=== PATIENT | female | born 1995 | race Two or more races ===

== ENCOUNTER → 2017-12-14 16:15 | Outpatient (CLI) | payer OTHER, SELFPAY ==
--- NOTE | 2017-12-14 | TONS_PTH ---
PATIENT: CLARISSE GONZALEZ LOC: [facility] U#:[id number] AGE/SX: 29/F ROOM: RE12/14/[address]: Dr. Zain Barbour MD : 1995 BED: DIS: SPEC #: [id number] RECD: 12/14/17 16:14 STATUS: DANIEL IRWIN #: [id number] IBAN: 12/14/17 00:[address]: Zain Barbour DEPT: SURGICAL PATHOLOGY RECD BY: Brian More ENTERED: 12/15/17 09:55 SP TYPE: TONSILS MELLO DR: LOUIE Tissues: Tonsil, NOS Procedures: Surgery Specimen Level III HEADER OPERATION: Tonsillectomy PRE-OP DIAGNOSIS: Chronic tonsillitis TISSUE SUBMITTED: Tonsil, right pinned MICROSCOPIC DIAGNOSIS Right and left tonsils, bilateral tonsillectomies: Benign lymphoid follicular hyperplasia, consistent with chronic tonsillitis. Organisms consistent with actinomyces. AM:petey 12/16/17 MICROSCOPIC DESCRIPTION Slides are reviewed. GROSS DESCRIPTION Received is one container labeled with the patient's name and designated tonsils - pin on right are two tonsils that in aggregate weigh 13.7 gm. The right tonsil has a pin on it and measures 4.5 x 2 x 2 cm. The left tonsil measures 3.5 x 2.5 x 2 cm. Both tonsils are similar in appearance. The external surfaces are pink-coates, smooth, glistening and somewhat lobulated. Focally they are hemorrhagic, granular and bear cautery artifact. Serial cross sections through the tonsils reveal normal tonsillar architecture. Sections are submitted in two cassettes as follows: 1 - right tonsil, 2 - left tonsil. / SJ:petey 12/15/17 TC:Nelsy [facility]: [id number] [phone]
== END ==
PROVIDERS: Visit Provider Otolaryngology
DX: J35.01 Chronic tonsillitis (principal)
CPT/HCPCS: 88304

== ENCOUNTER → 2018-01-05 16:40 | Outpatient (CLI) | payer OTHER, SELFPAY | PROVIDERS: Visit Provider Otolaryngology Otolaryngology/Facial Plastic Surgery | DX: J02.9 Acute pharyngitis, unspecified (principal) | CPT/HCPCS: 87070 ==

== ENCOUNTER → 2019-10-31 14:19 | Outpatient (CLI) | payer BC, SELFPAY | PROVIDERS: Visit Provider Family Medicine Hospice and Palliative Medicine | DX: Z11.59 Encounter for screening for other viral diseases (principal) | CPT/HCPCS: 87635; G2023; U0003 ==

== ENCOUNTER 2024-02-14 11:12 | Emergency (ER) | payer OTHER, SELFPAY ==
[2024-02-14 11:13] VITALS: BP 151/85; PULSE 91; RESP 18; TEMP 36.6; O2SAT 100; BMI 39.3
[2024-02-14 12:02] LABS: Bacteria 0 SEEN /hpf (None Seen); Mucous, Urine 0 SEEN /hpf (<or=2+)
[2024-02-14 12:09] LABS: Color, Urine Yellow (Yellow); Glucose, Dipstick Normal (Normal); Ketone-Dipstick Negative (Negative); Leukocyte Esterase-Dipstick 500 /ul (Negative); Nitrite-Dipstick Positive (Negative); Occult Blood-Urine 250 /ul (Negative); Protein-Dipstick 100 mg/dl (Negative); Urine Bilirubin Dipstick Negative (Negative); Urine Clarity Sl. Cloudy (Clear); Urine Urobilinogen Normal (Normal); Urine pH 6.5 (5.0 - 8.0)
[2024-02-14 12:15] LABS: Red Blood Cells-Urine > 100 SEEN /hpf (0-5); Squamous Epithelial Cells - UA 0-5 SEEN /hpf (5-10); White Blood Cells 50-100 SEEN /hpf (0-5)
--- NOTE | 2024-02-14 12:33 | EX.ED.DYSGE1 ---
HPI History of Present Illness Chief Complaint: Flank Pain Informant: patient Narrative Narrative: 28-year-old female presenting to the emergency room with a chief complaint of left flank pain. Patient states that on Wednesday she began to wonder if she was getting a urinary tract infection and she noticed an odor and color change of the urine. This morning around 0 500 she developed waxing and waning sharp stabbing pain in the left flank. There is no abdominal component to it. No fever. She has had prior kidney stone before does not required surgery. She denies any prior abdominal surgeries. [facility] Medical History (Updated 02/14/24 @ 14:[address] Pablo Wayen, ) Kidney stone Home Medications ?Medication ?Instructions ?Recorded ?Last Taken ?Type ondansetron 4 mg disintegrating 4 mg PO Q6H PRN PRN Nausea #15 tabs 02/14/24 Unknown Rx tablet oxycodone-acetaminophen 5 mg-325 1 tab PO Q6H PRN PRN Pain 3 days 02/14/24 Unknown Rx mg tablet #12 TABLETS sulfamethoxazole 800 1 tab PO BID #20 TABLETS 02/14/24 Unknown Rx mg-trimethoprim 160 mg tablet Allergy/AdvReac Type Severity Reaction Status Date / Time Penicillins (PCN) Allergy Intermediate Hives Verified 02/14/24 11:13 Social History Smoking Status: Never smoker ROS ROS ED Constitutional Constitutional ED: Reports chills; Denies fever(s) or weight loss Eyes Eyes: Denies change in vision or diplopia ENT ENT ED: Denies ear pain, rhinorrhea or sore throat Cardiovascular Cardiovascular: Denies chest pain, orthopnea, palpitations or racing heartbeat Respiratory/Chest Respiratory/Chest: Denies cough, dyspnea or orthopnea Gastrointestinal Gastrointestinal: Reports nausea; Denies abdominal pain, diarrhea or vomiting Genitourinary Genitourinary ED: Denies dysuria, hematuria or urinary frequency Musculoskeletal Musculoskeletal: Reports back pain; Denies arthralgias or myalgias Integumentary Denies abscess or rash Neurologic Neurologic: Denies headache(s) or weakness Psychiatric Psychiatric: Denies anxiety, depression, suicidal ideation or suicidal thoughts Endocrine Endocrinology: Denies polydipsia, polyphagia or polyuria Allergic/Immunologic Allergic/Immunologic ED: Denies mouth swelling, tongue swelling or urticaria EXAM Physical Exam Const Vital Signs: 02/14/24 11:13 Temperature 97.9 F Temperature Source Oral Pulse Rate 91 Respiratory Rate 18 Blood Pressure 151/85 H Blood Pressure Mean 107 Pulse Ox 100 Oxygen Delivery Method Room Air Positive well nourished, well developed and obese General Appearance ED: well developed Nutritional Appearance: obese HEENT Reports normocephalic, head/scalp atraumatic and moist mucous membranes Eyes PERRL and EOMs intact bilaterally Neck no lymphadenopathy, supple and no JVD Resp normal respiratory effort and clear to auscultation bilaterally Cardio regular rate, regular rhythm and no murmurs GI normal to inspection, nondistended, normoactive bowel sounds and non-tender Palpation: soft Back/Spine normal ROM General Back: CVA tenderness left Extremity normal to inspection General Extremety ED: Negative for edema General Extremity: Negative for edema Neuro oriented x3 and CN's II-XII intact bilaterally Sensorium / Orientation: alert Motor Exam: strength 5/5 throughout Psych mental status grossly normal Mood & Affect: Negative for depressed or tearful Skin no rashes or lesions noted and no wounds MDM MDM MDM Narrative Medical decision making narrative: Differential diagnosis includes but not limited to kidney stone with colic pyelonephritis dehydration renal abscess White count 8.1 hemoglobin 12.2 platelet count of 200 urinalysis 50-100 white cells 0 bacteria greater than 100 red cells positive nitrates. This will be sent for culture. Hospital was out of urine and serum test other than a quantitative hCG so this was required to be performed which [place] fortunately delayed the patient's ED course. This turned out to be less than 1 and the patient was taken for CT. No obvious ureterolithiasis was noted however there is a right renal stone at 2.4 mm. There is some mild left periureteral edema which could be related to a passed stone but could also be related to infection. Given her pain is continued the white cells the positive nitrates and going to treat her with antibiotic Bactrim. I will also be writing for pain and nausea medication. The above findings were discussed including the differential with the patient who notes understanding. Follow-up with primary care return if worsening History & Record Review Discussion w/independent historian: Patient Lab Data Attestation: I reviewed the patient's lab results. Labs: Laboratory Results - last 24 hr 02/14/24 11:58 WBC 8.1 RBC 4.10 L Hgb 12.2 Hct 36.5 L MCV 89.0 MCH 29.8 MCHC 33.4 RDW Std Deviation 40.4 RDW Coeff of Harinder 12.4 Plt Count 200 MPV 10.5 Immature Gran % (Auto) 0.400 Neut % (Auto) 72.8 H Lymph % (Auto) 19.8 [place] % (Auto) 5.3 Eos % (Auto) 1.2 Baso % (Auto) 0.5 Absolute Neuts (auto) 5.9 Absolute Lymphs (auto) 1.61 Nucleated RBC % 0 Sodium 138 Potassium 4.2 Chloride 107 Carbon Dioxide 27.0 Anion Gap 4 L BUN 8 Creatinine 0.74 Estim Creat Clear Calc 135.25 Est GFR (MDRD) Af Amer 122 Est GFR (MDRD) Non-Af 101 BUN/Creatinine Ratio 10.8 Glucose 107 H Calcium 9.1 HCG, Quant < 1 Serum , Qual Cancelled Urine Color Yellow Urine Clarity Sl. Cloudy Urine pH 6.5 Ur Specific [place] 1.010 Urine Protein 100 H Urine Glucose (UA) Normal Urine Ketones Negative Urine Occult Blood 250 H Urine Nitrite Positive H Urine Bilirubin Negative Urine Urobilinogen Normal Ur Leukocyte Esterase 500 H Urine RBC > 100 SEEN Urine WBC 50-100 SEEN Ur Squamous Epith Cells 0-5 SEEN Urine Bacteria 0 SEEN Urine Mucus 0 SEEN Radiography Diagnostic Testing: Clinical Impression(s) from Imaging Studies Abdomen/Pelvis CT 02/14/24 13:13 IMPRESSION: 1. Mild left periureteral edema likely related to a recently passed stone. 2. 2.4 mm right renal stone. Electronically Signed: David Mendez MD at 14:10 EDT , Discharge Plan Triage Chief Complaint: Flank Pain ED Provider: Pablo Wayne Dx/Rx/DC Orders Clinical Impression: Pyelonephritis, Acute flank pain Instructions: ED Pyelonephritis, Female (Adult) Prescriptions: New oxycodone-acetaminophen 5-325 mg tablet 1 tab PO Q6H PRN PRN (Reason: Pain) 3 Days Qty: 12 0RF ondansetron 4 mg tablet,disintegrating 4 mg PO Q6H PRN PRN (Reason: Nausea) Qty: 15 0RF sulfamethoxazole-trimethoprim 800-160 mg tablet 1 tab PO BID Qty: 20 0RF Primary Care Provider: Pamela Hylton Referrals: [facility] Doctor,Out of [Non-Staff] - Print Language: Nam[place]ian Disposition Disposition: Home, Self Care Discharge Date/Time: 02/14/24 14:47
[2024-02-14] MEDS: Ketorolac 30 MG/ML Syringe IV (12:39)
[2024-02-14] MEDS: Ondansetron 4 MG/2 ML Vial IV (12:39)
[2024-02-14] MEDS: Morphine 4 MG/ML Syringe IV (12:40)
[2024-02-14 13:06] LABS: Absolute Lymphocyte Count 1.61 X10^3/uL (0.83-4.51); Absolute Neutrophil Count 5.9 X10^3/uL (2.0-7.7); Basophil# 0.04 X10^3/uL; Basophil% 0.5 % (0-1); Eosinophils% 1.2 % (0-5); Hematocrit 36.5 % (37-47); Hemoglobin 12.2 g/dL (12.0-15.0); Lymphocyte # 1.61 X10^3/ul (0.83-4.51); Lymphocyte % 19.8 % (19-41); Mean Corp Hgb Conc 33.4 g/dL (32-36); Mean Corpuscular Hgb 29.8 pg (27.0-32.0); Mean Platelet Vol. 10.5 fl (6.2-12.0); Monocyte# 0.43 X10^3/uL; Monocyte% 5.3 % (0-10); NRBC Flagged by Analyzer 0 % (0-5); Neutrophil # 5.92 X10^3/uL (2.7-7.7); Neutrophil % 72.8 % (47-70); Platelet Count 200 K/mm3 (150-450); RBC Distribution Width CV 12.4 % (11.6-14.6); RBC Distribution Width SD 40.4 fl (35.1-43.9); White Blood Count 8.1 K/mm3 (4.4-11.0); hCG Titer Quant., Serum < 1 mIU/mL (1-3)
--- NOTE | 2024-02-14 13:13 | CT_ITS ---
EXAM: CT ABDOMEN AND PELVIS WITHOUT INTRAVENOUS CONTRAST CLINICAL INDICATION: kidney stone left flank pain TECHNIQUE: Helically acquired images were obtained of the abdomen and pelvis without intravenous contrast. This CT exam was performed using one or more of the following dose reduction techniques: automated exposure control, adjustment of the mA and/or kV according to patient size, and/or use of iterative reconstruction technique. COMPARISON: No relevant prior studies available. FINDINGS: LOWER THORAX: Normal. Lung bases are clear. No cardiomegaly. No pericardial effusion. ABDOMEN: LIVER: Normal. Homogeneous. GALLBLADDER AND BILE DUCTS: Normal. No calcified gallstones. No gallbladder distention or wall edema. No intra- or extrahepatic biliary ductal dilation. PANCREAS: Normal. No focal cystic mass. SPLEEN: Normal. Normal size without focal cystic or solid mass. ADRENALS: Normal. No nodules. KIDNEYS AND URETERS: Nonobstructive 2.4 mm right renal stone. There is mild left periureteral fat stranding without meg hydronephrosis or hydroureter may represent changes of recently passed stone. STOMACH AND BOWEL: Normal. No bowel distention. No focal inflammatory change. PELVIS: APPENDIX: Appendix is visualized and normal in appearance. BLADDER: Normal. REPRODUCTIVE: Unremarkable as visualized. No mass. ABDOMEN and PELVIS: INTRAPERITONEAL SPACE: Physiological amount of free fluid noted within the pelvis. No free air. BONES/JOINTS: No suspicious lytic or blastic abnormality. SOFT TISSUES: Normal. No discrete abdominal or pelvic wall hernia. VASCULATURE: Normal. Abdominal aorta is non-dilated. LYMPH NODES: Normal. No enlarged lymph nodes. CT/Abdomen/Pelvis without Cont IMPRESSION: 1. Mild left periureteral edema likely related to a recently passed stone. 2. 2.4 mm right renal stone. Electronically Signed: David Mendez MD at 14:10 EDT ,
[2024-02-14 13:15] LABS: Anion Gap 4 (5-15); BUN 8 mg/dL (7-18); BUN/Creat Ratio 10.8 RATIO (10-20); Calcium,Total 9.1 mg/dL (8.5-10.1); Chloride 107 mmol/L (98-107); Creatinine, Serum 0.74 mg/dL (0.55-1.02); EST Glomerular Filtration Rate 101 mL/min (>60); Est Glom Filt Rate - Afr Amer 122 mL/min (>60); Estimated Creatinine Clearance 135.25 ml/min; Glucose 107 mg/dL (74-106); Potassium 4.2 mmol/L (3.5-5.1); Sodium Level 138 mmol/L (136-145)
== END 2024-02-14 14:47 | disposition home or self-care (01) ==
PROVIDERS: Emergency Provider Emergency Medicine; PCP Family Medicine; Visit Provider Emergency Medicine
DX: N12 Tubulo-interstitial nephritis, not specified as acute or chronic (principal); E66.9 Obesity, unspecified; Z88.0 Allergy status to penicillin; Z87.442 Personal history of urinary calculi
CPT/HCPCS: 74176; 80048; 81001; 84702; 84703; 85025; 87086; 87088; 87186; 96374; 96375; 99283; A4216; J2405

== ENCOUNTER 2024-11-12 12:05 | Emergency (ER) | payer OTHER, SELFPAY ==
[2024-11-12 12:06] VITALS: BP 136/100; PULSE 63; RESP 16; TEMP 36.8; O2SAT 100; BMI 39.2
[2024-11-12 12:25] VITALS: BP 136/100; PULSE 63; RESP 16; TEMP 36.8; O2SAT 100
--- OUTSIDE RECORDS SUMMARY | 2024-11-12 12:50 | XMS RPT_ITS | CCD ---
Author Organization [facility] Care Team Providers Care Compensator Name Role Phone Gibson Del Cid Unavailable Unavailable NORIS HYLTON DO Primary Care Physician Unavailable Primary Care Provider Unavailabl e Unavailable Primary Care Provider Unavailping e NORIS HYLTON DO Primary Care Physician [phone] Unavailable Primary Care Provider Unavailabl e FRANCE BERNAL Attending Unavailable GENA ODONNELL Attending Unavailable TIKI TOLEDO Attending Unavailable SELF Referring Unavailable SCOTTIE LANG Attending Unavailable JULIANO CEJA Attending Unavailable CONCETTA DOTIANORIS Attending Unavailable CONCETTA DO, NORIS Primary Care Unavailable TRINA INGRAM MD Attending Unavailable CONCETTA DO, NORIS Primary Care Unavailable BEITLER EXTRACTIONS TECHNICIAN-CNM, MARIAELENA Dominguez Attending Unav ailable CONCETTA DO, NORIS Primary Care Unavailable TRINA IGNRAM MD Attending Unavailable CONCETTA DO, NORIS Primary Care Unavailable BEITLER EXTRACTIONS TECHNICIAN-CNM, MARIAELENA Dominguez Attending Unav ailable CONCETTA DO, NORIS Primary Care Unavailable BEITLER EXTRACTIONS TECHNICIAN-CNM, MARIAELENA R Attending Unav ailable CONCETTA DO, NORIS Primary Care Unavailable CONCETTA DO, NORIS Attending Unavailable CONCETTA DO, NORIS Primary Care Unavailable Concetta DO, Noris M Primary Care Provider [phone] Concetta Noris Primary Care Unavailable Pablo Wayne Attending Unavailable MARIAELENA SAUL Referring Unavailable NORIS HYLTON Primary Care Unavailable NORIS HYLTON M Primary Care Unavailable NORIS HYLTON M Primary Care Unavailable RITCHIE HUGGINS Attending Unavailable FIONA PATINO Attending Unavailable NORIS HYLTON Primary Care Unavailable NORIS HYLTON M Primary Care Unavailable CONCETTA, NORIS M Primary Care Unavailable CONCETTA MAYNARD, NORIS Primary Care Unavailable MADINA NG, GERTRUDIS Attending Unavailable CONCETTA MAYNARD, NORIS Primary Care Unavailable RACH SCHAEFER Attending Unavail able CONCETTA MAYNARD, NORIS Primary Care Unavailable JOAO NG, NELSON Lewis Attending Unavail able CONCETTA MAYNARD, NORIS Primary Care Unavailable NORIS HYLTON DO Attending Unavailable Allergies Allergy Classification Reported Allergen(s) Allergy Type Date of Onset Reaction(s) Facility (14 sources) Penicillin; Translations: [penicillins] Drug Allergy [facility] (14 sources) Penicillins; Translations: [penicillins] Drug Intolerance 0 Hives, Urticaria (disorder) [facility] Work Phone: (17 sources) [facility] Work Phone: (1 source) Penicillins Drug allergy (disorder) 4 [facility] (2 sources) Penicillins Drug Intolerance 0 [facility] Medications Current Medications Medication Drug Class(es) Dates Sig (Normalized) Sig (Original) busPIRone hydrochloride 5 mg oral tablet (2 sources) Start: 01-05-2024 busPIRone 5 mg oral tablet Dose : 5 mg = 1 tab(s), Oral, TID, # 90 tab(s), 5 Refill(s), Pharmacy: [facility]/pharmacy #[id number], Anxiety, 165, cm, 01/05/24 11:32:00 EDT, Height, kg, 01/05/24 11:32:00 EDT, Dosing Weight Start Date: 01/05/24 Status: Ordered Start: 08-27-2021 busPIRone 5 mg oral tablet Dose : 5 mg = 1 tab(s), Oral, BID, new medication, # 60 tab(s), 5 Refill(s), Pharmacy: [facility]/pharmacy #[id number], Anxiety and depression, 165.5, cm, 08/27/21 8:01:00 EDT, Height Start Date: 08/27/21 Status: Ordered cetirizine hydrochloride 10 mg oral tablet (18 sources) Histamine-1 Receptor Antagonist Start: 06-23-2023 cetirizine 10 mg oral tablet Dose : 10 mg = 1 tab(s), Oral, qDay, # 30 tab(s), 2 Refill(s), [id number], Seasonal allergies, 166.5, cm, 06/23/23 13:38:00 EST, Height, kg, 06/23/23 13:38:00 EST, Dosing Weight Start Date: 06/23/23 Status: Ordered Start: 06-23-2023 take 1 tablet by mouth once ce tirizine (ZYRTEC) 10 mg tablet Take 1 tablet by mouth every afternoon. 06/23/2023 Active Start: 01-06-2021 End: 09-09-2021 cetirizine 10 mg oral tablet Dose : 10 mg = 1 tab(s), Oral, qDay, # 30 tab(s), 5 Refill(s), [id number], Seasonal allergies, 165.5, cm, 08/27/21 8:01:00 EDT, Height, kg, 08/27/21 8:01:00 EDT, Dosing Weight Start Date: 08/27/21 Status: Ordered Comment on above: Take 1 tablet by maranda th every afternoon. ciprofloxacin 250 mg oral tablet (1 source) Quinolone Antimicrobial Start: 08-28-19 End: 09-04-19 take 1 tablet by mouth twice daily ciprofloxacin HCl (CIPRO) 250 mg tablet Indications: Cystitis Take 1 tablet by mouth twice daily for 7 days. 14 tablet 0 08/27/2022 09/03/2022 Active Comment on above: Take 1 tablet by maranda th twice daily for 7 days. doxycycline hyclate 100 mg oral capsule (1 source) Tetracycline-class Drug Start: 03-26-20 End: 04-02-20 doxycycline hyclate 100 mg oral capsule Dose : 100 mg = 1 cap(s), Oral, BID, X 7 day(s), # 14 cap(s), 0 Refill(s), 04/02/21 15:04:00 EST, Pharmacy: [facility]/pharmacy #[id number], Fever Myalgia, 162.5, cm, 03/26/21 13:26:00 EST, Height, 104.5, kg, 03/26/21 13:26:00 EST, Dosing Weight Start Date: 03/26/21 Stop Date: 04/02/21 Status: Ordered escitalopram 20 mg oral tablet (20 sources) Serotonin Reuptake Inhibitor Start: 10-13-19 End: 04-10-20 escitalopram 20 mg oral tablet Dose : 20 mg = 1 tab(s), Oral, qDay, # 30 tab(s), 5 Refill(s), [id number], Recurrent major depression Anxiety, 164, cm, 10/12/24 10:36:00 EDT, Height, kg, 10/12/24 10:36:00 EDT, Dosing Weight Start Date: 10/12/24 Stop Date: 04/10/25 Status: Ordered Quantity: 30.0 Unit: tab(s) Repeat number: 6 Indications: Major depressive disorder, recurrent, unspecified; Anxiety disorder, unspecified; Start: 01-05-2024 take 1 tablet by mouth once es citalopram oxalate (LEXAPRO) 20 mg tablet Take 1 tablet by mouth every afternoon. 01/05/2024 Active Start: 01-05-2024 End: 07-03-2024 escitalopram 20 mg oral tabl et Dose : 20 mg = 1 tab(s), Oral, qDay, # 30 tab(s), 5 Refill(s), Pharmacy: [facility]/pharmacy #[id number], Recurrent major depression Anxiety, 165, cm, 01/05/24 11:32:00 EDT, Height, kg, 01/05/24 11:32:00 EDT, Dosing Weight Start Date: 01/05/24 Stop Date: 07/03/24 Status: Ordered Quantity: 30.0 Unit: tab(s) Repeat number: 6 Indications: Major depressive disorder, recurrent, unspecified; Anxiety disorder, unspecified; Start: 11-24-2023 take 1 tablet by maranda th once daily escitalopram oxalate (LEXAPRO) 10 mg tablet TAKE 1 TABLET BY MOUTH ONCE DAILY FOR 2 WEEKS THEN INCREASE TO 20MG TABLET 11/24/2023 Active Start: 08-27-2021 End: 06-28-2023 escitalopram oxalate (LEXAPR O) 20 mg tablet 20 mg. 0 08/27/2021 06/28/2023 Discontinued Start: 01-06-2021 End: 07-14-2022 escitalopram 10 mg oral tabl et Dose : 10 mg = 1 tab(s), Oral, qDay, # 30 tab(s), 0 Refill(s), Pharmacy: [facility]/pharmacy #[id number], 166, cm, 06/13/21 11:35:00 EST, Height, kg, 06/13/21 11:35:00 EST, Dosing Weight Start Date: 08/01/21 Status: Ordered Comment on above: Take 10 mg by mouth once daily. 20 mg. etonogestrel 68 mg drug implant (9 sources) Progestin Start: 11-12-19 21 inject 1 dose by subcutaneous injection once Nexplanon 68 mg subcutaneous implant Dose : 68 mg = 1 EA, Subcutaneous, Once, 0 Refill(s) Start Date: 11/11/20 Status: Ordered End: 07-14-2022 etonogestrel (NEXPLANON) 68 mg impl subdermal implant 68 mg by SUBDERMAL route. 0 07/14/2022 Discontinued Comment on above: 68 mg by SUBDERMAL r oute. fluconazole 100 mg oral tablet (5 sources) Azole Antifungal Start: 10-12-2024 End: 10-19-2024 Diflucan 100 mg oral tablet Dose : 100 mg = 1 tab(s), Oral, qDay, X 7 day(s), # 7 tab(s), 0 Refill(s), 10/19/24 11:22:00 AM EDT, Pharmacy: [facility]/pharmacy #[id number], Vulvovaginal discomfort, 164, cm, 10/12/24 10:36:00 EDT, Height, 103.9, kg, 10/12/24 10:36:00 EDT, Dosing Weight Start Date: 10/12/24 Stop Date: 10/19/24 Status: Ordered Quantity: 7.0 Unit: tab(s) Repeat number: 1 Indications: Pelvic and perineal pain; Start: 07-12-2024 End: 07-12-2024 fluconazole (DIFLUCAN) 150 m g tablet Indications: Vaginal yeast infection Take 1 tablet by mouth one time only for 1 dose. If symptoms have not improved in 72 hours may take second dose 2 tablet 07/12/2024 07/12/2024 Active Start: 04-06-2023 End: 04-06-2023 take 1 tablet by mouth once fluconazole (DIFLUCAN) 150 mg tablet Indications: Vaginal yeast infection Take 1 tablet by mouth one time only for 1 dose. 1 tablet 0 04/06/2023 04/06/2023 Start: 01-17-2023 End: 01-17-2023 take 1 tablet by mouth once fluconazole (DIFLUCAN) 150 mg tablet Indications: Vaginal candidiasis Take 1 tablet by mouth one time only for 1 dose. 1 tablet 0 01/17/2023 01/17/2023 Active Start: 11-03-2021 End: 11-03-2021 fluconazole (DIFLUCAN) 150 m g tablet Take 1 tablet by mouth one time only for 1 dose. Repeat in 3 days as needed. 2 tablet 0 11/03/2021 11/03/2021 Active Comment on above: Take 1 tablet by maranda th one time only for 1 dose. Repeat in 3 days as needed. Take 1 tablet by maranda th one time only for 1 dose. fluticasone propionate 0.05 mg/actuat metered dose nasal spray (8 sources) Corticosteroid Start: 06-23-2023 fluticasone proprionate NASAL 50 mcg/ spray 100 mcg Dose = 2 spray(s), Nostril, each, qDay, shake well before using, # 1 EA, 2 Refill(s), [facility]acy: [facility] #[id number], Seasonal allergies, 166.5, cm, 06/23/23 13:38:00 EST, Height, kg, 06/23/23 13:38:00 EST, Dosing Weight Start Date: 06/23/23 Status: Ordered Start: 07-14-2022 End: 06-28-2023 take 1 spray(s) nasal route twice daily fluticasone (FLONASE ALLERGY RELIEF) 50 mcg/actuation nasal spray Indications: Acute non-recurrent maxillary sinusitis Use 1 Buhler in each nostril twice daily. 9.9 mL 0 07/14/2022 06/28/2023 Discontinued Comment on above: Use 1 Buhler in each nostril twice daily. hydrOXYzine pamoate 25 mg oral capsule (6 sources) Antihistamine Start: 07-16-19 End: 07-15-19 take 1 capsule by mouth every eight hours as needed for anxiety and anxiety hydrOXYzine pamoate (VISTARIL) 25 mg capsule Indications: Anxiety Take 1 capsule by mouth three times daily as needed. 30 capsule 0 07/15/2020 07/14/2022 Discontinued Comment on above: Take 1 capsule by [facility] three times daily as needed. lactobacillus rhamnosus gg [id number] unt oral capsule (6 sources) Start: 09-10-19 End: 07-15-19 take 1 capsule by mouth once daily lactobacillus rhamnosus (CULTURELLE) 15 billion cell capsule Take 1 capsule by mouth once daily. 30 capsule 0 09/09/2020 07/14/2022 Discontinued Comment on above: Take 1 capsule by [facility] once daily. metroNIDAZOLE 500 mg oral tablet (6 sources) Nitroimidazole Antimicrobial Start: 02-10-20 End: 02-17-20 take 1 tablet by mouth twice daily metroNIDAZOLE (FLAGYL) 500 mg tablet Take 1 tablet by mouth two times a day for 7 days. 14 tablet 02/10/2024 02/17/2024 Active Start: 11-04-2023 End: 11-11-2023 take 1 tablet by mouth twice daily metroNIDAZOLE (FLAGYL) 500 mg tablet Take 1 tablet by mouth two times a day for 7 days. 14 tablet 0 11/04/2023 11/11/2023 Active Start: 11-03-2021 End: 11-10-2021 take 1 tablet by mouth twice daily metroNIDAZOLE (FLAGYL) 500 mg tablet Take 1 tablet by mouth twice daily for 7 days. 14 tablet 0 11/03/2021 11/10/2021 Active Start: 10-15-2021 End: 10-22-2021 take 1 tablet by mouth twice daily metroNIDAZOLE (FLAGYL) 500 mg tablet Take 1 tablet by mouth twice daily for 7 days. 14 tablet 0 10/15/2021 10/22/2021 Active Comment on above: Take 1 tablet by [facility] twice daily for 7 days. Multivitamin preparation (1 source) Start: 025 take 1 tablet by mouth once daily Multivitamin Dose = 1 tab(s), Oral, Daily, 0 Refill(s) Start Date: 10/12/24 Status: Ordered Repeat number: 1 Nexplanon 68 mg subcutaneous implant (2 sources) Start: 021 inject 1 dose by subcutaneous injection once Nexplanon 68 mg subcutaneous implant Dose : 68 mg = 1 EA, Subcutaneous, Once, 0 Refill(s) Start Date: 11/11/20 Status: Ordered nitrofurantoin, macrocrystals 100 mg oral capsule (1 source) Nitrofuran Antibacterial Start: End: nitrofurantoin macrocrystals 100 mg oral capsule Dose : 100 mg = 1 cap(s), Oral, QID, X 7 day(s), # 28 cap(s), 0 Refill(s), 08/19/21 16:16:00 EDT, Pharmacy: [facility]/pharmacy #[id number], 162.6, cm, 08/12/21 15:51:00 EDT, Height, 107.8 Start Date: 08/12/21 Stop Date: 08/19/21 Status: Ordered sertraline 25 mg oral tablet (13 sources) Serotonin Reuptake Inhibitor Start: sertraline 25 mg oral tablet Dose : 25 mg = 1 tab(s), Oral, qDay, # 30 tab(s), 2 Refill(s), [id number], Anxiety and depression, 166.5, cm, 06/23/23 13:38:00 EST, Height, kg, 06/23/23 13:38:00 EST, Dosing Weight Start Date: 06/23/23 Status: Ordered Start: 06-23-2023 take 1 tablet by mouth once se rtraline (ZOLOFT) 25 mg tablet Take 1 tablet by mouth every afternoon. 06/23/2023 Active Comment on above: Take 1 tablet by maranda th every afternoon. sulfamethoxazole 800 mg / trimethoprim 160 mg oral tablet (1 source) Dihydrofolate Reductase Inhibitor Antibacterial, Sulfonamide Antimicrobial Start: 06-28-19 End: 07-05-19 take 1 tablet by mouth twice daily sulfamethoxazole-t rimethoprim (BACTRIM DS) 800-160 mg per tablet Indications: Recurrent UTI (urinary tract infection) Take 1 tablet by mouth two times a day for 7 days. 14 tablet 0 06/28/2023 07/05/2023 Active Comment on above: Take 1 tablet by maranda th two times a day for 7 days. topiramate 100 mg oral tablet (6 sources) Start: 10-13-19 topiramate 100 mg oral tablet Dose : 100 mg = 1 tab(s), Oral, BID, # 60 tab(s), 0 Refill(s) Start Date: 10/12/24 Status: Ordered Quantity: 60.0 Unit: tab(s) Repeat number: 1 Start: 06-08-2024 take 1 tablet by maranda th twice daily topiramate 50 mg oral tablet TAKE 1 TABLET BY MOUTH TWICE A DAY Start Date: 06/08/24 Status: Ordered Repeat number: 1 Start: 05-10-2024 take 1 tablet by maranda th every twelve hours topiramate (TOPAMAX) 100 mg tablet Take 100 mg by mouth every 12 hours. Take one(1) tablet two(2) times daily. 05/10/2024 Active Start: 05-10-2024 take 2 tablets by [facility] every twelve hours topiramate (TOPAMAX) 50 mg tablet Take 100 mg by mouth every 12 hours. Take one(1) tablet two(2) times daily. 05/10/2024 Active Vitamin D3 1250 mcg (50,000 intl units) oral capsule (3 sources) Start: 10-12-2024 Vitamin D3 125 0 mcg (50,000 intl units) oral capsule Dose : 1,250 mcg = 1 cap(s), Oral, qWeek, # 12 cap(s), 0 Refill(s) Start Date: 10/12/24 Status: Ordered Quantity: 12.0 Unit: cap(s) Repeat number: 1 Start: 01-05-2024 Vitamin D3 125 0 mcg (50,000 intl units) oral capsule Dose : 1,250 mcg = 1 cap(s), Oral, qWeek, # 13 cap(s), 3 Refill(s), Pharmacy: [facility]/pharmacy #[id number], Vitamin D deficiency, 165, cm, 01/05/24 11:32:00 EDT, Height, kg, 01/05/24 11:32:00 EDT, Dosing Weight Start Date: 01/05/24 Status: Ordered Start: 06-24-2023 Vitamin D3 125 0 mcg (50,000 intl units) oral capsule Dose : 1,250 mcg = 1 cap(s), Oral, qWeek, # 13 cap(s), 4 Refill(s), Pharmacy: [facility] #[id number], Vitamin D deficiency, 166.5, cm, 06/23/23 13:38:00 EST, Height, kg, 06/23/23 13:38:00 EST, Dosing Weight Start Date: 06/24/23 Status: Ordered Completed/Discontinued Medications Medication Drug Class(es) Dates Sig (Normalized) Sig (Original) adapalene 1 mg/ml topical cream (6 sources) Retinoid Start: 01-10-20 End: 06-28-19 adapalene (DIFFERIN) 0.1 % cream Apply 1 maribel, Topical, qHS, apply a thin film to affected area after washing at bedtime. use with sunscreen and moisturizer., # 45 gram(s), 0 Refill(s), Pharmacy: [facility]/pharmacy #[id number], Cream, 162.6, cm, 01/10/20 16:23:00 EDT, Height, 97.7, kg, 01/10/20 1... 0 01/10/2020 06/28/2023 Discontinued Comment on above: Apply 1 maribel, Topical, qHS, apply a thin film to affected area after washing at bedtime. use with sunscreen and moisturizer., # 45 gram(s), 0 Refill(s), Pharmacy: [facility]/pharmacy #[id number], Cream, 162.6, cm, 01/10/20 16:23:00 EDT, Height, 97.7, kg, 01/10/20 1... albuterol MDI (90 mcg/inh) CFC free inhalation aerosol (5 sources) Start: 11-10-19 End: 12-10-19 take 2 puff(s) by inhalation every four hours albuterol MDI (90 mcg/inh) CFC free inhalation aerosol 2 puff(s), Inhalation, q4h, ok to fill generic equivalent rescue inhaler, # 1 EA, 0 Refill(s), Pharmacy: [facility]/pharmacy #[id number], 165, cm, 11/09/20 8:19:00 EDT, Height, kg, 11/09/20 8:19:00 EDT, Dosing Weight Start Date: 11/09/20 Stop Date: 12/09/20 Status: Ordered azithromycin 250 mg oral tablet (6 sources) Macrolide Antimicrobial Start: 07-07-19 End: 06-28-19 azithromycin (ZITHROMAX) 250 mg tablet take 2 tablets by mouth on day 1 IN ONE DOSE then 1 tablet on days 2 through 5 0 07/06/2022 06/28/2023 Discontinued Comment on above: take 2 tablets by mo okh on day 1 IN ONE DOSE then 1 tablet on days 2 through 5 loratadine 10 mg oral tablet (1 source) Start: 03-13-20 End: 03-23-20 loratadine 10 mg oral tablet Dose : 10 mg = 1 tab(s), Oral, qDay, # 10 tab(s), 0 Refill(s), Pharmacy: [facility]/pharmacy #[id number], Acute sinusitis, 162.6, cm, 03/13/21 11:07:00 EST, Height, kg, 03/13/21 11:07:00 EST, Dosing Weight Start Date: 03/13/21 Stop Date: 03/23/21 Status: Ordered 1 ml medroxyPROGESTERone acetate 150 mg/ml injection (7 sources) Progestin Start: 02-12-20 End: 07-15-19 inject 150 mg by intramuscular injection every three months medroxyPROGESTERone (DEPO-PROVERA) 150 mg/mL injection INJECT IM EVERY 3 MONTHS 02/12/2020 07/14/2022 Discontinued Comment on above: INJECT IM EVERY 3 MO NT methylPREDNISolone 4 mg oral tablet (6 sources) Corticosteroid Start: 07-15-19 End: 06-28-19 methylPREDNISolone (MEDROL, VIVIEN,) 4 mg Dose-Pack Indications: Acute non-recurrent maxillary sinusitis Take by mouth per package instructions 21 tablet 0 07/14/2022 06/28/2023 Discontinued Comment on above: Take by mouth per pa [facility] instructions miconazole nitrate 20 mg/ml vaginal cream (1 source) Azole Antifungal Start: 09-07-19 Monistat 7 vaginal cream with applicator Dose = 1 appl, Vaginal, qHS, # 45 gram(s), 0 Refill(s), Pharmacy: [facility]/pharmacy #[id number], 165, cm, 06/08/24 10:21:00 EST, Height, kg, 06/08/24 10:21:00 EST, Dosing Weight Start Date: 09/06/24 Status: Ordered Quantity: 45.0 Unit: g Repeat number: 1 mometasone furoate 0.05 mg/actuat metered dose nasal spray (1 source) Corticosteroid Start: 03-30-20 End: 09-10-19 take 2 spray(s) by mouth once daily mometasone (NASONEX) 50 mcg/actuation nasal spray Use 2 Sprays in the nose once daily. Rinse mouth after use. 1 Bottle 11 03/30/2020 09/09/2020 Discontinued Problems Active Problems Problem Classification Problem Date Documented Date Episodic/Chronic Abdominal pain (6 sources) Left sided abdominal pain; Translations: [Unspecified abdominal pain] Onset: 06-09-2024 02-14-2024 Episodic Anxiety disorders (16 sources) Mixed anxiety and depressive disorder; Translations: [Anxiety disorder] 11-25-2020 Chronic Genitourinary symptoms and ill-defined conditions (10 sources) Dysuria; Translations: [Dysuria] Onset: 04-06-2023 04-06-2023 Episodic Menstrual disorders (4 sources) Abnormal menstrual cycle; Translations: [Irregular menstruation, unspecified] Onset: 06-23-2023 Chronic Miscellaneous mental health disorders (4 sources) Confusional state 11-24-2023 Chronic Mood disorders (5 sources) Recurrent major depression 07-23-2023 Chronic Mycoses (3 sources) Candidiasis of vagina; Translations: [Vaginal candidiasis] 01-17-2023 Episodic Nutritional deficiencies (16 sources) Vitamin D deficiency; Translations: [Vitamin D deficiency, unspecified] 01-06-2021 Chronic Other diseases of bladder and urethra (1 source) Urethritis; Translations: [Other specified disorders of urethra] 09-21-2024 Episodic Other diseases of bladder and urethra (1 source) Other specified disorders of urethra; Translations: [Urethral irritation] Onset: 09-21-2024 Episodic Other female genital disorders (1 source) Vaginal bleeding; Translations: [Abnormal uterine and vaginal bleeding, unspecified] 02-09-2024 Chronic Other female genital disorders (4 sources) Vaginal discharge; Translations: [Other specified noninflammatory disorders of vagina] Episodic Other female genital disorders (2 sources) Other specified noninflammatory disorders of vagina; Translations: [Vaginal discharge] Onset: 04-06-2023 Episodic Other female genital disorders (3 sources) Pruritus of vagina; Translations: [Other specified noninflammatory disorders of vagina] 11-03-2023 Episodic Other female genital disorders (1 source) Vulvovaginal discomfort 10-12-2024 Episodic Other lower respiratory disease (15 sources) Hemoptysis 11-09-2020 Episodic Other non-traumatic joint disorders (1 source) Acute ankle pain; Translations: [Pain in right ankle and joints of right foot] 05-06-2020 Episodic Other nutritional; endocrine; and metabolic disorders (5 sources) Morbid obesity 07-23-2023 Chronic Other nutritional; endocrine; and metabolic disorders (1 source) Body mass index 30+ - obesity 10-12-2024 Chronic Other nutritional; endocrine; and metabolic disorders (5 sources) Weight gain 11-25-2020 Episodic Other screening for suspected conditions (not mental disorders or infectious disease) (5 sources) Viral screening status 07-23-2023 Episodic Other skin disorders (15 sources) Acne 01-10-2020 Episodic Other upper respiratory disease (15 sources) Seasonal allergy 01-06-2021 Chronic Other upper respiratory infections (11 sources) Acute sinusitis; Translations: [Acute upper respiratory infection] 11-09-2020 Episodic Residual codes; unclassified (3 sources) Requires diphtheria, tetanus and pertussis vaccination 06-13-2021 Episodic Residual codes; unclassified (4 sources) Nicotine-filled electronic cigarette user 01-05-2024 Episodic Screening and history of mental health and substance abuse codes (5 sources) Ex-smoker 04-12-2019 Episodic Spondylosis; intervertebral disc disorders; other back problems (1 source) Low back pain; Translations: [Low back pain, unspecified back pain laterality, unspecified chronicity, unspecified whether sciatica present] 09-21-2024 Episodic Unclassified (1 source) Unknown / UNK(Unknown) Onset: 01-20-2017 Unclassified (20 sources) Patient encounter status 10-17-2020 Unclassified (5 sources) Suspected disease caused by 2019-nCoV 12-11-2020 Unclassified (8 sources) Cancer cervix screening status 06-13-2021 Unclassified (1 source) Vaginal yeast infection; Translations: [Vaginal yeast infection] Onset: 04-06-2023 Unclassified (1 source) Vaginal candidiasis; Translations: [Vaginal candidiasis] Onset: 01-17-2023 Unclassified (1 source) Low back pain, unspecified back pain laterality, unspecified chronicity, unspecified whether sciatica present; Translations: [Low back pain, unspecified back pain laterality, unspecified chronicity, unspecified whether sciatica present] Onset: 09-21-2024 Viral infection (5 sources) Mononucleosis syndrome 11-23-2013 Episodic Past or Other Problems Problem Classification Problem Date Documented Date Episodic/Chronic Immunizations and screening for infectious disease (9 sources) At risk of sexually transmitted infection ; Translations: [Contact with and (suspected) exposure to infections with a predominantly sexual mode of transmission] Onset: 11-25-2022 01-17-2023 Episodic Inflammatory diseases of female pelvic organs (5 sources) Acute vaginitis; Translations: [Acute vaginitis] Onset: 11-25-2022 06-28-2023 Episodic Unclassified (1 source) LT ANKLE PAIN,INJURY BLACK AND BLUE Onset: 01-20-2017 Urinary tract infections (3 sources) Cystitis; Translations: [Cystitis, unspecified without hematuria] Onset: 06-28-2023 Episodic Results Test Name Value Interpretation Reference Range Facil ity CTPCRon 10-16-[address] Interp See CT Interp N Normal See CT Interp N [facility] Comment on above: Result Comment: Clinical Interpretation: C. trachomatis DNA not detected. Specimen is presumptive negative for C. trachomatis. A negative result does not preclude C. trachomatis infection because results depend on adequate specimen collection, absence of inhibitors, and sufficient DNA to be detected. Performed By: #### N GPCR1, CTPCR #### [address] [address] C.trachomatis PCR Negative Normal Negative [facility] Comment on above: Result Comment: Tatyana deleonar (PCR) assay performed on the Mariano Marvin 4800 system. Performed By: #### N GPCR1, CTPCR #### [address] [address] Chlam Source Urine Normal [facility] Comment on above: Performed By: #### N GPCR1, CTPCR #### [address] [address] [id number] 10-16-2024 GC PCR Source Urine Normal [facility] Comment on above: Performed By: #### N GPCR1, CTPCR #### [address] [place], [place] [address] N. gonorrhoeae (PCR) Negative Normal Negative [facility] Comment on above: Result Comment: Mole cular (PCR) assay performed on the Mariano Marvin 4800 System. Performed By: #### N GPCR1, CTPCR #### [facility] [address] [place] [address] N. gonorrhoeae Interp See NG Interp N Normal See NG Interp N [facility] Comment on above: Result Comment: Clinical Interpretation: N. gonorrhoeae DNA not detected. Specimen is presumptive negative for N. gonorrhoeae. A negative result does not preclude Neisseria gonorrhoeae infection because results depend on adequate specimen collection, absence of inhibitors, and sufficient DNA to be detected. Performed By: #### N GPCR1, CTPCR #### [facility] [address] [place] [address] LABORATORYOrdered By: Natasha Timmons on 10-12-2024 C. trachomatis DNA ESTHER+probe Ql (Unsp spec) Negative 2 (10/12/24 9:31 AM) Normal Negative [facility] Auto Viro/Sero SS Comment on above: Interpretive Data: M olecular (PCR) assay performed on the Mariano Marvin 4800 system. C. trachomatis DNA ESTHER+probe Ql (Unsp spec) See CT Interp N 3 (10/12/24 9:31 AM) Normal See CT Interp N AH Auto Viro/Sero SS Comment on above: Result Comment: Clinical Interpretation: C. trachomatis DNA not detected. Specimen is presumptive negative for C. trachomatis. A negative result does not preclude C. trachomatis infection because results depend on adequate specimen collection, absence of inhibitors, and sufficient DNA to be detected. N. gonorrhoeae DNA ESTHER+probe Ql (Unsp spec) Negative 1 (10/12/24 9:31 AM) Normal Negative [facility] Auto Viro/Sero SS Comment on above: Interpretive Data: M olecular (PCR) assay performed on the Mariano Marvin 4800 System. N. gonorrhoeae DNA ESTHER+probe Ql (Unsp spec) See NG Interp N 4 (10/12/24 9:31 AM) Normal See NG Interp N AH Auto Viro/Sero SS Comment on above: Result Comment: Clinical Interpretation: N. gonorrhoeae DNA not detected. Specimen is presumptive negative for N. gonorrhoeae. A negative result does not preclude Neisseria gonorrhoeae infection because results depend on adequate specimen collection, absence of inhibitors, and sufficient DNA to be detected. Laboratory - Specimen inform ationOrdered By: Sukhi Timmons on 10-12-2024 Specimen source Nom (Unsp spec) Urine (10/12/24 9:31 AM) Normal AH Auto Viro/Sero SS No Panel Informationon 10-12 Culture Urine No growth at 48 hours. [facility] Work Phone: LABORATORYOrdered By: Giselle Almonte on 10-05-2024 Appearance (U) Slightly Cloudy *ABN* (10/05/24 6:41 PM) Invalid Interpretation Code Clear AO Auto Urine SS Bilirubin Ql (U) Negative (10/05/24 6:41 PM) Normal Negative AO Auto Urine SS Color (U) Yellow (10/05/24 6:41 PM) Normal AO Auto Urine SS Crystals.amorphous LM.HPF (Urine sed) [#/Area] 2 /[HPF] Normal AO Auto Urine SS Glucose Test strip (U) [Mass/Vol] Negative Normal Negative AO Auto Urine SS HCG ( test) Ql Negative (10/05/24 6:41 PM) Normal AO Manual Urine SS Hemoglobin Auto test strip (U) [Mass/Vol] Negative (10/05/24 6:41 PM) Normal Negative AO Auto Urine SS Ketones Ql (U) Negative Normal Negative AO Auto Urine SS test (u) int Not detected Invalid Interpretation Code AO Manual Urine SS UA Leuk Est Negative (10/05/24 6:41 PM) Normal Negative AO Auto Urine SS UA Nitrite Negative (10/05/24 6:41 PM) Normal Negative AO Auto Urine SS UA pH 7.5 (10/05/24 6:41 PM) Normal 5.0 - 8.0 AO Auto Urine SS UA Protein Negative Normal Negative AO Auto Urine SS UA RBC Negative Normal 0-2 AO Auto Urine SS UA Spec Grav 1.015 (10/05/24 6:41 PM) Normal 1.015-1.025 AO Auto Urine SS UA Specimen Type Clean Catch (10/05/24 6:41 PM) Normal AO Auto Urine SS UA Squam Epithelial 3-5 /HPF Normal 0-20 AO Au to Urine SS UA Urobilinogen 0.2 E.U./dL Normal 0.2-1.0 AO Auto Urine SS WBC LM.HPF (Urine sed) [#/Area] 3-5 /HPF Normal 0-5 AO Auto Urine SS PREGUon 10-05-2024 HCG ( test) Ql (U) Negative Normal [facility] Comment on above: Performed By: #### P REGU, UA, UAMIC #### [place] [address] test (u) int Not detected Invalid Interpretation Code [facility] Comment on above: Performed By: #### P REGU, UA, UAMIC #### [place] [address] UAon 10-05-2024 Color (U) Yellow Normal [facility] Comment on above: Performed By: #### P REGU, UA, UAMIC #### [place] [address] Glucose (U) [Mass/Vol] Negative Normal Negative [facility] Comment on above: Performed By: #### P REGU, UA, UAMIC #### [place] [address] Ketones Ql (U) Negative Normal Negative [facility] Comment on above: Performed By: #### P REGU, UA, UAMIC #### [place] [address] UA Appear Slightly Cloudy Abnormal Clear [facility] Comment on above: Performed By: #### P REGU, UA, UAMIC #### [place] [address] UA Blood Negative Normal Negative [facility] Comment on above: Performed By: #### P REGU, UA, UAMIC #### [place] [address] UA Leuk Est Negative Normal Negative [facility] Comment on above: Performed By: #### P REGU, UA, UAMIC #### [place] [address] UA Nitrite Negative Normal Negative [facility] Comment on above: Performed By: #### P REGU, UA, UAMIC #### [place] [address] UA pH 7.5 Normal 5.0 - 8.0 [facility] Comment on above: Performed By: #### P REGU, UA, UAMIC #### [place] [address] UA Protein Negative Normal Negative [facility] Comment on above: Performed By: #### P REGU, UA, UAMIC #### [place] [address] UA Spec Grav 1.015 Normal 1.015-1.025 [facility] Comment on above: Performed By: #### P REGU, UA, UAMIC #### [place] [address] UA Specimen Type Clean Catch Normal [facility] Comment on above: Performed By: #### P REGU, UA, UAMIC #### [place] [address] UA Urobilinogen 0.2 E.U./dL Normal 0.2-1.0 [facility] Comment on above: Performed By: #### P REGU, UA, UAMIC #### [place] [address] Urobilinogen (U) [Mass/Vol] Negative Normal Negative [facility] Comment on above: Performed By: #### P REGU, UA, UAMIC #### [place] [address] UAMICon 10-05-2024 UA Amorphus 2+ /hpf Normal [facility] Comment on above: Performed By: #### P REGU, UA, UAMIC #### [place] [address] UA RBC Negative Normal 0-2 [facility] Comment on above: Performed By: #### P REGU, UA, UAMIC #### [address] [address] UA Squam Epithelial 3-5 Normal 0-20 [facility] Comment on above: Performed By: #### P REGU, UA, UAMIC #### Gabriela [address] [address] UA WBC 3-5 Normal 0-5 [facility] Comment on above: Performed By: #### P REGU, UA, UAMIC #### [address] [address] BACTERIAL VAGINOSIS NAATon 0 09-21-2024 Lactobacillus crispatus+gasseri+je nsenii + Gardnerella vaginalis + Atopobium vaginae rRNA ESTHER+probe Ql (Vag fld) Not detected Normal Not detected [facility] Comment on above: Order Comment: Speci men Type: SWABOrdering Facility: [facility] Address: [address] [place] [address] Performed By: #### B VAMP, CVTV ####[facility] LABCLIA [id number] [place] [address] [place] Bacteria Ur Culton 5 Bacteria identified Cx Nom (U) ORGANISM ID: 1 10,000 -<50,000 CFU/ml Normal urogenital shanice Normal [facility] Comment on above: Performed By: #### 6 30-4 ####[facility] LABCLIA [id number] [place] [address] [place] SANTI/TRICHOMONAS NAATon 0 09-21-2024 C. glabrata RNA ESTHER+probe Ql (Vag fld) Not detected Normal Not detected [facility] Comment on above: Order Comment: Speci men Type: SWABOrdering Facility: [facility] Address: [address] [place] [address] Performed By: #### B VAMP, CVTV ####[facility] LABCLIA [id number] [place] Santi sp DNA ESTHER+probe Ql (Vag fld) Not detected Normal Not detected [facility] Comment on above: Order Comment: Speci men Type: SWABOrdering Facility: [facility] Address: [address] [place] [address] Result Comment: The Santi species group target includes C. albicans, C. tropicalis, C. parapsilosis, and C. dubliniensis. Performed By: #### B VAMP, CVTV ####[facility] LABCLIA [id number] [address] [place] T. vaginalis DNA ESTHER+probe Ql (Unsp spec) Not detected Normal Not detected [facility] Comment on above: Order Comment: Speci men Type: SWABOrdering Facility: [facility] Address: [address] [place] [address] Performed By: #### B VAMP, CVTV ####[facility] LABCLIA [id number] [address] [place] CNOVon 09-21-2024 CNOV Office Visit (UCWSTR ) CLARISSE REYNOSO ([id number]) 1995 F Date Time Provider Department 09/21/24 6:30 PM RITCHIE HUGGINS WSTR During your visit today, we recorded the following information about you: Temperature Pulse Respiration Blood pressure 97.7 degrees 63/minute 20/minute 105/73 Weight Last Period 103 kg 09/14/24 Ritchie Huggins PA-C 09/21/2024 7:14 PM Signed .NOTE Ritchie Huggins PA-C 09/21/2024 7:14 PM Signed This note was created using Litepointriter. Subjective Clarisse A Reynoso is a 29 year old female. Patient is a 29-year-old female who complains of worsening flank pain right greater than left that she has been experiencing for the past 1 week. Patient reports no dysuria or hematuria but does describe urinary frequency. Patient also states that she has been experiencing suprapubic cramping. Patient denies fever, chills, nausea or other symptoms. Patient states that she does have a history of kidney stone and that her current symptoms are similar to same. Patient is uncertain if she may be . Patient denies accident or injury involving her thoracic and lumbar back and states that she has no history of degenerative disc disease, fracture or surgery to same. Back Pain Review of Systems Genitourinary: Positive for frequency. Musculoskeletal: Positive for back pain. All other systems reviewed and are negative. Objective BP 105/73 Pulse 63 Temp 36.5 ?C (97.7 ?F) Resp 20 Wt 103 kg (227 lb 1.2 oz) LMP 09/14/2024 (Exact Date) SpO2 100% BMI 38.98 kg/m? Physical Exam Vitals and nursing note reviewed. Constitutional: Appearance: Normal appearance. She is normal weight. HENT: Head: Normocephalic and atraumatic. Right Ear: External ear normal. Left Ear: External ear normal. Nose: Nose normal. Mouth/Throat: Mouth: Mucous membranes are moist. Pharynx: Oropharynx is clear. Eyes: Extraocular Movements: Extraocular movements intact. Conjunctiva/sclera: Conjunctivae normal. Pupils: Pupils are equal, round, and reactive to light. Cardiovascular: Rate and Rhythm: Normal rate. Pulses: Normal pulses. Heart sounds: Normal heart sounds. Pulmonary: Effort: Pulmonary effort is normal. Breath sounds: Normal breath sounds. Abdominal: General: Abdomen is flat. Palpations: Abdomen is soft. Musculoskeletal: Cervical back: Normal range of motion and neck supple. Skin: General: Skin is warm and dry. Capillary Refill: Capillary refill takes less than 2 seconds. Neurological: General: No focal deficit present. Mental Status: She is alert and oriented to person, place, and time. Psychiatric: Mood and Affect: Mood normal. Behavior: Behavior normal. Thought Content: Thought content normal. Judgment: Judgment normal. Assessment and Plan Physical exam findings as noted above. Urinalysis shows moderate blood with no leukocyte esterase, nitrite or protein. Specific gravity is 1.025 and pH 6.5. Urine hCG is negative. Patient was advised that suspicion for kidney stone is high and that she requires evaluation in an emergency department for additional laboratory testing and CT scan imaging can be obtained. Patient verbalizes clear understanding of this recommendation to report to emergency department for further evaluation. CLINICAL IMPRESSION: Flank Pain; Hematuria ASSESSMENT/PLAN: 1. Low back pain, unspecified back pain laterality, unspecified chronicity, unspecified whether sciatica present - ICD9: 724.2, ICD10: M54.50 (primary diagnosis) - UA DIP, URINE (POC) - BACTERIAL CULTURE, URINE 2. Urethral irritation - ICD9: 599.9, ICD10: N36.8 - BACTERIAL VAGINOSIS NAAT - SANTI/TRICHOMONAS NAAT 3. Flank pain - ICD9: 789.09, ICD10: R10.9 MDM Amount and/or Complexity of Data Reviewed Clinical lab tests: ordered and reviewed Risk of Complications, Morbidity, and/or Mortality Presenting problems: moderate Diagnostic procedures: low Management options: low General comments: Patient was instructed to report to an emergency department for laboratory testing and CT scan stone study. Ritchie Huggins PA-C Allergies As of Date: 09/21/2024 Noted Allergy Reaction PENICILLINS 09/12/2019 4 - Hives Date Reviewed: 09/21/2024 Reviewed by: Apurva Carranza LPN - Fully Assessed Reason for Visit: Back Pain [12] Cmt: Lower back pain x 1 week Urinary Problem [252] Cmt: Frequency, discharge, vaginal pain, x 1 week Tested on 09/06 and was negative but had used monistat and would like retested Primary Visit Diagnosis:Low back pain, unspecified back pain laterality, unspecified chronicity, unspecified whether sciatica present [M54.50] Other Visit Diagnoses:Urethral irritation [N36.8] Flank pain [R10.9] Order(s):UA DIP, URINE (POC) [1279822] Order #: [id number] #:[id number] BACTERIAL CULTURE, URINE [SQURCUL] Order #: [id number] (more content not included)... Normal [facility] UA DIP, URINE (POC)on 2024 BILIRUBIN UA (POCT) Negative Negative [facility] CLARITY UA (POCT) Clear [facility] COLOR UA (POCT) Yellow [facility] GLUCOSE UA (POCT) Negative Negative mg/dL [facility] Hemoglobin Ql (U) Moderate Abnormal Negative [facility] Interpretation and review of laboratory results Abnormal [facility] KETONE UA (POCT) Negative Negative mg/dL [facility] LEUKOCYTES UA (POCT) Negative Negative [facility] NITRITE UA (POCT) Negative Negative [facility] PH UA (POCT) 6.5 4.5 - 8.0 [facility] Protein Ql (U) Negative Negative mg/dL [facility] SPECIFIC GRAVITY UA (POCT) 1.025 1.005 - 1.030 [facility] UROBILINOGEN UA (POCT) 0.2 Normal E.U./dL [facility] Location:[address], [id number] [place] [address] POINT OF CARE [facility] UA DIP,URINE HCG (POC)on Beta HCG ( test) Ql (U) Negative Negative [facility] Comment on above: Location:[address], [address] [employer] (POCT) Internal QC OK [facility] Location:[address], [address] [place] [address] POINT OF CARE [facility] BACTERIAL VAGINOSIS NAATon 0 09-06-2024 Lactobacillus crispatus+gasseri+je nsenii + Gardnerella vaginalis + Atopobium vaginae rRNA ESTHER+probe Ql (Vag fld) Not detected Normal Not detected [facility] Comment on above: Order Comment: Speci men Type: SWABOrdering Facility: [facility] Address: [address] [place] [address] Performed By: #### B VAMP, [id number] ####[facility] LABCLIA [id number] [place] [address] [place] C. trachomatis+N. gonorrhoea e DNA ESTHER+probe Ql (Unsp spec)on 09-06-2024 C. trachomatis rRNA ESTHER+probe Ql (Unsp spec) Not detected Normal Not detected [facility] Comment on above: Order Comment: Speci men Type: SWABOrdering Facility: [facility] Address: [address] [place] [address] Performed By: #### B VAMP, [id number] ####[facility] LABCLIA [id number] [place] [address] [place] N. gonorrhoeae rRNA ESTHER+probe Ql (Unsp spec) Not detected Normal Not detected [facility] Comment on above: Order Comment: Speci men Type: SWABOrdering Facility: [facility] Address: [address] [place] [address] Performed By: #### B VAMP, [id number] ####[facility] LABCLIA [id number] [place] [address] [place] SANTI/TRICHOMONAS NAATon 0 09-06-2024 C. glabrata RNA ESTHER+probe Ql (Vag fld) Not detected Normal Not detected [facility] Comment on above: Order Comment: Speci men Type: SWABOrdering Facility: [facility] Address: [address] [place] [address] Performed By: #### C VTV ####[facility] LABCLIA [id number] [place] [address] [place] Santi sp DNA ESTHER+probe Ql (Vag fld) Not detected Normal Not detected [facility] Comment on above: Order Comment: Speci men Type: SWABOrdering Facility: [facility] Address: [address] [place] [address] Result Comment: The Santi species group target includes C. albicans, C. tropicalis, C. parapsilosis, and C. dubliniensis. Performed By: #### C VTV ####[facility] LABCLIA [id number] [place] [address] [place] T. vaginalis DNA ESTHER+probe Ql (Unsp spec) Not detected Normal Not detected [facility] Comment on above: Order Comment: Speci men Type: SWABOrdering Facility: [facility] Address: [address] [place] [address] Performed By: #### C VTV ####[facility] JIE [id number] SHANTELL GOETZ [address] [place] CNOVon 09-06-2024 CNOV Office Visit (UCWSTR ) REYNOSOCLARISSE MTZ ([id number]) 1995 F Date Time Provider Department 09/06/24 5:45 PM FIONA PATINO [facility] During your visit today, we recorded the following information about you: Temperature Pulse Respiration Blood pressure 99.7 degrees 74/minute 16/minute 104/72 Weight 102.9 kg Fiona Patino PA 09/06/2024 5:52 PM Signed [facility] Subjective Clarisse Radha Reynoso is a 29 year old female. Patient presents with: Vaginal Discharge: Vaginal discharge x 1 week HPI 29-year-old female presents for vaginal discharge for a week. Patient states she has vaginal discharge and itching for the past week. It is white. She thinks she may have BV and/or yeast infection. She has gotten this multiple times in the past. She states she had unprotected sex with her ex-boyfriend about 3 weeks ago. She would also like tested for STDs. She denies any dysuria, hematuria, pelvic pain, back pain, fevers or vomiting. She tried miconazole with minimal relief. LMP August 17. No concern for . History reviewed. No pertinent past medical history. No past surgical history on file. ALLERGIES Penicillins MEDICATIONS topiramate (TOPAMAX) 50 mg tablet Take 100 mg by mouth every 12 hours. Take one(1) tablet two(2) times daily. escitalopram oxalate (LEXAPRO) 20 mg tablet Take 1 tablet by mouth every afternoon. escitalopram oxalate (LEXAPRO) 10 mg tablet TAKE 1 TABLET BY MOUTH ONCE DAILY FOR 2 WEEKS THEN INCREASE TO 20MG TABLET (Patient not taking: Reported on 07/11/2024) sertraline (ZOLOFT) 25 mg tablet Take 1 tablet by mouth every afternoon. (Patient not taking: Reported on 11/03/2023) cetirizine (ZYRTEC) 10 mg tablet Take 1 tablet by mouth every afternoon. (Patient not taking: Reported on 11/03/2023) No family history on file. Social History Tobacco Use Smoking status: Former Types: Cigarettes Smokeless tobacco: Never Vaping Use Vaping status: current everyday user Substances: Nicotine, Flavoring Devices: Disposable, Pre-filled pod Substance Use Topics Alcohol use: Yes Alcohol/week: 2.0 - 4.0 standard drinks of alcohol Types: 2 - 4 Standard drinks or equivalent per week Drug use: Yes Types: Marijuana Review of Systems Constitutional: Negative for chills and fever. Gastrointestinal: Negative for abdominal pain, diarrhea and vomiting. Genitourinary: Positive for vaginal discharge. Negative for dysuria, frequency, urgency and vaginal pain. Musculoskeletal: Negative for back pain. Objective BP 104/72 Pulse 74 Temp 37.6 ?C (99.7 ?F) (Tympanic) Resp 16 Wt 102.9 kg (226 lb 13.7 oz) LMP 06/28/2023 (Exact Date) SpO2 99% BMI 38.94 kg/m? Physical Exam Vitals and nursing note reviewed. Exam conducted with a architecture internship present. Constitutional: General: She is not in acute distress. Appearance: Normal appearance. She is not toxic-appearing. HENT: Mouth/Throat: Mouth: Mucous membranes are moist. Cardiovascular: Rate and Rhythm: Normal rate and regular rhythm. Pulmonary: Effort: Pulmonary effort is normal. Breath sounds: Normal breath sounds. Abdominal: General: Abdomen is flat. Palpations: Abdomen is soft. Tenderness: There is no abdominal tenderness. There is no right CVA tenderness, left CVA tenderness, guarding or rebound. Genitourinary: Vagina: Vaginal discharge present. No tenderness. Cervix: Discharge present. No cervical motion tenderness. Adnexa: Right: No tenderness. Left: No tenderness. Comments: White clumpy discharge noted from cervix and in vaginal vault. No cervical erythema. No CMT. No adnexal tenderness Skin: General: Skin is warm and dry. Neurological: Mental Status: She is alert. {ASSESSMENT/PLAN: 1. Vaginal discharge - ICD9: 623.5, ICD10: N89.8 - SANTI/TRICHOMONAS NAAT - BACTERIAL VAGINOSIS NAAT - GONORRHEA/CHLAMYDIA NAAT - Please treat based on results. - Discussed safe sex. Discussed follow-up with gynecology for recurrent yeast/BV Diagnosis and treatment plan were discussed and questions were answered to the patient's satisfaction. Pt acknowledged understanding of concepts and follow up plan. Specific signs and symptoms that would indicate the need for higher level of care were discussed in detail warranting prompt ER evaluation. KERI Hernandez History and Record Review External record(s) reviewed: prior outpatient record. Differential Diagnoses - Vaginitis is more likely for the following reason(s): suggested by HANDP - PID is less likely for the following reason(s): No CMT, HANDP not suggestive Disposition The patient was discharged. Procedures Allergies As of Date: 09/06/2024 Noted Allergy Reaction PENICILLINS 09/12/2019 4 - Hives Date Reviewed: 09/06/2024 Reviewed by: Destiney Perkins LPN - Fully Assessed Reason for Visit: Vaginal Discharge [4161] Cmt: (more content not included)... Normal [facility] BACTERIAL VAGINOSIS NAATon 0 07-11-2024 Lactobacillus crispatus+gasseri+je nsenii + Gardnerella vaginalis + Atopobium vaginae rRNA ESTHER+probe Ql (Vag fld) Not detected Normal Not detected [facility] Comment on above: Order Comment: Speci men Type: SWABOrdering Facility: [facility] Address: [address] [place] [address] Performed By: #### B BUSTER, [id number] ####[facility] LABCLIA [id number] [place] [address] [place] C. trachomatis+N. gonorrhoea e DNA ESTHER+probe Ql (Unsp spec)on 07-11-2024 C. trachomatis rRNA ESTHER+probe Ql (Unsp spec) Not detected Normal Not detected [facility] Comment on above: Order Comment: Speci men Type: SWABOrdering Facility: [facility] Address: [address] [place] [address] Performed By: #### B VAMP, 80839-4 ####[facility] LABCLIA [id number] [place] [address] [place] N. gonorrhoeae rRNA ESTHER+probe Ql (Unsp spec) Not detected Normal Not detected [facility] Comment on above: Order Comment: Speci men Type: SWABOrdering Facility: [facility] Address: [address] [place] [address] Performed By: #### B VAMP, 93727-5 ####[facility] LABCLIA [id number] [place] [address] [place] SANTI/TRICHOMONAS NAATon 0 07-11-2024 C. glabrata RNA ESTHER+probe Ql (Vag fld) Not detected Normal Not detected [facility] Comment on above: Order Comment: Speci men Type: SWABOrdering Facility: [facility] Address: [address] [place] [address] Performed By: #### C VTV ####[facility] LABIA [id number] [place] [address] [place] Santi sp DNA ESTHER+probe Ql (Vag fld) Detected Abnormal Not detected [facility] Comment on above: Order Comment: Speci men Type: SWABOrdering Facility: [facility] Address: [address] [place] [address] Result Comment: The Santi species group target includes C. albicans, C. tropicalis, C. parapsilosis, and C. dubliniensis. Performed By: #### C VTV ####[facility] LABIA [id number] [place] [address] [place] T. vaginalis DNA ESTHER+probe Ql (Unsp spec) Not detected Normal Not detected [facility] Comment on above: Order Comment: Speci men Type: SWABOrdering Facility: [facility] Address: [address] [place] [address] Performed By: #### C VTV ####[facility] JIE [id number] [address] OF [facility] CNOVon 07-11-2024 CNOV Office Visit (WSTR ) CLARISSE REYNOSO ([id number]) 1995 F Date Time Provider Department 07/11/24 9:30 AM KAMLA KEITA [facility] During your visit today, we recorded the following information about you: Temperature Pulse Respiration Blood pressure 97.9 degrees 70/minute 16/minute 108/68 Weight 103.4 kg Kamla Keita APRN.METAL FINISH INSPECTOR 07/11/2024 9:57 AM Signed [facility] Subjective Clarisse Reynoso is a 29 year old female. Patient presents with: Vaginal Discharge: itching x 10-14 days, right ear ? qtip x last night Patient came in with complaints of vaginal itching and discharge. Patient says it is yellow at times and does have an odor. Patient did have unprotected sex with a new partner a few weeks ago. Patient denies any other symptoms. Patient also wanted me to look in her right ear to see if there was a Q-tip left in there. The history is provided by the patient. No blocker heated metal forms was used. Vaginal Discharge Review of Systems Genitourinary: Positive for vaginal discharge. Objective BP 108/68 Pulse 70 Temp 36.6 ?C (97.9 ?F) Resp 16 Wt 103.4 kg (227 lb 15.3 oz) LMP 06/28/2023 (Exact Date) SpO2 99% BMI 39.13 kg/m? Physical Exam Exam conducted with a architecture internship present. Constitutional: Appearance: Normal appearance. HENT: Right Ear: Tympanic membrane, ear canal and external ear normal. Pulmonary: Effort: Pulmonary effort is normal. Genitourinary: Comments: Very minimal discharge noted. Neurological: Mental Status: She is alert. No past medical history on file. No past surgical history on file. ALLERGIES Penicillins MEDICATIONS topiramate (TOPAMAX) 50 mg tablet Take 100 mg by mouth every 12 hours. Take one(1) tablet two(2) times daily. escitalopram oxalate (LEXAPRO) 20 mg tablet Take 1 tablet by mouth every afternoon. escitalopram oxalate (LEXAPRO) 10 mg tablet TAKE 1 TABLET BY MOUTH ONCE DAILY FOR 2 WEEKS THEN INCREASE TO 20MG TABLET (Patient not taking: Reported on 07/11/2024) sertraline (ZOLOFT) 25 mg tablet Take 1 tablet by mouth every afternoon. (Patient not taking: Reported on 11/03/2023) cetirizine (ZYRTEC) 10 mg tablet Take 1 tablet by mouth every afternoon. (Patient not taking: Reported on 11/03/2023) No family history on file. Social History Tobacco Use Smoking status: Former Types: Cigarettes Smokeless tobacco: Never Vaping Use Vaping status: current everyday user Substances: Nicotine, Flavoring Devices: Disposable, Pre-filled pod Substance Use Topics Alcohol use: Yes Alcohol/week: 2.0 - 4.0 standard drinks of alcohol Types: 2 - 4 Standard drinks or equivalent per week Drug use: Yes Types: Marijuana {ASSESSMENT/PLAN: 1. Vaginal itching - ICD9: 698.1, ICD10: N89.8 (primary diagnosis) 2. Vaginal discharge - ICD9: 623.5, ICD10: N89.8 - BACTERIAL VAGINOSIS NAAT - SANTI/TRICHOMONAS NAAT - GONORRHEA/CHLAMYDIA NAAT No treatment was prescribed at this time. If patient does come back positive for anything please treat accordingly. Kamla Keita APRN.METAL FINISH INSPECTOR MDM Procedures Participation of a fellow, resident, medical student, or advanced practice provider student in performing the sensitive examination was discussed with the patient or authorized sales representative canvas products. The patient or authorized sales representative canvas products has agreed to proceed with the sensitive examination. Allergies As of Date: 07/11/2024 Noted Allergy Reaction PENICILLINS 09/12/2019 4 - Hives Date Reviewed: 07/11/2024 Reviewed by: Radha Meadows MA - Fully Assessed Reason for Visit: Vaginal Discharge [4161] Cmt: itching x 10-14 days, right ear ? qtip x last night Primary Visit Diagnosis:Vaginal itching [N89.8] Other Visit Diagnosis:Vaginal discharge [N89.8] Order(s):BACTERIAL VAGINOSIS NAAT [SQBVAMP] Order #: [id number]. #:[id number] SANTI/TRICHOMONAS NAAT [SQCVTV] Order #: [id number]. #:[id number] GONORRHEA/CHLAMYDIA NAAT [SQGCCT] Order #: [id number]. #:[id number] Prescriptions as of 07/11/2024 - topiramate (TOPAMAX) 50 mg tablet Take 100 mg by mouth every 12 hours. Take one(1) tablet two(2) times daily. - escitalopram oxalate (LEXAPRO) 10 mg tablet TAKE 1 TABLET BY MOUTH ONCE DAILY FOR 2 WEEKS THEN INCREASE TO 20MG TABLET - escitalopram oxalate (LEXAPRO) 20 mg tablet Take 1 tablet by mouth every afternoon. - sertraline (ZOLOFT) 25 mg tablet Take 1 tablet by mouth every afternoon. - cetirizine (ZYRTEC) 10 mg tablet Take 1 tablet by mouth every afternoon. Problem List As Of Date: 07/11/2024 (None) Encounter Status:Closed by KAMLA KEITA on 07/11/24 Normal [facility] CTPCRon 06-09-2024 C. trachomatis Interp Normal See CT Interp N [facility] Comment on above: Result Comment: C. t rachomatis DNA not detected. Specimen is presumptive negative for C. trachomatis. A negative result does not preclude C. trachomatis infection because results depend on adequate specimen collection, absence of inhibitors, and sufficient DNA to be detected. See CT Interp N Performed By: #### N GPCR1, CTPCR #### [address] [address] C.trachomatis PCR Negative Normal Negative [facility] Comment on above: Result Comment: Tatyana deleonar (PCR) assay performed on the Mariano Marvin 4800 system. Performed By: #### N GPCR1, CTPCR #### [address] [address] Chlam Source Cervix Normal [facility] Comment on above: Performed By: #### N GPCR1, CTPCR #### [facility] [address] [place] [address] [id number] 06-09-2024 GC PCR Source Cervix Normal [facility] Comment on above: Performed By: #### N GPCR1, CTPCR #### [facility] [address] [place] [address] N. gonorrhoeae (PCR) Negative Normal Negative [facility] Comment on above: Result Comment: Mole cular (PCR) assay performed on the [employer] Marvin 4800 System. Performed By: #### N GPCR1, CTPCR #### [facility] [address] [place] [address] N. gonorrhoeae Interp Normal See NG Interp N [facility] Comment on above: Result Comment: N. g onorrhoeae DNA not detected. Specimen is presumptive negative for N. gonorrhoeae. A negative result does not preclude Neisseria gonorrhoeae infection because results depend on adequate specimen collection, absence of inhibitors, and sufficient DNA to be detected. See NG Interp N Performed By: #### N GPCR1, CTPCR #### [facility] [address] [place] [address] LABORATORYOrdered By: Obdulia Villagomez on 06-08-2024 C. trachomatis DNA ESTHER+probe Ql (Unsp spec) Negative 2 (06/08/24 1:25 PM) Normal Negative [facility] Comment on above: Interpretive Data: M olecular (PCR) assay performed on the [employer] Marvin 4800 system. C. trachomatis DNA ESTHER+probe Ql (Unsp spec) C. trachomatis DNA not detected. Specimen is presumptive negative forC. trachomatis.A negative result does not preclude C. trachomatis infection becauseresults depend on adequate specimen collection, absence of inhibitors,and sufficient DNA to be detected. Normal See CT Interp N AH Auto Viro/Sero SS N. gonorrhoeae DNA ESTHER+probe Ql (Unsp spec) Negative 1 (06/08/24 1:25 PM) Normal Negative [facility] Comment on above: Interpretive Data: M olecular (PCR) assay performed on the [employer] Marvin 4800 System. N. gonorrhoeae DNA ESTHER+probe Ql (Unsp spec) N. gonorrhoeae DNA not detected. Specimen is presumptive negative forN. gonorrhoeae. A negative result does not preclude Neisseria gonorrhoeaeinfection because results depend on adequate specimen collection, absenceof inhibitors, and sufficient DNA to be detected. Normal See NG Interp N [facility] Laboratory - Specimen inform ationOrdered By: Obdulia Villagomez on 06-08-2024 Specimen source Nom (Unsp spec) Cervix (06/08/24 1:25 PM) Normal AH Auto [facility]iro[facility]Sero SS No Panel InformationOrdered By: Aaron Solis on 06-08-2024 Affirm Pathogens DNA Direct Probe Trichomonas vaginalis DNA Probe Negative Gardnerella vaginalis DNA Probe Positive Santi species DNA Probe Positive [facility] MRI BRAIN W/ + W/O CONTRASTo n 03-01-2024 MRI BRAIN W/ + W/O CONTRAST ORIGINAL EXAMINATION: MRI OF THE BRAIN WITHOUT AND WITH PDYJHKCM49/6/2024 11:21 am TECHNIQUE: Multiplanar multisequence MRI of the head/brain was performed without and with the administration of intravenous contrast. COMPARISON: None available HISTORY: ORDERING SYSTEM PROVIDED HISTORY: Reason for Exam: Altered mental status FINDINGS: Diffusion imaging shows no hyperacute, acute, or early subacute infarction. There is no abnormal brain parenchymal signal. There is no mass, mass-effect, or abnormal extra-axial fluid collection. The vaz-white matter differentiation is well maintained. The ventricles are normal in size, shape and position. There are normal signal voids in the larger intracranial vessels. The distal left vertebral artery is hypoplastic and may terminate as PICA. There are no abnormal areas of increased contrast enhancement. Paranasal sinuses are clear. Small effusion in the right mastoid air cells.. The marrow signal pattern is within normal limits. Motion artifact of the postcontrast images degrades study quality. IMPRESSION: Normal enhanced and unenhanced MRI of the brain. Small right mastoid effusion I have personally reviewed the images of this examination and agree with the resident's findings and interpretation. Interpreted by: Javed Campos MD Preliminary Report By: Williams Durán Electronically signed By Javed Campos MD Dictated Date: 03/01/2024 4:15:39 PM Prelim Date: 03/01/2024 4:33:04 PM Sign Date: 03/01/2024 4:33:04 PM Ordering Provider: GERTRUDIS Wang [facility] Urine Cultureon 02-16-2024 URC Presumptive E. coli [place] Count >100,000 Presumptive E. coli: REACTION Ampicillin Islt ANAND <=2 Ampicillin+Sulbac Islt ANAND <=2 S ceFAZolin Islt ANAND <=4 S Cefepime Islt ANAND <=0.12 S cefTRIAXone Islt ANAND <=0.25 S Ciprofloxacin Islt ANAND <=0.25 S B-Lactamase Extended Susc Islt NEG Gentamicin Islt ANAND <=1 S Imipenem Islt ANAND <=0.25 S levoFLOXacin Islt ANAND <=0.12 S Nitrofurantoin Islt ANAND <=16 S Pip+Tazo Islt ANAND <=4 S Tobramycin Islt ANAND <=1 S TMP SMX Islt ANAND <=20 S Normal [facility] Comment on above: Performed By: #### M 100.2200 #### [facility] Laboratory [address] [facility] [place], [place], [address] Abdomen/Pelvis without Conto n 02-14-2024 Abdomen/Pelvis without Cont [facility] Services [address] [place], [place] [address] Abdomen/Pelvis without Cont MR#: [id number] Acct: [id number] Name: CLARISSE REYNOSO GERSON Rep #: [id number] : 1995 F 28 From: David Mendez MD PCP: Dr. Noris Hylton, DO Status: REG ER Study: Abdomen/Pelvis without Cont Date of Exam: 01/25 05/19 Exam# [id number] Ordering Dr: Pablo Wayne DO [id number] EXAM: CT ABDOMEN AND PELVIS WITHOUT INTRAVENOUS CONTRAST CLINICAL INDICATION: kidney stone left flank pain TECHNIQUE: Helically acquired images were obtained of the abdomen and pelvis without intravenous contrast. This CT exam was performed using one or more of the following dose reduction techniques: automated exposure control, adjustment of the mA and/or kV according to patient size, and/or use of iterative reconstruction technique. COMPARISON: No relevant prior studies available. FINDINGS: LOWER THORAX: Normal. Lung bases are clear. No cardiomegaly. No pericardial effusion. ABDOMEN: LIVER: Normal. Homogeneous. GALLBLADDER AND BILE DUCTS: Normal. No calcified gallstones. No gallbladder distention or wall edema. No intra- or extrahepatic biliary ductal dilation. PANCREAS: Normal. No focal cystic mass. SPLEEN: Normal. Normal size without focal cystic or solid mass. ADRENALS: Normal. No nodules. KIDNEYS AND URETERS: Nonobstructive 2.4 mm right renal stone. There is mild left periureteral fat stranding without meg hydronephrosis or hydroureter may represent changes of recently passed stone. STOMACH AND BOWEL: Normal. No bowel distention. No focal inflammatory change. PELVIS: APPENDIX: Appendix is visualized and normal in appearance. BLADDER: Normal. REPRODUCTIVE: Unremarkable as visualized. No mass. ABDOMEN and PELVIS: INTRAPERITONEAL SPACE: Physiological amount of free fluid noted within the pelvis. No free air. BONES/JOINTS: No suspicious lytic or blastic abnormality. SOFT TISSUES: Normal. No discrete abdominal or pelvic wall hernia. VASCULATURE: Normal. Abdominal aorta is non-dilated. LYMPH NODES: Normal. No enlarged lymph nodes. CT/Abdomen/Pelvis without Cont IMPRESSION: 1. Mild left periureteral edema likely related to a recently passed stone. 2. 2.4 mm right renal stone. Electronically Signed: David Mendez MD at 14:10 EDT , CC: Dr. Pablo Wayne, DO; Dr. Noris Hylton, DO Activities Therapist: Signed Normal [facility] Basic Metabolic Profile (BMP )on 02-14-2024 BUN/CRE 10.8 RATIO Normal 02-12 [facility] Comment on above: Performed By: #### L 500.2500, L100.0100 #### [facility] Laboratory [address] [place], [address] CA,Total 9.1 mg/dL Normal 8.5-10.1 [facility] Comment on above: Performed By: #### L 500.2500, L100.0100 #### [facility] Laboratory [address] [place], [address] Chloride [Moles/Vol] 107 mmol/L Normal 98-107 [facility] Comment on above: Performed By: #### L 500.2500, L100.0100 #### [facility] Laboratory [address] [place], [address] CO2 [Moles/Vol] 27.0 mmol/L Normal 21.0-32.0 [facility] Comment on above: Performed By: #### L 500.2500, L100.0100 #### [facility] Laboratory [address] [place], [address] Creatinine [Mass/Vol] 0.74 mg/dL Normal 0.55-1.02 [facility] Comment on above: Result Comment: The validity of the calculated GFR GFRAA in patients over 70 years has not been determined. Clinical correlation is essential. Performed By: #### L 500.2500, L100.0100 #### [facility] Laboratory [address] [place], [address] ECRCL 135.25 ml/min Normal [facility] Comment on above: Performed By: #### L 500.2500, L100.0100 #### [facility] Laboratory [address] [place], [address] EST GFR - AA 122 mL/min Normal >60 [facility] Comment on above: Result Comment: Afri can Montserratian GFR Calc Performed By: #### L 500.2500, L100.0100 #### [facility] Laboratory [address] [place], [address] GAP 4 Low 5-15 [facility] Comment on above: Performed By: #### L 500.2500, L100.0100 #### [facility] Laboratory [address] [place], [address] GFR/1.73 sq M.predicted among non-blacks MDRD (S/P/Bld) [Vol rate/Area] 101 mL/min/{1.73_m2} Normal >60 [facility] Comment on above: Result Comment: Non- GFR Calc Performed By: #### L 500.2500, L100.0100 #### [facility] Laboratory [address] [place], [address] Glucose [Mass/Vol] 107 mg/dL High 74-106 [facility] Comment on above: Result Comment: Fast ing Glucose result from 100 to 125 mg/dL suggests IMPAIRED HOMEOSTASIS per A.D.A. criteria. Performed By: #### L 500.2500, L100.0100 #### [facility] Laboratory [address] [place], [address] Potassium [Moles/Vol] 4.2 mmol/L Normal 3.5-5.1 [facility] Comment on above: Performed By: #### L 500.2500, L100.0100 #### [facility] Laboratory [address] [place], [address] Sodium [Moles/Vol] 138 mmol/L Normal 136-145 [facility] Comment on above: Performed By: #### L 500.2500, L100.0100 #### [facility] Laboratory [address] [place], [address] Urea nitrogen [Mass/Vol] 8 mg/dL Normal 7-18 [facility] Comment on above: Performed By: #### L 500.2500, L100.0100 #### [facility] Laboratory [address] [place], [address] CBC W/Diff, Automatedon 10-2 Absolute Lymph 1.61 X10 3/uL Normal 0.83-4.51 [facility] Comment on above: Performed By: #### L 500.2500, L100.0100 #### [facility] Laboratory [address] [place], [address] Absolute Neut 5.9 X10 3/uL Normal 2.0-7.7 [facility] Comment on above: Performed By: #### L 500.2500, L100.0100 #### [facility] Laboratory [address] [place], [address] Basophils/100 WBC (Bld) 0.5 % Normal 0-1 [facility] Comment on above: Performed By: #### L 500.2500, L100.0100 #### [facility] Laboratory [address] [place], [address] Eosinophils/100 WBC (Bld) 1.2 % Normal 0-5 [facility] Comment on above: Performed By: #### L 500.2500, L100.0100 #### [facility] Laboratory [address] [place], [address] Erythrocyte distribution width (RBC) [Ratio] 12.4 % Normal 11.6-14.6 [facility] Comment on above: Performed By: #### L 500.2500, L100.0100 #### [facility] Laboratory [address] [place], [address] Hematocrit (Bld) [Volume fraction] 36.5 % Low 37-47 [facility] Comment on above: Performed By: #### L 500.2500, L100.0100 #### [facility] Laboratory [address] [place], [address] Hemoglobin (Bld) [Mass/Vol] 12.2 g/dL Normal 12.0-15.0 [facility] Comment on above: Performed By: #### L 500.2500, L100.0100 #### [facility] Laboratory [address] [place], [address] IG% 0.400 Normal 0.0-0.9 [facility] Comment on above: Result Comment: IG% - Immature Granulocytes (promyelocytes, myelocytes and metamyelocytes) > 1% indicates that a LEFT SHIFT is Present. Performed By: #### L 500.2500, L100.0100 #### [facility] Laboratory [address] [place], [address] Lymphocytes/100 WBC (Bld) 19.8 % Normal 19-41 [facility] Comment on above: Performed By: #### L 500.2500, L100.0100 #### [facility] Laboratory [address] [place], [address] MCH (RBC) [Entitic mass] 29.8 pg Normal 27.0-32.0 [facility] Comment on above: Performed By: #### L 500.2500, L100.0100 #### [facility] Laboratory [address] [place], [address] MCHC (RBC) [Mass/Vol] 33.4 g/dL Normal 32-36 [facility] Comment on above: Performed By: #### L 500.2500, L100.0100 #### [facility] Laboratory [address] [place], [address] MCV (RBC) [Entitic vol] 89.0 fL Normal 81-99 [facility] Comment on above: Performed By: #### L 500.2500, L100.0100 #### [facility] Laboratory [address] [place], [address] Monocytes/100 WBC (Bld) 5.3 % Normal 0-10 [facility] Comment on above: Performed By: #### L 500.2500, L100.0100 #### [facility] Laboratory [address] [place], [address] Neutrophils/100 WBC (Bld) 72.8 % High 47-70 [facility] Comment on above: Performed By: #### L 500.2500, L100.0100 #### [facility] Laboratory [address] [place], [address] Nucleated RBC (Bld) [#/Vol] 0 10*3/uL Normal 0-5 [facility] Comment on above: Performed By: #### L 500.2500, L100.0100 #### [facility] Laboratory [address] [place], [address] Platelet mean volume (Bld) [Entitic vol] 10.5 fL Normal 6.2-12.0 [facility] Comment on above: Performed By: #### L 500.2500, L100.0100 #### [facility] Laboratory [address] [place], [address] Platelets (Bld) [#/Vol] 200 10*3/uL Normal 150-450 [facility] Comment on above: Performed By: #### L 500.2500, L100.0100 #### [facility] Laboratory [address] [place], [address] RBC (Bld) [#/Vol] 4.10 10*6/uL Low 4.2-5.4 [facility] Comment on above: Performed By: #### L 500.2500, L100.0100 #### [facility] Laboratory [address] [place], [address] RDW SD 40.4 fl Normal 35.1-43.9 [facility] Comment on above: Performed By: #### L 500.2500, L100.0100 #### [facility] [facility] [address] [place], [address] WBC (Bld) [#/Vol] 8.1 10*3/uL Normal 4.4-11.0 [facility] Comment on above: Performed By: #### L 500.2500, L100.0100 #### [facility] [address] [place], [address] CNOVon 02-14-2024 CNOV Office Visit ([facility] ) REYNOSOCLARISSE MTZ Radha ([id number]) 1995 F Date Time Provider Department 02/14/24 11:00 AM NASIMA SUBRAMANIAN [facility] During your visit today, we recorded the following information about you: Nasima Subramanian APRN.METAL FINISH INSPECTOR 02/14/2024 11:07 AM Signed Patient triaged at [facility]. Here today with left abdominal pain, woke from sleep/worsening. Unclear what hospital will go to at time of triage. Allergies As of Date: 02/14/2024 Noted Allergy Reaction PENICILLINS 09/12/2019 4 - Hives Date Reviewed: 02/09/2024 Reviewed by: Jessie Hatch MA - Fully Assessed Primary Visit Diagnosis:Left lateral abdominal pain [R10.9] Prescriptions as of 02/14/2024 - metroNIDAZOLE (FLAGYL) 500 mg tablet Take 1 tablet by mouth two times a day for 7 days. - escitalopram oxalate (LEXAPRO) 10 mg tablet TAKE 1 TABLET BY MOUTH ONCE DAILY FOR 2 WEEKS THEN INCREASE TO 20MG TABLET - escitalopram oxalate (LEXAPRO) 20 mg tablet Take 1 tablet by mouth every afternoon. - sertraline (ZOLOFT) 25 mg tablet Take 1 tablet by mouth every afternoon. - cetirizine (ZYRTEC) 10 mg tablet Take 1 tablet by mouth every afternoon. Problem List As Of Date: 02/14/2024 (None) Encounter Status:Closed by NASIMA SUBRAMANIAN on 02/14/24 Normal [facility] Emergency Department Summary on 02-14-2024 Emergency Department Summary [facility] Medical Records Department [address] [place] [address] Emergency Department Summary 02/14/24 MR#: [id number] Acct: [id number] Name: REYNOSOCLARISSE PARHAM GESRON Rep #: [id number] : 1995 28 From: Pablo Wayne DO PCP: Dr. Noris Hylton DO Status:DEP ER Location: ED HPI History of Present Illness Chief Complaint: Flank Pain Informant: patient Narrative Narrative: 28-year-old female presenting to the emergency room with a chief complaint of left flank pain. Patient states that on Wednesday she began to wonder if she was getting a urinary tract infection and she noticed an odor and color change of the urine. This morning around 0 500 she developed waxing and waning sharp stabbing pain in the left flank. There is no abdominal component to it. No fever. She has had prior kidney stone before does not required surgery. She denies any prior abdominal surgeries. [facility] Medical History (Updated 02/14/24 @ 14:[address] Pablo Wayne DO) Kidney stone Home Medications ???Medication ???Instructions ???Recorded ???Last Taken ???Type ondansetron 4 mg disintegrating 4 mg PO Q6H PRN PRN Nausea #15 tabs 02/14/24 Unknown Rx tablet oxycodone-acetaminophe n 5 mg-325 1 tab PO Q6H PRN PRN Pain 3 days 02/14/24 Unknown Rx mg tablet #12 TABLETS sulfamethoxazole 800 1 tab PO BID #20 TABLETS 02/14/24 Unknown Rx mg-trimethoprim 160 mg tablet Allergy/AdvReac Type Severity Reaction Status Date / Time Penicillins (PCN) Allergy Intermediate Hives Verified 02/14/24 11:13 Social History Smoking Status: Never smoker ROS ROS ED Constitutional Constitutional ED: Reports chills; Denies fever(s) or weight loss Eyes Eyes: Denies change in vision or diplopia ENT ENT ED: Denies ear pain, rhinorrhea or sore throat Cardiovascular Cardiovascular: Denies chest pain, orthopnea, palpitations or racing heartbeat Respiratory/Chest Respiratory/Chest: Denies cough, dyspnea or orthopnea Gastrointestinal Gastrointestinal: Reports nausea; Denies abdominal pain, diarrhea or vomiting Genitourinary Genitourinary ED: Denies dysuria, hematuria or urinary frequency Musculoskeletal Musculoskeletal: Reports back pain; Denies arthralgias or myalgias Integumentary Denies abscess or rash Neurologic Neurologic: Denies headache(s) or weakness Psychiatric Psychiatric: Denies anxiety, depression, suicidal ideation or suicidal thoughts Endocrine Endocrinology: Denies polydipsia, polyphagia or polyuria Allergic/Immunologic Allergic/Immunologic ED: Denies mouth swelling, tongue swelling or urticaria EXAM Physical Exam Const Vital Signs: 02/14/24 11:13 Temperature 97.9 F Temperature Source Oral Pulse Rate 91 Respiratory Rate 18 Blood Pressure 151/85 H Blood Pressure Mean 107 Pulse Ox 100 Oxygen Delivery Method Room Air Positive well nourished, well developed and obese General Appearance ED: well developed Nutritional Appearance: obese HEENT Reports normocephalic, head/scalp atraumatic and moist mucous membranes Eyes PERRL and EOMs intact bilaterally Neck no lymphadenopathy, supple and no JVD Resp normal respiratory effort and clear to auscultation bilaterally Cardio regular rate, regular rhythm and no murmurs GI normal to inspection, nondistended, normoactive bowel sounds and non-tender Palpation: soft Back/Spine normal ROM General Back: CVA tenderness left Extremity normal to inspection General Extremety ED: Negative for edema General Extremity: Negative for edema Neuro oriented x3 and CN's II-XII intact bilaterally Sensorium / Orientation: alert Motor Exam: strength 5/5 throughout Psych mental status grossly normal Mood Affect: Negative for depressed or tearful Skin no rashes or lesions noted and no wounds MDM MDM MDM Narrative Medical decision making narrative: Differential diagnosis includes but not limited to kidney stone with colic pyelonephritis dehydration renal abscess White count 8.1 hemoglobin 12.2 platelet count of 200 urinalysis 50-100 white cells 0 bacteria greater than 100 red cells positive nitrates. This will be sent for culture. Hospital was out of urine and serum test other than a quantitative hCG so this was required to be performed which [place] fortunately delayed the patient's ED course. This turned out to be less than 1 and the patient was taken for CT. No obvious ureterolithiasis was noted however there is a right renal stone at 2.4 mm. There is some mild left periureteral edema which could be related to a passed stone but could also be related to infection. Given her pain is continued the white cells the positive nitrates and going to treat her with antibiotic Bactrim. I will also be writing for pa (more content not included)... Normal [facility] Urinalysis, Completeon 02-13 EPI,SQUAMOUS 0-5 SEEN Normal - [facility] Comment on above: Order Comment: CLEAN CATCH Performed By: #### L 400.0001 #### [facility] [address] [place], [place], [id number] RBC > 100 SEEN Normal 0-5 [facility] Comment on above: Order Comment: CLEAN CATCH Performed By: #### L 400.0001 #### [facility] [address] [place], [address] WBC 50-100 SEEN Normal 0-5 [facility] Comment on above: Order Comment: CLEAN CATCH Performed By: #### L 400.0001 #### [facility] [address] [place], [address] BACTERIA 0 SEEN Normal None Seen [facility] Comment on above: Order Comment: CLEAN CATCH Performed By: #### L 400.0001 #### [facility] [address] [place], [place], [id number] Mucus Ql (Urine sed) 0 SEEN Normal [facility] Comment on above: Order Comment: CLEAN CATCH Performed By: #### L 400.0001 #### [facility] [address] [place], [place], [phone] hCG Titer Quant., Serumon HCG QUANT. < 1 Normal 1-3 [facility] Comment on above: Order Comment: if fe male and of childbearing age (8-55 years old) Result Comment: hCG levels with Gestational Age Gestational Age hCG mIU/mL (IU/L) 0.2 - 1 week 5 - 50 1-2 weeks 50 - 500 2-3 weeks 100 - 5000 3-4 weeks 500 - 03411 4-5 weeks 1000 - 54673 5-6 weeks 74504 - 100,000 6-8 weeks 05293 - 200,000 2-3 months 99609 - 100,000 Performed By: #### L 700.8000 #### [facility] [address] [place], [address] [facility] Telephone ([facility]) CLARISSE REYNOSO ([id number]) 1995 F Date Time Provider Department 02/10/24 FINOA PATINO [facility] During your visit today, we recorded the following information about you: Fiona Patino, PA 02/10/2024 7:17 AM Signed Yeast, trichomonas, gonorrhea, chlamydia negative. BV positive. Metronidazole sent to pharmacy, Apurva Carranza LPN 02/10/2024 7:52 AM Signed Left message for patient to return call. MARITZA Vega Stephanie, RN 02/10/2024 11:30 AM Signed Patient notified of results and provider's instructions. Patient verbalizes understanding. Claudia Rae RN Allergies As of Date: 02/10/2024 Noted Allergy Reaction PENICILLINS 09/12/2019 4 - Hives Date Reviewed: 02/09/2024 Reviewed by: Jessie Hatch MA - Fully Assessed Reason for Visit: Results [95] Order(s):metroNIDAZOLE (FLAGYL) 500 mg tabletTake 1 tablet by mouth two times a day for 7 days.Disp: 14 tabletRfl: 0 Prescriptions as of 02/10/2024 - metroNIDAZOLE (FLAGYL) 500 mg tablet Take 1 tablet by mouth two times a day for 7 days. - escitalopram oxalate (LEXAPRO) 10 mg tablet TAKE 1 TABLET BY MOUTH ONCE DAILY FOR 2 WEEKS THEN INCREASE TO 20MG TABLET - escitalopram oxalate (LEXAPRO) 20 mg tablet Take 1 tablet by mouth every afternoon. - sertraline (ZOLOFT) 25 mg tablet Take 1 tablet by mouth every afternoon. - cetirizine (ZYRTEC) 10 mg tablet Take 1 tablet by mouth every afternoon. Problem List As Of Date: 02/10/2024 (None) Prescriptions ordered this encounter Disp Refills Start End METRONIDAZOLE 500 MG TABLET 14 t* 0 02/10/2024 02/17/2024 Route: ORAL Sig: Take 1 tablet by mouth two times a day for 7 days. Encounter Status:Closed by CLAUDIA RAE on 02/10/24 Normal [facility] BACTERIAL VAGINOSIS NAATon 1 Lactobacillus crispatus+gasseri+je nsenii + Gardnerella vaginalis + Atopobium vaginae rRNA ESTHER+probe Ql (Vag fld) Positive Abnormal Negative for bacterial vaginosis [facility] Comment on above: Order Comment: Speci men Type: SWABOrdering Facility: [facility] Address: [address] [place] [address] Performed By: #### 3 6902-5, BVAMP ####[facility] LABCLIA [id number] [place] [address] [place] C. trachomatis+N. gonorrhoea e DNA ESTHER+probe Ql (Unsp spec)on 02-09-2024 C. trachomatis rRNA ESTHER+probe Ql (Unsp spec) Negative Normal Negative for Chlamydia trachomatis by amplificaton [facility] Comment on above: Order Comment: Speci men Type: SWABOrdering Facility: [facility] Address: [address] [place] [address] Performed By: #### 3 6902-5, BVAMP ####[facility] LABCLIA [id number] [place] [address] [place] N. gonorrhoeae rRNA ESTHER+probe Ql (Unsp spec) Negative Normal Negative for Neisseria gonorrhoeae by amplification [facility] Comment on above: Order Comment: Speci men Type: SWABOrdering Facility: [facility] Address: [address] [place] [address] Performed By: #### 3 6902-5, BVAMP ####[facility] LABCLIA [id number] [place] [address] [place] SANTI/TRICHOMONAS NAATon 1 C. glabrata RNA ESTHER+probe Ql (Vag fld) Negative Normal Negative for Santi glabrata [facility] Comment on above: Order Comment: Speci men Type: SWABOrdering Facility: [facility] Address: [address] [place] [address] Performed By: #### C VTV ####[facility] LABCLIA [id number] [place] [address] [place] Santi sp DNA ESTHER+probe Ql (Vag fld) Negative Normal Negative for Santi species [facility] Comment on above: Order Comment: Speci men Type: SWABOrdering Facility: [facility] Address: [address] [place] [address] Performed By: #### C VTV ####[facility] LABCLIA [id number] [address] OF [place] T. vaginalis DNA ESTHER+probe Ql (Unsp spec) Negative Normal Negative for Trichomonas vaginalis by amplification [facility] Comment on above: Order Comment: Speci men Type: SWABOrdering Facility: [facility] Address: [address] [place] [address] Performed By: #### C VTV ####[facility] LABCLIA [id number] [address] OF [facility] CNOVon 02-09-2024 CNOV Office Visit ([facility]STR ) CLARISSE REYNOSO ([id number]) 1995 F Date Time Provider Department 02/09/24 10:45 AM MARIAELENA SAUL [facility] During your visit today, we recorded the following information about you: Temperature Pulse Respiration Blood pressure 98.5 degrees 70/minute 20/minute 130/80 Weight 106.9 kg Mariaelena Saul APRN.CNP 02/09/2024 11:29 AM Signed This note was created using NoteWriter. Subjective Clarisse Reynoso is a 28 year old female. 28 year old female with no significant PMH presents for STI screening Acute onset Recently informed that her partner had extramarital relationships He got another girl +vaginal itching But otherwise denies vaginal discharge Denies vaginal bleeding Denies fever or chills Denies sx Denies abdominal pain Denies N/V/D Denies skin rash or lesions. LMP-one week ago Want to be tested for everything The history is provided by the patient. No blocker heated metal forms was used. Female Gu Problem This is a new problem. The current episode started 3 to 5 days ago. The onset was gradual. The problem occurs continuously. The problem has been unchanged. The patient is experiencing no pain. Nothing relieves the symptoms. Nothing aggravates the symptoms. Pertinent negatives include no chest pain, no anorexia, no chills, no fever, no abdominal pain, no constipation, no diarrhea, no nausea, no vomiting, no dysuria, no frequency, no hematuria, no pelvic pain, no urgency, no vaginal bleeding, no vaginal discharge, no vaginal pain, no headaches, no sore throat, no back pain, no cough, no shortness of breath, no rash and no dyspareunia. There has been no history of trauma. Urine output has been normal. The last void occurred Less than 6 hours ago. She is currently Sexually active. She has 1 sexual partner. She is not . The patient's menstrual history has been irregular. She has had no prior pregancies. Her past medical history is significant for STD and UTI. Her past medical history does not include endometriosis or kidney stones. There were no sick contacts. She has received no recent medical care. No past medical history on file. No past surgical history on file. ALLERGIES Penicillins MEDICATIONS escitalopram oxalate (LEXAPRO) 10 mg tablet TAKE 1 TABLET BY MOUTH ONCE DAILY FOR 2 WEEKS THEN INCREASE TO 20MG TABLET escitalopram oxalate (LEXAPRO) 20 mg tablet Take 1 tablet by mouth every afternoon. sertraline (ZOLOFT) 25 mg tablet Take 1 tablet by mouth every afternoon. (Patient not taking: Reported on 11/03/2023) cetirizine (ZYRTEC) 10 mg tablet Take 1 tablet by mouth every afternoon. (Patient not taking: Reported on 11/03/2023) No family history on file. Social History Tobacco Use Smoking status: Former Types: Cigarettes Smokeless tobacco: Never Vaping Use Vaping status: current everyday user Substances: Nicotine, Flavoring Devices: Disposable, Pre-filled pod Substance Use Topics Alcohol use: Yes Alcohol/week: 2.0 - 4.0 standard drinks of alcohol Types: 2 - 4 Standard drinks or equivalent per week Drug use: Yes Types: Marijuana Review of Systems Constitutional: Negative for chills and fever. HENT: Negative for sore throat. Eyes: Negative for pain, discharge and itching. Respiratory: Negative for cough and shortness of breath. Cardiovascular: Negative for chest pain. Gastrointestinal: Negative for abdominal pain, anorexia, constipation, diarrhea, nausea and vomiting. Genitourinary: Negative for dyspareunia, dysuria, frequency, hematuria, pelvic pain, urgency, vaginal bleeding, vaginal discharge and vaginal pain. +vaginal itching Musculoskeletal: Negative for back pain. Skin: Negative for color change, pallor and rash. Allergic/Immunologic: Negative for environmental allergies, food allergies and immunocompromised state. Neurological: Negative for dizziness, facial asymmetry and headaches. Hematological: Negative for adenopathy. Does not bruise/bleed easily. Psychiatric/Behavioral : Negative for agitation and behavioral problems. Objective BP 130/80 Pulse 70 Temp 36.9 ?C (98.5 ?F) Resp 20 Wt 106.9 kg (235 lb 10.8 oz) LMP 06/28/2023 (Exact Date) SpO2 100% BMI 40.45 kg/m? Physical Exam Vitals and nursing note reviewed. Constitutional: General: She is not in acute distress. Appearance: Normal appearance. She is normal weight. She is not ill-appearing, toxic-appearing or diaphoretic. HENT: Head: Normocephalic and atraumatic. Right Ear: Ear canal and external ear normal. Left Ear: Ear canal and external ear normal. Nose: Nose normal. No congestion or rhinorrhea. Mouth/Throat: Mouth: Mucous membranes are moist. Pharynx: No oropharyngeal exudate or posterior oropharyngeal erythema. Eyes: General: Right eye: No discharge. Left eye: No discharge. Extraocular Moveme (more content not included)... Normal [facility] HBV core Ab Ser Qlon 024 HBV core Ab Ql (S) Negative Normal Negative [facility] Comment on above: Order Comment: Speci men Type: BLOOD SPECIMENOrdering Facility: [facility] Address: [address] [place] [address] Result Comment: No e vidence of current or past infection with Hepatitis B virus. Should recent infection be suspected, repeat testing may be considered 3-4 weeks after this draw. Performed By: #### 2 2322-2, 57039-3, 5195-3, 62616-5 ####[facility] LABCLIA [id number] [place] [address] [place] HBV surface Ab Ql (S)on 01-24 HBV surface Ab Qn (S) <8.00 Normal [facility] Comment on above: Order Comment: Speci men Type: BLOOD SPECIMENOrdering Facility: [facility] Address: [address] [place] [address] Result Comment: <8 m IU/mL: No serological evidence of immunity to Hepatitis B Virus. >/= 8 to <12 mIU/mL: No serological evidence of immunity to Hepatitis B Virus. >/= 12 mIU/mL: Consistent with serological evidence of immunity to Hepatitis B Virus. Performed By: #### 2 2322-2, 35454-5, 5195-3, 11191-7 ####[facility] LABCLIA [id number] [address] [place] HBV surface Ab Ser Qlon 01-24 HBV surface Ab Ql (S) Negative Normal [facility] Comment on above: Order Comment: Speci men Type: BLOOD SPECIMENOrdering Facility: [facility] Address: [address] [place] [address] Result Comment: No s erological evidence of immunity to Hepatitis B Virus. Performed By: #### 2 2322-2, 19633-2, 5195-3, 95677-9 ####[facility] LABCLIA [id number] [place] [address] [place] HBV surface Ag Ser Qlon 01-24 HBV surface Ag Ql (S) Negative Normal Negative [facility] Comment on above: Order Comment: Speci men Type: BLOOD SPECIMENOrdering Facility: [facility] Address: [address] [place] [address] Performed By: #### 2 2322-2, 13137-5, 5194-3, 01416-3 ####[facility] LABCLIA [id number] [place] [address] [place] HCV Ab Ser Qlon 02-09-2024 HCV Ab Ql (S) Negative Normal Negative [facility] Comment on above: Order Comment: Speci men Type: BLOOD SPECIMENOrdering Facility: [facility] Address: [address] [place] [address] Result Comment: The result suggests no evidence of active infection with Hepatitis C virus. Should recent infection be suspected, repeat testing may be considered 4-6 weeks after this draw. Performed By: #### 1 6128-1 ####[facility] LABCLIA [id number] [place] [address] [place] HIV 1+2 Ab IA Qlon HIV 1 and 2 Ab IA.rapid Nom (S/P/Bld) Normal [facility] Comment on above: Order Comment: Speci men Type: BLOOD SPECIMENOrdering Facility: [facility] Address: [address] [place] [address] Result Comment: Test not indicated. Performed By: #### 2 2322-2, 49701-2, 5194-3, 09847-9 ####[facility] LABCLIA [id number] [place] [address] [place] HIV 1+2 Ab+HIV1 p24 Ag IA Ql Non-Reactive Normal Nonreactive [facility] Comment on above: Order Comment: Speci men Type: BLOOD SPECIMENOrdering Facility: [facility] Address: [address] [place] [address] Performed By: #### 2 2322-2, 69159-9, 5194-3, 12548-9 ####[facility] LABCLIA [id number] [place] [address] [place] HIV immunoassay testing algorithm interpretation (S/P/Bld) [Interp] Normal [facility] Comment on above: Order Comment: Speci men Type: BLOOD SPECIMENOrdering Facility: [facility] Address: [address] [place] [address] Result Comment: No e vidence of HIV-1 or HIV-2 infection. Should recent infection be suspected, repeat testing may be considered 2-3 weeks after this draw. [place] Rev. Code 3701.243(E): This information has been disclosed to you from confidential records protected from disclosure by state law. ???You shall make no further disclosure of this information without the specific, written, and informed release of the individual to whom it pertains or as otherwise permitted by state law. A general authorization for the release of medical or other information is not sufficient for the purpose of the release of HIV test results or diagnoses. Performed By: #### 2 2322-2, 15406-0, 5195-3, 73445-9 ####[facility] LABCLIA [id number] [place] [address] [place] Reagin and Treponema pallidu m IgG and IgM [Interp]on 02-09-2024 T. pallidum IgG+IgM IA Ql (S) Non-Reactive Normal Nonreactive [facility] Comment on above: Order Comment: Speci men Type: BLOOD SPECIMENOrdering Facility: [facility] Address: [address] [place] [address] Performed By: #### 7 3752-8 ####[facility] LABIA [id number] [place] [address] [place] Reagin+T pallidum IgG+IgM Se rPl-Impon 02-09-2024 Reagin and Treponema pallidum IgG and IgM [Interp] Cannot exclude recent Treponemal infection if specimen collected within 7-10 days after appearance of suspect lesions or 2-3 weeks after an exposure. Clinical correlation is required. Normal [facility] Comment on above: Order Comment: Speci men Type: BLOOD SPECIMENOrdering Facility: [facility] Address: [address] [place] [address] Performed By: #### 7 3752-8 ####[facility] LABCLIA [id number] [place] [address] [place] UA DIP, URINE (POC)on 2023 BILIRUBIN UA (POCT) Negative Negative [facility] CLARITY UA (POCT) Clear [facility] COLOR UA (POCT) Yellow [facility] GLUCOSE UA (POCT) Negative Negative mg/dL [facility] Hemoglobin Ql (U) Negative [facility] KETONE UA (POCT) Negative Negative mg/dL [facility] LEUKOCYTES UA (POCT) Negative Negative [facility] NITRITE UA (POCT) Negative Negative [facility] PH UA (POCT) 6.0 4.5 - 8.0 [facility] Protein Ql (U) Negative Negative mg/dL [facility] SPECIFIC GRAVITY UA (POCT) 1.020 1.005 - 1.030 [facility] UROBILINOGEN UA (POCT) 0.2 Normal E.U./dL [facility] Location:[address], [id number] [place] [place] [address] POINT OF CARE [facility] UA DIP,URINE HCG (POC)on Beta HCG ( test) Ql (U) Negative Negative [facility] Comment on above: Location:[address], [address] Cash Applications Analyst (POCT) Internal QC [facility] Location:[address], [id number] [place] [address] POINT OF CARE [facility] CTPCRon 11-19-2023 C. trachomatis Interp Normal See CT Interp N [facility] ([place]) Comment on above: Result Comment: C. t rachomatis DNA not detected. Specimen is presumptive negative for C. trachomatis. A negative result does not preclude C. trachomatis infection because results depend on adequate specimen collection, absence of inhibitors, and sufficient DNA to be detected. See CT Interp N Performed By: #### C TPCR, NGPCR1 #### [place] [address] C.trachomatis PCR Negative Normal Negative [facility] ([place]) Comment on above: Result Comment: Tatyana deleonar (PCR) assay performed on the Mariano Marvin 4800 system. Performed By: #### C TPCR, NGPCR1 #### [facility] [address] [place] [address] Chlam Source Cervix Normal [facility] ([place]) Comment on above: Performed By: #### C TPCR, NGPCR1 #### [facility] [address] [place] [address] [id number] 11-19-2023 GC PCR Source Cervix Normal [facility] ([place]) Comment on above: Performed By: #### C TPCR, NGPCR1 #### [address] [address] N. gonorrhoeae (PCR) Negative Normal Negative [facility] ([place]) Comment on above: Result Comment: Tatyana cular (PCR) assay performed on the Mariano Marvin 4800 System. Performed By: #### C TPCR, NGPCR1 #### [address] [address] N. gonorrhoeae Interp Normal See NG Interp N [facility] ([place]) Comment on above: Result Comment: N. g onorrhoeae DNA not detected. Specimen is presumptive negative for N. gonorrhoeae. A negative result does not preclude Neisseria gonorrhoeae infection because results depend on adequate specimen collection, absence of inhibitors, and sufficient DNA to be detected. See NG Interp N Performed By: #### C TPCR, NGPCR1 #### [place] [id number] CNPVidhya 11-04-2023 CNPN Telephone ([facility]WSTR) CLARISSE REYNOSO ([id number]) 1995 F Date Time Provider Department 11/04/23 FIONA PATINO UCWSTR During your visit today, we recorded the following information about you: Fiona Patino PA 11/04/2023 7:01 AM Signed Please let patient know she tested positive for bacterial vaginosis. I have sent metronidazole to her pharmacy-[facility] in [place]. Please do not drink alcohol while taking this medication. Meliza Farris MA 11/04/2023 7:28 AM Signed Patient notified of results, verbalized understanding of instructions given. Meliza Farris MA Allergies As of Date: 11/04/2023 Noted Allergy Reaction PENICILLINS 09/12/2019 4 - Hives Date Reviewed: 06/28/2023 Reviewed by: Scottie Lang Jr., EXTRACTIONS TECHNICIAN.METAL FINISH INSPECTOR - Fully Assessed Reason for Visit: Results [95] Order(s):metroNIDAZOLE (FLAGYL) 500 mg tabletTake 1 tablet by mouth two times a day for 7 days.Disp: 14 tabletRfl: 0 Prescriptions as of 11/04/2023 - metroNIDAZOLE (FLAGYL) 500 mg tablet Take 1 tablet by mouth two times a day for 7 days. - sertraline (ZOLOFT) 25 mg tablet Take 1 tablet by mouth every afternoon. - cetirizine (ZYRTEC) 10 mg tablet Take 1 tablet by mouth every afternoon. Problem List As Of Date: 11/04/2023 (None) Prescriptions ordered this encounter Disp Refills Start End METRONIDAZOLE 500 MG TABLET 14 t* 0 11/04/2023 11/11/2023 Route: ORAL Sig: Take 1 tablet by mouth two times a day for 7 days. Encounter Status:Closed by MELIZA FARRIS on 11/04/23 Normal [facility] BACTERIAL VAGINOSIS NAATon 0 11-03-2023 Lactobacillus crispatus+gasseri+je nsenii + Gardnerella vaginalis + Atopobium vaginae rRNA ESTHER+probe Ql (Vag fld) Positive Abnormal Negative for bacterial vaginosis [facility] Comment on above: Order Comment: Speci men Type: SWABOrdering Facility: [facility] Address: [address] [place] [address] [place] [address] Performed By: #### B VAMP, 20769-9 ####[facility] LABCLIA [id number] [place] [address] [place] C. trachomatis+N. gonorrhoea e DNA ESTHER+probe Ql (Unsp spec)on 11-03-2023 C. trachomatis rRNA ESTHER+probe Ql (Unsp spec) Negative Normal Negative for Chlamydia trachomatis by amplificaton [facility] Comment on above: Order Comment: Speci men Type: SWABOrdering Facility: [facility] Address: [address] [place] [address] Performed By: #### B VAMP, 10120-6 ####[facility] LABCLIA [id number] [place] [address] [place] N. gonorrhoeae rRNA ESTHER+probe Ql (Unsp spec) Negative Normal Negative for Neisseria gonorrhoeae by amplification [facility] Comment on above: Order Comment: Speci men Type: SWABOrdering Facility: [facility] Address: [address] [place] [address] Performed By: #### B VAMP, 46985-4 ####[facility] LABCLIA [id number] [place] [address] [place] SANTI/TRICHOMONAS NAATon 0 11-03-2023 C. glabrata RNA ESTHER+probe Ql (Vag fld) Negative Normal Negative for Santi glabrata [facility] Comment on above: Order Comment: Speci men Type: SWABOrdering Facility: [facility] Address: [address] [place] [address] Performed By: #### C VTV ####[facility] LABCLIA [id number] [place] [address] [place] Santi sp DNA ESTHER+probe Ql (Vag fld) Negative Normal Negative for Santi species [facility] Comment on above: Order Comment: Speci men Type: SWABOrdering Facility: [facility] Address: [address] [place] [address] Performed By: #### C VTV ####[facility] LABCLIA [id number] [place] [address] [place] T. vaginalis DNA ESTHER+probe Ql (Unsp spec) Negative Normal Negative for Trichomonas vaginalis by amplification [facility] Comment on above: Order Comment: Speci men Type: SWABOrdering Facility: [facility] Address: [address] [place] [address] Performed By: #### C VTV ####[facility] LABIA [id number] [address] [place] CNOVon 11-03-2023 CNOV Office Visit ([facility] ) CLARISSE REYNOSO ([id number]) 1995 F Date Time Provider Department 11/03/23 12:30 PM KAMLA KEITA [facility] During your visit today, we recorded the following information about you: Temperature Pulse Respiration Blood pressure 98.8 degrees 73/minute 16/minute 112/78 Weight 105.6 kg Kamla Keita APRN.[facility] 11/03/2023 12:45 PM Signed CC: Patient presents with: STD check: STD check HPI Clarisse Reynoso is a 28 year old female who presents with complaint of possible UTI. These symptoms have been present for 5 days. Associated symptoms: abnormal vaginal discharge and vaginal itching Denies: fever, chills, sweats, abdominal pain, and flank pain Treatments: nothing The ROS was otherwise negative. PMH, Medications, labs, allergies, and recent past visits with PCP were reviewed and updated as able. PHYSICAL EXAM: BP 112/78 Pulse 73 Temp 37.1 ?C (98.8 ?F) (Tympanic) Resp 16 Wt 105.6 kg (232 lb 12.9 oz) LMP 06/28/2023 (Exact Date) SpO2 97% BMI 39.96 kg/m? General: Well appearing and alert CV: Regular rate and rhythm without obvious murmur Lungs: clear to auscultation bilaterally Back: straight and symmetric Abdomen: soft, nontender, nondistended History reviewed. No pertinent past medical history. No past surgical history on file. ALLERGIES Penicillins MEDICATIONS sertraline (ZOLOFT) 25 mg tablet Take 1 tablet by mouth every afternoon. (Patient not taking: Reported on 11/03/2023) cetirizine (ZYRTEC) 10 mg tablet Take 1 tablet by mouth every afternoon. (Patient not taking: Reported on 11/03/2023) No family history on file. Social History Tobacco Use Smoking status: Former Types: Cigarettes Smokeless tobacco: Never Vaping Use Vaping Use: current everyday user Substances: Nicotine, Flavoring Devices: Disposable, Pre-filled pod Substance Use Topics Alcohol use: Yes Alcohol/week: 2.0 - 4.0 standard drinks of alcohol Types: 2 - 4 Standard drinks or equivalent per week Drug use: Yes Types: Marijuana ASSESSMENT/PLAN: 1. Vaginal itching - ICD9: 698.1, ICD10: N89.8 - BACTERIAL VAGINOSIS NAAT - SANTI/TRICHOMONAS NAAT - GONORRHEA/CHLAMYDIA NAAT She self swabbed No treatment at this time. Potential red flag symptoms discussed with the patient. Reviewed appropriate action plan to take if red flag symptoms occur. Patient agreeable to treatment plan. Kamla Keita APRN.[facility] Allergies As of Date: 11/03/2023 Noted Allergy Reaction PENICILLINS 09/12/2019 4 - Hives Date Reviewed: 06/28/2023 Reviewed by: Scottie Lang Jr., SHELBY.METAL FINISH INSPECTOR - Fully Assessed Reason for Visit: STD check [Other] Cmt: STD check Primary Visit Diagnosis:Vaginal itching [N89.8] Order(s):BACTERIAL VAGINOSIS NAAT [SQBVAMP] Order #: [id number]. #:[id number] SANTI/TRICHOMONAS NAAT [SQCVTV] Order #: [id number]. #:[id number] GONORRHEA/CHLAMYDIA NAAT [SQGCCT] Order #: [id number]. #:[id number] Prescriptions as of 11/03/2023 - sertraline (ZOLOFT) 25 mg tablet Take 1 tablet by mouth every afternoon. - cetirizine (ZYRTEC) 10 mg tablet Take 1 tablet by mouth every afternoon. Problem List As Of Date: 11/03/2023 (None) Encounter Status:Closed by KAMLA KEITA on 11/03/23 Normal [facility] Bacteria Ur Culton Bacteria identified Cx Nom (U) CULTURE, URINE: <10,000 CFU/ml Normal Urogenital Shanice Normal [facility] Comment on above: Performed By: #### U A #### [facility] CLIA [id number] [address] C. trachomatis+N. gonorrhoea e DNA ESTHER+probe Ql (Unsp spec)on 09-23-2023 C. trachomatis rRNA ESTHER+probe Ql (Unsp spec) Negative Normal Negative for Chlamydia trachomatis by amplificaton [facility] Comment on above: Order Comment: Speci men Type: URINE SPECIMEN [facility] Address: [address] [place] [address] Performed By: #### U A #### [facility] CLIA [id number] [address] N. gonorrhoeae rRNA ESTHER+probe Ql (Unsp spec) Negative Normal Negative for Neisseria gonorrhoeae by [facility] Comment on above: Order Comment: Speci men Type: URINE SPECIMEN [facility] Address: [address] [place] [address] Performed By: #### U A #### [facility] CLIA [id number] [address] [facility] CNOVon 09-23-2023 CNOV Office Visit ([facility] ) CLARISSE REYNOSO ([id number]) 1995 F Date Time Provider Department 09/23/23 7:20 PM JULIANO QURESHI [facility] During your visit today, we recorded the following information about you: Temperature Pulse Respiration Blood pressure 97.7 degrees 63/minute 16/minute 105/73 Weight Height 104.3 kg 1.626 m Juliano Qureshi MD 09/23/2023 9:55 PM Signed Clarisse Reynoso is a 28 year old female who presents with STD (Discharge and itching now for 2 days, was with a partner 1 week ago. Discuss possible blood work for HIV and other STD tests with blood work.) The history is provided by the patient. No blocker heated metal forms was used. Vaginal Discharge This is a new problem. Episode onset: 5 days. The problem occurs constantly. The problem has not changed since onset.Context: Patient had sexual intercourse 1 week ago. The discharge was White, malodorous and thick. Associated symptoms include genital burning, genital itching and perineal odor. Pertinent negatives include no anorexia, no diaphoresis, no fever, no abdominal swelling, no abdominal pain, no constipation, no diarrhea, no nausea, no vomiting, no dyspareunia, no dysuria, no frequency, no genital lesions and no perineal pain. She has tried nothing for the symptoms. No past medical history on file. There is no problem list on file for this patient. Current Outpatient Medications Medication Sig Dispense Refill sertraline (ZOLOFT) 25 mg tablet Take 1 tablet by mouth every afternoon. cetirizine (ZYRTEC) 10 mg tablet Take 1 tablet by mouth every afternoon. No current facility-administered medications for this visit. Social History Tobacco Use Smoking status: Former Types: Cigarettes Smokeless tobacco: Never Vaping Use Vaping Use: current everyday user Substances: Nicotine, Flavoring Devices: Disposable, Pre-filled pod Substance Use Topics Alcohol use: Yes Alcohol/week: 2.0 - 4.0 standard drinks of alcohol Types: 2 - 4 Standard drinks or equivalent per week Drug use: Yes Types: Marijuana Alcohol Use: Approximately 1.2 - 2.4 oz/week [which includes 2-4 Standard drinks or equivalent per week] Tobacco Use: Types: Cigarettes No family history on file. Review of Systems Constitutional: Negative for chills, diaphoresis, fever and malaise/fatigue. Gastrointestinal: Negative for abdominal pain, anorexia, constipation, diarrhea, nausea and vomiting. Genitourinary: Negative for dyspareunia, dysuria, flank pain, frequency, hematuria and urgency. Vaginal itching and discharge BP 105/73 Pulse 63 Temp (Src) 97.7 (Temporal) Resp 16 Ht 5' 4 (1.63m) Wt 230 lb (104.3kg) SpO2 100% LMP 06/28/2023 BMI 39.46 kg/(m2). Physical Exam Vitals and nursing note reviewed. Constitutional: Appearance: Normal appearance. Cardiovascular: Rate and Rhythm: Normal rate and regular rhythm. Heart sounds: Normal heart sounds. Pulmonary: Effort: Pulmonary effort is normal. Breath sounds: Normal breath sounds. Abdominal: General: Abdomen is flat. Bowel sounds are normal. Palpations: Abdomen is soft. There is no mass. Tenderness: There is no abdominal tenderness. There is no right CVA tenderness, left CVA tenderness, guarding or rebound. Hernia: No hernia is present. Genitourinary: General: Normal vulva. Vagina: Vaginal discharge (White, thick, clumpy, malodorous) present. Skin: General: Skin is warm. Neurological: Mental Status: She is alert and oriented to person, place, and time. ASSESSMENT/PLAN: 1. Acute vaginitis - ICD9: 616.10, ICD10: N76.0 - GONORRHEA/CHLAMYDIA NAAT - URINALYSIS, DIPSTICK ONLY - URINE CULTURE - WET PREP MD Agnes Dumas Marsha M, MD 09/23/2023 8:46 PM Signed Vaginitis Vaginitis is an infection or inflammation of the vagina which can cause symptoms including abnormal vaginal discharge, irritation, itching, and pain, including with intercourse. The outside of the vagina (vulva) may be swollen and tender. Sometimes there are minimal or no symptoms. Abdominal pain, fevers or chills, vomiting, etc. are NOT usually due to vaginitis. Vaginitis can be caused by many things. -Several different types of organisms including: A fungus called Santi albicans (yeast or monilia) which can produce a thick, cheesy discharge. A protozoa (one-celled organism) called trichomonas which can cause a foamy, bad-smelling thin discharge. An overgrowth of normal vaginal bacteria (gardnerella) which may cause a fishy-smelling discharge. Other organisms such as chlamydia, herpes, etc. (Some but not all of these organisms may be sexually spread.) -Irritants and chemical such as creams, foams, douches, female deodorants, condoms and diaphragms, tampons. -Nonabsorbent, heat retaining clothing such as nylon pantyhose and tight fitting garments. -Vaginal dryness which is comm (more content not included)... Normal [facility] URINALYSIS, DIPSTICK ONLYOrd ered By: Sue Gordillo on 09-23-2023 Bilirubin Ql (U) Negative Negative [facility] Clarity (Unsp spec) Clear Clear [facility] Color (U) Yellow Yellow [facility] Glucose Test strip (U) [Mass/Vol] Negative Negative [facility] Hemoglobin Ql (U) 3+ Abnormal Negative [facility] Interpretation and review of laboratory results Abnormal [facility] Ketones Ql (U) Negative Negative [facility] Leukocyte esterase Test strip Ql (U) Negative Negative [facility] Nitrite Ql (U) Negative Negative [facility] pH (U) 6.0 [pH] 5.0 - 8.0 [facility] Protein (U) [Mass/Vol] Negative Negative [facility] Specific gravity (U) [Rel density] 1.025 1.005 - 1.030 [facility] Urobilinogen Ql (U) Negative Negative [facility] URINALYSIS, DIPSTICK ONLYon 09-23-2023 Bilirubin Ql (U) Negative Normal Negative [facility] Comment on above: Order Comment: Speci men Type: URINE SPECIMEN [facility] Address: [address] [place] [address] Performed By: #### 3 6902-5 #### [facility] CLIA [id number] [address] [place], [place] [id number] [place] Clarity (Unsp spec) Clear Normal Clear [facility] Comment on above: Order Comment: Speci men Type: URINE SPECIMEN [facility] Address: [address] [place] [id number] Performed By: #### 3 6902-5 #### [facility] CLIA [id number] [address] [place] [address] [place] Color (U) Yellow Normal Yellow [facility] Comment on above: Order Comment: Speci men Type: URINE SPECIMEN [facility] Address: [address] [place] [address] Performed By: #### 3 6902-5 #### [facility] CLIA [id number] [address] [place] [address] [place] Glucose Test strip (U) [Mass/Vol] Negative Normal Negative [facility] Comment on above: Order Comment: Speci men Type: URINE SPECIMEN [facility] Address: [address] [address] Performed By: #### 3 6902-5 #### [facility] CLIA [id number] [address] [place] [address] [place] Hemoglobin Ql (U) 3+ Abnormal Negative [facility] Comment on above: Order Comment: Speci men Type: URINE SPECIMEN [facility] Address: [address] [address] Performed By: #### 3 6902-5 #### [facility] CLIA [id number] [address] [place] [address] [place] Ketones Ql (U) Negative Normal Negative [facility] Comment on above: Order Comment: Speci men Type: URINE SPECIMEN [facility] Address: [address] [place] [address] Performed By: #### 3 6902-5 #### [facility] CLIA [id number] [address] [place] [address] [place] Leukocyte esterase Test strip Ql (U) Negative Normal Negative [facility] Comment on above: Order Comment: Speci men Type: URINE SPECIMEN [facility] Address: [address] [address] Performed By: #### 3 6902-5 #### [facility] CLIA [id number] [address] [place] [address] [place] Nitrite Ql (U) Negative Normal Negative [facility] Comment on above: Order Comment: Speci men Type: URINE SPECIMEN [facility] Address: [address] [address] Performed By: #### 3 6902-5 #### [facility] CLIA [id number] [address] [place] [address] [place] pH (U) 6.0 [pH] Normal 5.0-8.0 [facility] Comment on above: Order Comment: Speci men Type: URINE SPECIMEN [facility] Address: [address] [place] [address] Performed By: #### 3 6902-5 #### [facility] [place] [id number] [address] [place] [address] [place] Protein (U) [Mass/Vol] Negative Normal Negative [facility] Comment on above: Order Comment: Speci men Type: URINE SPECIMEN [facility] Address: [address] [place] [address] Performed By: #### 3 6902-5 #### [facility] [place] [id number] [address] [place] [address] [place] Specific gravity (U) [Rel density] 1.025 Normal 1.005-1.030 [facility] Comment on above: Order Comment: Speci men Type: URINE SPECIMEN [facility] Address: [address] [address] Performed By: #### 3 6902-5 #### [facility] CLIA [id number] [address] [place] [address] [place] Urobilinogen Ql (U) Negative Normal Negative [facility] Comment on above: Order Comment: Speci men Type: URINE SPECIMEN [facility] Address: [address] [address] Performed By: #### 3 6902-5 #### [facility] CLIA [id number] [address] [place] [address] WET PREPon 09-23-2023 WET PREP WET PREP RESULT: No Trichomonads, No yeast observed Moderate Clue cells present Normal [facility] Comment on above: Performed By: #### 3 6902-5 #### [facility] CLIA [id number] [address] [place] [address] C. trachomatis+N. gonorrhoea e DNA ESTHER+probe Ql (Unsp spec)on 06-28-2023 C. trachomatis rRNA ESTHER+probe Ql (Unsp spec) Negative Negative [facility] Chlamydia [facility]omatis [facility] N. gonorrhoeae rRNA ESTHER+probe Ql (Unsp spec) Negative Negative for Neisseria gonorrhoeae by amplification [facility] C. trachomatis rRNA ESTHER+probe Ql (Unsp spec) Negative Normal Negative for Chlamydia trachomatis by amplificaton [facility] Comment on above: Order Comment: Speci men Type: URINE SPECIMEN [facility] Address: [address] [place] [address] Performed By: #### 3 6902-5 #### [facility] CLIA [id number] [address] [place] [address] N. gonorrhoeae rRNA ESTHER+probe Ql (Unsp spec) Negative Normal Negative for Neisseria gonorrhoeae by amplification [facility] Comment on above: Order Comment: Speci men Type: URINE SPECIMEN [facility] Address: [address] [place] [address] Performed By: #### 3 6902-5 #### [facility] CLIA [id number] [address] [place] [address] CNOVon 06-28-2023 [facility] CLARISSE REYNOSO ([id number]) 1995 F Date Time Provider Department 06/28/23 9:45 AM [facility] your visit today, we recorded the following information about you: Temperature Pulse Respiration Blood pressure 97.7 degrees 67/minute 18/minute 118/78 Last Period 06/28/23 Scottie Lang Jr., EXTRACTIONS TECHNICIAN.METAL FINISH INSPECTOR 06/28/2023 1:46 PM Signed Clarisse Reynoso is a 27 year old female who presents with STD (Wants testing) 27-year-old female presents today with complaint of urinary burning, vaginal discharge and itchiness by 5 days. Patient states she had her period last night. 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 Patient was seen here May 15 send tested for STDs at that time, no infection found. When asked about shortness of breath patient stated she had it. I asked patient about the history and she states that she feels she has shortness of breath because she is overweight and it is nothing unusual for her. Patient states last sexual encounter was approximately a week ago with her boyfriend she denies any other sexual contacts. Patient was asked if her boyfriend's been treated with any STDs and she replied that he states he is clean. The history is provided by the patient. History reviewed. No pertinent past medical history. There is no problem list on file for this patient. Current Outpatient Medications Medication Sig Dispense Refill sertraline (ZOLOFT) 25 mg tablet Take 1 tablet by mouth every afternoon. cetirizine (ZYRTEC) 10 mg tablet Take 1 tablet by mouth every afternoon. No current facility-administered medications for this visit. Social History Tobacco Use Smoking status: Former Types: Cigarettes Smokeless tobacco: Never Vaping Use Vaping Use: current everyday user Substances: Nicotine, Flavoring Devices: Disposable, Pre-filled pod Substance Use Topics Alcohol use: Yes Alcohol/week: 2.0 - 4.0 standard drinks of alcohol Types: 2 - 4 Standard drinks or equivalent per week Drug use: Yes Types: Marijuana Alcohol Use: Approximately 1.2 - 2.4 oz/week [which includes 2-4 Standard drinks or equivalent per week] Tobacco Use: Types: Cigarettes History reviewed. No pertinent family history. Review of Systems Respiratory: Positive for shortness of breath. Genitourinary: Positive for dysuria. Vaginitis BP 118/78 Pulse 67 Temp 97.7 Resp 18 SpO2 100% LMP 06/28/2023 Physical Exam VITALS: Vitals are within normal limits CONSTITUTIONAL: patient is alert and orientated by 3, no acute distress HEAD: Head is atraumatic normocephalic. EYES: No bilateral conjunctivitis EARS/NOSE/THROAT: No turbinate edema or nasal drainage. Throat is unremarkable. No tonsilar enlargement/exudate noted. NECK: No anterior cervical lyphadenopathy PULMONARY: No labored breathing. Lungs clear to auscultation. CARDIOVASCUOLAR: Regular rate and rhythm. No murmurs, rubs, or gallops. ABDOMEN: Soft nontender nondistended. Right CVA tenderness. MUSCULOSKELETAL: Moves all extremities without difficulty. No edema noted SKIN: Warm and dry no clubbing cyanosis or edema. PSYCHIATRY: Cooperative. Normal mood and affect. PROCEDURE: Patient was placed in the lithotomy position. Gracy RYAN was present as an [employer] faculty assistant and architecture internship. Examination of the external genitalia does not show any pathology. Meg blood noted on interna; exam that is consistent with patient being on her period. No internal lesions noted. Specimens obtained for testing. Patient tlerated procedure well. URINE dip: Urine dip considered positive for UTI with leuks noted. ASSESSMENT/PLAN: 1. Acute vaginitis - ICD9: 616.10, ICD10: N76.0 (primary diagnosis) - GONORRHEA/CHLAMYDIA NAAT - TRICHOMONAS PREP/ANTIGEN - URINE CULTURE - FUNGAL SCREEN 2. Dysuria - ICD9: 788.1, ICD10: R30.0 - URINALYSIS, DIPSTICK ONLY Patient presented today with a complaint of dysuria and vaginal complaints by 5 days. On examination patient had right CVA tenderness, no abdominal tenderness to palpation. Lung sounds were clear to auscultation and skin was warm and dry. Urine dip was performed that was positive for a UTI and awaiting urine culture results. Due to patient's complaint plaints of vaginal symptoms and STD check was performed. Base further treatment on results when received if needed. During set up patient overheard staff trying to figure out which tubes to use for the STD check. Patient heard 1 staff member saying that were not an STD clinic and was very upset. I tried to explain to her that there have been changes and we want to make sure that we were getting the right specimens. Patient was still very upset and requested that we do the testing so she could leave the office. Keri Karimi Jr (more content not included)... Normal [facility] Fungus Spec Culton Fungus identified Cx Nom (Unsp spec) CULTURE, FUNGAL: No Fungus isolated after 10 days [facility] Comment on above: Performed By: #### 3 6902-5 #### [facility] CLIA [id number] [address] [place] [address] [place] T vaginalis Ag Genital Ql IA on 06-28-2023 T. vaginalis Ag IA Ql (Genital specimen) TRICHOMONAS PREP RESULT: Negative for Trichomonas vaginalis antigen [facility] Comment on above: Performed By: #### 3 6902-5 #### [facility] CLIA [id number] [address] [place] [address] [place] URINALYSIS, DIPSTICK ONLYon 06-28-2023 Bilirubin Ql (U) Negative Negative [facility] Clarity (Unsp spec) Cloudy Abnormal Clear [facility] Color (U) Kylie Abnormal Yellow [facility] Glucose Test strip (U) [Mass/Vol] Negative Negative [facility] Hemoglobin Ql (U) 3+ Abnormal Negative [facility] Ketones Ql (U) Negative Negative [facility] Leukocyte esterase Test strip Ql (U) Trace Abnormal Negative [facility] Nitrite Ql (U) Negative Negative [facility] pH (U) 6.0 [pH] 5.0 - 8.0 [facility] Protein (U) [Mass/Vol] 1+ Abnormal Negative [facility] Specific gravity (U) [Rel density] 1.025 1.005 - 1.030 [facility] Urobilinogen Ql (U) Negative Negative [facility] Bilirubin Ql (U) Negative Normal Negative [facility] Comment on above: Order Comment: Speci men Type: URINE SPECIMENOrdering Facility: [facility] Address: [address] [place] [address] Performed By: #### U A ####WILLIAM VÁZQUEZILLON LABCLIA [id number] [place] [address] [facility] Clarity (Unsp spec) Cloudy Abnormal Clear [facility] Comment on above: Order Comment: Speci men Type: URINE SPECIMENOrdering Facility: [facility] Address: [address] [place] [address] Performed By: #### U A ####MATTHEWRonak GURPREETILLON LABCLIA [id number] [place] [address] [facility] Color (U) Kylie Abnormal Yellow [facility] Comment on above: Order Comment: Speci men Type: URINE SPECIMENOrdering Facility: [facility] Address: [address] [place] [address] Performed By: #### U A ####WILLIAM GURPREETEDILMAN LABCLIA [id number] [place] [address] [facility] Glucose Test strip (U) [Mass/Vol] Negative Normal Negative [facility] Comment on above: Order Comment: Speci men Type: URINE SPECIMENOrdering Facility: [facility] Address: [address] [place] [address] Performed By: #### U A ####MATTHEWRonak GURPREETEDILMAN LABCLIA [id number] [place] [address] [facility] Hemoglobin Ql (U) 3+ Abnormal Negative [facility] Comment on above: Order Comment: Speci men Type: URINE SPECIMENOrdering Facility: [facility] Address: [address] [place] [address] Performed By: #### U A ####MATTHEWRonak MASSILLON LABCLIA [id number] [place] [address] [facility] Ketones Ql (U) Negative Normal Negative [facility] Comment on above: Order Comment: Speci men Type: URINE SPECIMENOrdering Facility: [facility] Address: [address] [place] [address] Performed By: #### U A ####WILLIAM VALENCIACase LABCLIA [id number] [place] [address] [facility] Leukocyte esterase Test strip Ql (U) Trace Abnormal Negative [facility] Comment on above: Order Comment: Speci men Type: URINE SPECIMENOrdering Facility: [facility] Address: [address] [place] [address] Performed By: #### U A ####MATTHEWRonak ANNIECase LABCLIA [id number] [place] [address] [facility] Nitrite Ql (U) Negative Normal Negative [facility] Comment on above: Order Comment: Speci men Type: URINE SPECIMENOrdering Facility: [facility] Address: [address] [place] [address] Performed By: #### U A ####MATTHEWRonak GURPREETJAMEE LABCLIA [id number] [place] [address] [facility] pH (U) 6.0 [pH] Normal 5.0-8.0 [facility] Comment on above: Order Comment: Speci men Type: URINE SPECIMENOrdering Facility: [facility] Address: [address] [place] [address] Performed By: #### U A ####WILLIAM VALENCIACase LABCLIA [id number] [place] [address] [facility] Protein (U) [Mass/Vol] 1+ Abnormal Negative [facility] Comment on above: Order Comment: Speci men Type: URINE SPECIMENOrdering Facility: [facility] Address: [address] [place] [address] Performed By: #### U A ####WILLIAM VALENCIACase LABCLIA [id number] [place] [address] [facility] Specific gravity (U) [Rel density] 1.025 Normal 1.005-1.030 [facility] Comment on above: Order Comment: Speci men Type: URINE SPECIMENOrdering Facility: [facility] Address: [address] [place], [place] [address] [address] Performed By: #### U A ####[facility] VALENCIA LABCLIA [id number] [place] [address] [facility] Urobilinogen Ql (U) Negative Normal Negative [facility] Comment on above: Order Comment: Speci men Type: URINE SPECIMENOrdering Facility: [facility] Address: [address] [place] [id number] Performed By: #### U A ####[facility]on[facility] VALENCIAN LABCLIA [id number] [place] [address] [facility] WET PREPon 06-28-2023 Wet Prep Result No Trichomonads, No yeast observed [facility] Wet Prep Result No clue cells present [facility] WET PREP WET PREP RESULT: No Trichomonads, No yeast observed No clue cells present Normal [facility] Comment on above: Performed By: #### 3 6902-5 #### [facility] CLIA [id number] [facility] CTPCRon 06-24-2023 C. trachomatis Interp Normal See CT Interp N [facility] ([place] Comment on above: Result Comment: C. t rachomatis DNA not detected. Specimen is presumptive negative for C. trachomatis. A negative result does not preclude C. trachomatis infection because results depend on adequate specimen collection, absence of inhibitors, and sufficient DNA to be detected. See CT Interp N Performed By: #### N GPCR1, CTPCR #### [address] [address] C.trachomatis PCR Negative Normal Negative [facility] ([place] Comment on above: Result Comment: Mole adriennear (PCR) assay performed on the Mariano Marvin 4800 system. Performed By: #### N GPCR1, CTPCR #### [address] [address] Chlam Source Urine Normal [facility] ([place]) Comment on above: Performed By: #### N GPCR1, CTPCR #### [address] [address] [id number] 06-24-2023 GC PCR Source Urine Normal [facility] ([place] Comment on above: Performed By: #### N GPCR1, CTPCR #### [address] [address] N. gonorrhoeae (PCR) Negative Normal Negative [facility] ([place]) Comment on above: Result Comment: Mole cular (PCR) assay performed on the Mariano Marvin 4800 System. Performed By: #### N GPCR1, CTPCR #### [facility] [address] [place] [address] N. gonorrhoeae Interp Normal See NG Interp N [facility] ([place] Comment on above: Result Comment: N. g onorrhoeae DNA not detected. Specimen is presumptive negative for N. gonorrhoeae. A negative result does not preclude Neisseria gonorrhoeae infection because results depend on adequate specimen collection, absence of inhibitors, and sufficient DNA to be detected. See NG Interp N Performed By: #### N GPCR1, CTPCR #### [address] [address] .Auto Diffon 06-23-2023 Basophil, Absolute 0.0 10 3/mcL Normal 0.0-0.2 [facility] ([place]) Comment on above: Performed By: #### V IDH, CBC, TSH, ADIFF, GFR, CMP, HCGQ, ANEU #### [address] [address] Basophils/100 WBC (Bld) 0.6 % Normal 0.0-2.5 [facility] ([place] Comment on above: Performed By: #### V IDH, CBC, TSH, ADIFF, GFR, CMP, HCGQ, ANEU #### [address] [address] Eosinophil, Absolute 0.1 10 3/mcL Normal 0.0-0.4 [facility] ([place]) Comment on above: Performed By: #### V IDH, CBC, TSH, ADIFF, GFR, CMP, HCGQ, ANEU #### [address] [address] Eosinophils/100 WBC (Bld) 1.3 % Normal 0.0-7.0 [facility] ([place] Comment on above: Performed By: #### V IDH, CBC, TSH, ADIFF, GFR, CMP, HCGQ, ANEU #### [address] [address] Lymphocyte, Absolute 2.3 10 3/mcL Normal 0.8-3.9 [facility] ([place]) Comment on above: Performed By: #### V IDH, CBC, TSH, ADIFF, GFR, CMP, HCGQ, ANEU #### [address] [address] Lymphocytes/100 WBC (Bld) 32.7 % Normal 10.0-50.0 [facility] ([place] Comment on above: Performed By: #### V IDH, CBC, TSH, ADIFF, GFR, CMP, HCGQ, ANEU #### [address] [address] Monocyte, Absolute 0.4 10 3/mcL Normal 0.2-1.0 [facility] ([place] Comment on above: Performed By: #### V IDH, CBC, TSH, ADIFF, GFR, CMP, HCGQ, ANEU #### [address] [address] Monocytes/100 WBC (Bld) 6.3 % Normal 1.7-13.0 [facility] ([place] Comment on above: Performed By: #### V IDH, CBC, TSH, ADIFF, GFR, CMP, HCGQ, ANEU #### [address] [address] Neutrophils/100 WBC (Bld) 59.1 % Normal 37.0-80.0 [facility] ([place] Comment on above: Performed By: #### V IDH, CBC, TSH, ADIFF, GFR, CMP, HCGQ, ANEU #### [address] [address] .GFRon 06-23-2023 GFR Non- 91 ml/min/1.73sqm Normal [facility] ([place] Comment on above: Result Comment: GFR Population mean for , Non- Americans Ages 20-29 = 116 mL/min/1.73 sq.m. Ages 30-39 = 107 mL/min/1.73 sq.m. Ages 40-49 = 99 mL/min/1.73 sq.m. Ages 50-59 = 93 mL/min/1.73 sq.m. Ages 60-69 = 85 mL/min/1.73 sq.m. Ages 70+ = 75 mL/min/1.73 sq.m. Chronic Kidney Disease: Less than 60 mL/min/1.73 square meters End Stage Renal Disease: Less than 15 mL/min/1.73 square meters Performed By: #### V IDH, CBC, TSH, ADIFF, GFR, CMP, HCGQ, ANEU ####Gab[address]ela [address] [place], [place] [address] GFR 111 ml/min/1.73sqm Normal [facility] ([place] Comment on above: Result Comment: GFR Population mean for , Non- Americans Ages 20-29 = 116 mL/min/1.73 sq.m. Ages 30-39 = 107 mL/min/1.73 sq.m. Ages 40-49 = 99 mL/min/1.73 sq.m. Ages 50-59 = 93 mL/min/1.73 sq.m. Ages 60-69 = 85 mL/min/1.73 sq.m. Ages 70+ = 75 mL/min/1.73 sq.m. Chronic Kidney Disease: Less than 60 mL/min/1.73 square meters End Stage Renal Disease: Less than 15 mL/min/1.73 square meters Performed By: #### V IDH, CBC, TSH, ADIFF, GFR, CMP, HCGQ, ANEU ####Gabriela [address] [place], [place] [address] .NEUABSon 06-23-2023 Neutrophil, Absolute 4.1 10 3/mcL Normal 2.9-6.2 [facility] ([place]) Comment on above: Performed By: #### V IDH, CBC, TSH, ADIFF, GFR, CMP, HCGQ, ANEU #### Gabriela [place] [address] CBCon 06-23-2023 Erythrocyte distribution width (RBC) [Ratio] 13.9 % Normal 11.5-14.5 [facility] ([place] Comment on above: Performed By: #### V IDH, CBC, TSH, ADIFF, GFR, CMP, HCGQ, ANEU #### [address] [address] Hematocrit (Bld) [Volume fraction] 37.2 % Normal 37.0-47.0 [facility] ([place] Comment on above: Performed By: #### V IDH, CBC, TSH, ADIFF, GFR, CMP, HCGQ, ANEU #### [place] [address] Hgb 13.1 G/dL Normal 12.0-16.0 [facility] ([place] Comment on above: Performed By: #### V IDH, CBC, TSH, ADIFF, GFR, CMP, HCGQ, ANEU #### [place] [id number] MCH (RBC) [Entitic mass] 30.9 pg Normal 27.0-31.2 [facility] ([place] Comment on above: Performed By: #### V IDH, CBC, TSH, ADIFF, GFR, CMP, HCGQ, ANEU #### [address] [address] MCHC 35.2 G/dL Normal 33.0-37.0 [facility] ([place] Comment on above: Performed By: #### V IDH, CBC, TSH, ADIFF, GFR, CMP, HCGQ, ANEU #### [address] [address] MCV (RBC) [Entitic vol] 87.7 fL Normal 80.0-94.0 [facility] ([place] Comment on above: Performed By: #### V IDH, CBC, TSH, ADIFF, GFR, CMP, HCGQ, ANEU #### [address] [address] Platelet 264 10 3/mcL Normal 130-400 [facility] ([place] Comment on above: Performed By: #### V IDH, CBC, TSH, ADIFF, GFR, CMP, HCGQ, ANEU #### [address] [address] Platelet mean volume (Bld) [Entitic vol] 8.1 fL Normal 7.4-10.4 [facility] ([place] Comment on above: Performed By: #### V IDH, CBC, TSH, ADIFF, GFR, CMP, HCGQ, ANEU #### [address] [address] RBC 4.24 10 6/mcL Normal 4.20-5.40 [facility] ([place] Comment on above: Performed By: #### V IDH, CBC, TSH, ADIFF, GFR, CMP, HCGQ, ANEU #### [place] [id number] WBC 6.9 10 3/mcL Normal 4.6-10.8 [facility] ([place] Comment on above: Performed By: #### V IDH, CBC, TSH, ADIFF, GFR, CMP, HCGQ, ANEU #### [address] [address] CMPon 06-23-2023 Albumin Level 3.9 G/dL Normal 3.5-5.0 [facility] ([place] Comment on above: Performed By: #### V IDH, CBC, TSH, ADIFF, GFR, CMP, HCGQ, ANEU ####[address] [address] Albumin/Globulin [Mass ratio] 1.2 {ratio} Normal 1.1-2.5 [facility] ([place] Comment on above: Performed By: #### V IDH, CBC, TSH, ADIFF, GFR, CMP, HCGQ, ANEU ####[address] [address] ALP [Catalytic activity/Vol] 64 U/L Normal 40-135 [facility] ([place] Comment on above: Performed By: #### V IDH, CBC, TSH, ADIFF, GFR, CMP, HCGQ, ANEU ####[address] [address] ALT [Catalytic activity/Vol] 64 U/L High 14-59 [facility] ([place] Comment on above: Performed By: #### V IDH, CBC, TSH, ADIFF, GFR, CMP, HCGQ, ANEU ####[address] [place], [place] [address] AST [Catalytic activity/Vol] 21 U/L Normal 10-40 [facility] ([place] Comment on above: Performed By: #### V IDH, CBC, TSH, ADIFF, GFR, CMP, HCGQ, ANEU ####[address] [place], [place] [address] Bili Total 0.5 mg/dL Normal 0.2-1.0 [facility] ([place] Comment on above: Result Comment: Use of this assay is not recommended for patients undergoing treatment with eltrombopag due to the potential for falsely elevated results. Performed By: #### V IDH, CBC, TSH, ADIFF, GFR, CMP, HCGQ, ANEU ####[address] [place], [place] [address] BUN/Creatinine Ratio 18 ratio Normal 7-27 [facility] ([place] Comment on above: Performed By: #### V IDH, CBC, TSH, ADIFF, GFR, CMP, HCGQ, ANEU ####[address] [place], [place] [address] Calcium [Mass/Vol] 9.0 mg/dL Normal 8.4-10.2 [facility] ([place]) Comment on above: Performed By: #### V IDH, CBC, TSH, ADIFF, GFR, CMP, HCGQ, ANEU ####[address] [place], [place] [address] Chloride [Moles/Vol] 103 mmol/L Normal 98-107 [facility] ([place] Comment on above: Performed By: #### V IDH, CBC, TSH, ADIFF, GFR, CMP, HCGQ, ANEU ####[address] [place], [place] [address] CO2 [Moles/Vol] 24 mmol/L Normal 22-29 [facility] ([place] Comment on above: Performed By: #### V IDH, CBC, TSH, ADIFF, GFR, CMP, HCGQ, ANEU ####[address] [place], [place] [address] Creatinine [Mass/Vol] 0.77 mg/dL Normal 0.55-1.02 [facility] ([place] Comment on above: Performed By: #### V IDH, CBC, TSH, ADIFF, GFR, CMP, HCGQ, ANEU ####[address] [place], [place] [address] Electrolyte Balance 12.0 mEq/L Normal 4.0-15.0 [facility] ([place]) Comment on above: Performed By: #### V IDH, CBC, TSH, ADIFF, GFR, CMP, HCGQ, ANEU ####[address] [place], [place] [address] Globulin 3.3 G/dL Normal [facility] ([place] Comment on above: Performed By: #### V IDH, CBC, TSH, ADIFF, GFR, CMP, HCGQ, ANEU ####Gab[address] [place], [place] [address] Glucose [Mass/Vol] 82 mg/dL Normal 70-105 [facility] ([place] Comment on above: Performed By: #### V IDH, CBC, TSH, ADIFF, GFR, CMP, HCGQ, ANEU ####[address] [place], [place] [address] Potassium [Moles/Vol] 4.7 mmol/L Normal 3.5-5.1 [facility] ([place]) Comment on above: Performed By: #### V IDH, CBC, TSH, ADIFF, GFR, CMP, HCGQ, ANEU ####Gab[address]ela [address] [place], [place] [address] Sodium [Moles/Vol] 139 mmol/L Normal 136-145 [facility] ([place] Comment on above: Performed By: #### V IDH, CBC, TSH, ADIFF, GFR, CMP, HCGQ, ANEU ####Gab[address] [place], [place] [address] Total Protein 7.2 G/dL Normal 6.4-8.2 [facility] ([place] Comment on above: Performed By: #### V IDH, CBC, TSH, ADIFF, GFR, CMP, HCGQ, ANEU ####Gab[address] [place], [place] [address] Urea nitrogen [Mass/Vol] 14 mg/dL Normal 7-18 [facility] ([place] Comment on above: Performed By: #### V IDH, CBC, TSH, ADIFF, GFR, CMP, HCGQ, ANEU ####[address] [place], [place] [address] HCGQon 06-23-2023 hCG, quantitative <1.0 Normal [facility] ([place]) Comment on above: Result Comment: HCG Levels with Gestation age: 0.2- 1 week. . . . . . . . . . . . . . . 5 - 50 mIU/mL 1-2 weeks . . . . . . . . . . . . . . . 50 - 500 mIU/mL 2-3 weeks . . . . . . . . . . . . . . . 100 - 5,000 mIU/ml 3-4 weeks . . . . . . . . . . . . . . . 500 - 10,000 mIU/mL 4-5 weeks . . . . . . . . . . . . . . . 1,000 - 5,000 mIU/mL 5-6 weeks . . . . . . . . . . . . . . . 10,000 - 100,000 mIU/mL 6-8 weeks . . . . . . . . . . . . . . . 15,000 - 200,000 mIU/mL 2-3 months . . . . . . . . . . . . . . . 10,000 - 100,000 mIU/mL Performed By: #### V IDH, CBC, TSH, ADIFF, GFR, CMP, HCGQ, ANEU ####[address] [place], [place] [address] LABORATORYOrdered By: Obdulia Villagomez on 06-23-2023 C. trachomatis DNA ESTHER+probe Ql (Unsp spec) Negative 2 (06/23/23 4:17 PM) Normal AH Auto Viro/Sero SS Comment on above: Interpretive Data: M olecular (PCR) assay performed on the Mariano Marvin 4800 system. C. trachomatis DNA ESTHER+probe Ql (Unsp spec) C. trachomatis DNA not detected. Specimen is presumptive negative forC. trachomatis.A negative result does not preclude C. trachomatis infection becauseresults depend on adequate specimen collection, absence of inhibitors,and sufficient DNA to be detected. Normal See CT Interp N Auto Viro/Sero SS N. gonorrhoeae DNA ESTHER+probe Ql (Unsp spec) Negative 1 (06/23/23 4:17 PM) Normal Auto Viro/Sero SS Comment on above: Interpretive Data: M olecular (PCR) assay performed on the [employer] Marvin 4800 System. N. gonorrhoeae DNA ESTHER+probe Ql (Unsp spec) N. gonorrhoeae DNA not detected. Specimen is presumptive negative forN. gonorrhoeae. A negative result does not preclude Neisseria gonorrhoeaeinfection because results depend on adequate specimen collection, absenceof inhibitors, and sufficient DNA to be detected. Normal See NG Interp N Auto Viro/Sero SS LABORATORYOrdered By: SYSTEM SYSTEM on 06-23-2023 25-hydroxyvitamin D3 [Mass/Vol] 25.4 ng/mL Invalid Interpretation Code AO ADM SS Comment on above: Interpretive Data: I nterpretive Values Based on Total 25(OH) Vitamin D: Deficient <20 ng/mL Insufficient 20 - <30 ng/mL Sufficient 30-100 ng/mL Albumin BCP dye [Mass/Vol] 3.9 G/dL Normal 3.5 - 5.0 G/dL AO ADM SS Albumin/Globulin [Mass ratio] 1.2 {ratio} Normal 1.1 - 2.5 ratio AO ADM SS ALP [Catalytic activity/Vol] 64 U/L Normal 40 - 135 U/L AO ADM SS ALT With P-5'-P [Catalytic activity/Vol] 64 U/L High 14 - 59 U/L AO ADM SS AST With P-5'-P [Catalytic activity/Vol] 21 U/L Normal 10 - 40 U/L AO ADM SS Basophil, Absolute 0.0 103/mcL Normal 0.0 - 0.2 10^3/mcL AO Workflow SS Basophils/100 WBC (Bld) 0.6 % Normal 0.0 - 2.5 % AO Workflow SS Bilirubin [Mass/Vol] 0.5 mg/dL Normal 0.2 - 1.0 mg/dL AO ADM SS Comment on above: Interpretive Data: U se of this assay is not recommended for patients undergoing treatment with eltrombopag due to the potential for falsely elevated results. Calcium [Mass/Vol] 9.0 mg/dL Normal 8.4 - 10. 2 mg/dL AO ADM SS Chloride [Moles/Vol] 103 mmol/L Normal 98 - 107 mmol/L AO ADM SS CO2 [Moles/Vol] 24 mmol/L Normal 22 - 29 mmol/L AO AD M SS Creatinine [Mass/Vol] 0.77 mg/dL Normal 0.55 - 1.02 mg/dL AO ADM SS Electrolyte Balance 12.0 mEq/L Normal 4.0 - 15 .0 mEq/L AO ADM SS Eosinophil, Absolute 0.1 103/mcL Normal 0.0 - 0 .4 10^3/mcL AO Workflow SS Eosinophils/100 WBC (Bld) 1.3 % Normal 0.0 - 7.0 % AO Workflow SS Erythrocyte distribution width (RBC) [Ratio] 13.9 % Normal 11.5 - 14.5 % AO Workflow SS GFR/1.73 sq M.predicted among blacks MDRD (S/P/Bld) [Vol rate/Area] 111 ml/min/1.73sqm Invalid Interpretation Code AO Chemistry S Comment on above: Interpretive Data: GFR Population mean for , Non- Americans Ages 20-29 = 116 mL/min/1.73 sq.m. Ages 30-39 = 107 mL/min/1.73 sq.m. Ages 40-49 = 99 mL/min/1.73 sq.m. Ages 50-59 = 93 mL/min/1.73 sq.m. Ages 60-69 = 85 mL/min/1.73 sq.m. Ages 70+ = 75 mL/min/1.73 sq.m. Chronic Kidney Disease: Less than 60 mL/min/1.73 square meters End Stage Renal Disease: Less than 15 mL/min/1.73 square meters GFR/1.73 sq M.predicted among non-blacks MDRD (S/P/Bld) [Vol rate/Area] 91 ml/min/1.73sqm Invalid Interpretation Code AO Chemistry S Comment on above: Interpretive Data: GFR Population mean for , Non- Americans Ages 20-29 = 116 mL/min/1.73 sq.m. Ages 30-39 = 107 mL/min/1.73 sq.m. Ages 40-49 = 99 mL/min/1.73 sq.m. Ages 50-59 = 93 mL/min/1.73 sq.m. Ages 60-69 = 85 mL/min/1.73 sq.m. Ages 70+ = 75 mL/min/1.73 sq.m. Chronic Kidney Disease: Less than 60 mL/min/1.73 square meters End Stage Renal Disease: Less than 15 mL/min/1.73 square meters Globulin 3.3 G/dL Invalid Interpretation Code AO ADM SS Glucose [Mass/Vol] 82 mg/dL Normal 70 - 105 mg/dL AO ADM SS HCG Qn mIU/mL Invalid Interpretation Code AO ADM SS Comment on above: Interpretive Data: H CG Levels with Gestation age: 0.2- 1 week. . . . . . . . . . . . . . . 5 - 50 mIU/mL 1-2 weeks . . . . . . . . . . . . . . . 50 - 500 mIU/mL 2-3 weeks . . . . . . . . . . . . . . . 100 - 5,000 mIU/ml 3-4 weeks . . . . . . . . . . . . . . . 500 - 10,000 mIU/mL 4-5 weeks . . . . . . . . . . . . . . . 1,000 - 5,000 mIU/mL 5-6 weeks . . . . . . . . . . . . . . . 10,000 - 100,000 mIU/mL 6-8 weeks . . . . . . . . . . . . . . . 15,000 - 200,000 mIU/mL 2-3 months . . . . . . . . . . . . . . . 10,000 - 100,000 mIU/mL Hematocrit (Bld) [Volume fraction] 37.2 % Normal 37.0 - 47.0 % AO Workflow SS Hemoglobin (Bld) [Mass/Vol] 13.1 G/dL Normal 12.0 - 16.0 G/dL AO Workflow SS Lymphocyte, Absolute 2.3 103/mcL Normal 0.8 - 3 .9 10^3/mcL AO Workflow SS Lymphocytes/100 WBC (Bld) 32.7 % Normal 10.0 - 50.0 % AO Workflow SS MCH (RBC) [Entitic mass] 30.9 pg Normal 27.0 - 31.2 pg AO Workflow SS MCHC 35.2 G/dL Normal 33.0 - 37.0 G/dL AO Workflow SS MCV (RBC) [Entitic vol] 87.7 fL Normal 80.0 - 94.0 fL AO Workflow SS Monocyte, Absolute 0.4 103/mcL Normal 0.2 - 1.0 10^3/mcL AO Workflow SS Monocytes/100 WBC (Bld) 6.3 % Normal 1.7 - 13.0 % AO Workflow SS Neutrophil, Absolute 4.1 103/mcL Normal 2.9 - 6 .2 10^3/mcL AO Workflow SS Neutrophils/100 WBC (Bld) 59.1 % Normal 37.0 - 80.0 % AO Workflow SS Platelet mean volume (Bld) [Entitic vol] 8.1 fL Normal 7.4 - 10.4 fL AO Workflow SS Platelets (Bld) [#/Vol] 264 103/mcL Normal 130 - 400 10^3/mcL AO Workflow SS Potassium [Moles/Vol] 4.7 mmol/L Normal 3.5 - 5.1 mmol/L AO ADM SS Protein [Mass/Vol] 7.2 G/dL Normal 6.4 - 8.2 G/dL AO ADM SS RBC (Bld) [#/Vol] 4.24 106/mcL Normal 4.20 - 5.4 0 10^6/mcL AO Workflow SS Sodium [Moles/Vol] 139 mmol/L Normal 136 - 145 mmol/L AO ADM SS TSH Qn 1.84 m[IU]/L Normal 0.36 - 3.74 mcIU/mL AO ADM SS Urea nitrogen [Mass/Vol] 14 mg/dL Normal 7 - 18 mg/dL AO ADM SS Urea nitrogen/Creatinine [Mass ratio] 18 ratio Normal 7 - 27 ratio AO ADM SS WBC (Bld) [#/Vol] 6.9 103/mcL Normal 4.6 - 10.8 10^3/mcL AO Workflow SS Laboratory - Specimen inform ationOrdered By: Obdulia Villagomez on 06-23-2023 Specimen source Nom (Unsp spec) Urine (06/23/23 4:17 PM) Normal AH Auto Viro/Sero SS TSHon 06-23-2023 TSH Qn 1.84 m[IU]/L Normal 0.36-3.74 [facility] ([place]) Comment on above: Performed By: #### V IDH, CBC, TSH, ADIFF, GFR, CMP, HCGQ, ANEU ####[address] [place], [place] [address] VIDHon 06-23-2023 Vit. D 25-Hydroxy 25.4 ng/mL Normal [facility] ([place]) Comment on above: Result Comment: Inte rpretive Values Based on Total 25(OH) Vitamin D: Deficient <20 ng/mL Insufficient 20 - <30 ng/mL Sufficient 30-100 ng/mL Performed By: #### V IDH, CBC, TSH, ADIFF, GFR, CMP, HCGQ, ANEU ####[address] [place], [place] [address] PREGSon 06-09-2023 test (s) Negative Normal [facility] ([place]) Comment on above: Performed By: #### P REGS ####[place] [address] test (s) int Not detected Invalid Interpretation Code [facility] ([place]) Comment on above: Performed By: #### P REGS ####[place] [address] CNPVidhya 05-19-2023 [facility] CLARISSE REYNOSO ([id number]) 1995 F Date Time Provider Department 05/19/23 TIKI TOLEDO [facility] During your visit today, we recorded the following information about you: Stan Mobley LPN 05/19/2023 11:49 AM Signed ----- Message from Tiki Toledo DO sent at 05/19/2023 9:34 AM EST ----- Vies this patient that all testing came back negative for everything no syphilis no chlamydia gonorrhea trichomonas negative HIV. Patient should just finished the medications we gave her and follow with an MACHINE JOINER CEMENTER. Stan Mobley LPN 05/19/2023 11:51 AM Signed Patient aware of lab results. Explained the importance of finished medications as prescribed and follow up with MACHINE JOINER CEMENTER as needed. Patient states understanding and voices no other concerns at this time. Stan Mobley LPN Allergies As of Date: 05/19/2023 Noted Allergy Reaction PENICILLINS 09/12/2019 4 - Hives Date Reviewed: 05/15/2023 Reviewed by: Tiki Toledo DO - Fully Assessed Reason for Visit: Results [95] Prescriptions as of 05/19/2023 - fluconazole (DIFLUCAN) 150 mg tablet Take one pill Days 1,4,7. - metroNIDAZOLE (FLAGYL) 500 mg tablet Take 1 tablet by mouth two times a day for 7 days. - adapalene (DIFFERIN) 0.1 % cream Apply 1 maribel, Topical, qHS, apply a thin film to affected area after washing at bedtime. use with sunscreen and moisturizer., # 45 gram(s), 0 Refill(s), Pharmacy: [facility]/pharmacy #[id number], Cream, 162.6, cm, 01/10/20 16:23:00 EDT, Height, 97.7, kg, 01/10/20 1... - azithromycin (ZITHROMAX) 250 mg tablet take 2 tablets by mouth on day 1 IN ONE DOSE then 1 tablet on days 2 through 5 - escitalopram oxalate (LEXAPRO) 20 mg tablet 20 mg. - fluticasone (FLONASE ALLERGY RELIEF) 50 mcg/actuation nasal spray Use 1 Buhler in each nostril twice daily. - methylPREDNISolone (MEDROL, VIVIEN,) 4 mg Dose-Pack Take by mouth per package instructions Problem List As Of Date: 05/19/2023 (None) Encounter Status:Closed by STAN MOBLEY on 05/19/23 [facility] SRAVANVidhya 05-18-2023 [facility]NPN Telephone ([facility]) CLARISSE REYNOSO ([id number]) 1995 F Date Time Provider Department 05/18/23 JULIANO QURESHI [facility] During your visit today, we recorded the following information about you: Juliano Qureshi MD 05/18/2023 9:32 AM Signed Syphilis negative. Please notify Stan Mobley LPN 05/18/2023 10:36 AM Signed Patient aware of lab results and voices no other concerns at this time. Stan Mobley LPN Allergies As of Date: 05/18/2023 Noted Allergy Reaction PENICILLINS 09/12/2019 4 - Hives Date Reviewed: 05/15/2023 Reviewed by: Tiki Toledo DO - Fully Assessed Reason for Visit: Results [95] Prescriptions as of 05/18/2023 - fluconazole (DIFLUCAN) 150 mg tablet Take one pill Days 1,4,7. - metroNIDAZOLE (FLAGYL) 500 mg tablet Take 1 tablet by mouth two times a day for 7 days. - adapalene (DIFFERIN) 0.1 % cream Apply 1 maribel, Topical, qHS, apply a thin film to affected area after washing at bedtime. use with sunscreen and moisturizer., # 45 gram(s), 0 Refill(s), Pharmacy: [facility]/pharmacy #[id number], Cream, 162.6, cm, 01/10/20 16:23:00 EDT, Height, 97.7, kg, 01/10/20 1... - azithromycin (ZITHROMAX) 250 mg tablet take 2 tablets by mouth on day 1 IN ONE DOSE then 1 tablet on days 2 through 5 - escitalopram oxalate (LEXAPRO) 20 mg tablet 20 mg. - fluticasone (FLONASE ALLERGY RELIEF) 50 mcg/actuation nasal spray Use 1 Buhler in each nostril twice daily. - methylPREDNISolone (MEDROL, VIVIEN,) 4 mg Dose-Pack Take by mouth per package instructions Problem List As Of Date: 05/18/2023 (None) Encounter Status:Closed by STAN MOBLEY on 05/18/23 Normal [facility] C. trachomatis+N. gonorrhoea e DNA ESTHER+probe Ql (Unsp spec)on 05-15-2023 C. trachomatis rRNA ESTHER+probe Ql (Unsp spec) Negative Normal Negative for Chlamydia trachomatis by amplificaton [facility] Comment on above: Order Comment: Speci men Type: URINE SPECIMENOrdering Facility: [facility] Address: [address] [place] [address] Performed By: #### 3 6902-5 ####[facility] LABORATORYIA [id number] [address] OF [facility] N. gonorrhoeae rRNA ESTHER+probe Ql (Unsp spec) Negative Normal Negative for Neisseria gonorrhoeae by amplification [facility] Comment on above: Order Comment: Speci men Type: URINE SPECIMENOrdering Facility: [facility] Address: [address] [place] [address] Performed By: #### 3 6902-5 ####[facility] LABORATORYCLIA [id number] [address] [place] CNOVon 05-15-2023 CNOV Office Visit ([facility] ) CLARISSE REYNOSO ([id number]) 1995 F Date Time Provider Department 05/15/23 9:15 AM TIKI TOLEDO [facility] During your visit today, we recorded the following information about you: Temperature Pulse Respiration Blood pressure 98.6 degrees 83/minute 16/minute 150/90 Weight Last Period 107 kg 05/11/23 Donna Méndez LPN 05/15/2023 9:59 AM Signed Pelvic exam assist, patient tolerated well.MARITZA Shaffer Tiki Jess, 05/15/2023 9:59 AM Signed Clarisse Radha Reynoso is a 27 year old FEMALE who presents with Vaginal Problem (Vaginal pain burning itchy vaginal area swollen bloody discharge patient requesting std check states she had unprotected sex Patient has taken meds for yeast infection) HPI History reviewed. No pertinent past medical history. There is no problem list on file for this patient. Current Outpatient Medications Medication Sig Dispense Refill azithromycin (ZITHROMAX) 500 mg tablet 2 pills together with food. 2 tablet 0 fluconazole (DIFLUCAN) 150 mg tablet Take one pill Days 1,4,7. 3 tablet 0 metroNIDAZOLE (FLAGYL) 500 mg tablet Take 1 tablet by mouth two times a day for 7 days. 14 tablet 0 adapalene (DIFFERIN) 0.1 % cream Apply 1 maribel, Topical, qHS, apply a thin film to affected area after washing at bedtime. use with sunscreen and moisturizer., # 45 gram(s), 0 Refill(s), Pharmacy: [facility]/pharmacy #[id number], Cream, 162.6, cm, 01/10/20 16:23:00 EDT, Height, 97.7, kg, 01/10/20 1... (Patient not taking: Reported on 08/27/2022) azithromycin (ZITHROMAX) 250 mg tablet take 2 tablets by mouth on day 1 IN ONE DOSE then 1 tablet on days 2 through 5 (Patient not taking: Reported on 08/27/2022) escitalopram oxalate (LEXAPRO) 20 mg tablet 20 mg. (Patient not taking: Reported on 01/17/2023) fluticasone (FLONASE ALLERGY RELIEF) 50 mcg/actuation nasal spray Use 1 Buhler in each nostril twice daily. (Patient not taking: Reported on 01/17/2023) 9.9 mL 0 methylPREDNISolone (MEDROL, VIVIEN,) 4 mg Dose-Pack Take by mouth per package instructions (Patient not taking: Reported on 08/27/2022) 21 tablet 0 No current facility-administered medications for this visit. Social History Tobacco Use Smoking status: Former Types: Cigarettes Smokeless tobacco: Never Vaping Use Vaping Use: current everyday user Substances: Nicotine, Flavoring Devices: Disposable, Pre-filled pod Substance Use Topics Alcohol use: Yes Alcohol/week: 2.0 - 4.0 standard drinks of alcohol Types: 2 - 4 Standard drinks or equivalent per week Drug use: Yes Types: Marijuana Alcohol Use: Approximately 1.2 - 2.4 oz/week [which includes 2-4 Standard drinks or equivalent per week] Tobacco Use: Types: Cigarettes History reviewed. No pertinent family history. Review of Systems Genitourinary: This patient had unprotected sex with a new person on May 12 shortly after that she noticed vaginal irritation and thought that she had a yeast infection. She used an wqnv-sth-jhlztew cream treatment and within 1 day her vaginal area was swollen and bleeding raw and she is in pain. So the patient wants tested for sexually transmitted diseases. She states is the only time she is ever had unprotected sex and she thinks she may have contracted something. All other systems reviewed and are negative. BP 150/90 Pulse 83 Temp 98.6 Resp 16 Wt 236 lb (107.0kg) SpO2 98% LMP 05/11/2023 Physical Exam Vitals and nursing note reviewed. Exam conducted with a architecture internship present. Constitutional: Appearance: Normal appearance. HENT: Head: Normocephalic. Genitourinary: Vagina: Vaginal discharge present. Comments: Patient was placed in the lithotomy position. My nurse was present as an f[employer] faculty assistant as architecture internship. The patient's sister was also in the room. Examination of the external genitalia does show an obvious discharge that is white to light yellow in color very liquid and does look like a combination of yeast and possibly a bacterial vaginitis chlamydia versus just bacterial vaginosis. She does have just rawness on the labia majora and the labia minora both are very irritated and red and she does have some slight oozing from little cracks. I did ask this patient if this was a consensual sexual encounter and she said that it was that there was no force and she denied any rape. The patient states that she does have pain in the lower pelvis and examination internally shows a significant amount of drainage and discharge and very inflamed cervix. Palpation reveals tenderness over the right lower abdomen especially in the adnexal area. And also tenderness on the left but less so. Patient is quite concerned and wants testing for everything. Testing has been done for gonorrhea chlamydia trichomonas HIV and syphilis. Any further testing will have to be done through the health department or obstetrician gynecologist. (more content not included)... Normal [facility] HCG Preg Ur Qlon 05-15-2023 HCG ( test) Ql (U) Negative Normal Negative [facility] Comment on above: Order Comment: Speci men Type: URINE SPECIMENOrdering Facility: [facility] Address: [address] [place] [address] Result Comment: This test is intended to aid in the early detection of . Very dilute urine samples, as indicated by a low specific gravity, may not contain sales representative canvas products levels of hCG. This test detects intact hCG only. This test does not reliably detect hCG degradation products, including free-beta subunit and beta-core fragment. Therefore, this test may show reduced reactivity in urine after 8 weeks gestation. A number of conditions other than , including trophoblastic disease and certain non-trophoblastic neoplasms cause elevated levels of hCG. As with any assay employing mouse antibodies, the possibility exists for interference by human anti-mouse antibodies (HAMA) in the specimen. The test provides a presumptive diagnosis for . Performed By: #### 2 106-3 ####[facility] LABCLIA [id number] [place] [address] [place] HIV 1+2 Ab IA Qlon HIV 1+2 Ab+HIV1 p24 Ag IA Ql Non-Reactive Normal Nonreactive [facility] Comment on above: Order Comment: Speci men Type: BLOOD SPECIMENOrdering Facility: [facility] Address: [address] [place] [address] Result Comment: Nonr eactive: Less than 1.0 index value Specimens with an index value <1.0 are considered nonreactive for antibodies to HIV-1, HIV-2, and p24 antigen by the [employer] IM CHIV assay. Performed By: #### 3 1201-7 ####[facility] LABORATORYCLIA [id number] [employer] [address] [place] Reagin and Treponema pallidu m IgG and IgM [Interp]on 05-15-2023 T. pallidum IgG+IgM IA Ql (S) Non-Reactive Normal Nonreactive [facility] Comment on above: Order Comment: Speci men Type: BLOOD SPECIMENOrdering Facility: [facility] Address: [address] [place] [address] Performed By: #### 7 3752-8 ####[facility] LABCLIA [id number] [place] [address] [place] Reagin+T pallidum IgG+IgM Se rPl-Impon 05-15-2023 Reagin and Treponema pallidum IgG and IgM [Interp] Cannot exclude recent Treponemal infection if specimen collected within 7-10 days after appearance of suspect lesions or 2-3 weeks after an exposure. Clinical correlation is required. Normal [facility] Comment on above: Order Comment: Speci men Type: BLOOD SPECIMENOrdering Facility: [facility] Address: [address] [place] [address] Performed By: #### 7 3752-8 ####[facility] LABCLIA [id number] [place] [address] [place] TRICHOMONAS VAGINALIS NAATon 05-15-2023 T. vaginalis DNA ESTHER+probe Ql (Unsp spec) Negative Normal Negative for Trichomonas vaginalis by amplification [facility] Comment on above: Order Comment: Speci men Type: URINE SPECIMENOrdering Facility: [facility] Address: [address] [place] [address] Performed By: #### T RVAMP ####[facility] LABCLIA [id number] [place] [address] [place] CNPVidhya 04-07-2023 CNPN Telephone ([facility]) CLARISSE REYNOSO ([id number]) 1995 F Date Time Provider Department 04/07/23 TIKI TOLEDO [facility] During your visit today, we recorded the following information about you: Stan Mobley LPN 04/07/2023 2:49 PM Signed ----- Message from Nathaniel Del Cid MD sent at 04/07/2023 2:38 PM EST ----- Please notify patient gonorrhea chlamydia is negative Stan Mobley LPN 04/07/2023 2:50 PM Signed Notified patient of results patient voices no other concerns at this time. Stan Mobley LPN Allergies As of Date: 04/07/2023 Noted Allergy Reaction PENICILLINS 09/12/2019 4 - Hives Date Reviewed: 04/06/2023 Reviewed by: Gena Odonnell APRN.METAL FINISH INSPECTOR - Fully Assessed Reason for Visit: Results [95] Prescriptions as of 04/07/2023 - adapalene (DIFFERIN) 0.1 % cream Apply 1 maribel, Topical, qHS, apply a thin film to affected area after washing at bedtime. use with sunscreen and moisturizer., # 45 gram(s), 0 Refill(s), Pharmacy: [facility]/pharmacy #[id number], Cream, 162.6, cm, 01/10/20 16:23:00 EDT, Height, 97.7, kg, 01/10/20 1... - azithromycin (ZITHROMAX) 250 mg tablet take 2 tablets by mouth on day 1 IN ONE DOSE then 1 tablet on days 2 through 5 - escitalopram oxalate (LEXAPRO) 20 mg tablet 20 mg. - fluticasone (FLONASE ALLERGY RELIEF) 50 mcg/actuation nasal spray Use 1 Buhler in each nostril twice daily. - methylPREDNISolone (MEDROL, VIVIEN,) 4 mg Dose-Pack Take by mouth per package instructions Problem List As Of Date: 04/07/2023 (None) Encounter Status:Closed by STAN MOBLEY on 04/07/23 [facility] C. trachomatis+N. gonorrhoea e DNA ESTHER+probe Ql (Unsp spec)on 04-06-2023 C. trachomatis rRNA ESTHER+probe Ql (Unsp spec) Negative Negative for Chlamydia trachomatis by amplificaton [facility] N. gonorrhoeae rRNA ESTHER+probe Ql (Unsp spec) Negative Negative for Neisseria gonorrhoeae by amplification [facility] C. trachomatis rRNA ESTHER+probe Ql (Unsp spec) Negative Normal Negative for Chlamydia trachomatis by amplificaton [facility] Comment on above: Order Comment: Speci men Type: URINE SPECIMEN [facility] Address: [address] [place] [address] Performed By: #### 3 6902-5 #### [facility] CLIA [id number] [address] [place] [address] N. gonorrhoeae rRNA ESTHER+probe Ql (Unsp spec) Negative Normal Negative for Neisseria gonorrhoeae by amplification [facility] Comment on above: Order Comment: Speci men Type: URINE SPECIMEN [facility] Address: [address] [place] [address] Performed By: #### 3 6902-5 #### [facility] CLIA [id number] [address] [place] [address] OF [facility] CNOVon 04-06-2023 CNOV Office Visit ([facility] ) CLARISSE REYNOSO ([id number]) 1995 F Date Time Provider Department 04/06/23 1:30 PM GENA ODONNELL [facility] During your visit today, we recorded the following information about you: Temperature Pulse Respiration Blood pressure 97.8 degrees 80/minute 16/minute 134/80 Weight Last Period 106.1 kg 03/28/23 Gena Odonnell APRN.METAL FINISH INSPECTOR 04/06/2023 4:09 PM Signed Clarisse is a 27 year old female arriving at clinic today for Patient presents with: Vaginal Discharge: White vaginal discharge vagival itching cramping and body aches 4 days HPI A 27 y/o female presents with white curdy vaginal discharge and itching x4 days. She wants STD testing. She reports body aches, Denies flank pain, or pain with urination, or fever. Vital Signs: BP 134/80 Pulse 80 Temp 97.8 Resp 16 Wt 234 lb (106.1kg) SpO2 98% LMP 03/28/2023 Allergies: ALLERGIES Allergen Reactions Penicillins Hives Current Medications: adapalene (DIFFERIN) 0.1 % cream Apply 1 maribel, Topical, qHS, apply a thin film to affected area after washing at bedtime. use with sunscreen and moisturizer., # 45 gram(s), 0 Refill(s), Pharmacy: [facility]/pharmacy #[id number], Cream, 162.6, cm, 01/10/20 16:23:00 EDT, Height, 97.7, kg, 01/10/20 1... (Patient not taking: Reported on 08/27/2022) azithromycin (ZITHROMAX) 250 mg tablet take 2 tablets by mouth on day 1 IN ONE DOSE then 1 tablet on days 2 through 5 (Patient not taking: Reported on 08/27/2022) escitalopram oxalate (LEXAPRO) 20 mg tablet 20 mg. (Patient not taking: Reported on 01/17/2023) fluticasone (FLONASE ALLERGY RELIEF) 50 mcg/actuation nasal spray Use 1 Buhler in each nostril twice daily. (Patient not taking: Reported on 01/17/2023) methylPREDNISolone (MEDROL, VIVIEN,) 4 mg Dose-Pack Take by mouth per package instructions (Patient not taking: Reported on 08/27/2022) History reviewed. No pertinent past medical history. History reviewed. No pertinent surgical history. Review of Systems: Review of Systems see HPI Exam: Physical Exam Vitals and nursing note reviewed. Constitutional: General: She is not in acute distress. Appearance: Normal appearance. She is normal weight. She is not ill-appearing. Abdominal: General: Bowel sounds are normal. Palpations: Abdomen is soft. Tenderness: There is no abdominal tenderness. There is no right CVA tenderness or left CVA tenderness. Genitourinary: General: Normal vulva. Vagina: Vaginal discharge (white curd) present. Skin: General: Skin is warm and dry. Neurological: Mental Status: She is alert. ASSESSMENT/PLAN: 1. Dysuria - ICD9: 788.1, ICD10: R30.0 (primary diagnosis) acute - Send urine for culture - Patient education for prevention given - URINALYSIS, DIPSTICK ONLY - URINE CULTURE 2. Vaginal discharge - ICD9: 623.5, ICD10: N89.8 Will call with results - GONORRHEA/CHLAMYDIA NAAT - TRICHOMONAS VAGINALIS NAAT 3. Vaginal yeast infection - ICD9: 112.1, ICD10: B37.31 Take one dose of Fluconazole and if symptoms persist, follow up. - FLUCONAZOLE 150 MG TABLET Patient stable at discharge Reviewed exam results in detail and plan with patient Patient understands and agreed. Gena Odonnell APRN.CNP . Gena Odonnell APRN.CNP 04/06/2023 3:47 PM Signed STD testing Will call with results Vaginal Yeast Infection Fluconazole once as directed Take medication with food If worsen, follow up or go to PCP/ ED Thank you for choosing [facility] for your medical needs. If you continue to have problems, please contact your PCP. Referring Provider: SELF [200] Allergies As of Date: 04/06/2023 Noted Allergy Reaction PENICILLINS 09/12/2019 4 - Hives Date Reviewed: 04/06/2023 Reviewed by: Gena Odonnell APRN.CNP - Fully Assessed Reason for Visit: Vaginal Discharge [4161] Cmt: White vaginal discharge vagival itching cramping and body aches 4 days Primary Visit Diagnosis:Dysuria [R30.0] Other Visit Diagnoses:Vaginal discharge [N89.8] Vaginal yeast infection [B37.31] Order(s):URINALYSIS, DIPSTICK ONLY [SQUA] Order #: [id number] FUTURE URINE CULTURE [SQURCUL] Order #: [id number] FUTURE GONORRHEA/CHLAMYDIA NAAT [SQGCCT] Order #: [id number]. #:[id number] TRICHOMONAS VAGINALIS NAAT [SQTRVAMP] Order #: [id number] FUTURE TRICHOMONAS VAGINALIS NAAT [SQTRVAMP] Order #: [id number]. #:[id number] URINALYSIS, DIPSTICK ONLY [SQUA] Order #: [id number]. #:[id number] URINE CULTURE [SQURCUL] Order #: [id number]. #:[id number] fluconazole (DIFLUCAN) 150 mg tabletTake 1 tablet by mouth one time only for 1 dose.Disp: 1 tabletRfl: 0 Prescriptions as of 04/06/2023 - fluconazole (DIFLUCAN) 150 mg tablet Take 1 tablet by mouth one time only for 1 dose. - adapalene (DIFFERIN) 0.1 % cream Apply 1 maribel, Topical, qHS, apply a thin film to affected area after washing at bedtime. u (more content not included)... Normal [facility] TRICHOMONAS VAGINALIS NAATon 04-06-2023 T. vaginalis DNA ESTHER+probe Ql (Unsp spec) Negative Normal Negative for Trichomonas vaginalis by amplification [facility] Comment on above: Order Comment: Speci men Type: URINE SPECIMEN Ordering Facility: [facility] Address: [address] [place] [address] Performed By: #### T RVAMP #### [facility] CLIA [id number] [address] [place] [address] [place] URINALYSIS, DIPSTICK ONLYon 04-06-2023 Bilirubin Ql (U) Negative Negative [facility] Clarity (Unsp spec) Clear Clear [facility] Color (U) Yellow Yellow [facility] Glucose Test strip (U) [Mass/Vol] Negative Negative [facility] Hemoglobin Ql (U) Negative Negative [facility] Ketones Ql (U) Negative Negative [facility] Leukocyte esterase Test strip Ql (U) Negative Negative [facility] Nitrite Ql (U) Negative Negative [facility] pH (U) 8.5 [pH] High 5.0 - 8.0 [facility] Protein (U) [Mass/Vol] Trace Abnormal Negative [facility] Specific gravity (U) [Rel density] 1.010 1.005 - 1.030 [facility] Urobilinogen Ql (U) Negative Negative Ag [facility] Bilirubin Ql (U) Negative Normal Negative [facility] Comment on above: Order Comment: Speci men Type: URINE SPECIMEN Ordering Facility: [facility] Address: [address] [place] [address] Performed By: #### U A #### [facility] CLIA [id number] [address] [place] [address] [facility] [place] Clarity (Unsp spec) Clear Normal Clear [facility] Comment on above: Order Comment: Speci men Type: URINE SPECIMEN Ordering Facility: [facility] Address: [address] [place] [address] Performed By: #### U A #### [facility] CLIA [id number] [address] [place] [address] [facility] [place] Color (U) Yellow Normal Yellow [facility] Comment on above: Order Comment: Speci men Type: URINE SPECIMEN Ordering Facility: [facility] Address: [address] [place] [address] Performed By: #### U A #### [facility] CLIA [id number] [address] [place] [address] [place] Glucose Test strip (U) [Mass/Vol] Negative Normal Negative [facility] Comment on above: Order Comment: Speci men Type: URINE SPECIMEN Ordering Facility: [facility] Address: [address] [place] [address] Performed By: #### U A #### [facility] CLIA [id number] [address] [place] [address] [place] Hemoglobin Ql (U) Negative Normal Negative [facility] Comment on above: Order Comment: Speci men Type: URINE SPECIMEN Ordering Facility: [facility] Address: [address] [place] [address] Performed By: #### U A #### [facility] CLIA [id number] [address] [place] [address] [place] Ketones Ql (U) Negative Normal Negative [facility] Comment on above: Order Comment: Speci men Type: URINE SPECIMEN Ordering Facility: [facility] Address: [address] [place] [address] Performed By: #### U A #### [facility] CLIA [id number] [address] [place] [address] [place] Leukocyte esterase Test strip Ql (U) Negative Normal Negative [facility] Comment on above: Order Comment: Speci men Type: URINE SPECIMEN Ordering Facility: [facility] Address: [address] [place] [address] Performed By: #### U A #### [facility] CLIA [id number] [address] [place], [place] [address] [place] Nitrite Ql (U) Negative Normal Negative [facility] Comment on above: Order Comment: Speci men Type: URINE SPECIMEN Ordering Facility: [facility] Address: [address] [place] [address] Performed By: #### U A #### [facility] CLIA [id number] [address] [place] [address] [place] pH (U) 8.5 [pH] High 5.0-8.0 [facility] Comment on above: Order Comment: Speci men Type: URINE SPECIMEN Ordering Facility: [facility] Address: [address] [place] [address] Performed By: #### U A #### [facility] CLIA [id number] [address] [place] [address] Protein (U) [Mass/Vol] Trace Abnormal Negative [facility] Comment on above: Order Comment: Speci men Type: URINE SPECIMEN Ordering Facility: [facility] Address: [address] [place] [address] Performed By: #### U A #### [facility] CLIA [id number] [address] [place] [address] [place] Specific gravity (U) [Rel density] 1.010 Normal 1.005-1.030 [facility] Comment on above: Order Comment: Speci men Type: URINE SPECIMEN Ordering Facility: [facility] Address: [address] [place] [address] Performed By: #### U A #### [facility] CLIA [id number] [address] [place] [address] [place] Urobilinogen Ql (U) Negative Normal Negative [facility] Comment on above: Order Comment: Speci men Type: URINE SPECIMEN Ordering Facility: [facility] Address: [place] [address] Performed By: #### U A #### [facility] CLIA [id number] [address] [place] [address] [place] [facility] US BREAST LEFT LIMITEDon US BREAST LEFT LIMITED ORIGINAL FROM: [facility] [address] [place], [place] [address] PROCEDURE FOR: CLARISSE Azevedo [address] [place] [address] Home: PID#: [id number] Exam#: [id number] : 1995 Age: 27 TO: JET CHAMPION MD [address] [facility] [address] [place] [address] Fax: NO FAX EXAMINATION: ULTRASOUND OF THE LEFT BREAST 03/09/2023 8:37 am TECHNIQUE: Color flow and real-time targeted ultrasound of the 11 and 1 o'clock regions were performed. COMPARISON: Ultrasound February 05, 2021 HISTORY: ORDERING SYSTEM PROVIDED HISTORY: Reason for Exam: palable lump FINDINGS: There are no significant sonographic findings to correlate with the palpable abnormalities. Incidental note is made of fibrocystic changes. IMPRESSION: There are no significant sonographic findings to correlate with the palpable abnormalities. Continued clinical follow-up is recommended. BIRADS: MAMMOGRAM BI-RADS: 2: Benign finding RECALL: none RECALL TYPE: mammo LETTER SENT: Normal BI-RADS 1 and 2 Interpreted by: Deepa Sanchez MD Preliminary Report By: Deepa Sanchez MD Electronically signed By Deepa Sanchez MD Dictated Date: 03/10/2023 6:40:27 PM Prelim Date: 03/10/2023 6:44:09 PM Sign Date: 03/10/2023 6:44:09 PM Ordering Provider: MARIAELENA TITUS CLINICAL: PALPABLE LUMP LEFT BREAST. Boatswains Mate: BAN MALIK RDMS letter sent: Normal BI-RADS 1 and 2 Ultrasound BI-RADS: 2 Benign Normal [facility] ([place] CTPCRon 02-24-2023 C. trachomatis Interp Normal See CT Interp N [facility] [place] Comment on above: Result Comment: C. t rachomatis DNA not detected. Specimen is presumptive negative for C. trachomatis. A negative result does not preclude C. trachomatis infection because results depend on adequate specimen collection, absence of inhibitors, and sufficient DNA to be detected. See CT Interp N Performed By: #### N GPCR1, CTPCR ####[address] [address] C.trachomatis PCR Negative Normal Negative [facility] [place] Comment on above: Result Comment: Mole cular (PCR) assay performed on the Mar[employer] Marvin 4800 system. Performed By: #### N GPCR1, CTPCR ####[address] [address] [place] Source Cervix Normal [facility] ([place] Comment on above: Performed By: #### N GPCR1, CTPCR ####[address] [address] [id number] 02-24-2023 GC PCR Source Cervix Normal [facility] ([place] Comment on above: Performed By: #### N GPCR1, CTPCR ####[address] [address] N. gonorrhoeae (PCR) Negative Normal Negative [facility] ([place]) Comment on above: Result Comment: Mole cular (PCR) assay performed on the [employer] Marvin 4800 System. Performed By: #### N GPCR1, CTPCR ####[address] [address] N. gonorrhoeae Interp Normal See NG Interp N [facility] ([place] Comment on above: Result Comment: N. g onorrhoeae DNA not detected. Specimen is presumptive negative for N. gonorrhoeae. A negative result does not preclude Neisseria gonorrhoeae infection because results depend on adequate specimen collection, absence of inhibitors, and sufficient DNA to be detected. See NG Interp N Performed By: #### N GPCR1, CTPCR ####[place] [address] [address] [place] [address] LABORATORYOrdered By: Obdulia Villagomez on 02-23-2023 C. trachomatis DNA ESTHER+probe Ql (Unsp spec) Negative 2 (02/23/23 2:41 PM) Invalid Interpretation Code Negative [facility] Comment on above: Interpretive Data: M olecular (PCR) assay performed on the [employer] Marvin 4800 system. C. trachomatis DNA ESTHER+probe Ql (Unsp spec) C. trachomatis DNA not detected. Specimen is presumptive negative forC. trachomatis.A negative result does not preclude C. trachomatis infection becauseresults depend on adequate specimen collection, absence of inhibitors,and sufficient DNA to be detected. Invalid Interpretation Code See CT Interp N AH Auto Viro/Sero SS N. gonorrhoeae DNA ESTHER+probe Ql (Unsp spec) Negative 1 (02/23/23 2:41 PM) Invalid Interpretation Code Negative AH Auto Viro/Sero SS Comment on above: Interpretive Data: M olecular (PCR) assay performed on the [employer] Marvin 4800 System. N. gonorrhoeae DNA ESTHER+probe Ql (Unsp spec) N. gonorrhoeae DNA not detected. Specimen is presumptive negative forN. gonorrhoeae. A negative result does not preclude Neisseria gonorrhoeaeinfection because results depend on adequate specimen collection, absenceof inhibitors, and sufficient DNA to be detected. Invalid Interpretation Code See NG Interp N AH Auto Viro/Sero SS Laboratory - Specimen inform ationOrdered By: Obdulia Villagomez on 02-23-2023 Specimen source Nom (Unsp spec) Cervix (02/23/23 2:41 PM) Invalid Interpretation Code Auto Viro/Sero SS No Panel InformationOrdered By: Isha Collins on 02-23-2023 Affirm Pathogens DNA Direct Probe Santi species DNA Probe Negative Gardnerella vaginalis DNA Probe Negative Trichomonas vaginalis DNA Probe Negative [facility] C. trachomatis+N. gonorrhoea e DNA ESTHER+probe Ql (Unsp spec)on 01-17-2023 C. trachomatis rRNA ESTHER+probe Ql (Unsp spec) Negative Normal Negative for Chlamydia trachomatis by [facility] Comment on above: Order Comment: Speci men Type: URINE SPECIMEN Ordering Facility[facility] Address: [address] [place] [address] Performed By: #### 3 6902-5 #### [facility] CLIA [id number] [address] [place] [address] N. gonorrhoeae rRNA ESTHER+probe Ql (Unsp spec) Negative Normal Negative for Neisseria gonorrhoeae by amplification [facility] Comment on above: Order Comment: Speci men Type: URINE SPECIMEN Ordering Facility: [facility] Address: [address] [place] [address] Performed By: #### 3 6902-5 #### [facility] CLIA [id number] [address] [place], [place] [id number] [place] CNOVon 01-17-2023 CNOV Office Visit (UCMMAS ) CLARISSE REYNOSO ([id number]) 1995 F Date Time Provider Department 01/17/23 3:50 PM [place] [facility] During your visit today, we recorded the following information about you: Temperature Pulse Respiration Blood pressure 97 degrees 74/minute 18/minute 126/67 Weight Last Period 104.5 kg 01/16/23 France Bernal MD 01/17/2023 4:16 PM Signed Clarisse Da Silvaan is a 27 year old FEMALE who presents with Vaginal Discharge (Discomfort itchy //Patient states was having intercourse with someone and the condom broke and was inside of patient patient states it is no longer inside of her but states she has a hx of chlamydia//States that she is having burning / ) 27 years old female with vaginal discharge with discomfort and itching Patient stated that 4 days ago the condom broke while she was having intercourse She did a condom was retained in the vaginal canal but that has been completely removed by herself There is no foreign body in the vaginal canal now but because of this discharge she wanted to be checked for STD Denies any burning of urination No genital lesions. Vaginal Discharge History reviewed. No pertinent past medical history. There is no problem list on file for this patient. Current Outpatient Medications Medication Sig Dispense Refill adapalene (DIFFERIN) 0.1 % cream Apply 1 maribel, Topical, qHS, apply a thin film to affected area after washing at bedtime. use with sunscreen and moisturizer., # 45 gram(s), 0 Refill(s), Pharmacy: [facility]/pharmacy #[id number], Cream, 162.6, cm, 01/10/20 16:23:00 EDT, Height, 97.7, kg, 01/10/20 1... (Patient not taking: Reported on 08/27/2022) azithromycin (ZITHROMAX) 250 mg tablet take 2 tablets by mouth on day 1 IN ONE DOSE then 1 tablet on days 2 through 5 (Patient not taking: Reported on 08/27/2022) escitalopram oxalate (LEXAPRO) 20 mg tablet 20 mg. (Patient not taking: Reported on 01/17/2023) fluticasone (FLONASE ALLERGY RELIEF) 50 mcg/actuation nasal spray Use 1 Buhler in each nostril twice daily. (Patient not taking: Reported on 01/17/2023) 9.9 mL 0 methylPREDNISolone (MEDROL, VIVIEN,) 4 mg Dose-Pack Take by mouth per package instructions (Patient not taking: Reported on 08/27/2022) 21 tablet 0 No current facility-administered medications for this visit. Social History Tobacco Use Smoking status: Former Types: Cigarettes Smokeless tobacco: Never Vaping Use Vaping Use: current everyday user Substances: Nicotine, Flavoring Devices: Disposable, Pre-filled pod Substance Use Topics Alcohol use: Yes Alcohol/week: 2.0 - 4.0 standard drinks of alcohol Types: 2 - 4 Standard drinks or equivalent per week Drug use: Yes Types: Marijuana Alcohol Use: Approximately 1.2-2.4 oz/week [which includes 2-4 Standard drinks or equivalent per week] Tobacco Use: Types: Cigarettes History reviewed. No pertinent family history. Review of Systems Genitourinary: Vaginal discharge All other systems reviewed and are negative. BP 126/67 Pulse 74 Temp (Src) 97 (Temporal) Resp 18 Wt 230 lb 6.4 oz (104.5kg) SpO2 98% LMP 01/16/2023 Physical Exam Vitals reviewed. Constitutional: General: She is not in acute distress. Appearance: Normal appearance. She is not ill-appearing or toxic-appearing. Cardiovascular: Rate and Rhythm: Normal rate and regular rhythm. Heart sounds: Normal heart sounds. Pulmonary: Effort: Pulmonary effort is normal. Breath sounds: Normal breath sounds. Genitourinary: Comments: Patient did not think that I need to do pelvic exam today she will wait for STD result Neurological: Mental Status: She is alert. Explained to patient that STD result will be available in 1 or 2 days he will come back positive then she will need to be treated accordingly Following the discharge and itching this could be yeast infection as well I will treat her with Diflucan today. Explained to her that I want her to be evaluated by obstetrician gynecologist for thorough evaluation, patient understand and agreed. She has a obstetrician gynecologist and will make appointment. ASSESSMENT/PLAN: 1. Possible exposure to STD - ICD9: V01.6, ICD10: Z20.2 (primary diagnosis) - GONORRHEA/CHLAMYDIA NAAT 2. Vaginal candidiasis - ICD9: 112.1, ICD10: B37.31 - FLUCONAZOLE 150 MG TABLET Take medication as per prescription Lab result is pending Follow-up with obstetrician gynecologist for evaluation and care Explained details Precautions MD Elana Holcomb Pratheep, MD 01/17/2023 4:15 PM Signed Take medication as per prescription Lab result is pending Follow-up with obstetrician gynecologist for evaluation and care Explained details Precautions Referring Provider: SELF [200] Allergies As of Date: 01/17/2023 Noted Allergy Reaction PENICILLINS 09/12/2019 4 - Hives Date Reviewed: 01/17/2023 Reviewed by: France Bernal MD - Fully Assessed Reason for Visit: Vagi (more content not included)... Normal [facility] CTPCRon 11-26-2022 C. trachomatis Interp Normal See CT Interp N [facility] [place] Comment on above: Result Comment: C. t rachomatis DNA not detected. Specimen is presumptive negative for C. trachomatis. A negative result does not preclude C. trachomatis infection because results depend on adequate specimen collection, absence of inhibitors, and sufficient DNA to be detected. See CT Interp N Performed By: #### N GPCR1, CTPCR ####[address] [address] C.trachomatis PCR Negative Normal Negative [facility] ([place] Comment on above: Result Comment: Tatyana deleonar (PCR) assay performed on the Mar[employer] Marvin 4800 system. Performed By: #### N GPCR1, CTPCR ####[place] [address] [address] [place] [address] [place] Source Cervix Normal [facility] ([place] Comment on above: Performed By: #### N GPCR1, CTPCR ####[address] [address] [id number] 11-26-2022 GC PCR Source Cervix Normal [facility] ([place] Comment on above: Performed By: #### N GPCR1, CTPCR ####[address] [address] N. gonorrhoeae (PCR) Negative Normal Negative [facility] ([place]) Comment on above: Result Comment: Mole cular (PCR) assay performed on the [employer] Marvin 4800 System. Performed By: #### N GPCR1, CTPCR ####[place] [address] N. gonorrhoeae Interp Normal See NG Interp N [facility] ([place] Comment on above: Result Comment: N. g onorrhoeae DNA not detected. Specimen is presumptive negative for N. gonorrhoeae. A negative result does not preclude Neisseria gonorrhoeae infection because results depend on adequate specimen collection, absence of inhibitors, and sufficient DNA to be detected. See NG Interp N Performed By: #### N GPCR1, CTPCR ####[place] [address] LABORATORYOrdered By: Obdulia Villagomez on 11-25-2022 C. trachomatis DNA ESTHER+probe Ql (Unsp spec) Negative 2 (11/25/22 4:37 PM) Invalid Interpretation Code Negative AH Auto Viro/Sero SS Comment on above: Interpretive Data: Bob carrasco (PCR) assay performed on the [employer] Marvin 4800 system. C. trachomatis DNA ESTHER+probe Ql (Unsp spec) C. trachomatis DNA not detected. Specimen is presumptive negative forC. trachomatis.A negative result does not preclude C. trachomatis infection becauseresults depend on adequate specimen collection, absence of inhibitors,and sufficient DNA to be detected. Invalid Interpretation Code See CT Interp N AH Auto Viro/Sero SS N. gonorrhoeae DNA ESTHER+probe Ql (Unsp spec) Negative 1 (11/25/22 4:37 PM) Invalid Interpretation Code Negative AH Auto Viro/Sero SS Comment on above: Interpretive Data: Bob carrasoc (PCR) assay performed on the [employer] 4800 System. N. gonorrhoeae DNA ESTHER+probe Ql (Unsp spec) N. gonorrhoeae DNA not detected. Specimen is presumptive negative forN. gonorrhoeae. A negative result does not preclude Neisseria gonorrhoeaeinfection because results depend on adequate specimen collection, absenceof inhibitors, and sufficient DNA to be detected. Invalid Interpretation Code See NG Interp N AH Auto Viro/Sero SS Laboratory - Specimen inform ationOrdered By: Obdulia Villagomez on 11-25-2022 Specimen source Nom (Unsp spec) Cervix (11/25/22 4:37 PM) Invalid Interpretation Code Auto Viro/Sero SS No Panel InformationOrdered By: Raman Friend on 11-25-2022 Affirm Pathogens DNA Direct Probe Gardnerella vaginalis DNA Probe Negative Trichomonas vaginalis DNA Probe Negative Santi species DNA Probe Negative [facility] HCG ( test) Ql (U)o n 08-27-2022 Specific gravity (U) [Rel density] 1.010 1.005 - 1.030 [facility] HCG QUAL URon 08-27-2022 HCG ( test) Ql (U) Negative Negative [facility] URINALYSIS, DIPSTICK ONLYon 08-27-2022 Bilirubin Ql (U) Negative Negative [facility] Clarity (Unsp spec) Clear Clear [facility] Color (U) [facility] Glucose Test strip (U) [Mass/Vol] Negative Negative [facility] Hemoglobin Ql (U) 3+ Abnormal Negative [facility] Ketones Ql (U) Negative Negative [facility] Leukocyte esterase Test strip Ql (U) 3+ Abnormal Negative [facility] Nitrite Ql (U) Negative Negative [facility] pH (U) 6.0 [pH] 5.0 - 8.0 [facility] Protein (U) [Mass/Vol] Negative Negative [facility] Specific gravity (U) [Rel density] 1.010 1.005 - 1.030 [facility] Urobilinogen Ql (U) Negative Negative [facility] LABORATORYOrdered By: Obdulia Villagomez on 09-09-2021 C. trachomatis DNA ESTHER+probe Ql (Unsp spec) Negative (09/09/21 4:39 PM) Invalid Interpretation Code Negative AH Auto Viro/Sero SS C. trachomatis Interp C. trachomatis DNA not detected. Specimen is presumptive negative forC. trachomatis.A negative result does not preclude C. trachomatis infection becauseresults depend on adequate specimen collection, absence of inhibitors,and sufficient DNA to be detected. Invalid Interpretation Code See CT Interp N AH Auto Viro/Sero SS N. gonorrhoeae DNA ESTHER+probe Ql (Unsp spec) Negative (09/09/21 4:39 PM) Invalid Interpretation Code Negative AH Auto Viro/Sero SS N. gonorrhoeae Interp N. gonorrhoeae DNA not detected. Specimen is presumptive negative forN. gonorrhoeae. A negative result does not preclude Neisseria gonorrhoeaeinfection because results depend on adequate specimen collection, absenceof inhibitors, and sufficient DNA to be detected. Invalid Interpretation Code See NG Interp N AH Auto Viro/Sero SS Laboratory - Specimen inform ationOrdered By: Obdulia Villagomez on 09-09-2021 Specimen source Nom (Unsp spec) Genital Female (09/09/21 4:39 PM) Invalid Interpretation Code AH Auto Viro/Sero SS No Panel Informationon 08-12 Culture Urine 10,000 - 50,000 cfu/ ml Mixed growth consistent with normal urogenital shanice. [facility] Work Phone: LABORATORYOrdered By: Obdulia Villagomez on 08-04-2021 C. trachomatis DNA ESTHER+probe Ql (Unsp spec) Negative (08/04/21 9:58 AM) Invalid Interpretation Code Negative AH Auto Viro/Sero SS C. trachomatis Interp C. trachomatis DNA not detected. Specimen is presumptive negative forC. trachomatis.A negative result does not preclude C. trachomatis infection becauseresults depend on adequate specimen collection, absence of inhibitors,and sufficient DNA to be detected. Invalid Interpretation Code See CT Interp N AH Auto Viro/Sero SS N. gonorrhoeae DNA ESTHER+probe Ql (Unsp spec) Negative (08/04/21 9:58 AM) Invalid Interpretation Code Negative AH Auto Viro/Sero SS N. gonorrhoeae Interp N. gonorrhoeae DNA not detected. Specimen is presumptive negative forN. gonorrhoeae. A negative result does not preclude Neisseria gonorrhoeaeinfection because results depend on adequate specimen collection, absenceof inhibitors, and sufficient DNA to be detected. Invalid Interpretation Code See NG Interp N AH Auto Viro/Sero SS Laboratory - Specimen inform ationOrdered By: Obdulia Villagomez on 08-04-2021 Specimen source Nom (Unsp spec) Cervix (08/04/21 9:58 AM) Invalid Interpretation Code AH Auto Viro/Sero SS LABORATORYOrdered By: Taina Myers on 03-26-2021 Albumin BCP dye [Mass/Vol] 3.7 G/dL Invalid Interpretation Code 3.5 - 5.0 G/dL AO ADM SS Albumin/Globulin [Mass ratio] 1.1 {ratio} Invalid Interpretation Code 1.1 - 2.5 ratio AO ADM SS ALP [Catalytic activity/Vol] 97 U/L Invalid Interpretation Code 40 - 135 U/L AO ADM SS ALT With P-5'-P [Catalytic activity/Vol] 65 U/L Invalid Interpretation Code 14 - 59 U/L AO ADM SS AST With P-5'-P [Catalytic activity/Vol] 23 U/L Invalid Interpretation Code 10 - 40 U/L AO ADM SS Basophil, Absolute 0.00 103/mcL Invalid Interpretation Code 0.00 - 0.19 10^3/mcL AO Auto Heme SS Basophils/100 WBC (Bld) 0.2 % Invalid Interpretation Code 0.0 - 2.5 % AO Auto Heme SS Bilirubin [Mass/Vol] 1.1 mg/dL Invalid Interpretation Code 0.2 - 1.0 mg/dL AO ADM SS Calcium [Mass/Vol] 8.5 mg/dL Invalid Interpretation Code 8.4 - 10.2 mg/dL AO ADM SS Chloride [Moles/Vol] 105 mmol/L Invalid Interpretation Code 98 - 107 mmol/L AO ADM SS CO2 [Moles/Vol] 25 mmol/L Invalid Interpretation Code 22 - 29 mmol/L AO ADM SS Creatinine [Mass/Vol] 0.72 mg/dL Invalid Interpretation Code 0.55 - 1.02 mg/dL AO ADM SS Electrolyte Balance 10.0 mEq/L Invalid Interpretation Code AO ADM SS Eosinophil, Absolute 0.00 103/mcL Invalid Interpretation Code 0.00 - 0.40 10^3/mcL AO Auto Heme SS Eosinophils/100 WBC (Bld) 0.4 % Invalid Interpretation Code 0.0 - 7.0 % AO Auto Heme SS Erythrocyte distribution width (RBC) [Ratio] 13.3 % Invalid Interpretation Code 11.5 - 14.5 % AO Auto Heme SS Globulin 3.4 G/dL Invalid Interpretation Code AO ADM SS Glucose [Mass/Vol] 88 mg/dL Invalid Interpretation Code 70 - 105 mg/dL AO ADM SS Hematocrit (Bld) [Volume fraction] 37.4 % Invalid Interpretation Code 37.0 - 47.0 % AO Auto Heme SS Hemoglobin (Bld) [Mass/Vol] 12.8 G/dL Invalid Interpretation Code 12.0 - 16.0 G/dL AO Auto Heme SS Lymphocyte, Absolute 1.50 103/mcL Invalid Interpretation Code 0.77 - 3.85 10^3/mcL AO Auto Heme SS Lymphocytes/100 WBC (Bld) 16.9 % Invalid Interpretation Code 10.0 - 50.0 % AO Auto Heme SS MCH (RBC) [Entitic mass] 29.3 pg Invalid Interpretation Code 27.0 - 31.2 pg AO Auto Heme SS MCHC (RBC) [Mass/Vol] 34.2 G/dL Invalid Interpretation Code 33.0 - 37.0 G/dL AO Auto Heme SS MCV (RBC) [Entitic vol] 85.7 fL Invalid Interpretation Code 80.0 - 94.0 fL AO Auto Heme SS Monocyte, Absolute 0.40 103/mcL Invalid Interpretation Code 0.15 - 1.00 10^3/mcL AO Auto Heme SS Monocytes/100 WBC (Bld) 5.1 % Invalid Interpretation Code 1.7 - 13.0 % AO Auto Heme SS Neutrophil, Absolute 6.80 103/mcL Invalid Interpretation Code 2.85 - 6.16 10^3/mcL AO Auto Heme SS Neutrophils/100 WBC (Bld) 77.4 % Invalid Interpretation Code 37.0 - 80.0 % AO Auto Heme SS Platelet mean volume (Bld) [Entitic vol] 7.9 fL Invalid Interpretation Code 7.4 - 10.4 fL AO Auto Heme SS Platelets (Bld) [#/Vol] 194 103/mcL Invalid Interpretation Code 130 - 400 10^3/mcL AO Auto Heme SS Potassium [Moles/Vol] 3.8 mmol/L Invalid Interpretation Code 3.5 - 5.1 mmol/L AO ADM SS Protein [Mass/Vol] 7.1 G/dL Invalid Interpretation Code 6.4 - 8.2 G/dL AO ADM SS RBC (Bld) [#/Vol] 4.36 106/mcL Invalid Interpretation Code 4.20 - 5.40 10^6/mcL AO Auto Heme SS Sodium [Moles/Vol] 140 mmol/L Invalid Interpretation Code 136 - 145 mmol/L AO ADM SS Urea nitrogen [Mass/Vol] 9 mg/dL Invalid Interpretation Code 7 - 18 mg/dL AO ADM SS Urea nitrogen/Creatinine [Mass ratio] 12 ratio Invalid Interpretation Code 7 - 27 ratio AO ADM SS WBC (Bld) [#/Vol] 8.80 103/mcL Invalid Interpretation Code 4.60 - 10.80 10^3/mcL AO Auto Heme SS LABORATORYOrdered By: SYSTEM SYSTEM on 03-26-2021 GFR 122 ml/min/1.73sqm Invalid Interpretation Code AO Chemistry S GFR Non- 100 ml/min/1.73sqm Invalid Interpretation Code AO Chemistry S LABORATORYOrdered By: Christine avila on 02-26-2021 C. trachomatis DNA ESTHER+probe Ql (Unsp spec) Negative (02/26/21 4:35 PM) Invalid Interpretation Code Negative AH Auto Viro/Sero SS C. trachomatis Interp C. trachomatis DNA not detected. Specimen is presumptive negative forC. trachomatis.A negative result does not preclude C. trachomatis infection becauseresults depend on adequate specimen collection, absence of inhibitors,and sufficient DNA to be detected. Invalid Interpretation Code See CT Interp N AH Auto Viro/Sero SS N. gonorrhoeae DNA ESTHER+probe Ql (Unsp spec) Negative (02/26/21 4:35 PM) Invalid Interpretation Code Negative AH Auto Viro/Sero SS N. gonorrhoeae Interp N. gonorrhoeae DNA not detected. Specimen is presumptive negative forN. gonorrhoeae. A negative result does not preclude Neisseria gonorrhoeaeinfection because results depend on adequate specimen collection, absenceof inhibitors, and sufficient DNA to be detected. Invalid Interpretation Code See NG Interp N AH Auto Viro/Sero SS Laboratory - Specimen inform ationOrdered By: Christine Timmons on 02-26-2021 Specimen source Nom (Unsp spec) Cervix (02/26/21 4:35 PM) Invalid Interpretation Code Auto Viro/Sero SS XR Ankle - right AP and Late ral and obliqueon 05-06-2020 IMPRESSION: Small joint effusion of the right ankle. Activities Therapist: PSCB Transcribe Date/Time: May 06 2020 4:02P Dictated by : KALEB ELAM MD This examination was interpreted and the report reviewed and electronically signed by: KALEB ELAM MD on May 06 2020 4:04PM [facility] DIVISION OF RADIOLOGY * * *Final Report* * * DATE OF EXAM: May 06 2020 4:00PM WOX [id number] - XR ANKLE 3V AP/LAT/OBL RT / PROCEDURE REASON: Acute right ankle pain * * * * Physician Interpretation * * * * EXAM TITLE: XR ANKLE 3V AP/LAT/OBL RT EXAM DATE/TIME: 05/06/2020 4:00 PM COMPARISON: None. CLINICAL INDICATION/HISTORY: Acute ankle pain. TECHNIQUE: AP, mortise and lateral views of the right ankle are presented. FINDINGS: No acute fractures or subluxations are noted. The mortise spaces are well preserved. There is small joint effusion. The mineralization of the bones is normal. There is probably mild soft tissue swelling along the lateral malleolus. DIVISION OF RADIOLOGY Provider, [facility] - 05/06/2020 * * *Final Report* * * DATE OF EXAM: May 06 2020 4:00PM WOX 5297 - XR ANKLE 3V AP/LAT/OBL RT / PROCEDURE REASON: Acute right ankle pain * * * * Physician Interpretation * * * * EXAM TITLE: XR ANKLE 3V AP/LAT/OBL RT EXAM DATE/TIME: 05/06/2020 4:00 PM COMPARISON: None. CLINICAL INDICATION/HISTORY: Acute ankle pain. TECHNIQUE: AP, mortise and lateral views of the right ankle are presented. FINDINGS: No acute fractures or subluxations are noted. The mortise spaces are well preserved. There is small joint effusion. The mineralization of the bones is normal. There is probably mild soft tissue swelling along the lateral malleolus. IMPRESSION IMPRESSION: Small joint effusion of the right ankle. Activities Therapist: SILAS Transcribe Date/Time: May 06 2020 4:02P Dictated by : KALEB ELAM MD This examination was interpreted and the report reviewed and electronically signed by: KALEB ELAM MD on May 06 2020 4:04PM EST [facility] Radiology Study observation (narrative) [facility] XR Ankle - right AP and Late ral and obliqueOrdered By: Ccf Provider on 05-06-2020 [facility] NOVEL CORONAVIRUS NASOPHARYN GEAL - [facility] SPECIMEN ONLYon 02-23-2020 SARS-COV-2 NOT DETECTED Normal NOT DETECTED [facility] Comment on above: Order Comment: Viral transport media - Collection must be done while wearing N-95 mask, eye protection, gown and gloves. Please label ALL specimens as 2019-nCoV rule out and deliver by hand. This test was performed using real time PCR and has been approved for the qualitative detection of SARS-CoV-2 nucleic acid. The test has been authorized by the FDA under an emergency use authorization for use by authorized laboratories. Result Comment: Nega tive results do not preclude SARS-CoV-2 infection and should not be used as the sole basis for treatment or other patient management decisions. Optimum specimen types and timing for peak viral levels during infections caused by SARS-CoV-2 has not been determined. The possibility of a false negative result should especially be considered if the patient's recent exposures or clinical presentation suggest that SARS-CoV-2 infection is probable, and diagnostic tests for other causes of illness (e.g., other respiratory illness) are negative. Collection of a new specimen and re-testing may be necessary if the patient is critically ill or clinically deteriorating. Performed By: #### L [id number] #### [facility] (DEFAULT) [address] [place] [address] NOVEL CORONAVIRUS NASOPHARYN GEAL - [facility] SPECIMEN ONLYon 01-24-2020 SARS-COV-2 NOT DETECTED Normal NOT DETECTED [facility] Comment on above: Order Comment: Viral transport media - Collection must be done while wearing N-95 mask, eye protection, gown and gloves. Please label ALL specimens as 2019-nCoV rule out and deliver by hand. This test was performed using real time PCR and has been approved for the qualitative detection of SARS-CoV-2 nucleic acid. The test has been authorized by the FDA under an emergency use authorization for use by authorized laboratories. Result Comment: Nega tive results do not preclude SARS-CoV-2 infection and should not be used as the sole basis for treatment or other patient management decisions. Optimum specimen types and timing for peak viral levels during infections caused by SARS-CoV-2 has not been determined. The possibility of a false negative result should especially be considered if the patient's recent exposures or clinical presentation suggest that SARS-CoV-2 infection is probable, and diagnostic tests for other causes of illness (e.g., other respiratory illness) are negative. Collection of a new specimen and re-testing may be necessary if the patient is critically ill or clinically deteriorating. Performed By: #### L [id number] #### [facility] (DEFAULT) [address] [place] [address] NOVEL CORONAVIRUS NASOPHARYN GEAL - [facility] SPECIMEN ONLYon 01-17-2020 SARS-COV-2 NOT DETECTED Normal NOT DETECTED [facility] Comment on above: Order Comment: Viral transport media - Collection must be done while wearing N-95 mask, eye protection, gown and gloves. Please label ALL specimens as 2019-nCoV rule out and deliver by hand. This test was performed using real time PCR and has been approved for the qualitative detection of SARS-CoV-2 nucleic acid. The test has been authorized by the FDA under an emergency use authorization for use by authorized laboratories. Result Comment: Nega tive results do not preclude SARS-CoV-2 infection and should not be used as the sole basis for treatment or other patient management decisions. Optimum specimen types and timing for peak viral levels during infections caused by SARS-CoV-2 has not been determined. The possibility of a false negative result should especially be considered if the patient's recent exposures or clinical presentation suggest that SARS-CoV-2 infection is probable, and diagnostic tests for other causes of illness (e.g., other respiratory illness) are negative. Collection of a new specimen and re-testing may be necessary if the patient is critically ill or clinically deteriorating. Performed By: #### L [id number] #### [facility] (DEFAULT) [address] [address] NOVEL CORONAVIRUS NASOPHARYN GEAL - [facility] SPECIMEN ONLYon 01-10-2020 SARS-COV-2 NOT DETECTED Normal NOT DETECTED [facility] Comment on above: Order Comment: Viral transport media - Collection must be done while wearing N-95 mask, eye protection, gown and gloves. Please label ALL specimens as 2019-nCoV rule out and deliver by hand. This test was performed using real time PCR and has been approved for the qualitative detection of SARS-CoV-2 nucleic acid. The test has been authorized by the FDA under an emergency use authorization for use by authorized laboratories. Result Comment: Nega tive results do not preclude SARS-CoV-2 infection and should not be used as the sole basis for treatment or other patient management decisions. Optimum specimen types and timing for peak viral levels during infections caused by SARS-CoV-2 has not been determined. The possibility of a false negative result should especially be considered if the patient's recent exposures or clinical presentation suggest that SARS-CoV-2 infection is probable, and diagnostic tests for other causes of illness (e.g., other respiratory illness) are negative. Collection of a new specimen and re-testing may be necessary if the patient is critically ill or clinically deteriorating. Performed By: #### L [id number] #### [facility] (DEFAULT) [address] [address] NOVEL CORONAVIRUS NASOPHARYN GEAL - [facility] SPECIMEN ONLYon 12-29-2019 SARS-COV-2 NOT DETECTED Normal NOT DETECTED [facility] Comment on above: Order Comment: Viral transport media - Collection must be done while wearing N-95 mask, eye protection, gown and gloves. Please label ALL specimens as 2019-nCoV rule out and deliver by hand. This test was performed using real time PCR and has been approved for the qualitative detection of SARS-CoV-2 nucleic acid. The test has been authorized by the FDA under an emergency use authorization for use by authorized laboratories. Result Comment: Nega tive results do not preclude SARS-CoV-2 infection and should not be used as the sole basis for treatment or other patient management decisions. Optimum specimen types and timing for peak viral levels during infections caused by SARS-CoV-2 has not been determined. The possibility of a false negative result should especially be considered if the patient's recent exposures or clinical presentation suggest that SARS-CoV-2 infection is probable, and diagnostic tests for other causes of illness (e.g., other respiratory illness) are negative. Collection of a new specimen and re-testing may be necessary if the patient is critically ill or clinically deteriorating. Performed By: #### L [id number] #### [facility] (DEFAULT) [address] [address] NOVEL CORONAVIRUS NASOPHARYN GEAL - [facility] SPECIMEN ONLYon 12-14-2019 SARS-COV-2 NOT DETECTED Normal NOT DETECTED [facility] Comment on above: Order Comment: Viral transport media - Collection must be done while wearing N-95 mask, eye protection, gown and gloves. Please label ALL specimens as 2019-nCoV rule out and deliver by hand. This test was performed using real time PCR for the qualitative detection of SARS-CoV-2 nucleic acid. It has not been cleared or approved by the FDA. This test was developed and its performance characteristics determined by [facility] at [facility]. This test is used for clinical purposes. It should not be regarded as investigational or for research. Result Comment: Nega tive results do not preclude SARS-CoV-2 infection and should not be used as the sole basis for treatment or other patient management decisions. Optimum specimen types and timing for peak viral levels during infections caused by SARS-CoV-2 has not been determined. The possibility of a false negative result should especially be considered if the patient's recent exposures or clinical presentation suggest that SARS-CoV-2 infection is probable, and diagnostic tests for other causes of illness (e.g., other respiratory illness) are negative. Collection of a new specimen and re-testing may be necessary if the patient is critically ill or clinically deteriorating. Performed By: #### L [id number] #### [facility] (DEFAULT) [address] [place] [id number] ANKLE COMP MIN 3 VWS LTon ANKLE COMP MIN 3 VWS LT ANKLE COMP MIN 3 VWS LTOrdering Physician: Gibson Del Cid MD01/20/2017 8:06 PMLEFT ANKLE THREE VIEWSClinical Statement: PainComparison: NoneFINDINGS: There is no acute fracture or dislocation. Joint spaces arenormally approximated. Soft tissues are unremarkable.IMPRESSIO N:No acute osseous abnormality. ---- Electronic Signature on File ----Signed By: Beverly Lazar [email or web address] ictated: 01/20/2017 9:10 PMSigned: 01/20/2017 9:10 PM Reported By: BEVERLY LAZAR M.D. Signed By: BEVERLY LAZAR M.D. [facility] 01-20-2017 [facility] REPORT [facility] DATE OF SERVICE: 01/20/2017HISTORY OF PRESENT ILLNESS: Ms. Reynoso is a 21-year-old female presentingto [facility]care this evening with a complaint of left ankle pain and bruising. Symptomsstarted last evening. Patient denied any injury; however, patient states that theankle started hurting after the patient was moving several pieces of furniture at herhome and after that, maybe she walked the wrong way and now the ankle is painful;therefore, she is coming in for further evaluation and treatment. Patient denied anydifficulty ambulating, denied any numbness or tingling of the lower extremity, deniedany difficulty with weight bearing.PRIMARY CARE PHYSICIAN: Dr. Mejia.MEDICATIONS: Depo shot.ALLERGIES: No known drug allergies.SOCIAL HISTORY: The patient smokes 1 pack a day and not an alcohol drinker.FAMILY HISTORY: Noncontributory.REVIEW OF SYSTEMS: Per HPI.PHYSICAL EXAMINATION:Vital Signs: Temperature 98.3, respiration rate 14, pulse 84, blood pressure 120/70,pulse oximetry 100%, pain level 8/10. The patient weighs 194.4 pounds.General: This is a 21-year-old female not appearing in pain or acutedistress.Lungs: Clear to auscultation bilaterally.Heart: Regular rhythm and rate. Normal heart sounds.Extremities: Left ankle minimally tender with palpation on lateral malleolus area.No swelling appreciated. Range of motion of the ankle within normal limits.Neurologic: No sensory or motor deficits appreciated.IMPRESSION : Left ankle sprain/pain.PLAN: The x-ray of the left ankle obtained revealed no acute findings; however, jerel send it for second reading with radiology. Discussed the results with patientand recommended the patient to rest, elevate the foot, apply ice to the area and maytake Tylenol as needed and follow up with the family doctor for a recheck. Son Case Del Cid MD [facility] PATIENT NAME: REYNOSO,CLARISSE A[address] [facility] REC #: [id number], [place] [address] [facility] RE[facility]/[id number]: 01/20/2017 20:24DT: 01/20/2017 21:41SSI File#: [id number] #: [id number]/Reviewed by02/05/17 1622 [facility] PATIENT NAME: CARLOSCLARISSE [id number] [facility] MEDICAL REC #: [id number] [address] STATCARE REPORT STATCARE PHYSICIAN Normal [facility] Vital Signs Date Time Vital Sign Value Performing Clinician Faci garretty 09-21-2024 18:49-0400 Body mass index (BMI) [Ratio] 38.98 kg/m2 Ritchie Clutter PA-C Work Phone: [facility] 09-21-2024 18:49-0400 Body temperature 97.7 [degF] Ritchie Clutter PA-C Work Phone: [facility] 09-21-2024 18:49-0400 Body weight 103 kg Ritchie Clutter PA-C Work Phone: [facility] 09-21-2024 18:49-0400 Diastolic blood pressure 73 mm[Hg] Ritchie Clutter PA-C Work Phone: [facility] 09-21-2024 18:49-0400 Heart rate 63 /min Ritchie Clutter PA-C Work Phone: [facility] 09-21-2024 18:49-0400 Respiratory rate 20 /min Ritchie Clutter PA-C Work Phone: [facility] 09-21-2024 18:49-0400 SaO2% (BldA) [Mass fraction] 100 % Ritchie Clutter PA-C Work Phone: [facility] 09-21-2024 18:49-0400 Systolic blood pressure 105 mm[Hg] Ritchie Clutter PA-C Work Phone: [facility] 09-06-2024 17:33-0400 Body mass index (BMI) [Ratio] 38.94 kg/m2 Krislyn Aberegg PA Work Phone: [facility] 09-06-2024 17:33-0400 Body temperature 99.7 [degF] Krislyn Aberegg PA Work Phone: [facility] 09-06-2024 17:33-0400 Body weight 102.9 kg Krislyn Aberegg PA Work Phone: [facility] 09-06-2024 17:33-0400 Diastolic blood pressure 72 mm[Hg] Krislyn Aberegg PA Work Phone: [facility] 09-06-2024 17:33-0400 Heart rate 74 /min Krislyn Aberegg PA Work Phone: [facility] 09-06-2024 17:33-0400 Respiratory rate 16 /min Krislyn Aberegg PA Work Phone: [facility] 09-06-2024 17:33-0400 SaO2% (BldA) [Mass fraction] 99 % Krislyn Aberegg PA Work Phone: [facility] 09-06-2024 17:33-0400 Systolic blood pressure 104 mm[Hg] Krislyn Aberegg PA Work Phone: [facility] 07-11-2024 09:42-0400 Body mass index (BMI) [Ratio] 39.13 kg/m2 Kamla Keita APRN.METAL FINISH INSPECTOR Work Phone: [facility] 07-11-2024 09:42-0400 Body temperature 97.9 [degF] Kamla Keita APRN.METAL FINISH INSPECTOR Work Phone: [facility] 07-11-2024 09:42-0400 Body weight 103.4 kg Kamla Keita APRN.METAL FINISH INSPECTOR Work Phone: [facility] 07-11-2024 09:42-0400 Diastolic blood pressure 68 mm[Hg] Kamla Keita APRN.METAL FINISH INSPECTOR Work Phone: [facility] 07-11-2024 09:42-0400 Heart rate 70 /min Kamla Keita APRN.METAL FINISH INSPECTOR Work Phone: [facility] 07-11-2024 09:42-0400 Respiratory rate 16 /min Kamla Keita APRN.METAL FINISH INSPECTOR Work Phone: [facility] 07-11-2024 09:42-0400 SaO2% (BldA) [Mass fraction] 99 % Kamla Keita APRN.METAL FINISH INSPECTOR Work Phone: [facility] 07-11-2024 09:42-0400 Systolic blood pressure 108 mm[Hg] Kamla Keita APRN.METAL FINISH INSPECTOR Work Phone: [facility] 02-09-2024 10:44-0400 Body mass index (BMI) [Ratio] 40.45 kg/m2 Mariaelena Saul EXTRACTIONS TECHNICIAN.METAL FINISH INSPECTOR Work Phone: [facility] 02-09-2024 10:44-0400 Body temperature 98.49 [degF] Mariaelena Saul EXTRACTIONS TECHNICIAN.METAL FINISH INSPECTOR Work Phone: [facility] 02-09-2024 10:44-0400 Body weight 106.9 kg Mariaelena Saul EXTRACTIONS TECHNICIAN.METAL FINISH INSPECTOR Work Phone: [facility] 02-09-2024 10:44-0400 Diastolic blood pressure 80 mm[Hg] Mariaelena Saul EXTRACTIONS TECHNICIAN.METAL FINISH INSPECTOR Work Phone: [facility] 02-09-2024 10:44-0400 Heart rate 70 /min Mariaelena Saul EXTRACTIONS TECHNICIAN.METAL FINISH INSPECTOR Work Phone: [facility] 02-09-2024 10:44-0400 Respiratory rate 20 /min Mariaelena Saul EXTRACTIONS TECHNICIAN.METAL FINISH INSPECTOR Work Phone: [facility] 02-09-2024 10:44-0400 SaO2% (BldA) [Mass fraction] 100 % Mariaelena Saul EXTRACTIONS TECHNICIAN.METAL FINISH INSPECTOR Work Phone: [facility] 02-09-2024 10:44-0400 Systolic blood pressure 130 mm[Hg] Mariaelena Saul EXTRACTIONS TECHNICIAN.METAL FINISH INSPECTOR Work Phone: [facility] 11-03-2023 12:26-0400 Body mass index (BMI) [Ratio] 39.96 kg/m2 Kamla Keita EXTRACTIONS TECHNICIAN.METAL FINISH INSPECTOR Work Phone: [facility] 11-03-2023 12:26-0400 Body temperature 98.8 [degF] Kamla Keita EXTRACTIONS TECHNICIAN.METAL FINISH INSPECTOR Work Phone: [facility] 11-03-2023 12:26-0400 Body weight 105.6 kg Kamla Keita EXTRACTIONS TECHNICIAN.METAL FINISH INSPECTOR Work Phone: [facility] 11-03-2023 12:26-0400 Diastolic blood pressure 78 mm[Hg] Kamla Keita APRN.METAL FINISH INSPECTOR Work Phone: [facility] 11-03-2023 12:26-0400 Heart rate 73 /min Kamla Keita APRN.METAL FINISH INSPECTOR Work Phone: [facility] 11-03-2023 12:26-0400 Respiratory rate 16 /min Kamla Keita APRN.METAL FINISH INSPECTOR Work Phone: [facility] 11-03-2023 12:26-0400 SaO2% (BldA) [Mass fraction] 97 % Kamla Keita APRN.METAL FINISH INSPECTOR Work Phone: [facility] 11-03-2023 12:26-0400 Systolic blood pressure 112 mm[Hg] Kamla Keita APRN.METAL FINISH INSPECTOR Work Phone: [facility] 09-23-2023 20:16-0400 Body height 162.6 cm Juliano Qureshi MD Work Phone: [facility] 09-23-2023 20:16-0400 Body mass index (BMI) [Ratio] 39.48 kg/m2 Juliano Qureshi MD Work Phone: [facility] 09-23-2023 20:16-0400 Body temperature 97.7 [degF] Juliano Quershi MD Work Phone: [facility] 09-23-2023 20:16-0400 Body weight 104.33 kg Juliano Qureshi MD Work Phone: [facility] 09-23-2023 20:16-0400 Diastolic blood pressure 73 mm[Hg] Juliano Qureshi MD Work Phone: [facility] 09-23-2023 20:16-0400 Heart rate 63 /min Juliano Qureshi MD Work Phone: [facility] 09-23-2023 20:16-0400 Respiratory rate 16 /min Juliano Qureshi MD Work Phone: [facility] 09-23-2023 20:16-0400 SaO2% (BldA) [Mass fraction] 100 % Juliano Qureshi MD Work Phone: [facility] 09-23-2023 20:16-0400 Systolic blood pressure 105 mm[Hg] Juliano Qureshi MD Work Phone: [facility] 06-28-2023 11:15-0500 Body temperature 97.7 [degF] Scottie Lang Jr., EXTRACTIONS TECHNICIAN.METAL FINISH INSPECTOR Work Phone: [facility] 06-28-2023 11:15-0500 Diastolic blood pressure 78 mm[Hg] Scottie Lang Jr., EXTRACTIONS TECHNICIAN.METAL FINISH INSPECTOR Work Phone: [facility] 06-28-2023 11:15-0500 Heart rate 67 /min Scottie Lang Jr., EXTRACTIONS TECHNICIAN.METAL FINISH INSPECTOR Work Phone: [facility] 06-28-2023 11:15-0500 Respiratory rate 18 /min Scottie Lang Jr., EXTRACTIONS TECHNICIAN.METAL FINISH INSPECTOR Work Phone: [facility] [facility] 06-28-2023 11:15-0500 SaO2% (BldA) [Mass fraction] 100 % Scottie Lang Jr., EXTRACTIONS TECHNICIAN.METAL FINISH INSPECTOR Work Phone: [facility] 06-28-2023 11:15-0500 Systolic blood pressure 118 mm[Hg] Scottie Lang Jr. EXTRACTIONS TECHNICIAN.METAL FINISH INSPECTOR Work Phone: [facility] 04-06-2023 14:51-0500 Body temperature 97.81 [degF] Gena Odonnell EXTRACTIONS TECHNICIAN.METAL FINISH INSPECTOR Work Phone: [facility] 04-06-2023 14:51-0500 Body weight 106.14 kg Gena Odonnell EXTRACTIONS TECHNICIAN.METAL FINISH INSPECTOR Work Phone: [facility] 04-06-2023 14:51-0500 Diastolic blood pressure 80 mm[Hg] Gena Odonnell EXTRACTIONS TECHNICIAN.METAL FINISH INSPECTOR Work Phone: [facility] 04-06-2023 14:51-0500 Heart rate 80 /min Gena Odonnell EXTRACTIONS TECHNICIAN.METAL FINISH INSPECTOR Work Phone: [facility] 04-06-2023 14:51-0500 Respiratory rate 16 /min Gena Odonnell EXTRACTIONS TECHNICIAN.METAL FINISH INSPECTOR Work Phone: [facility] 04-06-2023 14:51-0500 SaO2% (BldA) [Mass fraction] 98 % Gena Odonnell EXTRACTIONS TECHNICIAN.METAL FINISH INSPECTOR Work Phone: [facility] 04-06-2023 14:51-0500 Systolic blood pressure 134 mm[Hg] Gena Odonnell EXTRACTIONS TECHNICIAN.METAL FINISH INSPECTOR Work Phone: [facility] 01-17-2023 15:58-0400 Body temperature 97 [degF] France Bernal MD Work Phone: [facility] 01-17-2023 15:58-0400 Body weight 104.51 kg France Bernal MD Work Phone: [facility] 01-17-2023 15:58-0400 Diastolic blood pressure 67 mm[Hg] France Bernal MD Work Phone: [facility] 01-17-2023 15:58-0400 Heart rate 74 /min France Bernal MD Work Phone: [facility] 01-17-2023 15:58-0400 Respiratory rate 18 /min France Bernal MD Work Phone: [facility] 01-17-2023 15:58-0400 SaO2% (BldA) [Mass fraction] 98 % France Bernal MD Work Phone: [facility] 01-17-2023 15:58-0400 Systolic blood pressure 126 mm[Hg] France Bernal MD Work Phone: [facility] 08-27-2022 19:42-0400 Body temperature 97.81 [degF] Gibson Del Cid MD Work Phone: [facility] 08-27-2022 19:42-0400 Body weight 102.06 kg Gibson Del Cid MD Work Phone: [facility] 08-27-2022 19:42-0400 Diastolic blood pressure 80 mm[Hg] Gibson Del Cid MD Work Phone: [facility] 08-27-2022 19:42-0400 Heart rate 63 /min Gibson Del Cid MD Work Phone: [facility] 08-27-2022 19:42-0400 Respiratory rate 18 /min Gibson Del Cid MD Work Phone: [facility] 08-27-2022 19:42-0400 SaO2% (BldA) [Mass fraction] 100 % Gibson Del Cid MD Work Phone: [facility] 08-27-2022 19:42-0400 Systolic blood pressure 145 mm[Hg] Gibson Del Cid MD Work Phone: [facility] 07-14-2022 08:52-0400 Body temperature 98.8 [degF] France Bernal MD Work Phone: [facility] 07-14-2022 08:52-0400 Body weight 101.15 kg France Bernal MD Work Phone: [facility] 07-14-2022 08:52-0400 Diastolic blood pressure 58 mm[Hg] France Bernal MD Work Phone: [facility] 07-14-2022 08:52-0400 Heart rate 77 /min France Bernal MD Work Phone: [facility] 07-14-2022 08:52-0400 Respiratory rate 18 /min France Bernal MD Work Phone: [facility] 07-14-2022 08:52-0400 SaO2% (BldA) [Mass fraction] 97 % France Bernal MD Work Phone: [facility] 07-14-2022 08:52-0400 Systolic blood pressure 127 mm[Hg] France Bernal MD Work Phone: [facility] 11-02-2021 13:47-0400 Body temperature 99 [degF] Mariaelena Saul APRN.CNP Work Phone: [facility] 07-10-2022 13:47-0400 Body weight 109.41 kg Mariaelena Saul EXTRACTIONS TECHNICIAN.METAL FINISH INSPECTOR Work Phone: [facility] 11-02-2021 13:47-0400 Diastolic blood pressure 72 mm[Hg] Mariaelena Saul EXTRACTIONS TECHNICIAN.METAL FINISH INSPECTOR Work Phone: [facility] 11-02-2021 13:47-0400 Heart rate 100 /min Mariaelena Saul EXTRACTIONS TECHNICIAN.METAL FINISH INSPECTOR Work Phone: [facility] 11-02-2021 13:47-0400 Respiratory rate 20 /min Mariaelena Saul EXTRACTIONS TECHNICIAN.METAL FINISH INSPECTOR Work Phone: [facility] 11-02-2021 13:47-0400 SaO2% (BldA) [Mass fraction] 99 % Mariaelena Saul EXTRACTIONS TECHNICIAN.METAL FINISH INSPECTOR Work Phone: [facility] 11-02-2021 13:47-0400 Systolic blood pressure 120 mm[Hg] Mariaelena Saul EXTRACTIONS TECHNICIAN.METAL FINISH INSPECTOR Work Phone: [facility] Encounters Encounter Date Encounter Type Care Provider Facility Start: 10-12-2024 End: 10-16-2024 ambulatory NORIS HYLTON DO Facility:[facility] Start: 10-12-2024 End: 10-16-2024 Outreach Lab NORIS HYLTON DO [facility] Start: 10-05-2024 End: 10-05-2024 Emergency department patient visit LULU MARINO DO [facility] Start: 09-21-2024 End: 09-21-2024 Office outpatient visit 25 minutes Ritchie Huggins PA-C Work Phone: [facility] Comment on above: Low back pain, unspe cified back pain laterality, unspecified chronicity, unspecified whether sciatica present (Primary Dx); Urethral irritation; Flank pain Start: 09-21-2024 End: 09-21-2024 ambulatory NORIS HYLTON Facility:[facility] Start: 09-06-2024 End: 09-06-2024 Patient encounter procedure Fiona SAAVEDRA Work Phone: [facility] Comment on above: Vaginal discharge (P rimary Dx) Start: 09-06-2024 End: 09-06-2024 ambulatory FIONA PATINO Facility:[facility] Start: 07-12-2024 End: 07-12-2024 Follow-up encounter Taurus Delgadillo APRN.METAL FINISH INSPECTOR Work Phone: [facility] Comment on above: Results Start: 07-11-2024 End: 07-11-2024 ambulatory NORIS HYLTON Facility:[facility] Start: 07-11-2024 End: 07-11-2024 Patient encounter procedure Kamla Keita APRN.METAL FINISH INSPECTOR Work Phone: [facility] Comment on above: Vaginal itching (Deanne odette Dx); Vaginal discharge Start: 06-08-2024 End: 06-12-2024 ambulatory NORIS HYLTON DO [facility] Start: 06-08-2024 End: 06-12-2024 Outreach Lab RACH JOSHUANATY RYAN-METAL FINISH INSPECTOR [facility] Start: 03-01-2024 End: 03-01-2024 ambulatory NORIS HYLTON DO [facility] Start: 03-01-2024 End: 03-01-2024 Patient encounter procedure GERTRUDIS PAINTER MD [facility] Start: 02-14-2024 End: 02-14-2024 Emergency department patient visit Noris Hylton Facility:[facility] Start: 02-14-2024 End: 02-14-2024 ambulatory NORIS HYLTON Facility:[facility] Start: 02-14-2024 End: 02-14-2024 Patient encounter procedure Nasima Subramanian APRN.METAL FINISH INSPECTOR Work Phone: [facility] Comment on above: Left lateral abdomin al pain (Primary Dx) Start: 02-10-2024 End: 02-10-2024 Telephone encounter Fiona SAAVEDRA Work Phone: [facility] Comment on above: Results Start: 02-09-2024 End: 02-09-2024 ambulatory [facility] Facility:[facility] Start: 02-09-2024 End: 02-09-2024 Patient encounter procedure Mariaelena Saul EXTRACTIONS TECHNICIAN.METAL FINISH INSPECTOR Work Phone: [facility] Comment on above: Encounter for screen ing examination for sexually transmitted disease (Primary Dx); Itching in the vaginal area; Vaginal spotting Start: 11-18-2023 End: 11-18-2023 ambulatory TRINA INGRAM MD Facility: Start: 11-18-2023 End: 11-18-2023 Patient encounter procedure TRINA INGRAM MD [facility] Start: 11-04-2023 Telephone encounter Fiona SAAVEDRA Work Phone: [facility] Comment on above: Results Start: 11-03-2023 End: 11-03-2023 ambulatory MARIAELENA SAUL Facility:[facility] Start: 11-03-2023 End: 11-03-2023 Patient encounter procedure Kamla Keita APRN.METAL FINISH INSPECTOR Work Phone: [facility] Comment on above: Vaginal itching (Deanne odette Dx) Start: 10-08-2023 ambulatory PRAFREEMAN BERNAL Facility: [id number] Start: 09-23-2023 End: 09-23-2023 Office outpatient visit 25 minutes Juliano Qureshi MD Work Phone: [facility] Comment on above: Acute vaginitis (Deanne odette Dx) Start: 09-23-2023 End: 09-23-2023 ambulatory JULIANO CEJA Facility:[id number] Start: 06-28-2023 End: 06-28-2023 Patient encounter procedure Scottie Lang EXTRACTIONS TECHNICIAN.METAL FINISH INSPECTOR Work Phone: [facility] Comment on above: Acute vaginitis (Deanne odette Dx); Dysuria; Recurrent UTI (urinary tract infection) Start: 06-28-2023 End: 06-28-2023 ambulatory SELF Facility:[id number] Start: 06-23-2023 End: 06-27-2023 ambulatory NORIS HYLTON DO Facility:[facility] Start: 06-23-2023 End: 06-27-2023 Outreach Lab NORIS HYLTON DO [facility] Start: 06-23-2023 End: 06-23-2023 ambulatory NORIS HYLTON DO Facility:[facility] Start: 06-23-2023 End: 06-23-2023 Patient encounter procedure NORIS HYLTON DO [facility] Start: 06-09-2023 End: 06-09-2023 ambulatory MARIAELENA TITUS EXTRACTIONS TECHNICIAN-CNM Facility:[facility] Start: 05-15-2023 End: 05-15-2023 ambulatory TIKI QUIÑONEZN Facility:[id number] Start: 04-07-2023 Telephone encounter Tiki Toledo DO Work Phone: [facility] Comment on above: Results Start: 04-06-2023 End: 04-06-2023 Patient encounter procedure Gena Odonnell SHELBY.METAL FINISH INSPECTOR Work Phone: [facility] Comment on above: Dysuria (Primary Dx) ; Vaginal discharge; Vaginal yeast infection Start: 04-06-2023 End: 04-06-2023 ambulatory GENA ODONNELL Facility:[id number] Start: 03-09-2023 End: 03-09-2023 ambulatory MARIAELENA TITUS EXTRACTIONS TECHNICIAN-CNM Facility:[facility] Start: 03-09-2023 End: 03-09-2023 Patient encounter procedure MARIAELENA TITUS EXTRACTIONS TECHNICIAN-CNM [facility] Start: 02-23-2023 End: 02-27-2023 ambulatory MARIAELENA TITUS EXTRACTIONS TECHNICIAN-CNM Facility:[facility] Start: 02-23-2023 End: 02-27-2023 Outreach Lab MARIAELENA Angelica TITUS EXTRACTIONS TECHNICIAN-CNM [facility] Start: 01-17-2023 End: 01-17-2023 ambulatory FRANCE BERNAL Facility:[id number] Start: 01-17-2023 End: 01-17-2023 Office outpatient visit 15 minutes France Bernal MD Work Phone: [facility] Comment on above: Possible exposure to STD (Primary Dx); Vaginal candidiasis Start: 11-25-2022 End: 11-29-2022 ambulatory TRINA INGRAM MD Facility:[facility] Start: 11-25-2022 End: 11-29-2022 Outreach Lab TRINA INGRAM MD [facility] Start: 08-27-2022 End: 08-27-2022 Patient encounter procedure Gibson Del Cid MD Work Phone: [facility] Comment on above: Cystitis (Primary Dx ); Abnormal menstrual cycle Start: 07-14-2022 End: 07-14-2022 Office outpatient visit 15 minutes France Bernal MD Work Phone: [facility] Comment on above: Acute non-recurrent maxillary sinusitis (Primary Dx) Start: 11-03-2021 Telephone encounter Dexter Muñoz MD Work Phone: [facility] Comment on above: Results (BV) Results Start: 11-02-2021 End: 11-02-2021 Patient encounter procedure Mariaelena Saul EXTRACTIONS TECHNICIAN.METAL FINISH INSPECTOR Work Phone: [facility] Comment on above: Vaginal discharge (P rimary Dx) Start: 10-15-2021 Telephone encounter Mariaelena minaya EXTRACTIONS TECHNICIAN.METAL FINISH INSPECTOR Work Phone: [facility] Comment on above: Results Start: 09-09-2021 End: 09-13-2021 Outreach Lab ADAM DONALD EXTRACTIONS TECHNICIAN-CNM [facility] Start: 08-12-2021 End: 08-16-2021 Outreach Lab ADAM DONALD EXTRACTIONS TECHNICIAN-CNM [facility] Start: 08-04-2021 End: 08-08-2021 Outreach Lab TIERA TRUJILLO MD [facility] Start: 06-12-2021 Telephone encounter Kamla Keita EXTRACTIONS TECHNICIAN.METAL FINISH INSPECTOR Work Phone: [facility] Comment on above: Erroneous encounter- disregard Start: 03-26-2021 End: 03-26-2021 Patient encounter procedure DANIELLE MANRIQUEZ EXTRACTIONS TECHNICIAN-METAL FINISH INSPECTOR [facility] Start: 02-26-2021 End: 03-02-2021 Outreach Lab RCAH IRVING EXTRACTIONS TECHNICIAN-METAL FINISH INSPECTOR [facility] Start: 05-06-2020 End: 05-06-2020 Subsequent hospital visit by physician Xr [facility] Work Phone: Radiology Comment on above: Acute right ankle pa in [M25.571] Start: 01-20-2017 Ambulatory Gibson Del Cid Facility:[facility] Procedures Date Procedure Procedure Detail Performing Clinician Start: 09-21-2024 UA DIP,URINE HCG (POC) [facility] Provider Start: 09-21-2024 Urnls dip stick/tabl et rgnt auto w/o microscopy Soraida Hidalgo EXTRACTIONS TECHNICIAN.METAL FINISH INSPECTOR Work Phone: Start: 02-09-2024 Urnls dip stick/tabl et rgnt auto w/o microscopy Mariaelena Saul EXTRACTIONS TECHNICIAN.METAL FINISH INSPECTOR Work Phone: Start: 02-09-2024 UA DIP,URINE HCG (POC) Mariaelena Mana EXTRACTIONS TECHNICIAN.METAL FINISH INSPECTOR Work Phone: Start: 09-23-2023 Urnls dip stick/tabl et rgnt auto w/o microscopy Juliano Qureshi MD Work Phone: Start: 06-28-2023 End: 06-28-2023 Iadna chlamydia trachomatis amplified probe tq Scottie Lang EXTRACTIONS TECHNICIAN.METAL FINISH INSPECTOR Work Phone: Start: 06-28-2023 Urnls dip stick/tabl et rgnt auto w/o microscopy Scottie Lang EXTRACTIONS TECHNICIAN.METAL FINISH INSPECTOR Work Phone: Start: 04-06-2023 Iadna chlamydia trac homatis amplified probe tq Gena Odonnell EXTRACTIONS TECHNICIAN.METAL FINISH INSPECTOR Work Phone: Start: 04-06-2023 Urnls dip stick/tabl et rgnt auto w/o microscopy Gena Odonnell EXTRACTIONS TECHNICIAN.METAL FINISH INSPECTOR Work Phone: Start: 08-27-2022 Urine test visual color cmprsn meths Gibson Del Cid MD Work Phone: Start: 05-06-2020 Radex ankle complete minimum 3 views Sedrick Hill EXTRACTIONS TECHNICIAN.[facility] Work Phone: None (qualifier value) RACH IRVING EXTRACTIONS TECHNICIAN-[facility] Tonsillectomy RACH IRVING EXTRACTIONS TECHNICIAN-[facility] Plan of Treatment Date Care Activity Detail Author Start: 06-13-2031 Urine microalbumin profile DTaP,Tdap,Td Vaccine (8 - Td or Tdap) [facility] Start: 12-25-2024 Influenza vaccination Influenz a Vaccine (Season Ended) [facility] Start: 02-09-2024 End: 05-10-2024 Chronic hepatitis differentiation between hepatitis B and C virus panel - Serum or Plasma [facility] Comment on above: Expected: 02/09/2024 , Expires: 05/10/2024 Start: 02-09-2024 End: 05-10-2024 HIV 1+2 Ab [Presence] in Serum or Plasma by Immunoassay [facility] Comment on above: Expected: 02/09/2024 , Expires: 05/10/2024 Start: 02-09-2024 End: 05-10-2024 SYPHILIS TREPONEMAL W/REFLEX [facility] Comment on above: Expected: 02/09/2024 , Expires: 05/10/2024 Start: 12-26-2023 Covid-19 Vaccine () Covid-19 Vaccine () [facility] Start: 12-26-2023 Influenza vaccination [facility] Start: 09-23-2023 End: 12-23-2023 Bacteria identified in Urine by Culture [facility] Work Phone: Comment on above: Expected: 09/23/2023 , Expires: 12/23/2023 Start: 09-23-2023 End: 12-23-2023 WET PREP [facility] Comment on above: Expected: 09/23/2023 , Expires: 12/23/2023 Start: 06-28-2023 End: 09-27-2023 Trichomonas vaginalis Ag [Presence] in Genital specimen by Immunoassay [facility] Work Phone: Comment on above: Expected: 06/28/2023 , Expires: 09/27/2023 Start: 04-26-2023 Behavioral Health Screening Behavioral Health Screening [facility] Start: 04-26-2023 Depression Assessment Depression Ass essment [facility] Start: 04-06-2023 End: 07-06-2023 Bacteria identified in Urine by Culture URINE CULTURE Microbiology Routine Dysuria Expected: 04/06/2023, Expires: 07/06/2023 [facility] Work Phone: Comment on above: Expected: 04/06/2023 , Expires: 07/06/2023 Start: 04-06-2023 End: 07-06-2023 TRICHOMONAS VAGINALIS NAAT [facility] Work Phone: Comment on above: Expected: 04/06/2023 , Expires: 07/06/2023 Start: 12-25-2022 Covid-19 Vaccine ( season) Covid-19 Vaccine ( season) [facility] Start: 12-25-2022 Influenza vaccination [facility] Start: 08-27-2022 End: 10-27-2022 Bacteria identified in Urine by Culture [facility] Work Phone: Comment on above: Expected: 08/27/2022 , Expires: 10/27/2022 Start: 04-26-2022 DEPRESSION ASSESSMENT DEPRESSION ASS ESSMENT [facility] Start: 12-25-2021 Influenza vaccination [facility] Start: 2018 PAP TESTING PAP TESTING [facility] Start: 2018 Screening for malign ant neoplasm of cervix [facility] Start: 2016 Urine microalbumin profile [facility] Start: 07-03-2015 Anxiety Screening Anxiety Screening [facility] Start: 07-03-2015 Depression Screening Depression Scre ening [facility] Start: 07-03-2015 HEPATITIS C SCREENING HEPATITIS C [facility] Start: 07-03-2015 Hepatitis C screening Hepatitis C [facility] Start: 07-03-2015 HIV SCREENING HIV SCREENING [facility] Start: 07-03-2015 HIV screening HIV Screening [facility] Start: 07-03-2011 PEDS TO ADULT TRANSI TION ANNUAL ASSESSMENT PEDS TO ADULT TRANSITION ANNUAL ASSESSMENT [facility] Start: 2009 Adult depression screening assessment DEPRESSION SCREENING [facility] Start: 2009 PEDS TO ADULT TRANSI TION INITIAL DISCUSSION PEDS TO ADULT TRANSITION INITIAL DISCUSSION [facility] Start: 2008 HPV VACCINE (1 - 2-d ose series) HPV VACCINE (1 - 2-dose series) [facility] Start: 07-03-2007 MENINGOCOCCAL B: Con tech writer based on risk (1 of 2 - Risk Bexsero 2-dose series) MENINGOCOCCAL B: Consider based on risk (1 of 2 - Risk Bexsero 2-dose series) [facility] Start: 2006 HPV Vaccine (1 - 2-d ose series) HPV Vaccine (1 - 2-dose series) [facility] Start: 07-03-2003 PNEUMOCOCCAL (1 - PCV) PNEUMOCOCCAL (1 - PCV) [facility] Start: 2002 COVID-19 VACCINE (#1) COVID-19 VACCI NE (#1) [facility] Start: 01-02-1998 COVID-19 VACCINE (#1) COVID-19 VACCI NE (#1) [facility] Start: 1997 HEPATITIS B (1 of 3 - 3-dose series) HEPATITIS B (1 of 3 - 3-dose series) [facility] Start: 1997 Hepatitis B Vaccine (1 of 3 - 3-dose series) Hepatitis B Vaccine (1 of 3 - 3-dose series) [facility] Bacteria identified in Urine by Culture URINE CULTURE Microbiology Routine Acute vaginitis Ordered: 06/28/2023 [facility] Work Phone: Comment on above: Ordered: 06/28/2023 Bacteria identified in Urine by Culture BACTERIAL CULTURE, URINE Microbiology Routine Low back pain, unspecified back pain laterality, unspecified chronicity, unspecified whether sciatica present Ordered: 09/21/2024 [facility] Work Phone: Comment on above: Ordered: 09/21/2024 BACTERIAL VAGINOSIS AMPLIFICATION BACTERIAL VAGINOSIS AMPLIFICATION Lab Routine Vaginal discharge 11/02/2021 2:03 PM EDT [facility] Work Phone: BACTERIAL VAGINOSIS NAAT BACTERI AL VAGINOSIS NAAT Lab Routine Vaginal itching Ordered: 11/03/2023 [facility] Work Phone: Comment on above: Ordered: 11/03/2023 BACTERIAL VAGINOSIS NAAT BACTERI AL VAGINOSIS NAAT Lab Routine Encounter for screening examination for sexually transmitted disease Ordered: 02/09/2024 [facility] Comment on above: Ordered: 02/09/2024 BACTERIAL VAGINOSIS NAAT BACTERI AL VAGINOSIS NAAT Lab Routine Vaginal discharge Ordered: 07/11/2024 [facility] Work Phone: Comment on above: Ordered: 07/11/2024 BACTERIAL VAGINOSIS NAAT BACTERI AL VAGINOSIS NAAT Lab Routine Vaginal discharge Ordered: 09/06/2024 [facility] Comment on above: Ordered: 09/06/2024 BACTERIAL VAGINOSIS NAAT BACTERI AL VAGINOSIS NAAT Lab Routine Urethral irritation Ordered: 09/21/2024 [facility] Comment on above: Ordered: 09/21/2024 SANTI / TRICHOMONA S AMPLIFICATION SANTI / TRICHOMONAS AMPLIFICATION Lab Routine Vaginal discharge 11/02/2021 2:03 PM EDT [facility] Work Phone: SANTI/TRICHOMONAS NAAT SANTI /TRICHOMONAS NAAT Lab Routine Vaginal itching Ordered: 11/03/2023 [facility] Comment on above: Ordered: 11/03/2023 SANTI/TRICHOMONAS NAAT SANTI /TRICHOMONAS NAAT Lab Routine Encounter for screening examination for sexually transmitted disease Ordered: 02/09/2024 [facility] Comment on above: Ordered: 02/09/2024 SANTI/TRICHOMONAS NAAT SANTI /TRICHOMONAS NAAT Lab Routine Vaginal discharge Ordered: 07/11/2024 [facility] Comment on above: Ordered: 07/11/2024 SANTI/TRICHOMONAS NAAT SANTI /TRICHOMONAS NAAT Lab Routine Vaginal discharge Ordered: 09/06/2024 [facility] Work Phone: Comment on above: Ordered: 09/06/2024 SANTI/TRICHOMONAS NAAT SANTI /TRICHOMONAS NAAT Lab Routine Urethral irritation Ordered: 09/21/2024 [facility] Comment on above: Ordered: 09/21/2024 Chlamydia trachomatis+Neisseria gonorrhoeae DNA [Presence] in Unspecified specimen by ESTHER with probe detection GC/CHLAMYDIA DNA DET Lab Routine Vaginal discharge 11/02/2021 2:03 PM EDT [facility] Work Phone: Chlamydia trachomatis+Neisseria gonorrhoeae DNA [Presence] in Unspecified specimen by ESTHER with probe detection GONORRHEA/CHLAMYDIA NAAT Lab Routine Possible exposure to STD 01/17/2023 4:13 PM T [facility] Work Phone: Chlamydia trachomatis+Neisseria gonorrhoeae DNA [Presence] in Unspecified specimen by ESTHER with probe detection GONORRHEA/CHLAMYDIA NAAT Lab Routine Acute vaginitis 09/23/2023 8:56 PM T [facility] Chlamydia trachomatis+Neisseria gonorrhoeae DNA [Presence] in Unspecified specimen by ESTHER with probe detection GONORRHEA/CHLAMYDIA NAAT Lab Routine Vaginal itching Ordered: 11/03/2023 [facility] Comment on above: Ordered: 11/03/2023 Chlamydia trachomatis+Neisseria gonorrhoeae DNA [Presence] in Unspecified specimen by ESTHER with probe detection GONORRHEA/CHLAMYDIA NAAT Lab Routine Encounter for screening examination for sexually transmitted disease Ordered: 02/09/2024 [facility] Work Phone: Comment on above: Ordered: 02/09/2024 Chlamydia trachomatis+Neisseria gonorrhoeae DNA [Presence] in Unspecified specimen by ESTHER with probe detection GONORRHEA/CHLAMYDIA NAAT Lab Routine Vaginal discharge Ordered: 07/11/2024 [facility] Comment on above: Ordered: 07/11/2024 Chlamydia trachomatis+Neisseria gonorrhoeae DNA [Presence] in Unspecified specimen by ESTHER with probe detection GONORRHEA/CHLAMYDIA NAAT Lab Routine Vaginal discharge Ordered: 09/06/2024 [facility] Comment on above: Ordered: 09/06/2024 Fungus identified in Unspecified specimen by Culture FUNGAL SCREEN Microbiology Routine Acute vaginitis 06/28/2023 1:11 PM EST [facility] Work Phone: Immunizations Immunization Date Immunization Notes Care Provider Fa [facility] 06-13-2021 tetanus toxoid, redu tamar diphtheria toxoid, and acellular pertussis vaccine, adsorbed; Translations: [Boostrix (Tdap)] TIERA TRUJILLO MD [facility] 03-25-2020 influenza virus vacc ine, unspecified formulation TIERA TRUJILLO MD [facility] 03-25-2020 influenza, seasonal, injectable Mariaelena Saul EXTRACTIONS TECHNICIAN.METAL FINISH INSPECTOR Work Phone: [facility] Work Phone: 10-28-2012 hepatitis A vaccine, pediatric dosage, unspecified formulation RACH IRVING EXTRACTIONS TECHNICIAN-METAL FINISH INSPECTOR [facility] 10-28-2012 hepatitis A vaccine, pediatric/adolescent dosage, 2 dose schedule Ritchie Huggins PA-C Work Phone: [facility] 10-28-2012 human papilloma viru s vaccine, quadrivalent Ritchie Huggins PA-C Work Phone: [facility] 10-28-2012 Human Papillomavirus Quadval RACH IRVING EXTRACTIONS TECHNICIAN-METAL FINISH INSPECTOR [facility] 10-28-2012 meningococcal polysaccharide (groups A, C, Y and W-135) diphtheria toxoid conjugate vaccine (MCV4P) RACH IRVING EXTRACTIONS TECHNICIAN-METAL FINISH INSPECTOR [facility] 01-05-2011 influenza virus vacc ine, live, attenuated, for intranasal use Ritchie Clutter PA-C Work Phone: [facility] 01-05-2011 influenza virus vacc ine, unspecified formulation TIERA TRUJILLO MD [facility] 12-30-2010 hepatitis A vaccine, pediatric dosage, unspecified formulation RACH IRVING EXTRACTIONS TECHNICIAN-METAL FINISH INSPECTOR [facility] 12-30-2010 hepatitis A vaccine, pediatric/adolescent dosage, 2 dose schedule Ritchie Clutter PA-C Work Phone: [facility] 12-30-2010 varicella virus vaccine DYLON IRVING EXTRACTIONS TECHNICIAN-METAL FINISH INSPECTOR [facility] 09-27-2010 human papilloma viru s vaccine, quadrivalent Ritchie Clutter PA-C Work Phone: [facility] 09-27-2010 Human Papillomavirus Quadval RACH IRVING EXTRACTIONS TECHNICIAN-METAL FINISH INSPECTOR [facility] 02-21-2010 influenza virus vacc ine, live, attenuated, for intranasal use Ritchie Clutter PA-C Work Phone: [facility] 02-21-2010 influenza virus vacc ine, unspecified formulation ADAM DONALD EXTRACTIONS TECHNICIAN-CN [facility] 09-27-2009 human papilloma viru s vaccine, quadrivalent Ritchie Huggins PA-C Work Phone: [facility] 09-27-2009 Human Papillomavirus Quadval RACH IRVING EXTRACTIONS TECHNICIAN-METAL FINISH INSPECTOR [facility] 09-27-2009 meningococcal polysaccharide (groups A, C, Y and W-135) diphtheria toxoid conjugate vaccine (MCV4P) RACH JOSHUAKINSON EXTRACTIONS TECHNICIAN-[facility] 09-27-2009 tetanus toxoid, redu tamar diphtheria toxoid, and acellular pertussis vaccine, adsorbed TIERA TRUJILLO MD [facility] 09-01-2002 diphtheria, tetanus toxoids and acellular pertussis vaccine RACH IRVING EXTRACTIONS TECHNICIAN-[facility] 09-01-2002 measles, mumps and rubella virus vaccine Ritchie Huggins PA-C Work Phone: [facility] 09-01-2002 measles/mumps/rubell a virus vaccine RACH IRVING EXTRACTIONS TECHNICIAN-METAL FINISH INSPECTOR [facility] 09-01-2002 poliovirus vaccine, inactivated RACH JOSHUAKINSON EXTRACTIONS TECHNICIAN-METAL FINISH INSPECTOR [facility] 11-01-1998 diphtheria, tetanus toxoids and acellular pertussis vaccine RACH IRVING EXTRACTIONS TECHNICIAN-METAL FINISH INSPECTOR [facility] 11-01-1998 haemophilus influenz ae type b vaccine, PRP-T conjugate RACH IRVING EXTRACTIONS TECHNICIAN-METAL FINISH INSPECTOR [facility] 07-25-1998 measles, mumps and rubella virus vaccine Ritchie Michele SAAVEDRA-C Work Phone: [facility] 07-25-1998 measles/mumps/rubell a virus vaccine RACH IRVING EXTRACTIONS TECHNICIAN-METAL FINISH INSPECTOR [facility] 07-25-1998 poliovirus vaccine, inactivated RACH IRVING EXTRACTIONS TECHNICIAN-METAL FINISH INSPECTOR [facility] 07-25-1998 trivalent poliovirus vaccine, live, oral Ritchie Michele SAAVEDRANatalie Work Phone: [facility] 07-25-1998 varicella virus vaccine DYLON IRVING EXTRACTIONS TECHNICIAN-METAL FINISH INSPECTOR [facility] 01-31-1998 diphtheria, tetanus toxoids and acellular pertussis vaccine RACH IRVING EXTRACTIONS TECHNICIAN-METAL FINISH INSPECTOR [facility] 01-31-1998 haemophilus influenz ae type b vaccine, PRP-T conjugate RACH IRVING EXTRACTIONS TECHNICIAN-METAL FINISH INSPECTOR [facility] 01-31-1998 hepatitis B vaccine, pediatric or pediatric/adolescent dosage Ritchie Michele SAAVEDRA-C Work Phone: [facility] 01-31-1998 hepatitis B vaccine, unspecified formulation RACH IRVING EXTRACTIONS TECHNICIAN-METAL FINISH INSPECTOR [facility] 1997 diphtheria, tetanus toxoids and acellular pertussis vaccine RACH IRVING EXTRACTIONS TECHNICIAN-METAL FINISH INSPECTOR [facility] 1997 haemophilus influenz ae type b vaccine, PRP-T conjugate RACH IRVING EXTRACTIONS TECHNICIAN-METAL FINISH INSPECTOR [facility] 1997 diphtheria, tetanus toxoids and acellular pertussis vaccine RACH IRVING EXTRACTIONS TECHNICIAN-METAL FINISH INSPECTOR [facility] 1997 poliovirus vaccine, inactivated RACH IRVING EXTRACTIONS TECHNICIAN-METAL FINISH INSPECTOR [facility] 1997 haemophilus influenz ae type b vaccine, PRP-T conjugate RACH IRVING EXTRACTIONS TECHNICIAN-METAL FINISH INSPECTOR [facility] 1997 diphtheria, tetanus toxoids and acellular pertussis vaccine RACH IRVING EXTRACTIONS TECHNICIAN-METAL FINISH INSPECTOR [facility] 1997 haemophilus influenz ae type b vaccine, PRP-OMP conjugate TIERA TRUJILLO MD [facility] 1997 poliovirus vaccine, inactivated RACH KRAMERON EXTRACTIONS TECHNICIAN-METAL FINISH INSPECTOR [facility] 1997 hepatitis B vaccine, pediatric or pediatric/adolescent dosage Ritchie Huggins PA-C Work Phone: [facility] 1997 hepatitis B vaccine, unspecified formulation RACH IRVING EXTRACTIONS TECHNICIAN-METAL FINISH INSPECTOR [facility] 1997 hepatitis B vaccine, pediatric or pediatric/adolescent dosage Ritchie Huggins PA-C Work Phone: [facility] 1997 hepatitis B vaccine, unspecified formulation RACH IRVING EXTRACTIONS TECHNICIAN-METAL FINISH INSPECTOR [facility] Payers Date Payer Category Payer Self-pay 2022 Private Health Insurance [id number] 2022 Unknown [id number] 2021 Private Health Insurance [facility] CHOICE PLUS [id number] 2021-Present [phone] [address] [place] [address] O [id number] 2019 Unknown [id number] 1997 Unknown [id number]. 2.62 1997 Unknown [id number]. [id number] 1997 Unknown [id number] [id number]. 2.62 1997 Unknown [id number] [id number]. 2.627 1997 Unknown [id number]. 2.62 1997 Unknown [id number]. 2.627 1997 Unknown [id number] [id number]. 2.62 1997 Unknown [id number] [id number]. 2.627 1997 Unknown [id number] [id number]. 2.627 1997 Unknown [id number]. 2.627 1997 Unknown [id number]. 2.627 Unknown [id number] Unknown [id number]. 2.462 Social History Date Type Detail Facility Start: 11-11-2020 End: 10-12-2024 Ex-smoker (finding) [facility] Comment on above: vapes daily daily tobacco smoke exposure Sex Assigned At Female [facility] Start: 09-12-2019 Tobacco smoking stat [facility] Smokes tobacco daily [facility] Work Phone: Start: 09-12-2019 End: 07-14-2022 Tobacco use and exposure Smokeless tobacco non-user [facility] Work Phone: Start: 1997 Sex Assigned At Not on file [facility] Start: 04-06-2020 End: 06-10-2021 Exposure to SARS-CoV-2 (event) Not sure [facility] History of tobacco use Current smoker [facility] History of tobacco use Cigarette Smoker [facility] Start: 07-14-2022 End: 09-21-2024 Alcohol intake Current drinker of alcohol (finding) [facility] Start: 03-30-2020 End: 01-17-2023 History of Social function [facility] Start: 03-30-2020 End: 01-17-2023 Tobacco use panel [facility] Adult Depression Screening Assessment 0 [facility] Sexual Orientation [facility] Start: 10-19-2018 Sex Female (finding) [facility] Clinical Notes 05-06-2020 to 10-15-2024 Ritchie Huggins PA-C - 09/21/2024 6:56 PM EDTCRitchie morales PA-C - 09/21/2024 6:54 PM Fiona Llanos PA - 09/06/2024 5:45 PM EDKamla Calderon APRN.[facility] - 07/11/2024 9:47 AM EDTLaboratory Note Date & Type Note Facility 10-15-2024 Note . MICRO - Microbiology PROCEDURE: Urine Culture [*1] SOURCE: Urine, Clean Catch BODY SITE: COLLECTED DATE/TIME: 10/12/2024 09:31 EDT RECEIVED DATE/TIME: 10/13/2024 19:20 EDT START DATE/TIME: 10/13/2024 19:20 EDT FREE TEXT SOURCE: FINAL REPORTS Final Report [] Verified Date/Time/Personnel: 10/15/2024 07:08 EDT No growth at 48 hours. PRELIMINARY REPORTS Preliminary Report [] Verified Date/Time/Personnel: 10/14/2024 09:16 EDT No growth to date Preliminary Report [] Verified Date/Time/Personnel: 10/13/2024 19:59 EDT Specimen received in lab. Performing Locations *1: This test was performed at: [address], [facility] , [facility] 10-05-2024 Hospital Discharge instructions Patient Education 10/05/2024 19:05:12 Dysuria Dysuria Painful urination (dysuria) is often caused by a problem in the urinary tract. Dysuria is pain felt during urination. It is often described as a burning. Learn more about this problem and how it can be treated. What causes dysuria? Possible causes include: Infection with a bacteria or virus such as a urinary tract infection (UTI or a sexually transmitted infection (STI) Sensitivity or allergy to chemicals such as those found in lotions and other products Prostate or bladder problems Radiation therapy to the pelvic area How is dysuria diagnosed? Your healthcare provider will examine you. He or she will ask about your symptoms and health. After talking with you and doing a physical exam, your healthcare provider may know what is causing your dysuria. He or she will usually request a sample of your urine. Tests of your urine, or a urinalysis, are done. A urinalysis may include: Looking at the urine sample (visual exam) Checking for substances (chemical exam) Looking at a small amount under a microscope (microscopic exam) Some parts of the urinalysis may be done in the provider's office and some in a lab. And, the urine sample may be checked for bacteria and yeast (urine culture). Your healthcare provider will tell you more about these tests if they are needed. How is dysuria treated? Treatment depends on the cause. If you have a bacterial infection, you may need antibiotics. You may be given medicines to make it easier for you to urinate and help relieve pain. Your healthcare provider can tell you more about your treatment options. Untreated, symptoms may get worse. When to call your healthcare provider Call the healthcare provider right away if you have any of the following: Fever of 100.4 F (38 C) or higher No improvement after three days of treatment Trouble urinating because of pain New or increased discharge from the vagina or penis Rash or joint pain Increased back or abdominal pain Enlarged painful lymph nodes (lumps) in the groinTh [id number] [employer]. [address] [place] [address]. All rights reserved. This information is not intended as a substitute for professional medical care. Always follow your healthcare professional's instructions. Follow Up Care 10/05/2024 18:27:48 With:HERMAN JENKINS MD, Urology Service Address: [address] [place] [address] [place] [address] [phone] When:2-4 days With:Go to emergency room if symptoms worsen Address:Unknown When:2-4 days With:NORIS HYLTON DO Address: [address] [facility] [place] [address]- [phone] When:2-4 days [facility] 10-05-2024 Note Discharge Instructions Thank you for allowing [facility] to assist you with your healthcare needs. The following is important discharge information regarding your hospital visit. Diagnosis from Today's Visit Dysuria What to Do Next Instructions from Your Care Team Urine here is negative. Follow-up with your primary care provider. Follow-up with Dr. Jenkins of urology if continued symptoms. Return the emergency department any worsening symptoms or any other care concern. No qualifying data available. Post Acute Orders No qualifying data available. You Need to Schedule the Following Appointments Follow Up with HERMAN JENKINS MD, Urology Service When:Within 2-4 days Where:[address] [facility] [facility] [address] [place] [address]- [phone] Follow Up with Go to emergency room if symptoms worsen When:Within 2-4 days Follow Up with NORIS HYLTON DO When:Within 2-4 days Where:[address] [place] [address]- [phone] Allergies penicillin penicillins Unknown, Urticaria Medications Please ask your primary doctor or pharmacist before taking any other medication not listed, including over the counter drugs, herbal medications, vitamins and or supplements as they may interact with your home medications. What How Much When Why Instructions Last Dose Unchanged escitalopram (escitalopram 20 mg oral tablet) 1 tab(s) by mouth Once a day Recurrent major depression Anxiety Duration: 30 Days Unchanged miconazole topical (Monistat 7 vaginal cream with applicator) 1 Applicatorful Vaginal Daily at bedtime Unchanged topiramate (topiramate 50 mg oral tablet) TAKE 1 TABLET BY MOUTH TWICE A DAY Please take this list to your next doctor s visit. Bring all medications you take, including over the counter medications, herbals and other supplements with you to your doctor s visit. Patients and families are reminded to discard old lists and to update any records with all medication providers or retail pharmacies. Education Materials Dysuria Painful urination (dysuria) is often caused by a problem in the urinary tract. Dysuria is pain felt during urination. It is often described as a burning. Learn more about this problem and how it can be treated. What causes dysuria? Possible causes include: Infection with a bacteria or virus such as a urinary tract infection (UTI or a sexually transmitted infection (STI) Sensitivity or allergy to chemicals such as those found in lotions and other products Prostate or bladder problems Radiation therapy to the pelvic area How is dysuria diagnosed? Your healthcare provider will examine you. He or she will ask about your symptoms and health. After talking with you and doing a physical exam, your healthcare provider may know what is causing your dysuria. He or she will usually request a sample of your urine. Tests of your urine, or a urinalysis, are done. A urinalysis may include: Looking at the urine sample (visual exam) Checking for substances (chemical exam) Looking at a small amount under a microscope (microscopic exam) Some parts of the urinalysis may be done in the provider's office and some in a lab. And, the urine sample may be checked for bacteria and yeast (urine culture). Your healthcare provider will tell you more about these tests if they are needed. How is dysuria treated? Treatment depends on the cause. If you have a bacterial infection, you may need antibiotics. You may be given medicines to make it easier for you to urinate and help relieve pain. Your healthcare provider can tell you more about your treatment options. Untreated, symptoms may get worse. When to call your healthcare provider Call the healthcare provider right away if you have any of the following: Fever of 100.4 F (38 C) or higher No improvement after three days of treatment Trouble urinating because of pain New or increased discharge from the vagina or penis Rash or joint pain Increased back or abdominal pain Enlarged painful lymph nodes (lumps) in the groinTh [id number] [employer]. [address] [place] [address]. All rights reserved. This information is not intended as a substitute for professional medical care. Always follow your healthcare professional's instructions. Additional Information VACCINATE! IT SAVES LIVES! Members of the community who have not yet received the COVID-19 vaccine and would like to receive it can visit one of [facility] vaccine clinics. There are many vaccine clinic locations within the [facility]. For locations and available times, please visit [email or web address] [email or web address] It is important to note that some COVID mobile vaccine clinics are held outdoors and may be canceled in rainy or stormy conditions. To learn more about pediatric vaccinations (ages 5-11), we invite you to visit the [facility] webpage. [email or web address] To learn more about the COVID-19 vaccine, we invite you to visit the CDC website for a list of frequently asked questions. https://www.cdc.gov/coronavirus/2 019-ncov/vaccines/faq.html [facility] Patient Portal Access Instructions: Stay connected with your healthcare team and access your personal medical information anytime with the [facility] Patient Portal. If you would like a full copy of your medical records please contact the [facility] Medical Records Department Wednesday through Wednesday between 8a.m. and 4:30p.m. Please follow the directions below to access the portal: 1.Access the email account you provided upon registration to the [facility].2.Look for an invitation email from [facility].3.Open the email and access the invitation link: Accept Invitation to [facility].Fill in the required estrella to create your account. Sign into [email or web address].[email or web address] with your username and password that you created in the above steps to stay up to date. You can then view a summary of results, a summary of your visits, and the ability to download your summaries to your computer or send the information securely to a physician. Remember that your healthcare information is confidential, so carefully consider who you will allow to register on the [facility] Patient Portal for access to your information. You can also access the [facility] Patient Portal on the [place]. Simply click on Health Records under Health Data and then click on the [employer] logo. HOW TO SAFELY DISPOSE OF PRESCRIPTION MEDICATIONS Please use one of the following methods to safely dispose of your unused medications. 1.Use a drug disposal kit: the drug disposal pouch allows you to safely discard your old and unused drugs. Ask your nurse to give you one when you are discharged.2.Visit a local take-back location: Many local pharmacies and police departments have programs that collect old and unwanted prescription drugs. Call your local pharmacy or go to http://bit.ly/6R7Iw9x to find one close to you.3.Make use of household items: Use cat litter or old coffee grounds to dispose medications if other options are not available. Mix your drugs with these household products, seal them in an airtight container and throw it into the garbage. Call [facility]: [phone] to be sure your drugs can be disposed of in this way. Some medicines may require a different approach.4.Never flush your medications down the toilet. IF YOU HAVE BEEN PRESCRIBED AN OPIOIDS FOR PAIN If you have been prescribed an opioid (such as hydrocodone, oxycodone or morphine), it is critical to understand the possible side effects and risks of opioid pain medications. Even when taken as directed, opioids can have several side effects including: Tolerance, meaning you might need to take more of a medication for the same pain relief. Nausea, vomiting and/or constipation. Sleepiness, dizziness, dry mouth, confusion, depression or itching. Physical dependence, meaning you have withdrawal symptoms when a medication is stopped ? this can develop within a few days. KNOW YOUR RESPONSIBILITIES It is important to know exactly how much and how often to take the opioid pain medications you are prescribed. Never take opioids in higher amounts or more often than prescribed. Do not combine opioids with alcohol or other drugs that cause drowsiness, such as benzodiazepines, also known as benzos, including diazepam and alprazolam, muscle relaxants or sleep aids. Never sell or share prescription opioids. This is illegal. Store opioids in a secure place and out of reach of others (including children, family, friends and visitors). The last page(s) of this document has been signed and retained as a CHART COPY Signatures Patient Education Materials Dysuria Medication Leaflets My discharge plan and instructions have been reviewed and explained to me and I,CLARISSE REYNOSO understand my current condition and have read and understand these discharge instructions. I have received a written copy of the plan/instructions. If I have questions, I am aware that I should contact my doctor. Patient/Director Graphics Signature: Date/Time: Relationship to Patient: ____ Witness Name/Signature: Date/Time: [facility] 09-21-2024 Note HNO ID: [id number] Author: RITCHIE HUGGINS PA-C Service: ? Author Type: Physician Residence Leasing Agent Type: Progress Notes Filed: 09/21/2024 19:14 Note Text: This note was created using [employer]. Subjective Clarisse Reynoso is a 29 year old female. Patient is a 29-year-old female who complains of worsening flank pain right greater than left that she has been experiencing for the past 1 week. Patient reports no dysuria or hematuria but does describe urinary frequency. Patient also states that she has been experiencing suprapubic cramping. Patient denies fever, chills, nausea or other symptoms. Patient states that she does have a history of kidney stone and that her current symptoms are similar to same. Patient is uncertain if she may be . Patient denies accident or injury involving her thoracic and lumbar back and states that she has no history of degenerative disc disease, fracture or surgery to same. Back Pain Review of Systems Genitourinary: Positive for frequency. Musculoskeletal: Positive for back pain. All other systems reviewed and are negative. Objective BP 105/73 Pulse 63 Temp 36.5 ?C (97.7 ?F) Resp 20 Wt 103 kg (227 lb 1.2 oz) LMP 09/14/2024 (Exact Date) SpO2 100% BMI 38.98 kg/m? Physical Exam Vitals and nursing note reviewed. Constitutional: Appearance: Normal appearance. She is normal weight. HENT: Head: Normocephalic and atraumatic. Right Ear: External ear normal. Left Ear: External ear normal. Nose: Nose normal. Mouth/Throat: Mouth: Mucous membranes are moist. Pharynx: Oropharynx is clear. Eyes: Extraocular Movements: Extraocular movements intact. Conjunctiva/sclera: Conjunctivae normal. Pupils: Pupils are equal, round, and reactive to light. Cardiovascular: Rate and Rhythm: Normal rate. Pulses: Normal pulses. Heart sounds: Normal heart sounds. Pulmonary: Effort: Pulmonary effort is normal. Breath sounds: Normal breath sounds. Abdominal: General: Abdomen is flat. Palpations: Abdomen is soft. Musculoskeletal: Cervical back: Normal range of motion and neck supple. Skin: General: Skin is warm and dry. Capillary Refill: Capillary refill takes less than 2 seconds. Neurological: General: No focal deficit present. Mental Status: She is alert and oriented to person, place, and time. Psychiatric: Mood and Affect: Mood normal. Behavior: Behavior normal. Thought Content: Thought content normal. Judgment: Judgment normal. Assessment and Plan Physical exam findings as noted above. Urinalysis shows moderate blood with no leukocyte esterase, nitrite or protein. Specific gravity is 1.025 and pH 6.5. Urine hCG is negative. Patient was advised that suspicion for kidney stone is high and that she requires evaluation in an emergency department for additional laboratory testing and CT scan imaging can be obtained. Patient verbalizes clear understanding of this recommendation to report to emergency department for further evaluation. CLINICAL IMPRESSION: Flank Pain; Hematuria ASSESSMENT/PLAN: 1. Low back pain, unspecified back pain laterality, unspecified chronicity, unspecified whether sciatica present - ICD9: 724.2, ICD10: M54.50 (primary diagnosis) - UA DIP, URINE (POC) - BACTERIAL CULTURE, URINE 2. Urethral irritation - ICD9: 599.9, ICD10: N36.8 - BACTERIAL VAGINOSIS NAAT - SANTI/TRICHOMONAS NAAT 3. Flank pain - ICD9: 789.09, ICD10: R10.9 MDM Amount and/or Complexity of Data Reviewed Clinical lab tests: ordered and reviewed Risk of Complications, Morbidity, and/or Mortality Presenting problems: moderate Diagnostic procedures: low Management options: low General comments: Patient was instructed to report to an emergency department for laboratory testing and CT scan stone study. Ritchie Huggins PA-C [facility] 09-21-2024 History of Present illness Narrative This note was created using [employer]. Subjective Clarisse Reynoso is a 29 year old female. Patient is a 29-year-old female who complains of worsening flank pain right greater than left that she has been experiencing for the past 1 week. Patient reports no dysuria or hematuria but does describe urinary frequency. Patient also states that she has been experiencing suprapubic cramping. Patient denies fever, chills, nausea or other symptoms. Patient states that she does have a history of kidney stone and that her current symptoms are similar to same. Patient is uncertain if she may be . Patient denies accident or injury involving her thoracic and lumbar back and states that she has no history of degenerative disc disease, fracture or surgery to same. Back Pain Review of Systems Genitourinary: Positive for frequency. Musculoskeletal: Positive for back pain. All other systems reviewed and are negative. Objective BP 105/73 Pulse 63 Temp 36.5 C (97.7 F) Resp 20 Wt 103 kg (227 lb 1.2 oz) LMP 09/14/2024 (Exact Date) SpO2 100% BMI 38.98 kg/m Physical Exam Vitals and nursing note reviewed. Constitutional: Appearance: Normal appearance. She is normal weight. HENT: Head: Normocephalic and atraumatic. Right Ear: External ear normal. Left Ear: External ear normal. Nose: Nose normal. Mouth/Throat: Mouth: Mucous membranes are moist. Pharynx: Oropharynx is clear. Eyes: Extraocular Movements: Extraocular movements intact. Conjunctiva/sclera: Conjunctivae normal. Pupils: Pupils are equal, round, and reactive to light. Cardiovascular: Rate and Rhythm: Normal rate. Pulses: Normal pulses. Heart sounds: Normal heart sounds. Pulmonary: Effort: Pulmonary effort is normal. Breath sounds: Normal breath sounds. Abdominal: General: Abdomen is flat. Palpations: Abdomen is soft. Musculoskeletal: Cervical back: Normal range of motion and neck supple. Skin: General: Skin is warm and dry. Capillary Refill: Capillary refill takes less than 2 seconds. Neurological: General: No focal deficit present. Mental Status: She is alert and oriented to person, place, and time. Psychiatric: Mood and Affect: Mood normal. Behavior: Behavior normal. Thought Content: Thought content normal. Judgment: Judgment normal. Assessment and Plan Physical exam findings as noted above. Urinalysis shows moderate blood with no leukocyte esterase, nitrite or protein. Specific gravity is 1.025 and pH 6.5. Urine hCG is negative. Patient was advised that suspicion for kidney stone is high and that she requires evaluation in an emergency department for additional laboratory testing and CT scan imaging can be obtained. Patient verbalizes clear understanding of this recommendation to report to emergency department for further evaluation. CLINICAL IMPRESSION: Flank Pain; Hematuria ASSESSMENT/PLAN: 1. Low back pain, unspecified back pain laterality, unspecified chronicity, unspecified whether sciatica present - ICD9: 724.2, ICD10: M54.50 (primary diagnosis) - UA DIP, URINE (POC) - BACTERIAL CULTURE, URINE 2. Urethral irritation - ICD9: 599.9, ICD10: N36.8 - BACTERIAL VAGINOSIS NAAT - SANTI/TRICHOMONAS NAAT 3. Flank pain - ICD9: 789.09, ICD10: R10.9 MDM Amount and/or Complexity of Data Reviewed Clinical lab tests: ordered and reviewed Risk of Complications, Morbidity, and/or Mortality Presenting problems: moderate Diagnostic procedures: low Management options: low General comments: Patient was instructed to report to an emergency department for laboratory testing and CT scan stone study. Ritchie Huggins PA-C .NOTE documented in this encounter [facility] 09-21-2024 Note HNO ID: [id number] Author: RITCHIE HUGGINS PA-C Service: ? Author Type: Physician Residence Leasing Agent Type: Progress Notes Filed: 09/21/2024 19:14 Note Text: .NOTE [facility] 09-06-2024 Note HNO ID: [id number] Author: FIONA PATINO PA Service: ? Author Type: Physician Residence Leasing Agent Type: Progress Notes Filed: 09/06/2024 17:52 Note Text: [facility] Subjective Clarisse Reynoso is a 29 year old female. Patient presents with: Vaginal Discharge: Vaginal discharge x 1 week HPI 29-year-old female presents for vaginal discharge for a week. Patient states she has vaginal discharge and itching for the past week. It is white. She thinks she may have BV and/or yeast infection. She has gotten this multiple times in the past. She states she had unprotected sex with her ex-boyfriend about 3 weeks ago. She would also like tested for STDs. She denies any dysuria, hematuria, pelvic pain, back pain, fevers or vomiting. She tried miconazole with minimal relief. LMP August 17. No concern for . History reviewed. No pertinent past medical history. No past surgical history on file. ALLERGIES Penicillins MEDICATIONS topiramate (TOPAMAX) 50 mg tablet Take 100 mg by mouth every 12 hours. Take one(1) tablet two(2) times daily. escitalopram oxalate (LEXAPRO) 20 mg tablet Take 1 tablet by mouth every afternoon. escitalopram oxalate (LEXAPRO) 10 mg tablet TAKE 1 TABLET BY MOUTH ONCE DAILY FOR 2 WEEKS THEN INCREASE TO 20MG TABLET (Patient not taking: Reported on 07/11/2024) sertraline (ZOLOFT) 25 mg tablet Take 1 tablet by mouth every afternoon. (Patient not taking: Reported on 11/03/2023) cetirizine (ZYRTEC) 10 mg tablet Take 1 tablet by mouth every afternoon. (Patient not taking: Reported on 11/03/2023) No family history on file. Social History Tobacco Use Smoking status: Former Types: Cigarettes Smokeless tobacco: Never Vaping Use Vaping status: current everyday user Substances: Nicotine, Flavoring Devices: Disposable, Pre-filled pod Substance Use Topics Alcohol use: Yes Alcohol/week: 2.0 - 4.0 standard drinks of alcohol Types: 2 - 4 Standard drinks or equivalent per week Drug use: Yes Types: Marijuana Review of Systems Constitutional: Negative for chills and fever. Gastrointestinal: Negative for abdominal pain, diarrhea and vomiting. Genitourinary: Positive for vaginal discharge. Negative for dysuria, frequency, urgency and vaginal pain. Musculoskeletal: Negative for back pain. Objective BP 104/72 Pulse 74 Temp 37.6 ?C (99.7 ?F) (Tympanic) Resp 16 Wt 102.9 kg (226 lb 13.7 oz) LMP 06/28/2023 (Exact Date) SpO2 99% BMI 38.94 kg/m? Physical Exam Vitals and nursing note reviewed. Exam conducted with a architecture internship present. Constitutional: General: She is not in acute distress. Appearance: Normal appearance. She is not toxic-appearing. HENT: Mouth/Throat: Mouth: Mucous membranes are moist. Cardiovascular: Rate and Rhythm: Normal rate and regular rhythm. Pulmonary: Effort: Pulmonary effort is normal. Breath sounds: Normal breath sounds. Abdominal: General: Abdomen is flat. Palpations: Abdomen is soft. Tenderness: There is no abdominal tenderness. There is no right CVA tenderness, left CVA tenderness, guarding or rebound. Genitourinary: Vagina: Vaginal discharge present. No tenderness. Cervix: Discharge present. No cervical motion tenderness. Adnexa: Right: No tenderness. Left: No tenderness. Comments: White clumpy discharge noted from cervix and in vaginal vault. No cervical erythema. No CMT. No adnexal tenderness Skin: General: Skin is warm and dry. Neurological: Mental Status: She is alert. {ASSESSMENT/PLAN: 1. Vaginal discharge - ICD9: 623.5, ICD10: N89.8 - SANTI/TRICHOMONAS NAAT - BACTERIAL VAGINOSIS NAAT - GONORRHEA/CHLAMYDIA NAAT - Please treat based on results. - Discussed safe sex. Discussed follow-up with gynecology for recurrent yeast/BV Diagnosis and treatment plan were discussed and questions were answered to the patient's satisfaction. Pt acknowledged understanding of concepts and follow up plan. Specific signs and symptoms that would indicate the need for higher level of care were discussed in detail warranting prompt ER evaluation. KERI Hernandez History and Record Review External record(s) reviewed: prior outpatient record. Differential Diagnoses - Vaginitis is more likely for the following reason(s): suggested by HANDP - PID is less likely for the following reason(s): No CMT, HANDP not suggestive Disposition The patient was discharged. Procedures [facility] 09-06-2024 History of Present illness Narrative [facility] Subjective Clarisse Reynoso is a 29 year old female. Patient presents with: Vaginal Discharge: Vaginal discharge x 1 week HPI 29-year-old female presents for vaginal discharge for a week. Patient states she has vaginal discharge and itching for the past week. It is white. She thinks she may have BV and/or yeast infection. She has gotten this multiple times in the past. She states she had unprotected sex with her ex-boyfriend about 3 weeks ago. She would also like tested for STDs. She denies any dysuria, hematuria, pelvic pain, back pain, fevers or vomiting. She tried miconazole with minimal relief. LMP August 17. No concern for .\ History reviewed. No pertinent past medical history. No past surgical history on file. ALLERGIES Penicillins MEDICATIONS topiramate (TOPAMAX) 50 mg tablet Take 100 mg by mouth every 12 hours. Take one(1) tablet two(2) times daily. escitalopram oxalate (LEXAPRO) 20 mg tablet Take 1 tablet by mouth every afternoon. escitalopram oxalate (LEXAPRO) 10 mg tablet TAKE 1 TABLET BY MOUTH ONCE DAILY FOR 2 WEEKS THEN INCREASE TO 20MG TABLET (Patient not taking: Reported on 07/11/2024) sertraline (ZOLOFT) 25 mg tablet Take 1 tablet by mouth every afternoon. (Patient not taking: Reported on 11/03/2023) cetirizine (ZYRTEC) 10 mg tablet Take 1 tablet by mouth every afternoon. (Patient not taking: Reported on 11/03/2023) No family history on file. Social History Tobacco Use Smoking status: Former Types: Cigarettes Smokeless tobacco: Never Vaping Use Vaping status: current everyday user Substances: Nicotine, Flavoring Devices: Disposable, Pre-filled pod Substance Use Topics Alcohol use: Yes Alcohol/week: 2.0 - 4.0 standard drinks of alcohol Types: 2 - 4 Standard drinks or equivalent per week Drug use: Yes Types: Marijuana Review of Systems Constitutional: Negative for chills and fever. Gastrointestinal: Negative for abdominal pain, diarrhea and vomiting. Genitourinary: Positive for vaginal discharge. Negative for dysuria, frequency, urgency and vaginal pain. Musculoskeletal: Negative for back pain. Objective BP 104/72 Pulse 74 Temp 37.6 C (99.7 F) (Tympanic) Resp 16 Wt 102.9 kg (226 lb 13.7 oz) LMP 06/28/2023 (Exact Date) SpO2 99% BMI 38.94 kg/m Physical Exam Vitals and nursing note reviewed. Exam conducted with a architecture internship present. Constitutional: General: She is not in acute distress. Appearance: Normal appearance. She is not toxic-appearing. HENT: Mouth/Throat: Mouth: Mucous membranes are moist. Cardiovascular: Rate and Rhythm: Normal rate and regular rhythm. Pulmonary: Effort: Pulmonary effort is normal. Breath sounds: Normal breath sounds. Abdominal: General: Abdomen is flat. Palpations: Abdomen is soft. Tenderness: There is no abdominal tenderness. There is no right CVA tenderness, left CVA tenderness, guarding or rebound. Genitourinary: Vagina: Vaginal discharge present. No tenderness. Cervix: Discharge present. No cervical motion tenderness. Adnexa: Right: No tenderness. Left: No tenderness. Comments: White clumpy discharge noted from cervix and in vaginal vault. No cervical erythema. No CMT. No adnexal tenderness Skin: General: Skin is warm and dry. Neurological: Mental Status: She is alert. {ASSESSMENT/PLAN: 1. Vaginal discharge - ICD9: 623.5, ICD10: N89.8 - SANTI/TRICHOMONAS NAAT - BACTERIAL VAGINOSIS NAAT - GONORRHEA/CHLAMYDIA NAAT - Please treat based on results. - Discussed safe sex. Discussed follow-up with gynecology for recurrent yeast/BV Diagnosis and treatment plan were discussed and questions were answered to the patient's satisfaction. Pt acknowledged understanding of concepts and follow up plan. Specific signs and symptoms that would indicate the need for higher level of care were discussed in detail warranting prompt ER evaluation. KERI Hernandez History and Record Review External record(s) reviewed: prior outpatient record. Differential Diagnoses - Vaginitis is more likely for the following reason(s): suggested by H&P - PID is less likely for the following reason(s): No CMT, H&P not suggestive Disposition The patient was discharged. Procedures documented in this encounter [facility] 07-12-2024 Telephone encounter Note Patient notified.Destiney Perkins LPN [facility] 07-12-2024 Miscellaneous Notes Patient notified.Destiney Perkins LPN ----- Message from Taurus Delgadillo APRN.METAL FINISH INSPECTOR sent at 07/12/2024 7:03 AM EDT ----- Please inform patient that she did test positive for a vaginal yeast infection. A prescription for fluconazole was called into her pharmacy at [facility] in [place]. Left message for patient to return call. Radha Meadows MA ----- Message from Taurus Delgadillo APRN.METAL FINISH INSPECTOR sent at 07/12/2024 7:03 AM EDT ----- Please inform patient that she did test positive for a vaginal yeast infection. A prescription for fluconazole was called into her pharmacy at [facility] in [place]. documented in this encounter [facility] 07-12-2024 Telephone encounter Note ----- Message from Taurus Delgadillo APRN.CNP sent at 07/12/2024 7:03 AM EDT ----- Please inform patient that she did test positive for a vaginal yeast infection. A prescription for fluconazole was called into her pharmacy at [facility] in [place]. [facility] 07-12-2024 Telephone encounter Note Left message for patient to return call. Radha Meadows MA [facility] 07-12-2024 Telephone encounter Note ----- Message from Taurus Delgadillo APRN.METAL FINISH INSPECTOR sent at 07/12/2024 7:03 AM EDT ----- Please inform patient that she did test positive for a vaginal yeast infection. A prescription for fluconazole was called into her pharmacy at [facility] in [place]. [facility] 07-11-2024 Note HNO ID: [id number] Author: KAMLA KEITA APRN.SRAVAN Service: ? Author Type: Nurse Practitioner Type: Progress Notes Filed: 07/11/2024 09:57 Note Text: [facility] Subjective Clarisse Reynoso is a 29 year old female. Patient presents with: Vaginal Discharge: itching x 10-14 days, right ear ? qtip x last night Patient came in with complaints of vaginal itching and discharge. Patient says it is yellow at times and does have an odor. Patient did have unprotected sex with a new partner a few weeks ago. Patient denies any other symptoms. Patient also wanted me to look in her right ear to see if there was a Q-tip left in there. The history is provided by the patient. No blocker heated metal forms was used. Vaginal Discharge Review of Systems Genitourinary: Positive for vaginal discharge. Objective BP 108/68 Pulse 70 Temp 36.6 ?C (97.9 ?F) Resp 16 Wt 103.4 kg (227 lb 15.3 oz) LMP 06/28/2023 (Exact Date) SpO2 99% BMI 39.13 kg/m? Physical Exam Exam conducted with a architecture internship present. Constitutional: Appearance: Normal appearance. HENT: Right Ear: Tympanic membrane, ear canal and external ear normal. Pulmonary: Effort: Pulmonary effort is normal. Genitourinary: Comments: Very minimal discharge noted. Neurological: Mental Status: She is alert. No past medical history on file. No past surgical history on file. ALLERGIES Penicillins MEDICATIONS topiramate (TOPAMAX) 50 mg tablet Take 100 mg by mouth every 12 hours. Take one(1) tablet two(2) times daily. escitalopram oxalate (LEXAPRO) 20 mg tablet Take 1 tablet by mouth every afternoon. escitalopram oxalate (LEXAPRO) 10 mg tablet TAKE 1 TABLET BY MOUTH ONCE DAILY FOR 2 WEEKS THEN INCREASE TO 20MG TABLET (Patient not taking: Reported on 07/11/2024) sertraline (ZOLOFT) 25 mg tablet Take 1 tablet by mouth every afternoon. (Patient not taking: Reported on 11/03/2023) cetirizine (ZYRTEC) 10 mg tablet Take 1 tablet by mouth every afternoon. (Patient not taking: Reported on 11/03/2023) No family history on file. Social History Tobacco Use Smoking status: Former Types: Cigarettes Smokeless tobacco: Never Vaping Use Vaping status: current everyday user Substances: Nicotine, Flavoring Devices: Disposable, Pre-filled pod Substance Use Topics Alcohol use: Yes Alcohol/week: 2.0 - 4.0 standard drinks of alcohol Types: 2 - 4 Standard drinks or equivalent per week Drug use: Yes Types: Marijuana {ASSESSMENT/PLAN: 1. Vaginal itching - ICD9: 698.1, ICD10: N89.8 (primary diagnosis) 2. Vaginal discharge - ICD9: 623.5, ICD10: N89.8 - BACTERIAL VAGINOSIS NAAT - SANTI/TRICHOMONAS NAAT - GONORRHEA/CHLAMYDIA NAAT No treatment was prescribed at this time. If patient does come back positive for anything please treat accordingly. Kamla Keita APRN.METAL FINISH INSPECTOR MDM Procedures Participation of a fellow, resident, medical student, or advanced practice provider student in performing the sensitive examination was discussed with the patient or authorized sales representative canvas products. The patient or authorized sales representative [employer] has agreed to proceed with the sensitive examination. [facility] 07-11-2024 History of Present illness Narrative [facility] Subjective Clarisse Reynoso is a 29 year old female. Patient presents with: Vaginal Discharge: itching x 10-14 days, right ear ? qtip x last night Patient came in with complaints of vaginal itching and discharge. Patient says it is yellow at times and does have an odor. Patient did have unprotected sex with a new partner a few weeks ago. Patient denies any other symptoms. Patient also wanted me to look in her right ear to see if there was a Q-tip left in there. The history is provided by the patient. No blocker heated metal forms was used. Vaginal Discharge Review of Systems Genitourinary: Positive for vaginal discharge. Objective BP 108/68 Pulse 70 Temp 36.6 C (97.9 F) Resp 16 Wt 103.4 kg (227 lb 15.3 oz) LMP 06/28/2023 (Exact Date) SpO2 99% BMI 39.13 kg/m Physical Exam Exam conducted with a architecture internship present. Constitutional: Appearance: Normal appearance. HENT: Right Ear: Tympanic membrane, ear canal and external ear normal. Pulmonary: Effort: Pulmonary effort is normal. Genitourinary: Comments: Very minimal discharge noted. Neurological: Mental Status: She is alert. No past medical history on file. No past surgical history on file. ALLERGIES Penicillins MEDICATIONS topiramate (TOPAMAX) 50 mg tablet Take 100 mg by mouth every 12 hours. Take one(1) tablet two(2) times daily. escitalopram oxalate (LEXAPRO) 20 mg tablet Take 1 tablet by mouth every afternoon. escitalopram oxalate (LEXAPRO) 10 mg tablet TAKE 1 TABLET BY MOUTH ONCE DAILY FOR 2 WEEKS THEN INCREASE TO 20MG TABLET (Patient not taking: Reported on 07/11/2024) sertraline (ZOLOFT) 25 mg tablet Take 1 tablet by mouth every afternoon. (Patient not taking: Reported on 11/03/2023) cetirizine (ZYRTEC) 10 mg tablet Take 1 tablet by mouth every afternoon. (Patient not taking: Reported on 11/03/2023) No family history on file. Social History Tobacco Use Smoking status: Former Types: Cigarettes Smokeless tobacco: Never Vaping Use Vaping status: current everyday user Substances: Nicotine, Flavoring Devices: Disposable, Pre-filled pod Substance Use Topics Alcohol use: Yes Alcohol/week: 2.0 - 4.0 standard drinks of alcohol Types: 2 - 4 Standard drinks or equivalent per week Drug use: Yes Types: Marijuana {ASSESSMENT/PLAN: 1. Vaginal itching - ICD9: 698.1, ICD10: N89.8 (primary diagnosis) 2. Vaginal discharge - ICD9: 623.5, ICD10: N89.8 - BACTERIAL VAGINOSIS NAAT - SANTI/TRICHOMONAS NAAT - GONORRHEA/CHLAMYDIA NAAT No treatment was prescribed at this time. If patient does come back positive for anything please treat accordingly. Kamla Keita APRN.SRAVAN MDM Procedures Participation of a fellow, resident, medical student, or advanced practice provider student in performing the sensitive examination was discussed with the patient or authorized sales representative [employer] products. The patient or authorized sales representative [employer] has agreed to proceed with the sensitive examination. documented in this encounter [facility] 06-09-2024 Note . MICRO - Microbiology PROCEDURE: Affirm Pathogens DNA Direct Probe [*1] SOURCE: Vaginal Fluid BODY SITE: Cervix COLLECTED DATE/TIME: 06/08/2024 13:25 EST RECEIVED DATE/TIME: 06/08/2024 18:50 EST START DATE/TIME: 06/08/2024 18:50 EST FREE TEXT SOURCE: FINAL REPORTS Final Report [] Verified Date/Time/Personnel: 06/09/2024 10:41 EST Trichomonas vaginalis DNA Probe Negative Gardnerella vaginalis DNA Probe Positive Santi species DNA Probe Positive Performing Locations *1: This test was performed at: [facility], [address] [place] [address], [id number] , [facility] 03-01-2024 Note ORIGINAL EXAMINATION: MRI OF THE BRAIN WITHOUT AND WITH [id number]/6/2024 11:21 am TECHNIQUE: Multiplanar multisequence MRI of the head/brain was performed without and with the administration of intravenous contrast. COMPARISON: None available HISTORY: ORDERING SYSTEM PROVIDED HISTORY: Reason for Exam: Altered mental status FINDINGS: Diffusion imaging shows no hyperacute, acute, or early subacute infarction. There is no abnormal brain parenchymal signal. There is no mass, mass-effect, or abnormal extra-axial fluid collection. The vaz-white matter differentiation is well maintained. The ventricles are normal in size, shape and position. There are normal signal voids in the larger intracranial vessels. The distal left vertebral artery is hypoplastic and may terminate as PICA. There are no abnormal areas of increased contrast enhancement. Paranasal sinuses are clear. Small effusion in the right mastoid air cells.. The marrow signal pattern is within normal limits. Motion artifact of the postcontrast images degrades study quality. IMPRESSION: Normal enhanced and unenhanced MRI of the brain. Small right mastoid effusion I have personally reviewed the images of this examination and agree with the resident's findings and interpretation. Interpreted by: Javed Campos MD Preliminary Report By: Williams Durán Electronically signed By Javed Campos MD Dictated Date: 03/01/2024 4:15:39 PM Prelim Date: 03/01/2024 4:33:04 PM Sign Date: 03/01/2024 4:33:04 PM Ordering Provider: GERTRUDIS [facility] 02-14-2024 Note HNO ID: [id number] Author: NASIMA SUBRAMANIAN APRN.METAL FINISH INSPECTOR Service: ? Author Type: Nurse Practitioner Type: Progress Notes Filed: 02/14/2024 11:07 Note Text: Patient triaged at [facility]. Here today with left abdominal pain, woke from sleep/worsening. Unclear what hospital will go to at time of triage. [facility] 02-14-2024 History of Present illness Narrative Patient triaged at [facility]. Here today with left abdominal pain, woke from sleep/worsening. Unclear what hospital will go to at time of triage. documented in this encounter [facility] 02-10-2024 Telephone encounter Note Patient notified of results and provider's instructions. Patient verbalizes understanding. Claudia Rae RN [facility] 02-10-2024 Miscellaneous Notes Patient notified of results and provider's instructions. Patient verbalizes understanding. Claudia Rae RN Left message for patient to return call. Apurva Carranza LPN Yeast, trichomonas, gonorrhea, chlamydia negative. BV positive. Metronidazole sent to pharmacy, documented in this encounter [facility] 02-10-2024 Telephone encounter Note Left message for patient to return call. Apurva Carranza LPN [facility] 02-10-2024 Telephone encounter Note Yeast, trichomonas, gonorrhea, chlamydia negative. BV positive. Metronidazole sent to pharmacy, [facility] 02-09-2024 Note HNO ID: [id number] Author: MARIAELENA SAUL APRN.SRAVAN Service: ? Author Type: Nurse Practitioner Type: Progress Notes Filed: 02/09/2024 11:29 Note Text: This note was created using NoteWriter. Subjective Clarisse Reynoso is a 28 year old female. 28 year old female with no significant PMH presents for STI screening Acute onset Recently informed that her partner had extramarital relationships He got another girl +vaginal itching But otherwise denies vaginal discharge Denies vaginal bleeding Denies fever or chills Denies sx Denies abdominal pain Denies N/V/D Denies skin rash or lesions. LMP-one week ago Want to be tested for everything The history is provided by the patient. No blocker heated metal forms was used. Female Gu Problem This is a new problem. The current episode started 3 to 5 days ago. The onset was gradual. The problem occurs continuously. The problem has been unchanged. The patient is experiencing no pain. Nothing relieves the symptoms. Nothing aggravates the symptoms. Pertinent negatives include no chest pain, no anorexia, no chills, no fever, no abdominal pain, no constipation, no diarrhea, no nausea, no vomiting, no dysuria, no frequency, no hematuria, no pelvic pain, no urgency, no vaginal bleeding, no vaginal discharge, no vaginal pain, no headaches, no sore throat, no back pain, no cough, no shortness of breath, no rash and no dyspareunia. There has been no history of trauma. Urine output has been normal. The last void occurred Less than 6 hours ago. She is currently Sexually active. She has 1 sexual partner. She is not . The patient's menstrual history has been irregular. She has had no prior pregancies. Her past medical history is significant for STD and UTI. Her past medical history does not include endometriosis or kidney stones. There were no sick contacts. She has received no recent medical care. No past medical history on file. No past surgical history on file. ALLERGIES Penicillins MEDICATIONS escitalopram oxalate (LEXAPRO) 10 mg tablet TAKE 1 TABLET BY MOUTH ONCE DAILY FOR 2 WEEKS THEN INCREASE TO 20MG TABLET escitalopram oxalate (LEXAPRO) 20 mg tablet Take 1 tablet by mouth every afternoon. sertraline (ZOLOFT) 25 mg tablet Take 1 tablet by mouth every afternoon. (Patient not taking: Reported on 11/03/2023) cetirizine (ZYRTEC) 10 mg tablet Take 1 tablet by mouth every afternoon. (Patient not taking: Reported on 11/03/2023) No family history on file. Social History Tobacco Use Smoking status: Former Types: Cigarettes Smokeless tobacco: Never Vaping Use Vaping status: current everyday user Substances: Nicotine, Flavoring Devices: Disposable, Pre-filled pod Substance Use Topics Alcohol use: Yes Alcohol/week: 2.0 - 4.0 standard drinks of alcohol Types: 2 - 4 Standard drinks or equivalent per week Drug use: Yes Types: Marijuana Review of Systems Constitutional: Negative for chills and fever. HENT: Negative for sore throat. Eyes: Negative for pain, discharge and itching. Respiratory: Negative for cough and shortness of breath. Cardiovascular: Negative for chest pain. Gastrointestinal: Negative for abdominal pain, anorexia, constipation, diarrhea, nausea and vomiting. Genitourinary: Negative for dyspareunia, dysuria, frequency, hematuria, pelvic pain, urgency, vaginal bleeding, vaginal discharge and vaginal pain. +vaginal itching Musculoskeletal: Negative for back pain. Skin: Negative for color change, pallor and rash. Allergic/Immunologic: Negative for environmental allergies, food allergies and immunocompromised state. Neurological: Negative for dizziness, facial asymmetry and headaches. Hematological: Negative for adenopathy. Does not bruise/bleed easily. Psychiatric/Behavioral: Negative for agitation and behavioral problems. Objective BP 130/80 Pulse 70 Temp 36.9 ?C (98.5 ?F) Resp 20 Wt 106.9 kg (235 lb 10.8 oz) LMP 06/28/2023 (Exact Date) SpO2 100% BMI 40.45 kg/m? Physical Exam Vitals and nursing note reviewed. Constitutional: General: She is not in acute distress. Appearance: Normal appearance. She is normal weight. She is not ill-appearing, toxic-appearing or diaphoretic. HENT: Head: Normocephalic and atraumatic. Right Ear: Ear canal and external ear normal. Left Ear: Ear canal and external ear normal. Nose: Nose normal. No congestion or rhinorrhea. Mouth/Throat: Mouth: Mucous membranes are moist. Pharynx: No oropharyngeal exudate or posterior oropharyngeal erythema. Eyes: General: Right eye: No discharge. Left eye: No discharge. Extraocular Movements: Extraocular movements intact. Conjunctiva/sclera: Conjunctivae normal. Pupils: Pupils are equal, round, and reactive to light. Cardiovascular: Rate and Rhythm: Normal rate and regular rhythm. Pulses: Normal pulses. Heart sounds: Normal heart sounds. No murmur heard. No friction (more content not included)... [facility] 02-09-2024 History of Present illness Narrative This note was created using Litepointriter. Subjective Clarisse Reynoso is a 28 year old female. 28 year old female with no significant PMH presents for STI screening Acute onset Recently informed that her partner had extramarital relationships He got another girl +vaginal itching But otherwise denies vaginal discharge Denies vaginal bleeding Denies fever or chills Denies sx Denies abdominal pain Denies N/V/D Denies skin rash or lesions. LMP-one week ago Want to be tested for everything The history is provided by the patient. No blocker heated metal forms was used. Female Gu Problem This is a new problem. The current episode started 3 to 5 days ago. The onset was gradual. The problem occurs continuously. The problem has been unchanged. The patient is experiencing no pain. Nothing relieves the symptoms. Nothing aggravates the symptoms. Pertinent negatives include no chest pain, no anorexia, no chills, no fever, no abdominal pain, no constipation, no diarrhea, no nausea, no vomiting, no dysuria, no frequency, no hematuria, no pelvic pain, no urgency, no vaginal bleeding, no vaginal discharge, no vaginal pain, no headaches, no sore throat, no back pain, no cough, no shortness of breath, no rash and no dyspareunia. There has been no history of trauma. Urine output has been normal. The last void occurred Less than 6 hours ago. She is currently Sexually active. She has 1 sexual partner. She is not . The patient's menstrual history has been irregular. She has had no prior pregancies. Her past medical history is significant for STD and UTI. Her past medical history does not include endometriosis or kidney stones. There were no sick contacts. She has received no recent medical care. No past medical history on file. No past surgical history on file. ALLERGIES Penicillins MEDICATIONS escitalopram oxalate (LEXAPRO) 10 mg tablet TAKE 1 TABLET BY MOUTH ONCE DAILY FOR 2 WEEKS THEN INCREASE TO 20MG TABLET escitalopram oxalate (LEXAPRO) 20 mg tablet Take 1 tablet by mouth every afternoon. sertraline (ZOLOFT) 25 mg tablet Take 1 tablet by mouth every afternoon. (Patient not taking: Reported on 11/03/2023) cetirizine (ZYRTEC) 10 mg tablet Take 1 tablet by mouth every afternoon. (Patient not taking: Reported on 11/03/2023) No family history on file. Social History Tobacco Use Smoking status: Former Types: Cigarettes Smokeless tobacco: Never Vaping Use Vaping status: current everyday user Substances: Nicotine, Flavoring Devices: Disposable, Pre-filled pod Substance Use Topics Alcohol use: Yes Alcohol/week: 2.0 - 4.0 standard drinks of alcohol Types: 2 - 4 Standard drinks or equivalent per week Drug use: Yes Types: Marijuana Review of Systems Constitutional: Negative for chills and fever. HENT: Negative for sore throat. Eyes: Negative for pain, discharge and itching. Respiratory: Negative for cough and shortness of breath. Cardiovascular: Negative for chest pain. Gastrointestinal: Negative for abdominal pain, anorexia, constipation, diarrhea, nausea and vomiting. Genitourinary: Negative for dyspareunia, dysuria, frequency, hematuria, pelvic pain, urgency, vaginal bleeding, vaginal discharge and vaginal pain. +vaginal itching Musculoskeletal: Negative for back pain. Skin: Negative for color change, pallor and rash. Allergic/Immunologic: Negative for environmental allergies, food allergies and immunocompromised state. Neurological: Negative for dizziness, facial asymmetry and headaches. Hematological: Negative for adenopathy. Does not bruise/bleed easily. Psychiatric/Behavioral: Negative for agitation and behavioral problems. Objective BP 130/80 Pulse 70 Temp 36.9 C (98.5 F) Resp 20 Wt 106.9 kg (235 lb 10.8 oz) LMP 06/28/2023 (Exact Date) SpO2 100% BMI 40.45 kg/m Physical Exam Vitals and nursing note reviewed. Constitutional: General: She is not in acute distress. Appearance: Normal appearance. She is normal weight. She is not ill-appearing, toxic-appearing or diaphoretic. HENT: Head: Normocephalic and atraumatic. Right Ear: Ear canal and external ear normal. Left Ear: Ear canal and external ear normal. Nose: Nose normal. No congestion or rhinorrhea. Mouth/Throat: Mouth: Mucous membranes are moist. Pharynx: No oropharyngeal exudate or posterior oropharyngeal erythema. Eyes: General: Right eye: No discharge. Left eye: No discharge. Extraocular Movements: Extraocular movements intact. Conjunctiva/sclera: Conjunctivae normal. Pupils: Pupils are equal, round, and reactive to light. Cardiovascular: Rate and Rhythm: Normal rate and regular rhythm. Pulses: Normal pulses. Heart sounds: Normal heart sounds. No murmur heard. No friction rub. Pulmonary: Effort: Pulmonary effort is normal. No respiratory distress. Breath sounds: Normal breath sounds. No stridor. No wheezing, rhonchi or rales. Chest: Chest wall: No tenderness. Abdominal: General: Abdomen is flat. There is no distension. Palpations: Abdomen is soft. There is no mass. Tenderness: There is no abdominal tenderness. There is no right CVA tenderness, left CVA tenderness, guarding or rebound. Hernia: No hernia is present. Genitourinary: Comments: Pelvic exam performed with architecture internship Scant vaginal discharge Cervical OS visualized and with no lesions. CX obtained The sensitive examination was discussed with the Patient or Patient's Authorized Director Graphics. As applicable, any other physician, advance practice provider, medical student, or other health professional student that will be observing or involved in the sensitive examination for educational or training purposes was discussed with the Patient or Authorized Director Graphics. The Patient or Authorized Director Graphics has agreed to proceed with the sensitive examination. (Sensitive examination includes inspection and/or palpation of the breasts, pelvis, prostate and anorectal regions) Musculoskeletal: General: No swelling, tenderness, deformity or signs of injury. Normal range of motion. Cervical back: Normal range of motion and neck supple. No rigidity. Right lower leg: No edema. Left lower leg: No edema. Lymphadenopathy: Cervical: No cervical adenopathy. Skin: General: Skin is warm and dry. Capillary Refill: Capillary refill takes less than 2 seconds. Coloration: Skin is not jaundiced or pale. Findings: No bruising, erythema, lesion or rash. Neurological: General: No focal deficit present. Mental Status: She is alert and oriented to person, place, and time. Cranial Nerves: No cranial nerve deficit. Sensory: No sensory deficit. Motor: No weakness. Coordination: Coordination normal. Gait: Gait normal. Psychiatric: Mood and Affect: Mood normal. Behavior: Behavior normal. Thought Content: Thought content normal. Judgment: Judgment normal. Assessment and Plan ASSESSMENT/PLAN: 1. Encounter for screening examination for sexually transmitted disease - ICD9: V74.5, ICD10: Z11.3 (primary diagnosis) Endorses she was informed that her partner has been unfaithful Denies sx Test me for all - GONORRHEA/CHLAMYDIA NAAT - HIV 1/2 COMBO WITH REFLEX TO DIFFERENTIATION - SYPHILIS TREPONEMAL W/REFLEX - HEP REMOTE PANEL BL - BACTERIAL VAGINOSIS NAAT - SANTI/TRICHOMONAS NAAT 2. Itching in the vaginal area - ICD9: 698.1, ICD10: N89.8 No lesions Pelvic exam performed and CX obtained - UA DIP,URINE HCG (POC) - UA DIP, URINE (POC) 3. Vaginal spotting - ICD9: 623.8, ICD10: N93.9 LMP - irregular No red flags HCG negative - UA DIP,URINE HCG (POC) - UA DIP, URINE (POC) Mariaelena Saul APRN.METAL FINISH INSPECTOR documented in this encounter [facility] 11-19-2023 Note . MICRO - Microbiology PROCEDURE: Affirm Pathogens DNA Direct Probe [*1] SOURCE: Vaginal Fluid BODY SITE: Vagina COLLECTED DATE/TIME: 11/18/2023 16:24 EDT RECEIVED DATE/TIME: 11/18/2023 18:43 EDT START DATE/TIME: 11/18/2023 18:43 EDT FREE TEXT SOURCE: FINAL REPORTS Final Report [] Verified Date/Time/Personnel: 11/19/2023 13:08 EDT Santi species DNA Probe Negative Gardnerella vaginalis DNA Probe Negative Trichomonas vaginalis DNA Probe Negative Performing Locations *1: This test was performed at: [facility], [address] [place] [address], [id number] , [facility] ([place]) 11-04-2023 Telephone encounter Note Patient notified of results, verbalized understanding of instructions given. Meliza Farris MA [facility] 11-04-2023 Miscellaneous Notes Patient notified of results, verbalized understanding of instructions given. Meliza Farris MA Please let patient know she tested positive for bacterial vaginosis. I have sent metronidazole to her pharmacy-[facility] in [place]. Please do not drink alcohol while taking this medication. documented in this encounter [facility] 11-04-2023 Telephone encounter Note Please let patient know she tested positive for bacterial vaginosis. I have sent metronidazole to her pharmacy[facility] in [place]. Please do not drink alcohol while taking this medication. [facility] 11-03-2023 Note HNO ID: [id number] Author: KAMLA KEITA APRN.METAL FINISH INSPECTOR Service: ? Author Type: Nurse Practitioner Type: Progress Notes Filed: 11/03/2023 12:45 Note Text: CC: Patient presents with: STD check: STD check HPI Clarisse Reynoso is a 28 year old female who presents with complaint of possible UTI. These symptoms have been present for 5 days. Associated symptoms: abnormal vaginal discharge and vaginal itching Denies: fever, chills, sweats, abdominal pain, and flank pain Treatments: nothing The ROS was otherwise negative. PMH, Medications, labs, allergies, and recent past visits with PCP were reviewed and updated as able. PHYSICAL EXAM: BP 112/78 Pulse 73 Temp 37.1 ?C (98.8 ?F) (Tympanic) Resp 16 Wt 105.6 kg (232 lb 12.9 oz) LMP 06/28/2023 (Exact Date) SpO2 97% BMI 39.96 kg/m? General: Well appearing and alert CV: Regular rate and rhythm without obvious murmur Lungs: clear to auscultation bilaterally Back: straight and symmetric Abdomen: soft, nontender, nondistended History reviewed. No pertinent past medical history. No past surgical history on file. ALLERGIES Penicillins MEDICATIONS sertraline (ZOLOFT) 25 mg tablet Take 1 tablet by mouth every afternoon. (Patient not taking: Reported on 11/03/2023) cetirizine (ZYRTEC) 10 mg tablet Take 1 tablet by mouth every afternoon. (Patient not taking: Reported on 11/03/2023) No family history on file. Social History Tobacco Use Smoking status: Former Types: Cigarettes Smokeless tobacco: Never Vaping Use Vaping Use: current everyday user Substances: Nicotine, Flavoring Devices: Disposable, Pre-filled pod Substance Use Topics Alcohol use: Yes Alcohol/week: 2.0 - 4.0 standard drinks of alcohol Types: 2 - 4 Standard drinks or equivalent per week Drug use: Yes Types: Marijuana ASSESSMENT/PLAN: 1. Vaginal itching - ICD9: 698.1, ICD10: N89.8 - BACTERIAL VAGINOSIS NAAT - SANTI/TRICHOMONAS NAAT - GONORRHEA/CHLAMYDIA NAAT She self swabbed No treatment at this time. Potential red flag symptoms discussed with the patient. Reviewed appropriate action plan to take if red flag symptoms occur. Patient agreeable to treatment plan. Kamla Keita APRN.[facility] 11-03-2023 History of Present illness Narrative CC: Patient presents with: STD check: STD check HPI Clarisse Reynoso is a 28 year old female who presents with complaint of possible UTI. These symptoms have been present for 5 days. Associated symptoms: abnormal vaginal discharge and vaginal itching Denies: fever, chills, sweats, abdominal pain, and flank pain Treatments: nothing The ROS was otherwise negative. PMH, Medications, labs, allergies, and recent past visits with PCP were reviewed and updated as able. PHYSICAL EXAM: BP 112/78 Pulse 73 Temp 37.1 C (98.8 F) (Tympanic) Resp 16 Wt 105.6 kg (232 lb 12.9 oz) LMP 06/28/2023 (Exact Date) SpO2 97% BMI 39.96 kg/m General: Well appearing and alert CV: Regular rate and rhythm without obvious murmur Lungs: clear to auscultation bilaterally Back: straight and symmetric Abdomen: soft, nontender, nondistended History reviewed. No pertinent past medical history. No past surgical history on file. ALLERGIES Penicillins MEDICATIONS sertraline (ZOLOFT) 25 mg tablet Take 1 tablet by mouth every afternoon. (Patient not taking: Reported on 11/03/2023) cetirizine (ZYRTEC) 10 mg tablet Take 1 tablet by mouth every afternoon. (Patient not taking: Reported on 11/03/2023) No family history on file. Social History Tobacco Use Smoking status: Former Types: Cigarettes Smokeless tobacco: Never Vaping Use Vaping Use: current everyday user Substances: Nicotine, Flavoring Devices: Disposable, Pre-filled pod Substance Use Topics Alcohol use: Yes Alcohol/week: 2.0 - 4.0 standard drinks of alcohol Types: 2 - 4 Standard drinks or equivalent per week Drug use: Yes Types: Marijuana ASSESSMENT/PLAN: 1. Vaginal itching - ICD9: 698.1, ICD10: N89.8 - BACTERIAL VAGINOSIS NAAT - SANTI/TRICHOMONAS NAAT - GONORRHEA/CHLAMYDIA NAAT She self swabbed No treatment at this time. Potential red flag symptoms discussed with the patient. Reviewed appropriate action plan to take if red flag symptoms occur. Patient agreeable to treatment plan. Kamla Keita APRN.METAL FINISH INSPECTOR documented in this encounter [facility] 09-23-2023 Instructions Juliano Qureshi MD - 09/23/2023 8:46 PM EDT Vaginitis Vaginitis is an infection or inflammation of the vagina which can cause symptoms including abnormal vaginal discharge, irritation, itching, and pain, including with intercourse. The outside of the vagina (vulva) may be swollen and tender. Sometimes there are minimal or no symptoms. Abdominal pain, fevers or chills, vomiting, etc. are NOT usually due to vaginitis. Vaginitis can be caused by many things. -Several different types of organisms including: A fungus called Santi albicans (yeast or monilia) which can produce a thick, cheesy discharge. A protozoa (one-celled organism) called trichomonas which can cause a foamy, bad-smelling thin discharge. An overgrowth of normal vaginal bacteria (gardnerella) which may cause a fishy-smelling discharge. Other organisms such as chlamydia, herpes, etc. (Some but not all of these organisms may be sexually spread.) -Irritants and chemical such as creams, foams, douches, female deodorants, condoms and diaphragms, tampons. -Nonabsorbent, heat retaining clothing such as nylon pantyhose and tight fitting garments. -Vaginal dryness which is common after menopause or while on certain medications -Poor hygiene, stress, or physical injury. -Sometimes a cause is not found. Diagnosis may be made by cultures or smears taken from the vagina, urine tests, and sometimes blood tests. Treatment may be with oral (pills taken by mouth) or vaginal medications (medicines put directly into the vaginal). Topical creams may help if the symptoms are due to irritants or lack of estrogen. Stopping the irritants is very important. To help the symptoms: Bathe with a non-irritating, unscented soap using warm but not hot water and rinsing thoroughly, Pat dry without rubbing. Wear loose-fitting, all-cotton or cotton crotch underwear. Avoid deodorant sprays, scented pads or tampons. Use condoms with your sexual partner when there is any risk of infection. Keep your genital area dry. Use your medications as directed. documented in this encounter [facility] 09-23-2023 Note HNO ID: [id number] Author: JULIANO QURESHI MD Service: ? Author Type: Physician Type: Progress Notes Filed: 09/23/2023 21:55 Note Text: Clarisse Reynoso is a 28 year old female who presents with STD (Discharge and itching now for 2 days, was with a partner 1 week ago. Discuss possible blood work for HIV and other STD tests with blood work.) The history is provided by the patient. No blocker heated metal forms was used. Vaginal Discharge This is a new problem. Episode onset: 5 days. The problem occurs constantly. The problem has not changed since onset.Context: Patient had sexual intercourse 1 week ago. The discharge was White, malodorous and thick. Associated symptoms include genital burning, genital itching and perineal odor. Pertinent negatives include no anorexia, no diaphoresis, no fever, no abdominal swelling, no abdominal pain, no constipation, no diarrhea, no nausea, no vomiting, no dyspareunia, no dysuria, no frequency, no genital lesions and no perineal pain. She has tried nothing for the symptoms. No past medical history on file. There is no problem list on file for this patient. Current Outpatient Medications Medication Sig Dispense Refill sertraline (ZOLOFT) 25 mg tablet Take 1 tablet by mouth every afternoon. cetirizine (ZYRTEC) 10 mg tablet Take 1 tablet by mouth every afternoon. No current facility-administered medications for this visit. Social History Tobacco Use Smoking status: Former Types: Cigarettes Smokeless tobacco: Never Vaping Use Vaping Use: current everyday user Substances: Nicotine, Flavoring Devices: Disposable, Pre-filled pod Substance Use Topics Alcohol use: Yes Alcohol/week: 2.0 - 4.0 standard drinks of alcohol Types: 2 - 4 Standard drinks or equivalent per week Drug use: Yes Types: Marijuana Alcohol Use: Approximately 1.2 - 2.4 oz/week [which includes 2-4 Standard drinks or equivalent per week] Tobacco Use: Types: Cigarettes No family history on file. Review of Systems Constitutional: Negative for chills, diaphoresis, fever and malaise/fatigue. Gastrointestinal: Negative for abdominal pain, anorexia, constipation, diarrhea, nausea and vomiting. Genitourinary: Negative for dyspareunia, dysuria, flank pain, frequency, hematuria and urgency. Vaginal itching and discharge BP 105/73 Pulse 63 Temp (Src) 97.7 (Temporal) Resp 16 Ht 5' 4 (1.63m) Wt 230 lb (104.3kg) SpO2 100% LMP 06/28/2023 BMI 39.46 kg/(m2). Physical Exam Vitals and nursing note reviewed. Constitutional: Appearance: Normal appearance. Cardiovascular: Rate and Rhythm: Normal rate and regular rhythm. Heart sounds: Normal heart sounds. Pulmonary: Effort: Pulmonary effort is normal. Breath sounds: Normal breath sounds. Abdominal: General: Abdomen is flat. Bowel sounds are normal. Palpations: Abdomen is soft. There is no mass. Tenderness: There is no abdominal tenderness. There is no right CVA tenderness, left CVA tenderness, guarding or rebound. Hernia: No hernia is present. Genitourinary: General: Normal vulva. Vagina: Vaginal discharge (White, thick, clumpy, malodorous) present. Skin: General: Skin is warm. Neurological: Mental Status: She is alert and oriented to person, place, and time. ASSESSMENT/PLAN: 1. Acute vaginitis - ICD9: 616.10, ICD10: N76.0 - GONORRHEA/CHLAMYDIA NAAT - URINALYSIS, DIPSTICK ONLY - URINE CULTURE - WET PREP Juliano Qureshi MD [facility] 09-23-2023 History of Present illness Narrative Clarisse Reynoso is a 28 year old female who presents with STD (Discharge and itching now for 2 days, was with a partner 1 week ago. Discuss possible blood work for HIV and other STD tests with blood work.) The history is provided by the patient. No blocker heated metal forms was used. Vaginal Discharge This is a new problem. Episode onset: 5 days. The problem occurs constantly. The problem has not changed since onset.Context: Patient had sexual intercourse 1 week ago. The discharge was White, malodorous and thick. Associated symptoms include genital burning, genital itching and perineal odor. Pertinent negatives include no anorexia, no diaphoresis, no fever, no abdominal swelling, no abdominal pain, no constipation, no diarrhea, no nausea, no vomiting, no dyspareunia, no dysuria, no frequency, no genital lesions and no perineal pain. She has tried nothing for the symptoms. No past medical history on file. There is no problem list on file for this patient. Current Outpatient Medications Medication Sig Dispense Refill sertraline (ZOLOFT) 25 mg tablet Take 1 tablet by mouth every afternoon. cetirizine (ZYRTEC) 10 mg tablet Take 1 tablet by mouth every afternoon. No current facility-administered medications for this visit. Social History Tobacco Use Smoking status: Former Types: Cigarettes Smokeless tobacco: Never Vaping Use Vaping Use: current everyday user Substances: Nicotine, Flavoring Devices: Disposable, Pre-filled pod Substance Use Topics Alcohol use: Yes Alcohol/week: 2.0 - 4.0 standard drinks of alcohol Types: 2 - 4 Standard drinks or equivalent per week Drug use: Yes Types: Marijuana Alcohol Use: Approximately 1.2 - 2.4 oz/week [which includes 2-4 Standard drinks or equivalent per week] Tobacco Use: Types: Cigarettes No family history on file. Review of Systems Constitutional: Negative for chills, diaphoresis, fever and malaise/fatigue. Gastrointestinal: Negative for abdominal pain, anorexia, constipation, diarrhea, nausea and vomiting. Genitourinary: Negative for dyspareunia, dysuria, flank pain, frequency, hematuria and urgency. Vaginal itching and discharge BP 105/73 Pulse 63 Temp (Src) 97.7 (Temporal) Resp 16 Ht 5' 4 (1.63m) Wt 230 lb (104.3kg) SpO2 100% LMP 06/28/2023 BMI 39.46 kg/(m^2). Physical Exam Vitals and nursing note reviewed. Constitutional: Appearance: Normal appearance. Cardiovascular: Rate and Rhythm: Normal rate and regular rhythm. Heart sounds: Normal heart sounds. Pulmonary: Effort: Pulmonary effort is normal. Breath sounds: Normal breath sounds. Abdominal: General: Abdomen is flat. Bowel sounds are normal. Palpations: Abdomen is soft. There is no mass. Tenderness: There is no abdominal tenderness. There is no right CVA tenderness, left CVA tenderness, guarding or rebound. Hernia: No hernia is present. Genitourinary: General: Normal vulva. Vagina: Vaginal discharge (White, thick, clumpy, malodorous) present. Skin: General: Skin is warm. Neurological: Mental Status: She is alert and oriented to person, place, and time. ASSESSMENT/PLAN: 1. Acute vaginitis - ICD9: 616.10, ICD10: N76.0 - GONORRHEA/CHLAMYDIA NAAT - URINALYSIS, DIPSTICK ONLY - URINE CULTURE - WET PREP Juliano Qureshi MD documented in this encounter [facility] 07-23-2023 Evaluation + Plan note Future Scheduled TestsLipid Profile 07/23/23epatitis C Antibody IgG 07/23/23 [facility] 06-28-2023 Instructions Scottie Lang Jr., APRN.CNP - 06/28/2023 12:53 PM EST You have been diagnosed with the urinary tract infection. Drink plenty of fluids. Take the medication as prescribed and finish the dose. documented in this encounter [facility] 06-28-2023 Note HNO ID: [id number] Author: SCOTTIE LANG JR, APRN.SRAVAN Service: ? Author Type: Nurse Practitioner Type: Progress Notes Filed: 06/28/2023 13:46 Note Text: Clarisse Reynoso is a 27 year old female who presents with STD (Wants testing) 27-year-old female presents today with complaint of urinary burning, vaginal discharge and itchiness by 5 days. Patient states she had her period last night. 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 Patient was seen here May 15 send tested for STDs at that time, no infection found. When asked about shortness of breath patient stated she had it. I asked patient about the history and she states that she feels she has shortness of breath because she is overweight and it is nothing unusual for her. Patient states last sexual encounter was approximately a week ago with her boyfriend she denies any other sexual contacts. Patient was asked if her boyfriend's been treated with any STDs and she replied that he states he is clean. The history is provided by the patient. History reviewed. No pertinent past medical history. There is no problem list on file for this patient. Current Outpatient Medications Medication Sig Dispense Refill sertraline (ZOLOFT) 25 mg tablet Take 1 tablet by mouth every afternoon. cetirizine (ZYRTEC) 10 mg tablet Take 1 tablet by mouth every afternoon. No current facility-administered medications for this visit. Social History Tobacco Use Smoking status: Former Types: Cigarettes Smokeless tobacco: Never Vaping Use Vaping Use: current everyday user Substances: Nicotine, Flavoring Devices: Disposable, Pre-filled pod Substance Use Topics Alcohol use: Yes Alcohol/week: 2.0 - 4.0 standard drinks of alcohol Types: 2 - 4 Standard drinks or equivalent per week Drug use: Yes Types: Marijuana Alcohol Use: Approximately 1.2 - 2.4 oz/week [which includes 2-4 Standard drinks or equivalent per week] Tobacco Use: Types: Cigarettes History reviewed. No pertinent family history. Review of Systems Respiratory: Positive for shortness of breath. Genitourinary: Positive for dysuria. Vaginitis BP 118/78 Pulse 67 Temp 97.7 Resp 18 SpO2 100% LMP 06/28/2023 Physical Exam VITALS: Vitals are within normal limits CONSTITUTIONAL: patient is alert and orientated by 3, no acute distress HEAD: Head is atraumatic normocephalic. EYES: No bilateral conjunctivitis EARS/NOSE/THROAT: No turbinate edema or nasal drainage. Throat is unremarkable. No tonsilar enlargement/exudate noted. NECK: No anterior cervical lyphadenopathy PULMONARY: No labored breathing. Lungs clear to auscultation. CARDIOVASCUOLAR: Regular rate and rhythm. No murmurs, rubs, or gallops. ABDOMEN: Soft nontender nondistended. Right CVA tenderness. MUSCULOSKELETAL: Moves all extremities without difficulty. No edema noted SKIN: Warm and dry no clubbing cyanosis or edema. PSYCHIATRY: Cooperative. Normal mood and affect. PROCEDURE: Patient was placed in the lithotomy position. Gracy RYAN was present as an [employer] faculty assistant and architecture internship. Examination of the external genitalia does not show any pathology. Meg blood noted on interna; exam that is consistent with patient being on her period. No internal lesions noted. Specimens obtained for testing. Patient tlerated procedure well. URINE dip: Urine dip considered positive for UTI with leuks noted. ASSESSMENT/PLAN: 1. Acute vaginitis - ICD9: 616.10, ICD10: N76.0 (primary diagnosis) - GONORRHEA/CHLAMYDIA NAAT - TRICHOMONAS PREP/ANTIGEN - URINE CULTURE - FUNGAL SCREEN 2. Dysuria - ICD9: 788.1, ICD10: R30.0 - URINALYSIS, DIPSTICK ONLY Patient presented today with a complaint of dysuria and vaginal complaints by 5 days. On examination patient had right CVA tenderness, no abdominal tenderness to palpation. Lung sounds were clear to auscultation and skin was warm and dry. Urine dip was performed that was positive for a UTI and awaiting urine culture results. Due to patient's complaint plaints of vaginal symptoms and STD check was performed. Base further treatment on results when received if needed. During set up patient overheard staff trying to figure out which tubes to use for the STD check. Patient heard 1 staff member saying that were not an STD clinic and was very upset. I tried to explain to her that there have been changes and we want to make sure that we were getting the right specimens. Patient was still very upset and requested that we do the testing so she could leave the office. Scottie Lang Jr [facility] 06-28-2023 History of Present illness Narrative Clarisse Reynoso is a 27 year old female who presents with STD (Wants testing) 27-year-old female presents today with complaint of urinary burning, vaginal discharge and itchiness by 5 days. Patient states she had her period last night. 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 Patient was seen here May 15 send tested for STDs at that time, no infection found. When asked about shortness of breath patient stated she had it. I asked patient about the history and she states that she feels she has shortness of breath because she is overweight and it is nothing unusual for her. Patient states last sexual encounter was approximately a week ago with her boyfriend she denies any other sexual contacts. Patient was asked if her boyfriend's been treated with any STDs and she replied that he states he is clean. The history is provided by the patient. History reviewed. No pertinent past medical history. There is no problem list on file for this patient. Current Outpatient Medications Medication Sig Dispense Refill sertraline (ZOLOFT) 25 mg tablet Take 1 tablet by mouth every afternoon. cetirizine (ZYRTEC) 10 mg tablet Take 1 tablet by mouth every afternoon. No current facility-administered medications for this visit. Social History Tobacco Use Smoking status: Former Types: Cigarettes Smokeless tobacco: Never Vaping Use Vaping Use: current everyday user Substances: Nicotine, Flavoring Devices: Disposable, Pre-filled pod Substance Use Topics Alcohol use: Yes Alcohol/week: 2.0 - 4.0 standard drinks of alcohol Types: 2 - 4 Standard drinks or equivalent per week Drug use: Yes Types: Marijuana Alcohol Use: Approximately 1.2 - 2.4 oz/week [which includes 2-4 Standard drinks or equivalent per week] Tobacco Use: Types: Cigarettes History reviewed. No pertinent family history. Review of Systems Respiratory: Positive for shortness of breath. Genitourinary: Positive for dysuria. Vaginitis BP 118/78 Pulse 67 Temp 97.7 Resp 18 SpO2 100% LMP 06/28/2023 Physical Exam VITALS: Vitals are within normal limits CONSTITUTIONAL: patient is alert and orientated by 3, no acute distress HEAD: Head is atraumatic normocephalic. EYES: No bilateral conjunctivitis EARS/NOSE/THROAT: No turbinate edema or nasal drainage. Throat is unremarkable. No tonsilar enlargement/exudate noted. NECK: No anterior cervical lyphadenopathy PULMONARY: No labored breathing. Lungs clear to auscultation. CARDIOVASCUOLAR: Regular rate and rhythm. No murmurs, rubs, or gallops. ABDOMEN: Soft nontender nondistended. Right CVA tenderness. MUSCULOSKELETAL: Moves all extremities without difficulty. No edema noted SKIN: Warm and dry no clubbing cyanosis or edema. PSYCHIATRY: Cooperative. Normal mood and affect. PROCEDURE: Patient was placed in the lithotomy position. Gracy RYAN was present as an [employer] faculty assistant and architecture internship. Examination of the external genitalia does not show any pathology. Meg blood noted on interna; exam that is consistent with patient being on her period. No internal lesions noted. Specimens obtained for testing. Patient tlerated procedure well. URINE dip: Urine dip considered positive for UTI with leuks noted. ASSESSMENT/PLAN: 1. Acute vaginitis - ICD9: 616.10, ICD10: N76.0 (primary diagnosis) - GONORRHEA/CHLAMYDIA NAAT - TRICHOMONAS PREP/ANTIGEN - URINE CULTURE - FUNGAL SCREEN 2. Dysuria - ICD9: 788.1, ICD10: R30.0 - URINALYSIS, DIPSTICK ONLY Patient presented today with a complaint of dysuria and vaginal complaints by 5 days. On examination patient had right CVA tenderness, no abdominal tenderness to palpation. Lung sounds were clear to auscultation and skin was warm and dry. Urine dip was performed that was positive for a UTI and awaiting urine culture results. Due to patient's complaint plaints of vaginal symptoms and STD check was performed. Base further treatment on results when received if needed. During set up patient overheard staff trying to figure out which tubes to use for the STD check. Patient heard 1 staff member saying that were not an STD clinic and was very upset. I tried to explain to her that there have been changes and we want to make sure that we were getting the right specimens. Patient was still very upset and requested that we do the testing so she could leave the office. Scottie Lang Jr documented in this encounter [facility] 05-15-2023 Note HNO ID: [id number] Author: TIKI TOLEDO, DO Service: ? Author Type: Physician Type: Progress Notes Filed: 05/15/2023 09:59 Note Text: Clarisse Reynoso is a 27 year old FEMALE who presents with Vaginal Problem (Vaginal pain burning itchy vaginal area swollen bloody discharge patient requesting std check states she had unprotected sex Patient has taken meds for yeast infection) HPI History reviewed. No pertinent past medical history. There is no problem list on file for this patient. Current Outpatient Medications Medication Sig Dispense Refill azithromycin (ZITHROMAX) 500 mg tablet 2 pills together with food. 2 tablet 0 fluconazole (DIFLUCAN) 150 mg tablet Take one pill Days 1,4,7. 3 tablet 0 metroNIDAZOLE (FLAGYL) 500 mg tablet Take 1 tablet by mouth two times a day for 7 days. 14 tablet 0 adapalene (DIFFERIN) 0.1 % cream Apply 1 maribel, Topical, qHS, apply a thin film to affected area after washing at bedtime. use with sunscreen and moisturizer., # 45 gram(s), 0 Refill(s), Pharmacy: [facility]/pharmacy #[id number], Cream, 162.6, cm, 01/10/20 16:23:00 EDT, Height, 97.7, kg, 01/10/20 1... (Patient not taking: Reported on 08/27/2022) azithromycin (ZITHROMAX) 250 mg tablet take 2 tablets by mouth on day 1 IN ONE DOSE then 1 tablet on days 2 through 5 (Patient not taking: Reported on 08/27/2022) escitalopram oxalate (LEXAPRO) 20 mg tablet 20 mg. (Patient not taking: Reported on 01/17/2023) fluticasone (FLONASE ALLERGY RELIEF) 50 mcg/actuation nasal spray Use 1 Buhler in each nostril twice daily. (Patient not taking: Reported on 01/17/2023) 9.9 mL 0 methylPREDNISolone (MEDROL, VIVIEN,) 4 mg Dose-Pack Take by mouth per package instructions (Patient not taking: Reported on 08/27/2022) 21 tablet 0 No current facility-administered medications for this visit. Social History Tobacco Use Smoking status: Former Types: Cigarettes Smokeless tobacco: Never Vaping Use Vaping Use: current everyday user Substances: Nicotine, Flavoring Devices: Disposable, Pre-filled pod Substance Use Topics Alcohol use: Yes Alcohol/week: 2.0 - 4.0 standard drinks of alcohol Types: 2 - 4 Standard drinks or equivalent per week Drug use: Yes Types: Marijuana Alcohol Use: Approximately 1.2 - 2.4 oz/week [which includes 2-4 Standard drinks or equivalent per week] Tobacco Use: Types: Cigarettes History reviewed. No pertinent family history. Review of Systems Genitourinary: This patient had unprotected sex with a new person on May 12 shortly after that she noticed vaginal irritation and thought that she had a yeast infection. She used an [id number] cream treatment and within 1 day her vaginal area was swollen and bleeding raw and she is in pain. So the patient wants tested for sexually transmitted diseases. She states is the only time she is ever had unprotected sex and she thinks she may have contracted something. All other systems reviewed and are negative. BP 150/90 Pulse 83 Temp 98.6 Resp 16 Wt 236 lb (107.0kg) SpO2 98% LMP 05/11/2023 Physical Exam Vitals and nursing note reviewed. Exam conducted with a architecture internship present. Constitutional: Appearance: Normal appearance. HENT: Head: Normocephalic. Genitourinary: Vagina: Vaginal discharge present. Comments: Patient was placed in the lithotomy position. My nurse was present as an [employer] faculty assistant as architecture internship. The patient's sister was also in the room. Examination of the external genitalia does show an obvious discharge that is white to light yellow in color very liquid and does look like a combination of yeast and possibly a bacterial vaginitis chlamydia versus just bacterial vaginosis. She does have just rawness on the labia majora and the labia minora both are very irritated and red and she does have some slight oozing from little cracks. I did ask this patient if this was a consensual sexual encounter and she said that it was that there was no force and she denied any rape. The patient states that she does have pain in the lower pelvis and examination internally shows a significant amount of drainage and discharge and very inflamed cervix. Palpation reveals tenderness over the right lower abdomen especially in the adnexal area. And also tenderness on the left but less so. Patient is quite concerned and wants testing for everything. Testing has been done for gonorrhea chlamydia trichomonas HIV and syphilis. Any further testing will have to be done through the health department or obstetrician gynecologist. The patient was advised that we will go ahead and put her on metronidazole as well as azithromycin. I am not going to go ahead and give her the Rocephin shot. The reason for that is she is penicillin allergic and had an anaphylactic reaction with hives. I am not going to take a chance here if we do not have to do so if the test comes back positive for gonorrhea then we will consider what to do but if it is negative then we will not (more content not included)... [facility] 05-15-2023 Note HNO ID: [id number] Author: DONNA MÉNDEZ LPN Service: ? Author Type: LICENSED NURSE Type: Progress Notes Filed: 05/15/2023 09:59 Note Text: Pelvic exam assist, patient tolerated well.Donna Méndez LPN [facility] 04-07-2023 Miscellaneous Notes Notified patient of results patient voices no other concerns at this time. Stan Mobley LPN ----- Message from Nathaniel Del Cid MD sent at 04/07/2023 2:38 PM EST ----- Please notify patient gonorrhea chlamydia is negative documented in this encounter [facility] 04-06-2023 Instructions Gena Odonnell APRN.METAL FINISH INSPECTOR - 04/06/2023 3:47 PM EST STD testing Will call with results Vaginal Yeast Infection Fluconazole once as directed Take medication with food If worsen, follow up or go to PCP/ ED Thank you for choosing [facility] for your medical needs. If you continue to have problems, please contact your PCP. documented in this encounter [facility] 04-06-2023 Note HNO ID: [id number] Author: Gena Odonnell APRN.SRAVAN Service: ? Author Type: Nurse Practitioner Type: Progress Notes Filed: 04/06/2023 4:09 PM Note Text: Clarisse is a 27 year old female arriving at clinic today for Patient presents with: Vaginal Discharge: White vaginal discharge vagival itching cramping and body aches 4 days HPI A 27 y/o female presents with white curdy vaginal discharge and itching x4 days. She wants STD testing. She reports body aches, Denies flank pain, or pain with urination, or fever. Vital Signs: BP 134/80 Pulse 80 Temp 97.8 Resp 16 Wt 234 lb (106.1kg) SpO2 98% LMP 03/28/2023 Allergies: ALLERGIES Allergen Reactions Penicillins Hives Current Medications: adapalene (DIFFERIN) 0.1 % cream Apply 1 maribel, Topical, qHS, apply a thin film to affected area after washing at bedtime. use with sunscreen and moisturizer., # 45 gram(s), 0 Refill(s), Pharmacy: [facility]/pharmacy #[id number], Cream, 162.6, cm, 01/10/20 16:23:00 EDT, Height, 97.7, kg, 01/10/20 1... (Patient not taking: Reported on 08/27/2022) azithromycin (ZITHROMAX) 250 mg tablet take 2 tablets by mouth on day 1 IN ONE DOSE then 1 tablet on days 2 through 5 (Patient not taking: Reported on 08/27/2022) escitalopram oxalate (LEXAPRO) 20 mg tablet 20 mg. (Patient not taking: Reported on 01/17/2023) fluticasone (FLONASE ALLERGY RELIEF) 50 mcg/actuation nasal spray Use 1 Buhler in each nostril twice daily. (Patient not taking: Reported on 01/17/2023) methylPREDNISolone (MEDROL, VIVIEN,) 4 mg Dose-Pack Take by mouth per package instructions (Patient not taking: Reported on 08/27/2022) History reviewed. No pertinent past medical history. History reviewed. No pertinent surgical history. Review of Systems: Review of Systems see HPI Exam: Physical Exam Vitals and nursing note reviewed. Constitutional: General: She is not in acute distress. Appearance: Normal appearance. She is normal weight. She is not ill-appearing. Abdominal: General: Bowel sounds are normal. Palpations: Abdomen is soft. Tenderness: There is no abdominal tenderness. There is no right CVA tenderness or left CVA tenderness. Genitourinary: General: Normal vulva. Vagina: Vaginal discharge (white curd) present. Skin: General: Skin is warm and dry. Neurological: Mental Status: She is alert. ASSESSMENT/PLAN: 1. Dysuria - ICD9: 788.1, ICD10: R30.0 (primary diagnosis) acute - Send urine for culture - Patient education for prevention given - URINALYSIS, DIPSTICK ONLY - URINE CULTURE 2. Vaginal discharge - ICD9: 623.5, ICD10: N89.8 Will call with results - GONORRHEA/CHLAMYDIA NAAT - TRICHOMONAS VAGINALIS NAAT 3. Vaginal yeast infection - ICD9: 112.1, ICD10: B37.31 Take one dose of Fluconazole and if symptoms persist, follow up. - FLUCONAZOLE 150 MG TABLET Patient stable at discharge Reviewed exam results in detail and plan with patient Patient understands and agreed. Gena Odonnell APRN.METAL FINISH INSPECTOR . [facility] 04-06-2023 History of Present illness Narrative Clarisse is a 27 year old female arriving at clinic today for Patient presents with: Vaginal Discharge: White vaginal discharge vagival itching cramping and body aches 4 days HPI A 27 y/o female presents with white curdy vaginal discharge and itching x4 days. She wants STD testing. She reports body aches, Denies flank pain, or pain with urination, or fever. Vital Signs: BP 134/80 Pulse 80 Temp 97.8 Resp 16 Wt 234 lb (106.1kg) SpO2 98% LMP 03/28/2023 Allergies: ALLERGIES Allergen Reactions Penicillins Hives Current Medications: adapalene (DIFFERIN) 0.1 % cream Apply 1 maribel, Topical, qHS, apply a thin film to affected area after washing at bedtime. use with sunscreen and moisturizer., # 45 gram(s), 0 Refill(s), Pharmacy: [facility]/pharmacy #[id number], Cream, 162.6, cm, 01/10/20 16:23:00 EDT, Height, 97.7, kg, 01/10/20 1... (Patient not taking: Reported on 08/27/2022) azithromycin (ZITHROMAX) 250 mg tablet take 2 tablets by mouth on day 1 IN ONE DOSE then 1 tablet on days 2 through 5 (Patient not taking: Reported on 08/27/2022) escitalopram oxalate (LEXAPRO) 20 mg tablet 20 mg. (Patient not taking: Reported on 01/17/2023) fluticasone (FLONASE ALLERGY RELIEF) 50 mcg/actuation nasal spray Use 1 Buhler in each nostril twice daily. (Patient not taking: Reported on 01/17/2023) methylPREDNISolone (MEDROL, VIVIEN,) 4 mg Dose-Pack Take by mouth per package instructions (Patient not taking: Reported on 08/27/2022) History reviewed. No pertinent past medical history. History reviewed. No pertinent surgical history. Review of Systems: Review of Systems see HPI Exam: Physical Exam Vitals and nursing note reviewed. Constitutional: General: She is not in acute distress. Appearance: Normal appearance. She is normal weight. She is not ill-appearing. Abdominal: General: Bowel sounds are normal. Palpations: Abdomen is soft. Tenderness: There is no abdominal tenderness. There is no right CVA tenderness or left CVA tenderness. Genitourinary: General: Normal vulva. Vagina: Vaginal discharge (white curd) present. Skin: General: Skin is warm and dry. Neurological: Mental Status: She is alert. ASSESSMENT/PLAN: 1. Dysuria - ICD9: 788.1, ICD10: R30.0 (primary diagnosis) acute - Send urine for culture - Patient education for prevention given - URINALYSIS, DIPSTICK ONLY - URINE CULTURE 2. Vaginal discharge - ICD9: 623.5, ICD10: N89.8 Will call with results - GONORRHEA/CHLAMYDIA NAAT - TRICHOMONAS VAGINALIS NAAT 3. Vaginal yeast infection - ICD9: 112.1, ICD10: B37.31 Take one dose of Fluconazole and if symptoms persist, follow up. - FLUCONAZOLE 150 MG TABLET Patient stable at discharge Reviewed exam results in detail and plan with patient Patient understands and agreed. Gena Odonnell APRN.CNP . documented in this encounter [facility] 02-24-2023 Note . MICRO - Microbiology PROCEDURE: Affirm Pathogens DNA Direct Probe [*1] SOURCE: Vaginal Fluid BODY SITE: Cervix COLLECTED DATE/TIME: 02/23/2023 14:41 EDT RECEIVED DATE/TIME: 02/23/2023 19:24 EDT START DATE/TIME: 02/23/2023 19:24 EDT FREE TEXT SOURCE: FINAL REPORTS Final Report [] Verified Date/Time/Personnel: 02/24/2023 10:20 EDT Santi species DNA Probe Negative Gardnerella vaginalis DNA Probe Negative Trichomonas vaginalis DNA Probe Negative Performing Locations *1: This test was performed at: [address], [facility] , [facility] ([place]) 01-17-2023 Instructions France Bernal MD - 01/17/2023 4:15 PM EDT Take medication as per prescription Lab result is pending Follow-up with obstetrician gynecologist for evaluation and care Explained details Precautions documented in this encounter [facility] 01-17-2023 Note HNO ID: [id number] Author: France Bernal MD Service: ? Author Type: Physician Type: Progress Notes Filed: 01/17/2023 4:16 PM Note Text: Clarisse Reynoso is a 27 year old FEMALE who presents with Vaginal Discharge (Discomfort itchy //Patient states was having intercourse with someone and the condom broke and was inside of patient patient states it is no longer inside of her but states she has a hx of chlamydia//States that she is having burning / ) 27 years old female with vaginal discharge with discomfort and itching Patient stated that 4 days ago the condom broke while she was having intercourse She did a condom was retained in the vaginal canal but that has been completely removed by herself There is no foreign body in the vaginal canal now but because of this discharge she wanted to be checked for STD Denies any burning of urination No genital lesions. Vaginal Discharge History reviewed. No pertinent past medical history. There is no problem list on file for this patient. Current Outpatient Medications Medication Sig Dispense Refill adapalene (DIFFERIN) 0.1 % cream Apply 1 maribel, Topical, qHS, apply a thin film to affected area after washing at bedtime. use with sunscreen and moisturizer., # 45 gram(s), 0 Refill(s), Pharmacy: [facility]/pharmacy #[id number], Cream, 162.6, cm, 01/10/20 16:23:00 EDT, Height, 97.7, kg, 01/10/20 1... (Patient not taking: Reported on 08/27/2022) azithromycin (ZITHROMAX) 250 mg tablet take 2 tablets by mouth on day 1 IN ONE DOSE then 1 tablet on days 2 through 5 (Patient not taking: Reported on 08/27/2022) escitalopram oxalate (LEXAPRO) 20 mg tablet 20 mg. (Patient not taking: Reported on 01/17/2023) fluticasone (FLONASE ALLERGY RELIEF) 50 mcg/actuation nasal spray Use 1 Buhler in each nostril twice daily. (Patient not taking: Reported on 01/17/2023) 9.9 mL 0 methylPREDNISolone (MEDROL, VIVIEN,) 4 mg Dose-Pack Take by mouth per package instructions (Patient not taking: Reported on 08/27/2022) 21 tablet 0 No current facility-administered medications for this visit. Social History Tobacco Use Smoking status: Former Types: Cigarettes Smokeless tobacco: Never Vaping Use Vaping Use: current everyday user Substances: Nicotine, Flavoring Devices: Disposable, Pre-filled pod Substance Use Topics Alcohol use: Yes Alcohol/week: 2.0 - 4.0 standard drinks of alcohol Types: 2 - 4 Standard drinks or equivalent per week Drug use: Yes Types: Marijuana Alcohol Use: Approximately 1.2-2.4 oz/week [which includes 2-4 Standard drinks or equivalent per week] Tobacco Use: Types: Cigarettes History reviewed. No pertinent family history. Review of Systems Genitourinary: Vaginal discharge All other systems reviewed and are negative. BP 126/67 Pulse 74 Temp (Src) 97 (Temporal) Resp 18 Wt 230 lb 6.4 oz (104.5kg) SpO2 98% LMP 01/16/2023 Physical Exam Vitals reviewed. Constitutional: General: She is not in acute distress. Appearance: Normal appearance. She is not ill-appearing or toxic-appearing. Cardiovascular: Rate and Rhythm: Normal rate and regular rhythm. Heart sounds: Normal heart sounds. Pulmonary: Effort: Pulmonary effort is normal. Breath sounds: Normal breath sounds. Genitourinary: Comments: Patient did not think that I need to do pelvic exam today she will wait for STD result Neurological: Mental Status: She is alert. Explained to patient that STD result will be available in 1 or 2 days he will come back positive then she will need to be treated accordingly Following the discharge and itching this could be yeast infection as well I will treat her with Diflucan today. Explained to her that I want her to be evaluated by obstetrician gynecologist for thorough evaluation, patient understand and agreed. She has a obstetrician gynecologist and will make appointment. ASSESSMENT/PLAN: 1. Possible exposure to STD - ICD9: V01.6, ICD10: Z20.2 (primary diagnosis) - GONORRHEA/CHLAMYDIA NAAT 2. Vaginal candidiasis - ICD9: 112.1, ICD10: B37.31 - FLUCONAZOLE 150 MG TABLET Take medication as per prescription Lab result is pending Follow-up with obstetrician gynecologist for evaluation and care Explained details Precautions France Bernal MD [facility] 01-17-2023 History of Present illness Narrative Clarisse Reynoso is a 27 year old FEMALE who presents with Vaginal Discharge (Discomfort itchy //Patient states was having intercourse with someone and the condom broke and was inside of patient patient states it is no longer inside of her but states she has a hx of chlamydia//States that she is having burning / ) 27 years old female with vaginal discharge with discomfort and itching Patient stated that 4 days ago the condom broke while she was having intercourse She did a condom was retained in the vaginal canal but that has been completely removed by herself There is no foreign body in the vaginal canal now but because of this discharge she wanted to be checked for STD Denies any burning of urination No genital lesions. Vaginal Discharge History reviewed. No pertinent past medical history. There is no problem list on file for this patient. Current Outpatient Medications Medication Sig Dispense Refill adapalene (DIFFERIN) 0.1 % cream Apply 1 maribel, Topical, qHS, apply a thin film to affected area after washing at bedtime. use with sunscreen and moisturizer., # 45 gram(s), 0 Refill(s), Pharmacy: [facility]/pharmacy #[id number], Cream, 162.6, cm, 01/10/20 16:23:00 EDT, Height, 97.7, kg, 01/10/20 1... (Patient not taking: Reported on 08/27/2022) azithromycin (ZITHROMAX) 250 mg tablet take 2 tablets by mouth on day 1 IN ONE DOSE then 1 tablet on days 2 through 5 (Patient not taking: Reported on 08/27/2022) escitalopram oxalate (LEXAPRO) 20 mg tablet 20 mg. (Patient not taking: Reported on 01/17/2023) fluticasone (FLONASE ALLERGY RELIEF) 50 mcg/actuation nasal spray Use 1 Buhler in each nostril twice daily. (Patient not taking: Reported on 01/17/2023) 9.9 mL 0 methylPREDNISolone (MEDROL, VIVIEN,) 4 mg Dose-Pack Take by mouth per package instructions (Patient not taking: Reported on 08/27/2022) 21 tablet 0 No current facility-administered medications for this visit. Social History Tobacco Use Smoking status: Former Types: Cigarettes Smokeless tobacco: Never Vaping Use Vaping Use: current everyday user Substances: Nicotine, Flavoring Devices: Disposable, Pre-filled pod Substance Use Topics Alcohol use: Yes Alcohol/week: 2.0 - 4.0 standard drinks of alcohol Types: 2 - 4 Standard drinks or equivalent per week Drug use: Yes Types: Marijuana Alcohol Use: Approximately 1.2-2.4 oz/week [which includes 2-4 Standard drinks or equivalent per week] Tobacco Use: Types: Cigarettes History reviewed. No pertinent family history. Review of Systems Genitourinary: Vaginal discharge All other systems reviewed and are negative. BP 126/67 Pulse 74 Temp (Src) 97 (Temporal) Resp 18 Wt 230 lb 6.4 oz (104.5kg) SpO2 98% LMP 01/16/2023 Physical Exam Vitals reviewed. Constitutional: General: She is not in acute distress. Appearance: Normal appearance. She is not ill-appearing or toxic-appearing. Cardiovascular: Rate and Rhythm: Normal rate and regular rhythm. Heart sounds: Normal heart sounds. Pulmonary: Effort: Pulmonary effort is normal. Breath sounds: Normal breath sounds. Genitourinary: Comments: Patient did not think that I need to do pelvic exam today she will wait for STD result Neurological: Mental Status: She is alert. Explained to patient that STD result will be available in 1 or 2 days he will come back positive then she will need to be treated accordingly Following the discharge and itching this could be yeast infection as well I will treat her with Diflucan today. Explained to her that I want her to be evaluated by obstetrician gynecologist for thorough evaluation, patient understand and agreed. She has a obstetrician gynecologist and will make appointment. ASSESSMENT/PLAN: 1. Possible exposure to STD - ICD9: V01.6, ICD10: Z20.2 (primary diagnosis) - GONORRHEA/CHLAMYDIA NAAT 2. Vaginal candidiasis - ICD9: 112.1, ICD10: B37.31 - FLUCONAZOLE 150 MG TABLET Take medication as per prescription Lab result is pending Follow-up with obstetrician gynecologist for evaluation and care Explained details Precautions France Bernal MD documented in this encounter [facility] 11-26-2022 Note . MICRO - Microbiology PROCEDURE: Affirm Pathogens DNA Direct Probe [*1] SOURCE: Vaginal Fluid BODY SITE: Vagina COLLECTED DATE/TIME: 11/25/2022 16:37 EDT RECEIVED DATE/TIME: 11/25/2022 19:41 EDT START DATE/TIME: 11/25/2022 19:42 EDT FREE TEXT SOURCE: FINAL REPORTS Final Report [] Verified Date/Time/Personnel: 11/26/2022 11:15 EDT Gardnerella vaginalis DNA Probe Negative Trichomonas vaginalis DNA Probe Negative Santi species DNA Probe Negative Performing Locations *1: This test was performed at: [facility], [address] [place] [address], [id number] , [facility] ([place]) 08-27-2022 History of Present illness Narrative Clarisse Reynoso is a 27 year old female who presents with Urinary Problem (C/O blood in urine) and Abdominal Pain (Lower abdominal pain that started today/) HPI patient 27-year-old female who presented to the [facility] the evening with a complaint of blood in the urine, increased urinary frequency urgency and lower abdominal pain the symptoms started today and patient also states that she has abnormal short menstrual cycle this month for the patient concerned and come in for further evaluation and treatment patient is sexually active. History reviewed. No pertinent past medical history. There is no problem list on file for this patient. Current Outpatient Medications Medication Sig Dispense Refill escitalopram oxalate (LEXAPRO) 20 mg tablet 20 mg. fluticasone (FLONASE ALLERGY RELIEF) 50 mcg/actuation nasal spray Use 1 Buhler in each nostril twice daily. 9.9 mL 0 adapalene (DIFFERIN) 0.1 % cream Apply 1 maribel, Topical, qHS, apply a thin film to affected area after washing at bedtime. use with sunscreen and moisturizer., # 45 gram(s), 0 Refill(s), Pharmacy: [facility]/pharmacy #[id number], Cream, 162.6, cm, 01/10/20 16:23:00 EDT, Height, 97.7, kg, 01/10/20 1... (Patient not taking: Reported on 08/27/2022) azithromycin (ZITHROMAX) 250 mg tablet take 2 tablets by mouth on day 1 IN ONE DOSE then 1 tablet on days 2 through 5 (Patient not taking: Reported on 08/27/2022) methylPREDNISolone (MEDROL, VIVIEN,) 4 mg Dose-Pack Take by mouth per package instructions (Patient not taking: Reported on 08/27/2022) 21 tablet 0 No current facility-administered medications for this visit. Social History Tobacco Use Smoking status: Former Types: Cigarettes Smokeless tobacco: Never Vaping Use Vaping Use: current everyday user Substances: Nicotine Substance Use Topics Alcohol use: Yes Drug use: Not Currently Alcohol Use: Yes Tobacco Use: Types: Cigarettes History reviewed. No pertinent family history. Review of Systems Constitutional: Negative for chills, fever and malaise/fatigue. Respiratory: Negative for shortness of breath. Cardiovascular: Negative for chest pain and palpitations. Gastrointestinal: Negative for diarrhea, nausea and vomiting. Genitourinary: Positive for frequency, hematuria and urgency. Negative for flank pain. Skin: Negative for rash. Neurological: Negative for dizziness. BP 145/80 Pulse 63 Temp 97.8 Resp 18 Wt 225 lb (102.1kg) SpO2 100% LMP 08/26/2022 Physical Exam Vitals and nursing note reviewed. Constitutional: Appearance: Normal appearance. She is not ill-appearing or diaphoretic. Cardiovascular: Rate and Rhythm: Normal rate and regular rhythm. Pulses: Normal pulses. Heart sounds: Normal heart sounds. Pulmonary: Breath sounds: Normal breath sounds. Abdominal: Palpations: Abdomen is soft. Tenderness: There is no abdominal tenderness. There is no right CVA tenderness, left CVA tenderness or guarding. Musculoskeletal: Cervical back: Normal range of motion and neck supple. ASSESSMENT/PLAN: 1. Cystitis - ICD9: 595.9, ICD10: N30.90 (primary diagnosis) acute - UA positive for shell esterase and hematuria - Send urine for culture - Begin treatment with Ciprofloxacin 250 mg BID for 7 days - Patient education for prevention given - URINALYSIS, DIPSTICK ONLY - HCG QUAL UR - URINE CULTURE - CIPROFLOXACIN 250 MG TABLET 2. Abnormal menstrual cycle - ICD9: 626.9, ICD10: N92.6 Complications of the disease were discussed with the patient. Instructed to follow up with primary care physician in 4 to 5 days for recheck Gibson Del Cid MD documented in this encounter [facility] 07-14-2022 Instructions France Bernal MD - 07/14/2022 9:10 AM EDT Saline nasal spray Recheck if any change F/u PCP for further ration and care explained details documented in this encounter [facility] 07-14-2022 History of Present illness Narrative Clarisse Reynoso is a 27 year old FEMALE who presents with Sinusitis (Sinus congestion x 1 week) 27 years old female present with congestion and drainage for the last 1 week She was recently diagnosed with strep throat and was treated with Zithromax which she just finished But her congestion is not getting better Feels sinus pressure No chest discomfort The sore throat has resolved She has been using [id number] nasal spray from the [employer] store Which I have explained to her that [id number] nasal decongestant can cause rebound of symptoms History reviewed. No pertinent past medical history. There is no problem list on file for this patient. Current Outpatient Medications Medication Sig Dispense Refill adapalene (DIFFERIN) 0.1 % cream Apply 1 maribel, Topical, qHS, apply a thin film to affected area after washing at bedtime. use with sunscreen and moisturizer., # 45 gram(s), 0 Refill(s), Pharmacy: [facility]/pharmacy #[id number], Cream, 162.6, cm, 01/10/20 16:23:00 EDT, Height, 97.7, kg, 01/10/20 1... escitalopram oxalate (LEXAPRO) 20 mg tablet 20 mg. azithromycin (ZITHROMAX) 250 mg tablet take 2 tablets by mouth on day 1 IN ONE DOSE then 1 tablet on days 2 through 5 No current facility-administered medications for this visit. Social History Tobacco Use Smoking status: Former Types: Cigarettes Smokeless tobacco: Never Vaping Use Vaping Use: current everyday user Substance Use Topics Alcohol use: Yes Drug use: Not Currently Alcohol Use: Yes Tobacco Use: Types: Cigarettes History reviewed. No pertinent family history. Review of Systems Constitutional: Negative for chills and fever. HENT: Positive for congestion and sinus pain. Eyes: Negative. Respiratory: Positive for cough. Cardiovascular: Negative. BP 127/58 Pulse 77 Temp 98.8 Resp 18 Wt 223 lb (101.2kg) SpO2 97% LMP 08/24/2019 Physical Exam Vitals reviewed. Constitutional: General: She is not in acute distress. Appearance: Normal appearance. She is not ill-appearing or toxic-appearing. HENT: Nose: Congestion and rhinorrhea present. Mouth/Throat: Mouth: Mucous membranes are moist. Pharynx: Oropharynx is clear. No posterior oropharyngeal erythema. Cardiovascular: Rate and Rhythm: Normal rate and regular rhythm. Heart sounds: Normal heart sounds. Pulmonary: Effort: Pulmonary effort is normal. Breath sounds: Normal breath sounds. Musculoskeletal: Cervical back: Normal range of motion and neck supple. Neurological: Mental Status: She is alert. Explained to patient that she just finished Zithromax which usually remain in the system longer than the duration of the medication. So I do not think she needs another course right away, I explained to her in detail about signs or symptoms. Today we will treat her with Flonase and Medrol Dosepak which may help relieve her symptoms. But she may need to be rechecked if there is no improvement in 1 week. After long explanation and discussion patient understand and agreed ASSESSMENT/PLAN: 1. Acute non-recurrent maxillary sinusitis - ICD9: 461.0, ICD10: J01.00 - FLUTICASONE PROPIONATE 50 MCG/ACTUATION NASAL SPRAY,SUSPENSION - METHYLPREDNISOLONE 4 MG TABLETS IN A DOSE PACK Saline nasal spray Recheck if any change F/u PCP for further ration and care explained details France Bernal MD documented in this encounter [facility] 11-03-2021 Miscellaneous Notes Verified results with pt. Pt verbalized understanding. Jessie Hatch MA Let patient know her swab for yeast was positive as well. Diflucan sent to pharmacy. documented in this encounter [facility] 11-03-2021 Miscellaneous Notes Verified results with pt. Jessie Hatch MA Vaginal culture showed overgrowth of normal bacteria again. Rx for flagyl sent. Follow up with [facility]. GC/chlamydia negative. Will notify if other testing results for yeast or trichomonas are abnormal. documented in this encounter [facility] 11-02-2021 Instructions Mariaelena Saul APRN.[employer] FINISH INSPECTOR - 11/02/2021 2:01 PM EDT VAGINAL DISCHARGE What is vaginal discharge? Vaginal discharge is a clear or whitish fluid that comes out of the vagina. The uterus, cervix, or vagina can produce the fluid. Is vaginal discharge normal? Yes. Most women have vaginal discharge but not all discharge is normal. The amount of discharge is different for each woman. Some women have a little discharge now and then. Others have discharge every day. Your normal discharge might change many times throughout your life. Should I douche to get rid of vaginal discharge? No. Douches should not be used to get rid of vaginal discharge. Douching can upset the natural balance of organisms in your body. Douching can also lead to infection. Normal vaginal discharge should not be thought of as unclean or unhealthy. It is a normal way for your body to discard fluid and old cells. If my discharge changes, do I have an infection? Maybe. Your discharge might change color, become heavier, or smell different. You might notice irritation around the opening of the vagina. You might also notice changes before or after your period. Changes in vaginal discharge might or might not be a sign that you have a vaginal infection. When is vaginal discharge a sign of an infection? Your vaginal discharge might be the sign of an infection if it: Causes itching Causes swelling Has a bad odor Is green, yellow, or newton in color Looks foamy or like cottage cheese What infections cause vaginal discharge to change? There are a number of infections that cause vaginal discharge to change or become unpleasant. Many of these infections can be caused by having sex with someone who has the infection. This graph describes a number of common vaginal infections: Name of infection Is caused by having sex with an infected person? What does discharge look like? How is the infection treated? Yeast Infection No Thick, white, like cottage cheese Vaginal creams or pills Trichomoniasis (Trick) Yes Green, yellow, or newton in color; frothy Pills ordered by your doctor Bacterial vaginosis (Gardnerella or BV) Probably not White discharge that smells fishy Pills or vaginal cream ordered by your doctor Gonorrhea (Clap) Yes Cloudy or yellow, but often no symptoms Pills or shots ordered by your doctor Chlamydia ([id number]-uek-bp-ah) Yes Often no symptoms Pills ordered by your doctor Can a woman have more than one infection at once? Yes. A woman may have two or three types of infection at the same time. Why do women get vaginal infections? Health care providers do not yet know all of the reasons why women get vaginal infections. They do know that some types are spread by having sex with an infected person. You might have a higher risk of getting infections if you: Have sex without protection (trichomoniasis, gonorrhea, chlamydia) Have diabetes (yeast) Have many sex partners (trichomoniasis, gonorrhea, chlamydia) Take control pills (yeast) Are taking antibiotic medicine (yeast) Have an HIV infection (yeast) When should I see my health care provider? You should see your health care provider if: Your vaginal discharge changes color, becomes heavier, or smells different. You notice itching, burning, swelling, or soreness around the vagina. Copyright 8990-3062 The [facility]. All rights reserved. This information is provided by the [facility] and is not intended to replace the medical advice of your doctor or health care provider. Please consult your health care provider for advice about a specific medical condition. For additional written health information, please contact the Health Information Center at the [facility] or toll-free extension [phone]. This document was last reviewed on: 2004 index#[id number] documented in this encounter [facility] 11-02-2021 History of Present illness Narrative This note was created using [employer]epoint[employer]. Subjective Clarisse Reynoso is a 26 year old female. 26 year old female with PMH presents for recurrent vaginal discharge. Acute onset one week +discharge +white Constant Denies sx. Denies fever or chills Denies abdominal pain. Denies back pain LMP unknown, nexplanon Seen 10/14/21 for same, diagnosed and treated for BV. Sexually active. The history is provided by the patient. No blocker heated metal forms was used. Vaginal Discharge This is a new problem. The current episode started more than 1 week ago. The problem occurs constantly. The problem has been gradually worsening. The discharge occurs spontaneously. The discharge was white. She is not . She has not missed her period. Pertinent negatives include no anorexia, no diaphoresis, no fever, no abdominal swelling, no abdominal pain, no constipation, no diarrhea, no nausea, no vomiting, no dyspareunia, no dysuria, no frequency, no genital burning, no genital itching, no genital lesions, no perineal pain and no perineal odor. She has tried nothing for the symptoms. The treatment provided no relief. Her past medical history does not include irregular periods, PID, STD, ectopic , ovarian cysts or infertility. No past medical history on file. No past surgical history on file. ALLERGIES Penicillins MEDICATIONS etonogestrel (NEXPLANON) 68 mg impl subdermal implant 68 mg by SUBDERMAL route. escitalopram oxalate (LEXAPRO) 10 mg tablet Take 10 mg by mouth once daily. hydrOXYzine pamoate (VISTARIL) 25 mg capsule Take 1 capsule by mouth three times daily as needed. lactobacillus rhamnosus (CULTURELLE) 15 billion cell capsule Take 1 capsule by mouth once daily. medroxyPROGESTERone (DEPO-PROVERA) 150 mg/mL injection INJECT IM EVERY 3 MONTHS No family history on file. Social History Tobacco Use Smoking status: Current Every Day Smoker Smokeless tobacco: Never Used Substance Use Topics Alcohol use: Not on file Drug use: Not on file Review of Systems Constitutional: Negative for activity change, appetite change, diaphoresis and fever. Respiratory: Negative for apnea, choking and chest tightness. Cardiovascular: Negative for chest pain, palpitations and leg swelling. Gastrointestinal: Negative for abdominal pain, anorexia, constipation, diarrhea, nausea and vomiting. Genitourinary: Positive for vaginal discharge. Negative for dyspareunia, dysuria and frequency. Musculoskeletal: Negative for arthralgias, back pain and gait problem. Skin: Negative for color change, pallor, rash and wound. Allergic/Immunologic: Negative for environmental allergies, food allergies and immunocompromised state. Neurological: Negative for dizziness and facial asymmetry. Hematological: Negative for adenopathy. Does not bruise/bleed easily. Psychiatric/Behavioral: Negative for agitation and behavioral problems. Objective BP 120/72 Pulse 100 Temp 37.2 C (99 F) Resp 20 Wt 109.4 kg (241 lb 3.2 oz) LMP 08/27/2019 SpO2 99% Physical Exam Vitals and nursing note reviewed. Exam conducted with a architecture internship present. Constitutional: General: She is not in acute distress. Appearance: Normal appearance. She is normal weight. She is not ill-appearing, toxic-appearing or diaphoretic. HENT: Head: Normocephalic and atraumatic. Right Ear: Ear canal and external ear normal. Left Ear: Ear canal and external ear normal. Nose: Nose normal. No congestion or rhinorrhea. Mouth/Throat: Mouth: Mucous membranes are moist. Pharynx: No oropharyngeal exudate or posterior oropharyngeal erythema. Eyes: General: Right eye: No discharge. Left eye: No discharge. Extraocular Movements: Extraocular movements intact. Conjunctiva/sclera: Conjunctivae normal. Pupils: Pupils are equal, round, and reactive to light. Cardiovascular: Rate and Rhythm: Normal rate and regular rhythm. Pulses: Normal pulses. Heart sounds: Normal heart sounds. No murmur heard. No friction rub. Pulmonary: Effort: Pulmonary effort is normal. No respiratory distress. Breath sounds: Normal breath sounds. No stridor. No wheezing, rhonchi or rales. Chest: Chest wall: No tenderness. Abdominal: General: Abdomen is flat. There is no distension. Palpations: Abdomen is soft. There is no mass. Tenderness: There is no abdominal tenderness. There is no right CVA tenderness, left CVA tenderness, guarding or rebound. Hernia: No hernia is present. Genitourinary: Exam position: Lithotomy position. Pubic Area: No rash or pubic lice. Labia: Right: No rash, tenderness or lesion. Left: No rash, tenderness or lesion. Vagina: No foreign body. Vaginal discharge present. No erythema, bleeding or lesions. Cervix: Normal. Comments: Musculoskeletal: General: No swelling, tenderness, deformity or signs of injury. Normal range of motion. Cervical back: Normal range of motion and neck supple. No rigidity. Right lower leg: No edema. Left lower leg: No edema. Lymphadenopathy: Cervical: No cervical adenopathy. Skin: General: Skin is warm and dry. Capillary Refill: Capillary refill takes less than 2 seconds. Coloration: Skin is not jaundiced or pale. Findings: No bruising, erythema, lesion or rash. Neurological: General: No focal deficit present. Mental Status: She is alert and oriented to person, place, and time. Cranial Nerves: No cranial nerve deficit. Sensory: No sensory deficit. Motor: No weakness. Coordination: Coordination normal. Gait: Gait normal. Psychiatric: Mood and Affect: Mood normal. Behavior: Behavior normal. Thought Content: Thought content normal. Judgment: Judgment normal. Assessment and Plan ASSESSMENT/PLAN: 1. Vaginal discharge - ICD9: 623.5, ICD10: N89.8 Reoccurring Treated for BV 10/14/21 Hemodynamically stable Well appearing CX obtained, and will hold treatment until cultures return - SANTI / TRICHOMONAS AMPLIFICATION - BACTERIAL VAGINOSIS AMPLIFICATION - GC/CHLAMYDIA DNA DET Mariaelena Saul APRN.SRAVAN documented in this encounter [facility] 10-15-2021 Miscellaneous Notes Patient returned call and given provider's message below and patient verbalized understanding. Lula Mancera RN Left message for patient to return call for results and recommendations.Destiney Perkins LPN Bacterial Vaginosis Positive. Flagyl sent in to pharmacy on file ([facility] in [place]) Gonorrhea negative Chlamydia negative. Yeast and trichomonas negative. Please call and discuss above with patient. BV is not an STI. Follow up with PCP or [facility]. documented in this encounter [facility] 06-13-2021 Evaluation + Plan note Future Scheduled TestsThyroid Stimulating Hormone 06/13/21Lipid Profile 06/13/21Vitamin D Level 06/13/21Complete Metabolic Panel 06/13/21US Breast Left Limited 02/12/21XR Chest 2 Views (PA & Lateral) 11/09/20XR Chest 2 Views (PA & Lateral) 11/09/20XR Chest 2 Views (PA & Lateral) 03/26/21 [facility] 02-12-2021 Evaluation + Plan note Future Scheduled TestsUS Breast Left Limited 02/12/21XR Chest 2 Views (PA & Lateral) 11/09/20XR Chest 2 Views (PA & Lateral) 11/09/20 [facility] 02-12-2021 Evaluation + Plan note Future Scheduled TestsUS Breast Left Limited 02/12/21XR Chest 2 Views (PA & Lateral) 11/09/20XR Chest 2 Views (PA & Lateral) 11/09/20XR Chest 2 Views (PA & Lateral) 03/26/21 [facility] 05-06-2020 History of Present illness Narrative Radiology Service Progress Note PATIENT NAME: Clarisse Reynoso DATE OF SERVICE: May 06, 2020 TIME: 3:59 PM PATIENT IDENTITY VERIFICATION COMPLETED USING TWO (2) IDENTIFIERS: Name and Date of confirmed by patient verbally. FALL SCREENING: Has the patient had 2 falls in the last year or 1 fall with injury or currently using an Ambulatory Assistive Device (Walker, Cane, Wheelchair, Crutches, etc.)? No PATIENT GENDER DATA: Female. status: : No status: NO. PATIENT RELEVANT IMPLANT DATA REVIEWED: Not Applicable RADIOLOGY DEPARTMENT: General X-ray: Exam(s) Completed: Lower Extremity X-Ray(s): Ankle, Right and Wt. Bearing: PERIPHERAL IV DATA: Not applicable SIGNED BY: RT Ina May 06, 2020 3:59 PM documented in this encounter [facility] Evaluation + Plan note Future Appointments Appointment Date:03/09/2023 09:00:00 AM Scheduled Provider: Location:RAD Appointment Type:US Breast Left Limited Future Scheduled TestsUS Breast Left Limited 03/09/23 [facility] Evaluation + Plan note Future Appointments Appointment Date:08/06/2023 01:00:00 PM Scheduled Provider:NORIS HYLTON DO Location:[facility] Appointment Type:PC OV [facility] Evaluation + Plan note Future Appointments Appointment Date:11/24/2023 11:30:00 AM Scheduled Provider:NORIS HYLTON DO Location:[facility] Appointment Type:PC OV Diagnostic Tests PendingN. gonorrhoeae PCR 11/18/23Chlamydia trachomatis PCR 11/18/23[facility] DNA Direct Probe 11/18/23 Future Scheduled TestsLipid Profile 07/23/23epatitis C Antibody IgG 07/23/23 [facility] Evaluation + Plan note Future Appointments Appointment Date:05/03/2024 11:30:00 AM Scheduled Provider:NORIS HYLTON DO Location:[facility] Appointment Type:PC OV Future Scheduled TestsLipid Profile 07/23/23epatitis C Antibody IgG 07/23/23 [facility] Evaluation + Plan note Future Appointments Appointment Date:10/12/2024 10:30:00 AM Scheduled Provider:NORIS HYLTON DO Location:[facility] Appointment Type:PC OV [facility] Evaluation + Plan note Future Appointments Appointment Date:01/10/2025 01:00:00 PM Scheduled Provider:NORIS HYLTON DO Location:[facility] Appointment Type:PC Wellness Annual Future Scheduled TestsTSH with Reflex to FT4 01/12/25Complete Blood Count 01/12/25Lipid Profile 01/12/25Vitamin D Level 01/12/25Complete Metabolic Panel 01/12/25 [facility] Evaluation note Diagnosis Vaginal discharge- Primary Leukorrhea, not specified as infective documented in this encounter [facility] note* Diagnosis Acute non-recurrent maxillary sinusitis- Primary documented in this encounter [facility] note* Diagnosis Cystitis- Primary Cystitis, unspecified Abnormal menstrual cycle Unspecified disorder of menstruation and other abnormal bleeding from female genital tract documented in this encounter [facility] note* Diagnosis Possible exposure to STD- Primary Other specified personal history presenting hazards to health Vaginal candidiasis Candidiasis of vulva and vagina documented in this encounter [facility] note* Diagnosis Dysuria- Primary Vaginal discharge Leukorrhea, not specified as infective Vaginal yeast infection Candidiasis of vulva and vagina documented in this encounter [facility] note* Diagnosis Acute vaginitis- Primary Vaginitis and vulvovaginitis, unspecified Dysuria Recurrent UTI (urinary tract infection) Urinary tract infection, site not specified documented in this encounter [facility] note* Diagnosis Acute vaginitis- Primary Vaginitis and vulvovaginitis, unspecified documented in this encounter [facility] note* Diagnosis Vaginal itching- Primary Pruritus of genital organs documented in this encounter [facility] note* Diagnosis Acute right ankle pain documented in this encounter [facility] note* Diagnosis Encounter for screening examination for sexually transmitted disease- Primary Itching in the vaginal area Pruritus of genital organs Vaginal spotting Other specified noninflammatory disorder of vagina documented in this encounter [facility] note* Diagnosis Left lateral abdominal pain- Primary Abdominal pain, unspecified site documented in this encounter [facility] note* Diagnosis Vaginal itching- Primary Pruritus of genital organs Vaginal discharge Leukorrhea, not specified as infective documented in this encounter [facility] note* Diagnosis Vaginal yeast infection- Primary Candidiasis of vulva and vagina documented in this encounter [facility] note* Diagnosis Low back pain, unspecified back pain laterality, unspecified chronicity, unspecified whether sciatica present- Primary Urethral irritation Unspecified disorder of urethra and urinary tract Flank pain Abdominal pain, unspecified site [facility] Narrative No data available for this section [facility] Hospital Discharge instructions No data available for this section [facility] Progress note No data available for this section [facility] Summary Purpose Family History No Family History Records FoundNo Family History Records Found No data available for this section No data available for this section No data available for this section No data available for this section No data available for this section No Family History Records Found No data available for this section No Family History Records Found No data available for this section No Family History Records Found No data available for this section No Family History Records Found No data available for this section No data available for this section No Family History Records Found Advance Directives No Advanced Directives Records FoundNo Advanced Directives Records FoundNo Advanced Directives Records FoundNo Advanced Directives Records FoundNo Advanced Directives Records FoundNo Advanced Directives Records FoundNo Advanced Directives Records Found Additional Source Comments INFORMATION SOURCE (unrecogn ized section and content) DATE CREATED AUTHOR 10/19/2017 [facility] [place] DATE CREATED AUTHOR AUTHOR'S ORGANIZ ATION 02/24/2020 [facility] DATE CREATED AUTHOR AUTHOR'S ORGANIZ ATION 10/10/2023 [facility] DATE CREATED AUTHOR AUTHOR'S ORGANIZ ATION [facility] DATE CREATED AUTHOR AUTHOR'S ORGANIZ ATION 06/11/2024 [facility] DATE CREATED AUTHOR AUTHOR'S ORGANIZ ATION 09/24/2024 [facility] DATE CREATED AUTHOR AUTHOR'S ORGANIZ ATION 10/18/2024 [facility] Care Team (unrecognized sect ion and content) Compensator Relationship Specialty Start Date End Date Noris Hylton DO [address] [place] [address] PCP - General Family Medicine 02/09/24 Compensator Relationship Specialty Start Date End Date Noris Hylton DO [address] [place] [address] PCP - General Family Medicine 02/09/24 Compensator Relationship Specialty Start Date End Date Noris Hylton DO [address] [place] [address] PCP - General Family Medicine 02/09/24 Compensator Relationship Specialty Start Date End Date Noris Hylton DO [address] [place] [address] PCP - General Family Medicine 02/09/24 Compensator Relationship Specialty Start Date End Date Noris Hylton DO [address] [place] [address] PCP - General Family Medicine 02/09/24 Compensator Relationship Specialty Start Date End Date Noris Hylton DO [address] [place] [address] PCP - General Family Medicine 02/09/24 Compensator Relationship Specialty Start Date End Date Noris Hylton DO [address] [place] [address] PCP - General Family Medicine 02/09/24 Source Comments (unrecognize d section and content) In the event this informatio n is protected by the Federal Confidentiality of Alcohol and Drug Abuse Patient Records regulations: The Federal rules restrict any use of the information to criminally investigate or prosecute any alcohol or drug abuse patient.[facility] the event this information is protected by the Federal Confidentiality of Alcohol and Drug Abuse Patient Records regulations: The Federal rules restrict any use of the information to criminally investigate or prosecute any alcohol or drug abuse patient.[facility]In the event this information is protected by the Federal Confidentiality of Alcohol and Drug Abuse Patient Records regulations: The Federal rules restrict any use of the information to criminally investigate or prosecute any alcohol or drug abuse patient.[facility] the event this information is protected by the Federal Confidentiality of Alcohol and Drug Abuse Patient Records regulations: The Federal rules restrict any use of the information to criminally investigate or prosecute any alcohol or drug abuse patient.[facility]In the event this information is protected by the Federal Confidentiality of Alcohol and Drug Abuse Patient Records regulations: The Federal rules restrict any use of the information to criminally investigate or prosecute any alcohol or drug abuse patient.[facility] the event this information is protected by the Federal Confidentiality of Alcohol and Drug Abuse Patient Records regulations: The Federal rules restrict any use of the information to criminally investigate or prosecute any alcohol or drug abuse patient.[facility] the event this information is protected by the Federal Confidentiality of Alcohol and Drug Abuse Patient Records regulations: The Federal rules restrict any use of the information to criminally investigate or prosecute any alcohol or drug abuse patient.[facility] HospitalIn the event this information is protected by the Federal Confidentiality of Alcohol and Drug Abuse Patient Records regulations: The Federal rules restrict any use of the information to criminally investigate or prosecute any alcohol or drug abuse patient.[facility] the event this information is protected by the Federal Confidentiality of Alcohol and Drug Abuse Patient Records regulations: The Federal rules restrict any use of the information to criminally investigate or prosecute any alcohol or drug abuse patient.[facility] HospitalIn the event this information is protected by the Federal Confidentiality of Alcohol and Drug Abuse Patient Records regulations: The Federal rules restrict any use of the information to criminally investigate or prosecute any alcohol or drug abuse patient.[facility] HospitalIn the event this information is protected by the Federal Confidentiality of Alcohol and Drug Abuse Patient Records regulations: The Federal rules restrict any use of the information to criminally investigate or prosecute any alcohol or drug abuse patient.[facility] HospitalIn the event this information is protected by the Federal Confidentiality of Alcohol and Drug Abuse Patient Records regulations: The Federal rules restrict any use of the information to criminally investigate or prosecute any alcohol or drug abuse patient.[facility] HospitalIn the event this information is protected by the Federal Confidentiality of Alcohol and Drug Abuse Patient Records regulations: The Federal rules restrict any use of the information to criminally investigate or prosecute any alcohol or drug abuse patient.[facility] HospitalIn the event this information is protected by the Federal Confidentiality of Alcohol and Drug Abuse Patient Records regulations: The Federal rules restrict any use of the information to criminally investigate or prosecute any alcohol or drug abuse patient.[facility] HospitalIn the event this information is protected by the Federal Confidentiality of Alcohol and Drug Abuse Patient Records regulations: The Federal rules restrict any use of the information to criminally investigate or prosecute any alcohol or drug abuse patient.[facility] HospitalIn the event this information is protected by the Federal Confidentiality of Alcohol and Drug Abuse Patient Records regulations: The Federal rules restrict any use of the information to criminally investigate or prosecute any alcohol or drug abuse patient.[facility] HospitalIn the event this information is protected by the Federal Confidentiality of Alcohol and Drug Abuse Patient Records regulations: The Federal rules restrict any use of the information to criminally investigate or prosecute any alcohol or drug abuse patient.[facility] HospitalIn the event this information is protected by the Federal Confidentiality of Alcohol and Drug Abuse Patient Records regulations: The Federal rules restrict any use of the information to criminally investigate or prosecute any alcohol or drug abuse patient.[facility] HospitalIn the event this information is protected by the Federal Confidentiality of Alcohol and Drug Abuse Patient Records regulations: The Federal rules restrict any use of the information to criminally investigate or prosecute any alcohol or drug abuse patient.[facility] HospitalIn the event this information is protected by the Federal Confidentiality of Alcohol and Drug Abuse Patient Records regulations: The Federal rules restrict any use of the information to criminally investigate or prosecute any alcohol or drug abuse patient.[facility] HospitalIn the event this information is protected by the Federal Confidentiality of Alcohol and Drug Abuse Patient Records regulations: The Federal rules restrict any use of the information to criminally investigate or prosecute any alcohol or drug abuse patient.[facility] HospitalIn the event this information is protected by the Federal Confidentiality of Alcohol and Drug Abuse Patient Records regulations: The Federal rules restrict any use of the information to criminally investigate or prosecute any alcohol or drug abuse patient.[facility] Reason for Visit (unrecogniz ed section and content) Reason Comments Results Reason Comments Vaginal Problem BV x2 weeks Reason Comments Results BV Reason Comments Erroneous encounter-disregard Reason Comments Sinusitis Sinus congestion x 1 week Reason Comments Urinary Problem C/O blood in urine Abdominal Pain Lower abdominal pain that started today Reason Comments Vaginal Discharge Discomfort itchy Pat ient states was having intercourse with someone and the condom broke and was inside of patient patient states it is no longer inside of her but states she has a hx of chlamydiaStates that she is having burning Reason Comments Vaginal Discharge White vaginal discha rge vagival itching cramping and body aches 4 days Reason Comments STD Wants testing Reason Comments STD Discharge and itchin g now for 2 days, was with a partner 1 week ago. Discuss possible blood work for HIV and other STD tests with blood work. Reason Comments STD check STD check Reason Comments STD Complete std panel Reason Comments Vaginal Discharge itching x 10-14 days , right ear ? qtip x last night Reason Onset Date Comments Results 07/12/2024 Reason Comments Vaginal Discharge Vaginal discharge x 1 week Reason Comments Back Pain Lower back pain x 1 week Urinary Problem Frequency, discharge , vaginal pain, x 1 weekTested on 09/06 and was negative but had used monistat and would like retested FOR RECORDS PERTAINING TO PATIENTS WHO ARE OR HAVE BEEN ENROLLED IN A CHEMICAL DEPENDENCY/SUBSTANCEABUSE PROGRAM, SOME INFORMATION MAY BE OMITTED. This clinical summary was aggregated from multiple sources. Caution should be exercised in using it in the provision of clinical care. This summary normalizes information from multiple sources, and as a consequence, information in this document may materially change the coding, format and clinical context of patient data. In addition, data may be omitted in some cases. CLINICAL DECISIONS SHOULD BE BASED ON THE PRIMARY CLINICAL RECORDS. [facility]. provides no warranty or guarantee of the accuracy or completeness of information in this document.
[2024-11-12 12:58] LABS: Hematocrit 35.3 % (37-47); Hemoglobin 12.2 g/dL (12.0-15.0); Immature Granulocytes Count 0.010 X10^3/uL (0.0-0.0); Mean Corp Hgb Conc 34.6 g/dL (32-36); Mean Corpuscular Volume 88.0 fL (81-99); Mean Platelet Vol. 10.0 fl (6.2-12.0); NRBC Flagged by Analyzer 0 % (0-5); Platelet Count 205 K/mm3 (150-450); RBC Distribution Width CV 12.5 % (11.6-14.6); RBC Distribution Width SD 40.0 fl (35.1-43.9); Red Blood Count 4.01 M/mm3 (4.2-5.4); White Blood Count 5.6 K/mm3 (4.4-11.0)
[2024-11-12 13:05] LABS: Mucous, Urine 0 SEEN /hpf (<or=2+)
[2024-11-12 13:07] LABS: Color, Urine Yellow (Yellow); Glucose, Dipstick Normal (Normal); Ketone-Dipstick Negative (Negative); Leukocyte Esterase-Dipstick Negative /ul (Negative); Nitrite-Dipstick Negative (Negative); Occult Blood-Urine 250 /ul (Negative); Protein-Dipstick 15 mg/dl (Negative); Specific Gravity, Urine 1.010 (1.002-1.030); Urine Bilirubin Dipstick Negative (Negative)
[2024-11-12 13:17] LABS: Red Blood Cells-Urine 5-10 SEEN /hpf (0-5); Squamous Epithelial Cells - UA 0-5 SEEN /hpf (5-10)
[2024-11-12 13:20] LABS: Internal QC Validated? YES +Cl - CLEAR BKGD; Pregnancy, Serum, hCG Quali. NEGATIVE Negative; Record Kit Lot#, Serum Preg. 0000962302
--- NOTE | 2024-11-12 14:42 | CT_ITS ---
PROCEDURE: ABDOMEN/PELVIS WITHOUT CONT 11/12/2024 REASON FOR EXAM: KIDNEY STONE TECHNIQUE: ABDOMEN/PELVIS WITHOUT CONT Noncontrast technique limits evaluation of the abdominal and pelvic viscera. Coronal and Sagittal reconstruction series were provided. One or more dose reduction techniques were used (e.g., Automated exposure control, adjustment of the mA and/or kV according to patient size, use of iterative reconstruction technique). RADIATION DOSE SUMMARY: CTDlvol: 17.8 mGy DLP: 987 mGycm COMPARISON: 02/14/2024 FINDINGS: Normal noncontrast appearance of the liver, spleen, gallbladder and pancreas. No renal calculus or hydronephrosis. No perinephric fluid. Ureteral caliber is normal. Evaluation of the distal ureters and bladder demonstrates no calculi. There is no free-fluid. No definite free air. No visible bowel wall thickening, diverticulitis or appendicitis CT/Abdomen/Pelvis without Cont IMPRESSION: No acute abnormality Reading [facility]
[2024-11-12 15:51] VITALS: BP 115/74; PULSE 53; RESP 16; O2SAT 100
--- NOTE | 2024-11-12 15:54 | EX.ED.DYSGE1 ---
HPI History of Present Illness Chief Complaint: Complaint Detail of Chief Complaint: Frequency, urgency and flank pain Onset/Context/Timing Onset: Days Context: Sudden Onset Timing: Intermittent and Waxes and wanes Quality: Pain Location: Left flank, left suprapubic area Current Severity: Moderate Maximum Severity: Severe Worsened by: Possibly urination and movement Relieved by: Nothing Associated Symptoms Associated Symptoms: Nausea Narrative Narrative: Patient is a 29-year-old female. She is sexually active. She denies abnormal vaginal bleeding. She denies history of STI, endometriosis or ovarian cyst. She does have history of renal and ureteral lithiasis. She does endorse nausea. She denies vomiting or diarrhea. She does endorse frequency and urgency. She denies dysuria but has pain with urination. She denies hematuria. Patient denies trauma direct or indirect. Patient has not noted a rash. Patient denies vaginal bleeding or vaginal discharge. Prior similar symptoms: No Recent Illness/Hospitalization: No PFSH PFSH Medical History Kidney stone Home Medications ?Medication ?Instructions ?Recorded ?Last Taken ?Type ondansetron 4 mg disintegrating 4 mg PO Q6H PRN PRN Nausea #15 tabs 02/14/24 Unknown Rx tablet oxycodone-acetaminophen 5 mg-325 1 tab PO Q6H PRN PRN Pain 3 days 02/14/24 Unknown Rx mg tablet #12 TABLETS sulfamethoxazole 800 1 tab PO BID #20 TABLETS 02/14/24 Unknown Rx mg-trimethoprim 160 mg tablet nitrofurantoin 100 mg PO Q12 #10 CAPSULES 11/12/24 Unknown Rx monohydrate/macrocrystals 100 mg capsule Allergy/AdvReac Type Severity Reaction Status Date / Time Penicillins (PCN) Allergy Intermediate Hives Verified 11/12/24 12:06 Social History Smoking Status: Never smoker ROS ROS ED Constitutional Constitutional ED: Denies chills, fever(s), subjective or sweats Cardiovascular Cardiovascular: Denies chest pain or palpitations Respiratory/Chest Respiratory/Chest: Denies cough, dyspnea or dyspnea on exertion Gastrointestinal Gastrointestinal: Reports abdominal pain and nausea; Denies constipation, diarrhea, melena or vomiting Genitourinary Genitourinary ED: Reports urinary frequency; Denies dysuria or hematuria Musculoskeletal Musculoskeletal: Reports back pain; Denies arthralgias, myalgias or neck pain Integumentary Denies rash Neurologic Neurologic: Denies paresthesias or weakness Hematologic/Lymphatic Hematologic/Lymphatic: Reports systems reviewed and no addt'l complaints, except as documented EXAM Physical Exam Const Vital Signs: 11/12/24 12:06 11/12/24 12:25 11/12/24 15:51 Temperature 98.3 F 98.3 F Temperature Source Oral Oral Pulse Rate 63 63 53 L Respiratory Rate 16 16 16 Blood Pressure 136/100 H 136/100 H 115/74 Blood Pressure Mean 112 112 87 Pulse Ox 100 100 100 Oxygen Delivery Method Room Air Room Air Positive well nourished and well developed Constitutional Narrative: BMI is 39.2. Patient does appear uncomfortable. General Appearance ED: well developed; Negative for pallor HEENT Reports moist mucous membranes HEENT Narrative: Head is atraumatic normocephalic. Ears normal. Nares patent. Posterior pharynx is normal. Eyes PERRL and EOMs intact bilaterally General Eye ED: Negative for pale conjunctiva or scleral icterus Neck no lymphadenopathy, supple and no JVD Resp normal respiratory effort and clear to auscultation bilaterally Cardio regular rate, regular rhythm, S1 normal heart sound, S2 normal heart sound and no murmurs GI normal to inspection, nondistended, normoactive bowel sounds, non-distended and no masses; Negative for non-tender or hepatosplenomegaly GI Narrative: There is tenderness in the suprapubic area and left and right CVA area. Auscultation: normoactive bowel sounds Palpation: soft Back/Spine General Back: CVA tenderness right Thoracic Spine / Upper Back: Negative for thoracic spinal tenderness Lumbar Spine / Lower Back: Negative for lumbar spinal tenderness Extremity normal to inspection General Extremety ED: Negative for edema or tenderness General Extremity: Negative for edema Neuro oriented x3 and CN's II-XII intact bilaterally Sensorium / Orientation: alert Psych mental status grossly normal Skin no rashes or lesions noted, no wounds and skin turgor normal General Skin Exam: Negative for jaundice or pallor MDM MDM MDM Narrative Medical decision making narrative: Need to evaluate for urinary tract infection, renal ureterolithiasis, possible pelvic source. Will obtain test to determine if ectopic is in the consideration. Plan pelvic exam appropriate blood work urinalysis. Prior to performing pelvic exam patient passed a stone. She still having discomfort however. The pelvic exam was not performed in light of the fact that she just passed a stone her pain decreased. History & Record Review Additional record(s) reviewed:: Prior ED visit Lab Data Attestation: I reviewed the patient's lab results. Lab results narrative: CBC is unremarkable. Serum is negative. Urinalysis is positive for protein and occult blood on macro. Clarity is slightly cloudy. Patient has 5-10 RBCs over 5 WBCs and 1+ bacteria. Labs: Laboratory Results - last 24 hr 11/12/24 11/12/24 12:50 13:00 WBC 5.6 RBC 4.01 L Hgb 12.2 Hct 35.3 L MCV 88.0 MCH 30.4 MCHC 34.6 RDW Std Deviation 40.0 RDW Coeff of Harinder 12.5 Plt Count 205 MPV 10.0 Immature Gran % (Auto) 0.200 Neut % (Auto) 59.7 Lymph % (Auto) 31.1 [place] % (Auto) 7.1 Eos % (Auto) 1.4 Baso % (Auto) 0.5 Absolute Neuts (auto) 3.3 Absolute Lymphs (auto) 1.74 Nucleated RBC % 0 Serum , Qual NEGATIVE Urine Color Yellow Urine Clarity Sl. Cloudy Urine pH 6.0 Ur Specific [place] 1.010 Urine Protein 15 H Urine Glucose (UA) Normal Urine Ketones Negative Urine Occult Blood 250 H Urine Nitrite Negative Urine Bilirubin Negative Urine Urobilinogen Normal Ur Leukocyte Esterase Negative Urine RBC 5-10 SEEN Urine WBC 0-5 SEEN Ur Squamous Epith Cells 0-5 SEEN Urine Bacteria 1+ Urine Mucus 0 SEEN Radiography Diagnostic Testing: Clinical Impression(s) from Imaging Studies Abdomen/Pelvis CT 11/12/24 14:42 IMPRESSION: No acute abnormality [facility] Agree with radiology interpretation that there is no evidence of ureteral stone or hydronephrosis. Treatment and Re-Evaluation :: Since patient is still having urinary symptoms even though she passed the stone and has pyuria with 1+ bacteria we will treat with Macrobid. She also was given a work excuse. Discharge Plan Triage Chief Complaint: Complaint ED Provider: Bates,Hernán Dx/Rx/DC Orders Clinical Impression: Ureterolithiasis, Bacteriuria, Elevated blood-pressure reading without diagnosis of hypertension Instructions: UTIs, ED Kidney Stone, Passed Prescriptions: New nitrofurantoin monohyd/m-cryst 100 mg capsule 100 mg PO Q12 Qty: 10 0RF No Action oxycodone-acetaminophen 5-325 mg tablet 1 tab PO Q6H PRN PRN (Reason: Pain) 3 Days Qty: 12 0RF ondansetron 4 mg tablet,disintegrating 4 mg PO Q6H PRN PRN (Reason: Nausea) Qty: 15 0RF sulfamethoxazole-trimethoprim 800-160 mg tablet 1 tab PO BID Qty: 20 0RF Stand Alone Forms: ED Work / School Excuse Primary Care Provider: Pamela Hylton Referrals: Pamela Hylton DO [Primary Care Provider] - As Needed Activity Restrictions/Additional Instructions: Return if you have a temperature greater than 100, shaking chills or worsening urinary symptoms Print Language: Colombian Disposition Disposition: Home, Self Care
[2024-11-12 16:01] VITALS: BP 115/74; PULSE 53; RESP 16; TEMP 36.6; O2SAT 100
== END 2024-11-12 16:02 | disposition home or self-care (01) ==
PROVIDERS: Emergency Provider Emergency Medicine; PCP Family Medicine; Referring Provider Emergency Medicine; Visit Provider Emergency Medicine
DX: N20.1 Calculus of ureter (principal); R82.71 Bacteriuria; R03.0 Elevated blood-pressure reading, without diagnosis of hypertension; Z87.442 Personal history of urinary calculi
CPT/HCPCS: 74176; 81001; 84703; 85025; 99283; A4216